=== PATIENT | male | born 1965 | race Caucasian/White ===

== ENCOUNTER 2018-10-27 16:03 | Emergency (ER) | payer MEDICAID, SELFPAY ==
[2018-10-27] VITALS (14 sets, daily range): BP systolic 114–160; BP diastolic 76–106; PULSE 67–81; RESP 16–26; TEMP 36.6; O2SAT 93–97
--- NOTE | 2018-10-27 16:11 | DI.RAD_ITS ---
SYMPTOM/DIAGNOSIS: CHEST PAIN, R/O ACUTE DISEASE PA AND LATERAL CHEST: 10/27 The heart is at the upper limits of normal in size. The lungs are generally clear with a truong linear radiodensity in right middle lobe consistent with area of scarring or atelectasis. No pleural effusion seen. CONCLUSION: No evidence of acute process.
--- NOTE | 2018-10-27 16:16 | ED.GENADUL_ITS ---
Discharge Plan Disposition Patient Disposition: HOME Condition: Improving Discharge Details Chief Complaint: Chest Pain Clinical Impression: Chest wall pain, Chronic chest pain Primary Care Provider: Malvin Machuca ED Provider: Kristin Carl Home Meds and New Rx's Prescriptions: New lidocaine [Lidoderm] 5 % adhesive patch,medicated 1 patch TP DAILY Qty: 15 RF: 0 Continued aspirin 81 mg Tablet,Delayed Release (Dr/Ec) 81 mg PO DAILY RF: 0 lisinopril 10 mg Tablet 10 mg PO DAILY RF: 0 montelukast [Singulair] 10 mg Tablet 10 mg PO QHS RF: 0 Flovent HFA 110 mcg/actuation Hfa Aerosol Inhaler 2 puff INHALATION BID RF: 0 acetylcysteine [NAC] 600 mg Capsule 600 mg PO DAILY RF: 0 Discharge Instructions Instructions: Chronic Pain (ED), Chest Wall Pain (ED) Additional Instructions: Alternate ice and heat to the affected area several times daily for 20 minutes at a time. Alternate Tylenol and Motrin as needed and directed for pain. Use the Lidoderm patch as directed. Call your primary care doctor tomorrow to schedule follow-up appointment for reevaluation. Return immediately to the emergency department if you develop any worsening or new concerning symptoms. Discharge Data Discharge Physician: Kristin Carl Medical Decision Making 1610 -- 53-year-old male with a history of asthma, who presents with left-sided chest pain and intermittent shortness of breath for the past 10 days. Blood pressure mildly hypertensive, remainder vitals within normal limits. EKG notes a rate of 74, sinus, T wave inversion in lead III. No acute ST ischemic changes. Patient has localized tenderness to palpation of his left anterior and inferior axillary region which could be musculoskeletal chest wall pain. He does admit to recent travel last week approximately 3 hours in the car and has occasional shortness of breath but with normal oxygen saturation, heart rate and respiratory rate. Differential diagnosis includes chest wall pain, ACS, PE. Denies tearing sensation and pain present for 1 week so doubt dissection. Will place an IV, give bolus IV Fluids Place, Lidoderm patch, Toradol, screening labs as well as chest x-ray. Labs and imaging reviewed. Normal troponin. D-dimer 2244. Patient later stated that he had a right calf injury a few weeks ago which he popped a muscle and had ecchymosis and edema for several days before his chest pain started. A CT chest to rule out PE ordered. Patient refused the Toradol as he later states that he had Motrin 1 hour ago. Chest x-ray noted a atelectasis underscore in the right middle lobe. CT chest negative for PE but notes again scar right middle lobe as well as mild bilateral lung groundglass opacities, nonspecific. Patient has no report of fever, cough, normal white blood cell count, normal oxygen saturation, respiratory rate and heart rate so doubt pneumonia or infectious process. 1810 -- patient feels much better and is requesting to go home. As patient's pain has been present for 10 days and is tender to touch, discussed that this most likely could be musculoskeletal chest pain. He is advised to alternate ice and heat, Tylenol Motrin and will send home with prescription for Lidoderm patch. He was informed of his CT results and advised to follow-up with his primary care doctor for reevaluation and for referral for additional imaging if indicated. Medical Records Medical records reviewed: Yes I reviewed the patient's medical records. Imaging Data Radiologic Study: Radiologist's impression: XR Chest, 2 Views EXAM DATE/TIME: 10/27/2018 4:12 PM CLINICAL HISTORY: 53 years old, male; Other: Left sided chest pain, worsening pain today TECHNIQUE: Imaging protocol: XR of the chest Views: 2 views. COMPARISON: No relevant prior studies available. FINDINGS: Lungs: Horizontal density within the right middle lobe, consistent with atelectasis and/or scar. The lungs are otherwise clear. No pulmonary consolidation. Pleural space: Unremarkable. No pleural effusion. No pneumothorax. Heart/Mediastinum: Unremarkable. No cardiomegaly. Bones/joints: Unremarkable. IMPRESSION: Atelectasis and/or scar in the right middle lobe. CT Angiography Chest With Contrast EXAM DATE/TIME: 10/27/2018 4:59 PM CLINICAL HISTORY: 53 years old, male; Other: L sided chest pain, R/O pe TECHNIQUE: Imaging protocol: Computed tomographic angiography of the chest with intravenous contrast. 3D rendering: MIP reconstructed images were created and reviewed. Radiation optimization: All CT scans at this facility use at least one of these dose optimization techniques: automated exposure control; mA and/or kV adjustment per patient size (includes targeted exams where dose is matched to clinical indication); or iterative reconstruction. Contrast material: OMNIPAQUE 350; Contrast volume: 100 ml; Contrast route: IV; COMPARISON: CR XR CHEST 2V PA LATERAL 10/27/2018 4:29 PM FINDINGS: Pulmonary arteries: Normal. No pulmonary emboli. Aorta: Unremarkable. No aortic aneurysm. No aortic dissection. Lungs: Mild linear atelectasis and/or scar is present within the right middle lobe. There are mild groundglass opacities within both lungs. Differential diagnosis includes edema, infection, and other nonspecific interstitial processes. No milagros pulmonary consolidation. Pleural space: Unremarkable. No pneumothorax. No pleural effusion. Heart: Unremarkable. No cardiomegaly. No pericardial effusion. Lymph nodes: Unremarkable. No enlarged lymph nodes. Bones/joints: Degenerative spondylosis of the thoracic spine. No fracture or suspicious bone lesion. Soft tissues: Unremarkable. IMPRESSION: 1. No pulmonary arterial embolism. 2. Linear atelectasis and/or scar in the right middle lobe. 3. Mild bilateral lung groundglass opacities, nonspecific. Lab Data Lab results reviewed: Yes I reviewed the patient's lab results. Laboratory Tests Range/Units 10/27/18 10/27/18 10/27/18 16:05 16:05 16:05 WBC (4.4-10.8) k/cumm 7.52 RBC (4.50-6.00) m/cumm 5.28 Hgb (13.5-17.5) g/dL 15.2 Hct (40.0-50.0) % 46.2 MCV (80-95) fL 87.5 MCH (27.0-33.0) pg 28.8 MCHC (32.0-36.0) g/dL 32.9 RDW (11.8-14.1) % 13.2 Plt Count (130-400) x1000/uL 269 MPV (8.0-11.0) fL 10.4 Immature Gran % 0.3 Neutrophils % 59.3 Lymphocytes % 26.6 Monocytes % 9.6 Eosinophils % 3.7 Basophils % 0.5 Absolute Neutrophils (1.2-6.7) k/cumm 4.46 Absolute Lymphocytes (1.2-3.4) k/cumm 2.00 Absolute Monocytes (0.11-0.7) k/cumm 0.72 H Absolute Eosinophils (0.0-0.7) k/cumm 0.28 Absolute Basophils (0.0-0.2) k/cumm 0.04 D-Dimer (<500) ng/mlFEU 2244 H Sodium (136-145) mmol/L 144 Potassium (3.5-5.1) mmol/L 4.0 Chloride (98-107) mmol/L 106 Carbon Dioxide (21.0-32.0) mmol/L 28.8 Anion Gap (3-11) mmol/L 9.2 BUN (7-18) mg/dL 16 Creatinine (0.70-1.30) mg/dL 1.23 Estimated GFR/1.73 m2 (mL/min/1.73m2) >= 60.00 Glucose (70-100) mg/dL 113 H Calcium (8.5-10.1) mg/dL 8.7 Magnesium (1.8-2.4) mg/dL 1.8 Total Bilirubin (0.2-1.0) mg/dL 0.2 AST (15-37) U/L 18 ALT (16-63) U/L 43 Alkaline Phosphatase (46-116) U/L 70 Troponin I (0.00-0.06) ng/mL < 0.05 Total Protein (6.4-8.2) g/dL 7.8 Albumin (3.4-5.0) g/dL 3.9 Lipase (73-393) U/L 246 ECG Data Attestation: I personally reviewed and interpreted this ECG (s) as follows: Interpretation: Rate of 74, sinus, T wave inversion in lead III. No acute ST elevation or depression. HI 176. QTc 395. QRS 94. HPI General Mode of arrival: ambulatory . Date/Time Provider Initiated Documentation: 10/27/18 16:05 . Limitations to Documentation: no limitations . Information obtained by: patient . HPI Narrative: Patient is a 53-year-old male with a history of asthma who presents with left-sided chest pain for the past 10 days. Patient describes the pain as constant, alternating between burning and sharp 2/10 at its best and 7/10 at its worse. Denies any aggravating or alleviating factors. He states he took ibuprofen 1 hour ago. He admits to intermittent shortness of breath but denies any at present. He denies any fever, cough, nausea, vomiting or dizziness. He states he does a lot around the house but denies any known injury. He admits to traveling to [place] on October 21 for a wedding approximately 3 hours in the car. He denies any leg pain or swelling or recent surgeries. Patient later related that he has had right-sided lower leg pain after an injury a few weeks ago. Patient states he was pushing a cart up a hill when he popped a calf muscle. He developed right leg swelling and bruising that has since improved. He states after this occurred, he developed chest pain approximately 10 days ago. Related Data Home Medications Medication Instructions Recorded Confirmed Flovent HFA 2 puff INHALATION BID 10/27/18 10/27/18 acetylcysteine [NAC] 600 mg PO DAILY 10/27/18 10/27/18 aspirin 81 mg PO DAILY 10/27/18 10/27/18 lidocaine [Lidoderm] 1 patch TP DAILY #15 each 10/27/18 lisinopril 10 mg PO DAILY 10/27/18 10/27/18 montelukast [Singulair] 10 mg PO QHS 10/27/18 10/27/18 Previous Rx's Medication Instructions Recorded lidocaine [Lidoderm] 1 patch TP DAILY #15 each 10/27/18 Allergies Allergy/AdvReac Type Severity Reaction Status Date / Time No Known Allergies Allergy Unverified 10/27/18 16:12 General Stated Complaint: Chest Pain AMA: 2 Review of Systems Review of Systems All systems reviewed & are unremarkable except as noted in HPI and below Constitutional Reports as per HPI, Denies chills and Denies fever(s) Eyes Denies blurry vision ENT Denies dizziness, Denies sore throat and Denies throat swelling Cardiovascular Reports chest pain and Denies dyspnea Respiratory Denies cough and Denies dyspnea Gastrointestinal Denies abdominal pain, Denies diarrhea and Denies vomiting Genitourinary Denies hematuria and Denies dysuria Musculoskeletal Denies back pain and Denies numbness Integumentary/Breasts Denies lesions and Denies rash Neurologic Denies dizziness, Denies focal weakness and Denies numbness Allergic/Immunologic Denies throat swelling [facility] Medical History Asthma (Chronic) Surgical History History of hernia repair (Chronic) History of sinus surgery (Acute) Social History Smoking/Tobacco Use Status: Never Alcohol Intake: current Alcohol Intake frequency: a few times a week Alcohol type: wine Drug use: Never Substance use type: does not use Do you feel safe at home: Yes Do you feel safe in your relationship?: Yes Exam Const General: cooperative, healthy appearing and no acute distress HENMT Head: normal to inspection Face and sinus: normal facial exam Eyes General: appearance normal, both eyes and all related structures EOM: EOM intact bilaterally Neck Neck: normal visual inspection and No submandibular swelling Lymphatic: no lymphadenopathy noted Chest Chest: normal inspection of the chest Chest/axillae images: 1. Localized area of tenderness L lateral chest. No evidence of erythema, ecchymoses, open wounds or rash. Resp Effort & Inspection: normal respiratory effort and able to speak in complete sentences Auscultation: clear to auscultation bilaterally Cardio Rate: regular rate Rhythm: regular rhythm GI Inspection: normal to inspection and obesity Palpation: soft, not firm, not rigid and nontender Auscultation: normal bowel sounds Male General Exam: Yes normal external exam Skin General skin exam: no rashes or lesions noted Neuro General: alert, awake and oriented x3 Cognition: normal cognition Speech: speech normal Motor: muscle tone normal throughout Sensory Exam: no sensory deficits noted Extrem General: normal to inspection, full ROM, normal capillary refill, no calf tenderness bilaterally and no edema Psych Appearance: grossly normal Mental Status: mental status grossly normal Speech and Movement: speech and movement normal Affect: normal affect Course Vital Signs Temperature 97.9 F 10/27/18 16:05 Pulse 75 10/27/18 16:05 Respiratory Rate 10/27/18 16:05 Blood Pressure 160/98 H 10/27/18 16:05 Pulse Oximetry 95 10/27/18 16:05 Temperature 97.9 F 10/27/18 16:05 Temperature Source Temporal Artery Scan 10/27/18 16:05 Pulse 75 10/27/18 16:05 Respiratory Rate 10/27/18 16:05 Respiratory Effort Non-Labored 10/27/18 16:10 Blood Pressure 160/98 H 10/27/18 16:05 Blood Pressure Position Supine 10/27/18 16:05 Pulse Oximetry 95 10/27/18 16:05 Oxygen Delivery Method Room Air 10/27/18 16:05 Oxygen Flow Rate 0 10/27/18 16:05 Pain Level 6 10/27/18 16:05
[2018-10-27 16:30] LABS: Abs Immature Grans 0.02 k/cumm (0.0-0.09); Absolute Basophil Count 0.04 k/cumm (0.0-0.2); Absolute Eosinophil Count 0.28 k/cumm (0.0-0.7); Absolute Monocyte Count 0.72 k/cumm (0.11-0.7); Absolute Neutrophil Count 4.46 k/cumm (1.2-6.7); Basophils % 0.5; Eosinophils % 3.7; HCT 46.2 % (40.0-50.0); HGB 15.2 g/dL (13.5-17.5); Immature Grans % 0.3; Lymphocytes % 26.6; Mean Corp. HGB Concentration 32.9 g/dL (32.0-36.0); Mean Corpuscular Hemoglobin 28.8 pg (27.0-33.0); Mean Corpuscular Volume 87.5 fL (80-95); Mean Platelet Volume 10.4 fL (8.0-11.0); Monocytes % 9.6; Neutrophils % 59.3; Platelet Count 269 x1000/uL (130-400); RBC 5.28 m/cumm (4.50-6.00); RBC Distribution Width 13.2 % (11.8-14.1); White Blood Cell Count 7.52 k/cumm (4.4-10.8)
[2018-10-27] MEDS: Normal Saline 500 ML IV (16:37)
[2018-10-27] MEDS: Lidocaine 5% Patch 1 PATCH TP (16:37)
[2018-10-27 16:42] LABS: ALT 43 U/L (16-63); AST 18 U/L (15-37); Albumin 3.9 g/dL (3.4-5.0); Alkaline Phosphatase 70 U/L (46-116); Anion Gap 9.2 mmol/L (3-11); BUN 16 mg/dL (7-18); Bilirubin, Total 0.2 mg/dL (0.2-1.0); CO2 28.8 mmol/L (21.0-32.0); CREATININE 1.23 mg/dL (0.70-1.30); Calcium 8.7 mg/dL (8.5-10.1); Chloride 106 mmol/L (98-107); Glucose 113 mg/dL (70-100); Lipase 246 U/L (73-393); Magnesium 1.8 mg/dL (1.8-2.4); Sodium 144 mmol/L (136-145); Total Protein 7.8 g/dL (6.4-8.2)
[2018-10-27 16:43] LABS: Troponin I < 0.05 ng/mL (0.00-0.06)
--- NOTE | 2018-10-27 16:43 | DI.VRAD_ITS ---
EXAM: XR Chest, 2 Views EXAM DATE/TIME: 10/27/2018 4:12 PM CLINICAL HISTORY: 53 years old, male; Other: Left sided chest pain, worsening pain today TECHNIQUE: Imaging protocol: XR of the chest Views: 2 views. COMPARISON: No relevant prior studies available. FINDINGS: Lungs: Horizontal density within the right middle lobe, consistent with atelectasis and/or scar. The lungs are otherwise clear. No pulmonary consolidation. Pleural space: Unremarkable. No pleural effusion. No pneumothorax. Heart/Mediastinum: Unremarkable. No cardiomegaly. Bones/joints: Unremarkable. IMPRESSION: Atelectasis and/or scar in the right middle lobe. Dictated and Authenticated by: Braydon Yin MD. Ordering:CANDELARIO Foster MD
[2018-10-27 16:58] LABS: D-Dimer 2244 ng/mlFEU (<500)
--- NOTE | 2018-10-27 16:58 | DI.CT_ITS ---
SYMPTOM/DIAGNOSIS LEFT SIDED CHEST PAIN, R/O PE CT ANGIOGRAPHY CHEST: 10/27 CT angiography was performed with multi slice acquisition and multi planar and 3D reconstruction. CT angiography of the chest was performed with a bolus infusion of 100 cc Omnipaque 350. Images obtained through the upper abdomen show unremarkable appearance of visualized portions of liver, spleen, pancreas and adrenals. There is no evidence of pulmonary embolic disease. No thoracic, aortic abnormalities seen. No pleural effusion. The lungs are predominantly clear with a small area of linear scarring or atelectasis in right middle lobe and mild mosaic attenuation/ground glass opacities which has a nonspecific appearance. Tracheobronchial tree appears intact. No mediastinal or hilar adenopathy. CONCLUSION: No evidence of pulmonary embolic disease. Question mosaic attenuation vs mild ground glass opacities, nonspecific appearance.
[2018-10-27] MEDS: Omnipaque 350 MG/ML 100 ML BTL IJ (17:15)
[2018-10-27] MEDS: Normal Saline Flush 10 ML SYR IVP (17:16)
--- NOTE | 2018-10-27 17:45 | DI.VRAD_ITS ---
EXAM: CT Angiography Chest With Contrast EXAM DATE/TIME: 10/27/2018 4:59 PM CLINICAL HISTORY: 53 years old, male; Other: L sided chest pain, R/O pe TECHNIQUE: Imaging protocol: Computed tomographic angiography of the chest with intravenous contrast. 3D rendering: MIP reconstructed images were created and reviewed. Radiation optimization: All CT scans at this facility use at least one of these dose optimization techniques: automated exposure control; mA and/or kV adjustment per patient size (includes targeted exams where dose is matched to clinical indication); or iterative reconstruction. Contrast material: OMNIPAQUE 350; Contrast volume: 100 ml; Contrast route: IV; COMPARISON: CR XR CHEST 2V PA LATERAL 10/27/2018 4:29 PM FINDINGS: Pulmonary arteries: Normal. No pulmonary emboli. Aorta: Unremarkable. No aortic aneurysm. No aortic dissection. Lungs: Mild linear atelectasis and/or scar is present within the right middle lobe. There are mild groundglass opacities within both lungs. Differential diagnosis includes edema, infection, and other nonspecific interstitial processes. No milagros pulmonary consolidation. Pleural space: Unremarkable. No pneumothorax. No pleural effusion. Heart: Unremarkable. No cardiomegaly. No pericardial effusion. Lymph nodes: Unremarkable. No enlarged lymph nodes. Bones/joints: Degenerative spondylosis of the thoracic spine. No fracture or suspicious bone lesion. Soft tissues: Unremarkable. IMPRESSION: 1. No pulmonary arterial embolism. 2. Linear atelectasis and/or scar in the right middle lobe. 3. Mild bilateral lung groundglass opacities, nonspecific. Dictated and Authenticated by: Braydon Yin MD. Ordering:CANDELARIO Foster MD
== END 2018-10-27 18:28 | disposition home or self-care (01) ==
PROVIDERS: Emergency Provider Physician Assistant; PCP Nurse Practitioner Family
DX: R07.81 Pleurodynia (principal); R06.02 Shortness of breath; S86.101A Unspecified injury of other muscle(s) and tendon(s) of posterior muscle group at lower leg level, right leg, initial encounter; X50.0XXA Overexertion from strenuous movement or load, initial encounter; R03.0 Elevated blood-pressure reading, without diagnosis of hypertension; G89.29 Other chronic pain
CPT/HCPCS: 36415; 71275; 80053; 83690; 93005; 96361; 96374; 99285; 71046; 83735; 84484; 85025; 85379; 93010; J3490

== ENCOUNTER 2019-02-21 18:39 | Outpatient (REF) | payer OTHER, SELFPAY ==
[2019-02-21 18:46] LABS: HCT 44.8 % (40.0-50.0); HGB 14.5 g/dL (13.5-17.5); Mean Corp. HGB Concentration 32.4 g/dL (32.0-36.0); Mean Corpuscular Hemoglobin 28.6 pg (27.0-33.0); Mean Corpuscular Volume 88.4 fL (80-95); Mean Platelet Volume 10.7 fL (8.0-11.0); Platelet Count 348 x1000/uL (130-400); RBC 5.07 m/cumm (4.50-6.00); RBC Distribution Width 13.2 % (11.8-14.1); White Blood Cell Count 7.57 k/cumm (4.4-10.8)
[2019-02-21 19:04] LABS: PROTEIN 10.9 mg/dL
[2019-02-21 19:07] LABS: COMMENT (LAB VIEW ONLY) 139.79 mg/dL; Microalb ug/mg Crea 2.9 ug/mg Cr
[2019-02-21 19:17] LABS: ALT 38 U/L (16-63); AST 22 U/L (15-37); Albumin 3.8 g/dL (3.4-5.0); Alkaline Phosphatase 72 U/L (46-116); Anion Gap 8.7 mmol/L (3-11); BUN 16 mg/dL (7-18); Bilirubin, Total 0.3 mg/dL (0.2-1.0); CO2 28.3 mmol/L (21.0-32.0); CREATININE 0.94 mg/dL (0.70-1.30); Calcium 9.1 mg/dL (8.5-10.1); Chloride 105 mmol/L (98-107); Glucose 88 mg/dL (74-106); Potassium 4.6 mmol/L (3.5-5.1); Sodium 142 mmol/L (136-145)
[2019-02-21 19:33] LABS: Prot/Crea Ur Ratio 0.07
[2019-02-21 20:19] LABS: Calculated LDL 83 mg/dL; Cholesterol 157 mg/dL (<200); HDL Cholesterol 49 mg/dL (40-60); Triglyceride 129 mg/dL (<150); Vitamin B12 735 pg/mL (193-986)
== END 2019-02-21 18:59 ==
LOC: NCHCN 18:39
PROVIDERS: PCP Nurse Practitioner Family; Visit Provider Nurse Practitioner Family
DX: I10 Essential (primary) hypertension (principal); I25.10 Atherosclerotic heart disease of native coronary artery without angina pectoris
CPT/HCPCS: 80053; 80061; 85027; 82043; 82565; 82570; 82607; 84156

== ENCOUNTER 2019-08-29 14:42 | Outpatient (REF) | payer OTHER, SELFPAY ==
[2019-08-29 18:41] LABS: ALT 38 U/L (16-63); AST 22 U/L (15-37); Albumin 4.3 g/dL (3.4-5.0); Alkaline Phosphatase 67 U/L (46-116); Anion Gap 8.2 mmol/L (3-11); BUN 21 mg/dL (7-18); Bilirubin, Total 0.4 mg/dL (0.2-1.0); CO2 28.8 mmol/L (21.0-32.0); CREATININE 1.03 mg/dL (0.70-1.30); Calcium 9.5 mg/dL (8.5-10.1); Calculated LDL 83 mg/dL (<100); Chloride 104 mmol/L (98-107); Cholesterol 165 mg/dL (<200); Glucose 92 mg/dL (74-106); HDL Cholesterol 56 mg/dL (40-60); Potassium 4.6 mmol/L (3.5-5.1); Sodium 141 mmol/L (136-145); TSH (W/Ref FT4) 1.86 uIU/mL (0.36-3.74); Total Protein 7.2 g/dL (6.4-8.2); Triglyceride 131 mg/dL (<150)
== END 2019-08-29 15:02 ==
LOC: NCHCN 14:42
PROVIDERS: PCP Nurse Practitioner Family; Visit Provider Nurse Practitioner Family
DX: I10 Essential (primary) hypertension (principal); I25.10 Atherosclerotic heart disease of native coronary artery without angina pectoris; R41.3 Other amnesia
CPT/HCPCS: 80053; 80061; 84443

== ENCOUNTER 2019-10-03 01:32 | Outpatient (CLI) | payer OTHER, SELFPAY ==
--- NOTE | 2019-10-03 | DI.US_ITS ---
EXAM: US SCROTUM CLINICAL HISTORY: F/U ABNL US, R93.811, HYPERECHOIC AREA. TECHNIQUE: Scrotal ultrasound performed using grayscale, color-flow and spectral Doppler analysis. COMPARISON: US RAD US SCROTUM WITH LIMITED DOPPLER from 08/31/2014 FINDINGS: Right testicle: 0.2 x 3.1 x 3.3 cm Echogenicity: Normal. Contour: Smooth. Mass: 3 echogenic areas are again seen in the right testicle. The largest measures 0.3 cm. These ar e unchanged compared to the prior examination. Microlithiasis: None. Hydrocele: There is a right hydrocele measuring 5.1 x 1.6 x 5.3 cm. Variocele: None. Hernia: No peristalsing bowel loop identified. Epididymis: Normal. Left testicle: 4 x 2.6 x 3.3 cm Echogenicity: Normal. Contour: Smooth. Mass: None seen. Microlithiasis: None. Hydrocele: None. Variocele: Left varicocele present. Hernia: No peristalsing bowel loop identified. Epididymis: 1 cm simple left epididymal head cyst. DOPPLER: Color: Symmetric and uniform, no hyperemia. Duplex: Bilateral testicular arterial waveforms visualized. IMPRESSION: Stable echogenic lesions in the right testicle. DATA REPOSITORY:
== END 2019-10-03 01:52 ==
PROVIDERS: PCP Nurse Practitioner Family; Visit Provider Nurse Practitioner Family
DX: R93.811 Abnormal radiologic findings on diagnostic imaging of right testicle (principal)
CPT/HCPCS: 76870

== ENCOUNTER 2020-04-29 17:06 | Outpatient (CLI) | payer OTHER, SELFPAY ==
--- NOTE | 2020-04-29 17:00 | RT.EKG_ITS ---
APPROVED REPORT Exam: Resting ECG Patient Location: O HR:87 bpm ECG Measurements Heart Rate 87 AXIS SD 196 P 35 QRSd 89 QRS 56 QT 345 T 8 QTc 416 Conclusion Sinus rhythm...normal P axis, V-rate 60- 99
== END 2020-04-29 17:07 | disposition home or self-care (01) ==
LOC: DI.CM 17:07
PROVIDERS: PCP Nurse Practitioner Family; Visit Provider Nurse Practitioner Family
DX: R07.9 Chest pain, unspecified (principal); R42 Dizziness and giddiness; I10 Essential (primary) hypertension; E66.09 Other obesity due to excess calories
CPT/HCPCS: 93010

== ENCOUNTER 2020-04-29 17:39 | Emergency (ER) | payer OTHER, SELFPAY ==
[2020-04-29] VITALS (33 sets, daily range): BP systolic 120–154; BP diastolic 79–99; PULSE 68–90; RESP 14–24; TEMP 36.7–37; O2SAT 96–99
--- NOTE | 2020-04-29 17:30 | RT.EKG_ITS ---
APPROVED REPORT Exam: Resting ECG Patient Location: E HR:80 bpm ECG Measurements Heart Rate 80 AXIS RI 198 P 48 QRSd 91 QRS 69 QT 356 T 25 QTc 411 Conclusion Sinus rhythm. No ST elevation
--- NOTE | 2020-04-29 18:00 | DI.RAD_ITS ---
EXAM: XR CHEST 2V PA LATERAL CLINICAL HISTORY: L anterior chest pain TECHNIQUE: 2D digital imaging was performed. COMPARISON: CR XR CHEST 2V PA LATERAL from 10/27/2018 FINDINGS: MEDIASTINUM: Normal. HEART: Normal. PULMONARY VASCULATURE: Normal. LUNGS: Clear. PLEURAL SPACE: No pleural effusion or pneumothorax. BONE:Within normal limits for the patient's age. OTHER FINDINGS:Normal. IMPRESSION: No acute pulmonary findings. DATA REPOSITORY: RADIATION DOSE DELIVERED:
--- NOTE | 2020-04-29 18:14 | ED.GENADUL_ITS ---
Discharge Plan Disposition Patient Disposition: HOME Condition: Improving Discharge Details Clinical Impression: Left-sided chest pain Primary Care Provider: Malvin Machuca ED Provider: Alcides Antoine Home Meds and New Rx's Prescriptions: Continued aspirin 81 mg Tablet,Delayed Release (Dr/Ec) 81 mg PO DAILY RF: 0 lisinopril 10 mg Tablet 10 mg PO DAILY RF: 0 montelukast [Singulair] 10 mg Tablet 10 mg PO QHS RF: 0 Flovent HFA 110 mcg/actuation Hfa Aerosol Inhaler 2 puff INHALATION BID RF: 0 acetylcysteine [NAC] 600 mg Capsule 600 mg PO DAILY RF: 0 Discharge Instructions Instructions: Chest Pain (ED) Additional Instructions: As we discussed, you may have Tylenol and/or ibuprofen as needed for discomfort. I recommend you not lift heavy objects for 2 to 3 days time to give yourself some recovery. We will arrange an outpatient stress test for you. Return if you develop increasing chest pain, difficulty breathing, or any other acute concerns Continue your regularly prescribed medications. Medical Decision Making Pleasant 55-year-old male presents with 7 to 10 days of left anterior chest pain that feels achy and constant. Questions whether it is due to overuse at work. He has a history of asthma and has had some mild shortness of breath. No cough. No weight gain or swelling. He initially is slightly hypertensive and then corrects the blood pressure 131/87, pulse 71, 98% sat on room air. Exam is reassuring. Given diagnosis includes muscular strain, angina, ACS. IV access established, screening labs obtained, patient placed on property assessment monitor and referred for laboratory testing and chest x-ray. Patient presented of approximately 3 hours time. Troponin was negative x2, chest x-ray unremarkable, remainder of his labs reassuring. He was given 50 mg of Toradol with mild improvement. Discussed with him that I will arrange for an outpatient stress test. He understands to return for recurrent or escalating chest pain, difficulty breathing, or any other acute concerns. HPI General Mode of arrival: ambulatory . Date/Time Provider Initiated Documentation: 04/29/20 17:40 . Limitations to Documentation: no limitations . Information obtained by: patient . History of Present Illness 55 year old M presents to the emergency department with the chief complaint of Left chest pain for 7 to 10 days time, described as moderate, Quality is described as dull, and is localized to the chest and left. Patient reports no radiation. Patient started experiencing this day(s) and it has been constant. Movement improves symptom(s), Rest worsens symptoms . Patient notes shortness of breath; denies cough, rash and syncope. Patient did receive the following treatments prior to arrival, none Related Data Home Medications Medication Instructions Recorded Confirmed Flovent HFA 2 puff INHALATION BID 10/27/18 04/29/20 acetylcysteine [NAC] 600 mg PO DAILY 10/27/18 04/29/20 aspirin 81 mg PO DAILY 10/27/18 04/29/20 lisinopril 10 mg PO DAILY 10/27/18 04/29/20 montelukast [Singulair] 10 mg PO QHS 10/27/18 04/29/20 Allergies Allergy/AdvReac Type Severity Reaction Status Date / Time No Known Allergies Allergy Unverified 04/29/20 17:49 General Stated Complaint: Chest Pain AMA: 2 Review of Systems Narrative: 6 systems reviewed and otherwise negative. No rash. No recent illness. [facility] Medical History (Updated 04/29/20 @ 20:27 by Alcides Antoine MD) Asthma Surgical History History of hernia repair History of sinus surgery Social History Smoking/Tobacco Use Status: Never Smoking risk assessment performed?: Yes Alcohol Intake: current Alcohol Intake frequency: a few times a week Alcohol type: wine Drug use: Never Substance use type: does not use Do you feel safe at home: Yes Do you feel safe in your relationship?: Yes Exam Narrative Exam Narrative: GEN: awake, alert, oriented 3. Pleasant, well groomed, interactive. HEAD: Normocephalic, atraumatic ENT: Mucous membranes moist, oropharynx unremarkable, External ear exam unremarkable EYES: PERRL, EOMI NECK: Full ROM, no YUSEF, no menigismus CHEST/RESP: Nontender, clear to auscultation bilateral, no wheeze/rhonchi/rales CARDIOVASCULAR: RRR, no murmur, rub lenin. 2+ Rad pulse bilateral ABDOMEN: Soft, nontender, no mass. +Bowel sounds EXT: Full ROM, no edema, no rash Neuro: Grossly normal neurologic exam, conversant, interactive. Psych: Speech fluent, thoughts congruent, affect normal Course Vital Signs Vital signs: Vital Signs Temperature 37 C 04/29/20 17:43 Pulse 81 04/29/20 17:43 Respiratory Rate 18 04/29/20 17:43 Blood Pressure 154/91 H 04/29/20 17:43 Pulse Oximetry 98 04/29/20 17:43 Temperature 37 C 04/29/20 17:43 Temperature Source Temporal Artery Scan 04/29/20 17:43 Pulse 83 04/29/20 18:00 Pulse 83 04/29/20 18:01 Respiratory Rate 21 04/29/20 18:01 Respiratory Effort Non-Labored 04/29/20 17:49 Respiratory Depth Normal 04/29/20 17:49 Respiratory Pattern Normal 04/29/20 17:49 Blood Pressure 146/99 H 04/29/20 18:00 Blood Pressure Mean 109 04/29/20 18:00 Blood Pressure Position Sitting 04/29/20 17:43 Pulse Oximetry 99 04/29/20 18:01 Oxygen Delivery Method Room Air 04/29/20 17:43 Oxygen Flow Rate 0 04/29/20 17:43 Pain Level 5 04/29/20 17:49
[2020-04-29 18:25] LABS: Abs Immature Grans 0.02 10^3/uL (0.0-0.06); Absolute Basophil Count 0.08 10^3/uL (0.0-0.2); Absolute Eosinophil Count 0.36 10^3/uL (0.0-0.7); Absolute Lymphocyte Count 2.33 10^3/uL (1.2-3.4); Absolute Monocyte Count 0.63 10^3/uL (0.1-0.8); Absolute Neutrophil Count 5.46 10^3/uL (1.2-6.7); Basophils % 0.9; Eosinophils % 4.1; HCT 48.1 % (40.0-50.0); HGB 15.8 g/dL (13.5-17.5); Immature Grans % 0.2; Lymphocytes % 26.2; MCH 29.9 pg (27.0-33.0); MCHC 32.8 % (32.0-36.0); MCV 90.9 fL (80-95); MPV 10.2 fL (8.0-11.0); Monocytes % 7.1; Neutrophils % 61.5; Nucleated RBC 0 %; Platelet Count 295 10^3/uL (130-400); RBC 5.29 10^6/uL (4.36-5.78); RDW-SD 39.8 fL; WBC 8.88 10^3/uL (4.4-10.8)
[2020-04-29 18:47] LABS: ALT 50 U/L (16-63); AST 22 U/L (15-37); Alkaline Phosphatase 81 U/L (46-116); Anion Gap 7.8 mmol/L (3-11); BUN 21 mg/dL (7-18); Bilirubin, Total 0.3 mg/dL (0.2-1.0); CO2 31.2 mmol/L (21.0-32.0); CREATININE 1.1 mg/dL (0.70-1.30); Calcium 9.2 mg/dL (8.5-10.1); Chloride 101 mmol/L (98-107); Glucose 104 mg/dL (74-106); Magnesium 2.3 mg/dL (1.8-2.4); Potassium 3.9 mmol/L (3.5-5.1); Sodium 140 mmol/L (136-145)
[2020-04-29 18:48] LABS: Troponin I < 0.05 ng/mL (<0.06)
[2020-04-29] MEDS: Ketorolac 15 MG/ML VIAL IVP (18:55)
--- NOTE | 2020-04-29 19:08 | DI.VRAD_ITS ---
PROCEDURE INFORMATION: Exam: XR Chest Exam date and time: 04/29/2020 6:52 PM Age: 55 years old Clinical indication: Left-sided chest pain; Patient HX: Upper left chest pain TECHNIQUE: Imaging protocol: XR of the chest Views: 2 views. COMPARISON: CR XR CHEST 2V PA LATERAL 10/27/2018 4:29 PM FINDINGS: Lungs: Clear lungs. Pleural spaces: No pneumothorax. No sizable pleural effusion. Heart/Mediastinum: No cardiomegaly. Bones/joints: Unremarkable. IMPRESSION: Clear lungs. Dictated and Authenticated by: Paramjit Jeffries MD. Ordering:DAI Mcgrath MD
[2020-04-29 19:14] LABS: D-Dimer 492 ng/mlFEU (<500)
[2020-04-29 20:16] LABS: Troponin I < 0.05 ng/mL (<0.06)
[2020-04-30 12:19] LABS: COVID-19 PCR Negative (Negative)
--- NOTE | 2020-05-01 07:34 | NUR.NOTE ---
Nursing Note: mESSAGE LEFT FOR PT TO CALL FOR RESULT.
--- NOTE | 2020-05-01 09:10 | NUR.NOTE ---
Nursing Note: Negative Covid result given. Verbalizes understanding.
== END 2020-04-29 20:45 | disposition home or self-care (01) ==
PROVIDERS: Emergency Provider Emergency Medicine; PCP Nurse Practitioner Family
DX: R07.9 Chest pain, unspecified (principal); Z20.828 Contact with and (suspected) exposure to other viral communicable diseases
CPT/HCPCS: 80053; 93005; 96374; 99284; 71046; 83735; 84484; 85025; 85379; 93010; 99283; J1885

== ENCOUNTER 2020-05-13 02:02 | Outpatient (CLI) | payer OTHER, SELFPAY ==
--- NOTE | 2020-05-13 09:00 | ETT_ITS ---
APPROVED REPORT Exam: Exercise Treadmill Patient Location: Out-Patient Room/Bed: Stress Nurse: Leilani Yin RN Ordering Provider:MALDONADO ELIZABETH, Contact Number: [phone] BMI: 36.33 Baseline Rhythm: Sinus Rhythm Comment: ST elevation leads II, AVF, V2-V6 Indications: Chest pain Medical History Medical History: Hypertension, asthma, obesity Cardiac Medications: lisinopril, aspirin, magnesium Allergies: NKA Cardiac Risk Factors: Hypertension, asthma, obesity, family hx Previous Cardiac Procedures: None Pretest Chest Pain Characteristics: achey L side chest pain / Exercise History: Sedentary Physical Disabilities: None Lung Sounds: Clear to auscultation Heart Sounds: Regular Stress Test Details Test: Exercise stress testing was performed using a Rehan protocol. Rest Stress HR Resting HR Supine: 64 bpm Max Heart Rate (APMHR): 164 bpm Resting HR Standin bpm Target HR (85% APMHR): 139 bpm Max HR Achieved: 160 bpm % of APMHR: 97 Recovery HR: 92 bpm HR response to stress: Normal HR response to stress BP Resting BP Supine: 122/82 mmHg Resting BP Standin/80 mmHg Max BP: 212/82 mmHg Recovery BP: 138/84 mmHg BP response to stress: Abnormal hypertensive response to stress. ECG Resting ECG: Sinus Rhythm Ectopy: None Comment: 1 mmST elevation leads II, AVF, V2-V6 Stress ECG: Sinus Tachycardia ST Change: No significant ST segment changes noted Maximum ST Deviation: 1 mm Arrhythmia: PAC and PVC Recovery ECG: Sinus Rhythm Recovery ST Change: No significant ST segment changes noted Recovery Arrhythmia: None Clinical Reason for Termination: Fatigue Stress Symptoms: General Fatigue, Dyspnea Exercise duration: 10 min23 sec Highest Stage Reached: Stage 4: 4.2 mph at 16% grade. Exercise capacity: 12.43 METs Gipson Treadmill Score: 10 Rate Pressure Product: 05626 Stress ECG Conclusion 1. The patient exercised for 10 minutes (12 METS). The patient no symptoms suggestive of ischemia. 2. There is subtle baseline inferior ST elevation which makes interpretation of the study challenging . 3. There was no clear evidence of ischemia on the ECG portion of the exam. 4. If clinical suspicion remains high suggest further evaluation Gipson Treadmill Score is 10 which is Low risk. Stress Test Summary STAGE Time (mins) Speed (mph) Grade (%) HR BP SYMPTOMS METS Supine 64 122/82 achey L side chest pain 2/10 Standing 68 122/80 1 3 1.7 10 102 138/80 4.6 2 6 2.5 12 126 Dyspnea 7 3 9 3.4 14 154 164/86 10.2 1 min recovery 119 212/82 3 min recovery 94 168/78 Symptoms resolved 6 min recovery 92 138/84
== END 2020-05-13 02:22 ==
PROVIDERS: PCP Nurse Practitioner Family; Visit Provider Emergency Medicine
DX: R07.9 Chest pain, unspecified (principal); I10 Essential (primary) hypertension; J45.909 Unspecified asthma, uncomplicated; E66.9 Obesity, unspecified; Z82.49 Family history of ischemic heart disease and other diseases of the circulatory system
CPT/HCPCS: 93017

== ENCOUNTER 2021-05-02 19:21 | Emergency (ER) | payer OTHER, SELFPAY ==
[2021-05-02 19:33] VITALS: BP 164/101; PULSE 75; RESP 16; TEMP 36.6; O2SAT 98
--- NOTE | 2021-05-02 19:45 | DI.CT_ITS ---
Exam(s) CT HEAD WO EXAM: CT HEAD WO CLINICAL HISTORY: headache. TECHNIQUE: Imaging Protocol: Axial computed tomography images with coronal and sagittal reformatted images were created and reviewed COMPARISON: No exams were available for comparison FINDINGS: There are no skull fractures. Circumferential mucosal thickening in both maxillary sinuses noted, n ot associated with fluid levels therein. Some opacification of ethmoidal air cells bilaterally is no matt. The sphenoid and frontal sinuses are unremarkable and there is no mucosal thickening or fluid i n the visualized mastoid air cells. There is no evidence of intracranial hemorrhage, mass effect, or shift of midline structures. There are no extra-axial fluid collections. The ventricles are not enlarged or shifted and there is no blo od within the ventricular system nor within the basal cisterns. IMPRESSION: No acute intracranial findings on this noninfused CT scan of the brain. Chronic-type mucosal thickening in both maxillary sinuses, not associated with obvious fluid levels w ithin the sinuses. RADIATION DOSE DELIVERED: 820.75mGy.cm Total DLP DATA REPOSITORY: All CT scans at this facility are submitted to the National Radiology Data Registry (NRDR) Dose Index Registry (DIR) with the [employer] (A[employer]). RADIATION OPTIMIZATION: All CT scans at this facility use at least one of these dose optimization te chniques: automated exposure control; mA and/or kV adjustment per patient size (includes targeted exa ms where dose is matched to clinical indication); or iterative reconstruction.
--- NOTE | 2021-05-02 20:17 | W.ED.GENAD ---
Discharge Plan Disposition Patient Disposition: HOME Condition: Improving Discharge Details Clinical Impression: Headache Primary Care Provider: Malvin Machuca ED Provider: Shawn Mueller Home Meds and New Rx's Prescriptions: Continued aspirin 81 mg Tablet,Delayed Release (Dr/Ec) 81 mg PO DAILY 0RF lisinopril 10 mg Tablet 10 mg PO DAILY 0RF montelukast [Singulair] 10 mg Tablet 10 mg PO QHS 0RF Flovent HFA 110 mcg/actuation Hfa Aerosol Inhaler 2 puff INHALATION BID 0RF acetylcysteine [NAC] 600 mg Capsule 600 mg PO DAILY 0RF Discharge Instructions Instructions: General Headache (ED) Additional Instructions: Please continue to stay well-hydrated and feel free to take [id number] pain medication such as Excedrin Migraine as needed for headache. Please take medication as directed on packaging. At this time your work-up has not found any specific cause of your headaches so if you have any new or significant worsening of symptoms please return immediately to the emergency department for reassessment and if not improving in the next couple days please follow-up with your primary care provider for reexamination and further testing as needed. Referrals: Malvin Machuca, IT SECURITY SPECIALIST [Primary Care Provider] - 5 days (If not improving) Medical Decision Making Patient presenting to the emergency department for chief complaint of headache. Patient reports that he has had a bilateral temporal headache for the past 5 days that is mostly persistent but seems to worsen when he bends over. Denies any cold-like symptoms sinus issues or focal neurological deficits and review of systems otherwise unremarkable. He does state some similarity to headaches in the past but these headaches have typically only lasted hours to less than 1 day. Patient denies any head trauma or injury. Physical exam is unremarkable for any findings and patient has no temporal tenderness to palpation normal neurological exam and no other acute findings noted. Given duration of symptoms plan to check labs including CT imaging of the head and to treat patient's discomfort with fluids, Toradol, Benadryl, Compazine. Reviewed labs which are reassuring that show normal CBC, ESR and CRP within normal limit, CMP nondiagnostic but does show slight increase of BUN at 21 and creatinine 1.5 with a GFR 48. This is slightly below patient's baseline but will encourage patient to continue to hydrate. CT imaging shows no acute intracranial findings. Patient reassessed and was slightly sedate due to the Benadryl and Compazine but otherwise states improvement of symptoms and headache now only had a 3. Patient's blood pressure is also improved significantly. Given no focal neurological findings, symptoms going on for 5 days, patient denying worst headache of his life and improvement of symptoms I do feel that discharge is appropriate at this time with follow-up to his primary care provider if not improving or returning to the emergency department for any worsening or change in symptoms. After discussion of diagnosis and plan of care patient has no further needs, questions, or concerns and states clear understanding to return to the emergency department for any worsening symptoms. Imaging Data Radiologic Study: Imaging: CT Scan Radiologist's impression: IMPRESSION: Unremarkable noncontrast head CT with no evidence of an acute intracranial process. HPI General Mode of arrival: ambulatory. Date/Time Provider Initiated Documentation: 05/02/21 19:25. Limitations to Documentation: no limitations. History of Present Illness 56 year old M presents to the emergency department with the chief complaint of headache, described as moderate and similar to prior episodes, with intensity rated at 7. Quality is described as aching, and is localized to the head. Patient reports no radiation. Patient started experiencing this day(s) (5) and it has been constant. improves with No relieving factors improve symptom(s), Other factors that worsen symptoms (bending over) . Patient notes no other symptoms.. Patient did receive the following treatments prior to arrival, NSAID and other (Acetaminophen) Related Data Home Medications Medication Instructions Recorded Confirmed acetylcysteine 600 mg capsule (NAC) 600 mg PO DAILY 10/27/18 04/29/20 aspirin 81 mg tablet,delayed 81 mg PO DAILY 10/27/18 04/29/20 release fluticasone propionate 110 2 puff INHALATION BID 10/27/18 04/29/20 mcg/actuation HFA aerosol inhaler (Flovent HFA) lisinopril 10 mg tablet 10 mg PO DAILY 10/27/18 04/29/20 montelukast 10 mg tablet 10 mg PO QHS 10/27/18 04/29/20 (Singulair) Allergies Allergy/AdvReac Type Severity Reaction Status Date / Time No Known Allergies Allergy Unverified 04/29/20 17:49 General Stated Complaint: Headache AMA: 3 Review of Systems Constitutional Constitutional: Denies body ache(s), Denies chills, Denies fever(s) and Reports headache(s) Eyes Eyes: Denies change in vision and Denies loss of vision ENT Ears, Nose, Mouth, and Throat: Denies dizziness, Reports headache(s), Denies neck pain, Denies sinus pain and Denies sinus pressure Cardiovascular Cardiovascular: Denies chest pain, Denies syncope and Denies dyspnea Respiratory Respiratory: Denies cough and Denies dyspnea Gastrointestinal Gastrointestinal: Denies abdominal pain, Denies nausea and Denies vomiting Musculoskeletal Musculoskeletal: Denies back pain and Denies neck pain Neurologic Neurologic: Reports as per HPI, Denies dizziness, Denies syncope, Reports headache(s), Denies localized weakness, Denies loss of vision, Denies sensory deficit and Denies paresthesias Psychiatric Psychiatric: Denies anxiety PFSH All Active Problems (Updated 05/02/21 @ 21:21 by Shawn Mueller NP) Left-sided chest pain (Acute) Headache (Acute) Medical History (Updated 05/02/21 @ 21:21 by Shawn Mueller NP) Asthma Surgical History History of hernia repair History of sinus surgery Social History Smoking/Tobacco Use Status: Never Smoking risk assessment performed?: Yes Alcohol Intake: current Alcohol Intake frequency: a few times a week Alcohol type: wine Drug use: Never Substance use type: does not use Do you feel safe at home: Yes Do you feel safe in your relationship?: Yes Exam Const General: cooperative, healthy appearing, no acute distress and well groomed Orientation: alert, awake and oriented x3 HENMT Head: normal to inspection Ears: hearing grossly normal bilaterally and TM's normal bilaterally Mouth: oral mucosae normal and moist mucous membranes Throat: posterior oropharynx normal Eyes Visual Sams: normal visual sams by confrontation Alignment and Position: alignment normal Periorbital: periorbital findings normal Eyelids: eyelids normal Sclera: sclerae normal Pupils: PERRL EOM: EOM intact bilaterally Neck Neck: normal visual inspection, full ROM and no meningeal signs Resp Effort & Inspection: normal respiratory effort and able to speak in complete sentences Auscultation: clear to auscultation bilaterally Cardio Rate: regular rate Rhythm: regular rhythm Heart Sounds: S1 normal and S2 normal Neuro General: patient alert, patient awake, patient oriented x3, gait normal, tone normal, moves all extremities, CN's II-XI intact bilaterally and not confused Cognition: normal cognition Speech: speech normal Motor: muscle tone normal throughout, strength 5/5 throughout, no pronator drift, no movement abnormalities noted and no fasciculations Sensory Exam: no sensory deficits noted Coordination: [id number] test normal, Does not sway with eyes open, rapid alternating movement UE normal and rapid alternating movement LE normal Course Vital Signs Vital signs: Vital Signs Temperature 36.6 C 05/02/21 19:33 Pulse 75 05/02/21 19:33 Respiratory Rate 16 05/02/21 19:33 Blood Pressure 164/101 H 05/02/21 19:33 Pulse Oximetry 98 05/02/21 19:33 Temperature 36.6 C 05/02/21 19:33 Temperature Source Temporal Artery Scan 05/02/21 19:33 Pulse 75 05/02/21 19:33 Respiratory Rate 16 05/02/21 19:33 Respiratory Effort Non-Labored 05/02/21 19:37 Blood Pressure 164/101 H 05/02/21 19:33 Blood Pressure Position Supine 05/02/21 19:33 Pulse Oximetry 98 05/02/21 19:33 Oxygen Delivery Method Room Air 05/02/21 19:33 Oxygen Flow Rate 0 05/02/21 19:33 Pain Level 7 05/02/21 19:38 PAWSS Have you Been Recently Intoxicated or Drunk Within the Last 30 days?: Yes Have you Ever Experienced Previous Episodes of Alcohol Withdrawal?: No Have you ever Experienced Withdrawal Seizures?: No Have you ever Experienced Delirium Tremens(DT)s?: No Have you ever undergone Alcohol Rehabilitation Treatment (i.e, inpt ot outpatient treatment programs)?: No Have you ever Experienced Blackouts?: No Have you ever Combined Alcohol with other Downers within the last 90 days?: No Have you ever Combined Alcohol with any other Substance of Abuse during the last 90 days?: No Positive Blood Alcohol level on Presentation? [PCS.BAL]: No Evidence of Increased Autonomic Activity (i.e. HR>120, tremor, sweating, agitation, nausea)?: No Result: 1
[2021-05-02] MEDS: Normal Saline 1,000 ML 1000 ML IV (20:22)
[2021-05-02] MEDS: Prochlorperazine 10 MG/2 ML VIAL IVP (20:23)
[2021-05-02] MEDS: diphenhydrAMINE 50 MG/ML VIAL 25 MG IVP (20:24)
[2021-05-02] MEDS: Ketorolac 30 MG/ML VIAL IVP (20:24)
[2021-05-02 20:25] LABS: Absolute Basophil Count 0.07 10^3/uL (0.0-0.2); Absolute Eosinophil Count 0.34 10^3/uL (0.0-0.7); Absolute Lymphocyte Count 1.74 10^3/uL (1.2-3.4); Absolute Monocyte Count 0.58 10^3/uL (0.1-0.8); Absolute Neutrophil Count 3.81 10^3/uL (1.2-6.7); Basophils % 1.1; Eosinophils % 5.2; HCT 43.1 % (40.0-50.0); HGB 13.8 g/dL (13.5-17.5); Lymphocytes % 26.6; MCV 90.5 fL (80-95); MPV 10.1 fL (8.0-11.0); Monocytes % 8.9; Neutrophils % 58.2; Nucleated RBC 0 %; Platelet Count 242 10^3/uL (130-400); RBC 4.76 10^6/uL (4.36-5.78); RDW 12.8 % (11.8-14.1); RDW-SD 42.3 fL; WBC 6.54 10^3/uL (4.4-10.8)
[2021-05-02 20:27] LABS: ESR 3 mm/hr (0-20)
[2021-05-02 20:41] LABS: ALT 38 U/L (16-63); AST 21 U/L (15-37); Albumin 3.6 g/dL (3.4-5.0); Alkaline Phosphatase 62 U/L (46-116); Anion Gap 5.7 mmol/L (3-11); BUN 21 mg/dL (7-18); Bilirubin, Total 0.5 mg/dL (0.2-1.0); CO2 31.3 mmol/L (21.0-32.0); CREATININE 1.5 mg/dL (0.70-1.30); Calcium 8.8 mg/dL (8.5-10.1); Chloride 104 mmol/L (98-107); Estimated GFR 48.24 (mL/min/1.73m2); Glucose 93 mg/dL (74-106); Magnesium 2.1 mg/dL (1.8-2.4); Potassium 3.8 mmol/L (3.5-5.1); Sodium 141 mmol/L (136-145); Total Protein 6.9 g/dL (6.4-8.2)
[2021-05-02 20:48] LABS: C-Reactive Protein 0.06 mg/dL (0.0-0.3)
--- NOTE | 2021-05-02 21:07 | DI.VRAD_ITS ---
Addendum created by Pedro Pardo MD on 05/02/2021 9:10:09 PM EST: THIS REPORT CONTAINS FINDINGS THAT MAY BE CRITICAL TO PATIENT CARE. The findings were verbally communicated via telephone conference with KRISTAL MAGAÑA at 9:09 PM EST on 05/02/2021. The findings were acknowledged and understood. Initial report created on 05/02/2021 9:07:13 PM EST: PROCEDURE INFORMATION: Exam: CT Head Without Contrast Exam date and time: 05/02/2021 7:59 PM Age: 56 years old Clinical indication: Pain; Headache not specified TECHNIQUE: Imaging protocol: Computed tomography of the head without contrast. Radiation optimization: All CT scans at this facility use at least one of these dose optimization techniques: automated exposure control; mA and/or kV adjustment per patient size (includes targeted exams where dose is matched to clinical indication); or iterative reconstruction. Other technique: STROKE PROTOCOL was implemented. COMPARISON: No relevant prior studies available. FINDINGS: Brain: Cerebral sulci show bilateral symmetry with no supratentorial mass or mass effect detected. Brainstem and cerebellum are unremarkable. There is no evidence of acute intracranial hemorrhage. Cerebral ventricles: Ventricular and cisternal spaces are normal in size and configuration and there is no midline shift or hydrocephalus seen. Paranasal sinuses: Bilateral maxilloethmoidal mucosal disease identified with sphenoid and frontal sinuses grossly clear. Mastoid air cells: Grossly clear bilaterally. Bones/joints: Bony calvarium and skull base are intact and no acute fractures are detected. Soft tissues: Unremarkable. IMPRESSION: Unremarkable noncontrast head CT with no evidence of an acute intracranial process. ASSESSMENT: ASPECTS ([place] Stroke Program Early CT Score) is 10. Dictated and Authenticated by: Pedro Pardo MD. Ordering:YANELIS Escobar MD
--- NOTE | 2021-05-02 21:32 | NUR.NOTE ---
Referral faxed to [facility] to f/u for headache early week of 05/05Nursing Note:
== END 2021-05-02 21:58 | disposition home or self-care (01) ==
PROVIDERS: Emergency Provider Nurse Practitioner Family; PCP Nurse Practitioner Family
DX: R51.9 Headache, unspecified (principal)
CPT/HCPCS: 80053; 85652; 96361; 96374; 96375; 99284; 70450; 83735; 85025; 86140; J0780; J1200; J1885

== ENCOUNTER 2022-01-14 14:24 | Emergency (ER) | payer OTHER, SELFPAY ==
[2022-01-14 14:30] VITALS: BP 133/90; PULSE 70; TEMP 37.2; O2SAT 98
--- NOTE | 2022-01-14 14:30 | DI.RAD_ITS ---
Exam(s) XR SHOULDER LT COMPLETE 2+V EXAM: XR SHOULDER LT COMPLETE 2+V CLINICAL HISTORY: Injury, Pain,. TECHNIQUE: 2D digital imaging was performed of the left shoulder. Five images were obtained. AP, G rashey, Y-view and axillary views were obtained. COMPARISON: No exams were available for comparison FINDINGS: BONES: No acute fracture is present. No bony destructive lesion is seen. JOINTS: No dislocation present. Mild degenerative changes are seen at the acromioclavicular joint. SOFT TISSUE: There is a calcification adjacent to the humeral head likely reflecting calcific tendini tis. IMPRESSION: There are degenerative changes of the shoulder. No acute abnormality. DATA REPOSITORY: RADIATION DOSE DELIVERED:
--- NOTE | 2022-01-14 14:44 | W.ED.GENAD ---
Discharge Plan Disposition Patient Disposition: Home Condition: Stable Discharge Details Clinical Impression: Sprain of left shoulder Primary Care Provider: Unknown,Unknown ED Provider: Lilibeth Reyes Home Meds and New Rx's Prescriptions: No Action acetylcysteine [NAC] 600 mg capsule 1,200 mg PO BID cyanocobalamin (vitamin B-12) 1,000 mcg capsule 1,000 mcg PO DAILY riboflavin (vitamin B2) 100 mg tablet 200 mg PO BID albuterol sulfate [ProAir HFA] 90 mcg/actuation HFA aerosol inhaler 2 puff inhalation Q4H PRN albuterol sulfate 2.5 mg /3 mL (0.083 %) solution for nebulization 2.5 mg inhalation .[id number] magnesium oxide 400 mg magnesium tablet 400 mg PO DAILY aspirin 81 mg Tablet,Delayed Release (Dr/Ec) 81 mg PO DAILY lisinopril 10 mg Tablet 10 mg PO DAILY montelukast [Singulair] 10 mg Tablet 10 mg PO QHS fluticasone propionate [Flovent HFA] 110 mcg/actuation Hfa Aerosol Inhaler 2 puff INHALATION BID Discharge Instructions Instructions: Shoulder Sprain (ED) Additional Instructions: Wear the sling as needed for comfort. Rest ice. Please take Tylenol or Ibuprofen with food every 4-6 hours as needed for pain and swelling. Follow up with primary care provider in 3-5 days. Return to ED sooner if any worsening or concerns. Increase oral fluids. If continued pain please follow-up with orthopedics. Stand Alone Forms: Work Release Referrals: Johan Cote MD [ [facility] STAFF PHYSICIAN] - 2 weeks Discharge Data Discharge Date/Time-TO BE ENTERED AT DEPARTURE: 01/14/22 16:20 Medical Decision Making X-ray ordered, I do suspect a sprain. X-ray shows degenerative changes no dislocation or fracture. Patient given a sling and instructed on home care. Verbalized understanding. This text was generated using [employer] ASAation system, please disregard any oddities of phrase or misspellings. Imaging Data Radiologic Study: Imaging: X-Ray Radiologist's impression: FINDINGS: BONES: No acute fracture is present. No bony destructive lesion is seen. JOINTS: No dislocation present. Mild degenerative changes are seen at the acromioclavicular joint. SOFT TISSUE: There is a calcification adjacent to the humeral head likely reflecting calcific tendinitis.? IMPRESSION: There are degenerative changes of the shoulder.? No acute abnormality.? Sign Out No HPI General Mode of arrival: ambulatory. Date/Time Provider Initiated Documentation: 01/14/22 14:37. Limitations to Documentation: no limitations. Information obtained by: patient, RN notes reviewed and old records reviewed. HPI Narrative: 56-year-old male presents to the ER with chief complaint of left shoulder pain. 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 Increased pain with pulling motions and extension, increased pain with external rotation. No obvious deformity or swelling noted. Did not take any medications prior to arrival. Did offer him some Tylenol or ibuprofen he declines at this time. He does have a past medical history of coronary artery disease, asthma, NM, hypertension, sleep apnea. Distal CMS is intact. Related Data Home Medications Medication Instructions Recorded Confirmed aspirin 81 mg tablet,delayed 81 mg PO DAILY 10/27/18 04/29/20 release fluticasone propionate 110 2 puff inhalation BID 10/27/18 01/14/22 mcg/actuation HFA aerosol inhaler (Flovent HFA) lisinopril 10 mg tablet 10 mg PO DAILY 10/27/18 01/14/22 montelukast 10 mg tablet 10 mg PO QHS 10/27/18 01/14/22 (Singulair) acetylcysteine 600 mg capsule (NAC) 1,200 mg PO BID 05/12/21 albuterol sulfate 2.5 mg/3 mL 2.5 mg inhalation .[id number] 05/12/21 01/14/22 (0.083 %) solution for nebulization albuterol sulfate 90 mcg/actuation 2 puff inhalation Q4H PRN 05/12/21 01/14/22 aerosol inhaler (ProAir HFA) cyanocobalamin (vitamin B-12) 1,000 mcg PO DAILY 05/12/21 1,000 mcg capsule magnesium oxide 400 mg PO DAILY 05/12/21 riboflavin (vitamin B2) 100 mg 200 mg PO BID 05/12/21 tablet Allergies Allergy/AdvReac Type Severity Reaction Status Date / Time No Known Allergies Allergy Unverified 01/14/22 14:36 General Stated Complaint: Orthopedic AMA: 4 Review of Systems All systems reviewed & are unremarkable except as noted in HPI and below Musculoskeletal Musculoskeletal: Reports as per HPI, Denies back pain, Reports arthralgias, Denies numbness and Denies tingling Neurologic Neurologic: Denies numbness and Denies tingling PFSH All Active Problems (Updated 01/14/22 @ 16:07 by Lilibeth Reyes NP) Sprain of left shoulder (Acute) Left-sided chest pain (Acute) Medical History Asthma Bursitis CAD (coronary artery disease) Family hx of alcoholism Hearing loss History of heart attack Hypertension Mild memory disturbance Sleep apnea Surgical History History of hernia repair History of sinus surgery Social History Smoking/Tobacco Use Status: Never Smoking risk assessment performed?: Yes Alcohol Intake: current Alcohol Intake frequency: a few times a week Alcohol type: wine Drug use: Never Substance use type: does not use Do you feel safe at home: Yes Do you feel safe in your relationship?: Yes Exam Extrem General: normal to inspection, capillary refill normal and normal exam except as noted Left upper extremity: normal to inspection, normal capillary refill and shoulder/upper arm Details: tenderness Location: other (With Active ROM); no swelling and no ecchymosis; no cyanosis and no edema Course Vital Signs Vital signs: Vital Signs Temperature 37.2 C 01/14/22 14:30 Pulse 70 01/14/22 14:30 Blood Pressure 133/90 01/14/22 14:30 Pulse Oximetry 98 01/14/22 14:30 Temperature 37.2 C 01/14/22 14:30 Temperature Source Temporal Artery Scan 01/14/22 14:30 Pulse 70 01/14/22 14:30 Respiratory Effort Non-Labored 01/14/22 14:33 Blood Pressure 133/90 01/14/22 14:30 Blood Pressure Position Sitting 01/14/22 14:30 Pulse Oximetry 98 01/14/22 14:30 Oxygen Delivery Method Room Air 01/14/22 14:30 Oxygen Flow Rate 0 01/14/22 14:30 Pain Level 6 01/14/22 14:33
--- NOTE | 2022-01-20 08:26 | NUR.NOTE ---
Nursing Note: Accessed chart for [facility] billing purposes
--- NOTE | 2022-01-20 15:36 | NUR.NOTE ---
Addendum entered by Gisele Armendariz 01/20/22 15:50: Called patient back, we have the same form as he does. He is going to speak with Medical Records to see if he can find out where the insurance company got the different form. Original Note: Nursing Note: Accessed patient chart to review discharge instructions and provider note. Pt states there is a discrepancy between what he was given for a return to work date and what was given to the insurance company.
== END 2022-01-14 16:20 | disposition home or self-care (01) ==
PROVIDERS: Emergency Provider Registered Nurse Emergency
DX: S43.402A Unspecified sprain of left shoulder joint, initial encounter (principal); I10 Essential (primary) hypertension; J45.909 Unspecified asthma, uncomplicated; I25.10 Atherosclerotic heart disease of native coronary artery without angina pectoris; I25.2 Old myocardial infarction; Z79.51 Long term (current) use of inhaled steroids; Z79.82 Long term (current) use of aspirin; Y99.0 Civilian activity done for income or pay; X50.0XXA Overexertion from strenuous movement or load, initial encounter
CPT/HCPCS: 99283; 73030; 99282

== ENCOUNTER 2022-01-21 06:30 | Emergency (ER) | payer OTHER, SELFPAY ==
[2022-01-21 06:35] VITALS: PULSE 76; RESP 16; TEMP 36.7; O2SAT 100
--- NOTE | 2022-01-21 07:39 | W.ED.GENAD ---
Discharge Plan Disposition Patient Disposition: Home Condition: Improving Discharge Details Clinical Impression: Injury of left rotator cuff Primary Care Provider: Unknown,Unknown ED Provider: Alcides Antoine Home Meds and New Rx's Prescriptions: New methocarbamol 500 mg tablet 750 mg PO Q6H PRN (Reason: pain or spasm) Qty: 20 0RF Continued acetylcysteine [NAC] 600 mg capsule 1,200 mg PO BID cyanocobalamin (vitamin B-12) 1,000 mcg capsule 1,000 mcg PO DAILY riboflavin (vitamin B2) 100 mg tablet 200 mg PO BID albuterol sulfate [ProAir HFA] 90 mcg/actuation HFA aerosol inhaler 2 puff inhalation Q4H PRN albuterol sulfate 2.5 mg /3 mL (0.083 %) solution for nebulization 2.5 mg inhalation .Z4D-H2A magnesium oxide 400 mg magnesium tablet 400 mg PO DAILY aspirin 81 mg Tablet,Delayed Release (Dr/Ec) 81 mg PO DAILY lisinopril 10 mg Tablet 10 mg PO DAILY montelukast [Singulair] 10 mg Tablet 10 mg PO QHS fluticasone propionate [Flovent HFA] 110 mcg/actuation Hfa Aerosol Inhaler 2 puff INHALATION BID Discharge Instructions Instructions: Shoulder Pain (ED) Additional Instructions: Please follow-up with orthopedics for recheck. A referral has been placed today. Please call the office tomorrow at [phone] if you have not heard from them by the afternoon. Please trial methocarbamol and Lidoderm patch as needed for discomfort. Continue sling with daily range of motion exercises. Apply ice to reduce discomfort. Return to the emergency department for any acute concerns. Stand Alone Forms: Work Release Medical Decision Making 56-year-old male who works for a [employer]. On January 14 he was moving a heavy home oil container on a hema and when pulling backwards he felt immediate pain in his posterior left shoulder. He was seen in the emergency department where an x-ray revealed degenerative changes but no other acute findings. He was placed in a sling with mild improvement. Now with ongoing pain at left posterior shoulder, particularly with movement, and on exam with resisted left humerus external rotation and attempts at full and empty can test. Will continue sling, trial Lidoderm and methocarbamol as needed for comfort. Will refer to orthopedics and I will provide him a work note today. Sign Out No HPI General Mode of arrival: ambulatory. Date/Time Provider Initiated Documentation: 01/21/22 07:01. Limitations to Documentation: no limitations. Information obtained by: patient. History of Present Illness 56 year old M presents to the emergency department with the chief complaint of Ongoing left shoulder pain, described as moderate, Quality is described as dull and constant, and is localized to the left and upper extremity. Patient reports no radiation. Patient started experiencing this day(s) and it has been intermittent. Rest improves symptom(s), Movement worsens symptoms . Patient notes denies chest pain, cough and shortness of breath. Patient did receive the following treatments prior to arrival, NSAID Related Data Home Medications Medication Instructions Recorded Confirmed aspirin 81 mg tablet,delayed 81 mg PO DAILY 10/27/18 04/29/20 release fluticasone propionate 110 2 puff inhalation BID 10/27/18 01/14/22 mcg/actuation HFA aerosol inhaler (Flovent HFA) lisinopril 10 mg tablet 10 mg PO DAILY 10/27/18 01/21/22 montelukast 10 mg tablet 10 mg PO QHS 10/27/18 01/21/22 (Singulair) acetylcysteine 600 mg capsule (NAC) 1,200 mg PO BID 05/12/21 albuterol sulfate 2.5 mg/3 mL 2.5 mg inhalation .[id number] 05/12/21 01/14/22 (0.083 %) solution for nebulization albuterol sulfate 90 mcg/actuation 2 puff inhalation Q4H PRN 05/12/21 01/21/22 aerosol inhaler (ProAir HFA) cyanocobalamin (vitamin B-12) 1,000 mcg PO DAILY 05/12/21 1,000 mcg capsule magnesium oxide 400 mg PO DAILY 05/12/21 riboflavin (vitamin B2) 100 mg 200 mg PO BID 05/12/21 tablet methocarbamol 500 mg tablet 750 mg PO Q6H PRN pain or spasm 01/21/22 #20 tabs Previous Rx's Medication Instructions Recorded methocarbamol 500 mg tablet 750 mg PO Q6H PRN pain or spasm 01/21/22 #20 tabs Allergies Allergy/AdvReac Type Severity Reaction Status Date / Time No Known Allergies Allergy Unverified 01/14/22 14:36 General Stated Complaint: Orthopedic AMA: 4 Review of Systems Narrative: No shortness of breath, no rash no weakness. 7 systems were reviewed and otherwise negative. PFSH All Active Problems (Updated 01/21/22 @ 07:42 by Alcides Antoine MD) Sprain of left shoulder (Acute) Injury of left rotator cuff (Acute) Left-sided chest pain (Acute) Medical History Asthma Bursitis CAD (coronary artery disease) Family hx of alcoholism Hearing loss History of heart attack Hypertension Mild memory disturbance Sleep apnea Surgical History History of hernia repair History of sinus surgery Social History Smoking/Tobacco Use Status: Never Smoking risk assessment performed?: Yes Alcohol Intake: current Alcohol Intake frequency: a few times a week Alcohol type: wine Drug use: Never Substance use type: does not use Do you feel safe at home: Yes Do you feel safe in your relationship?: Yes Exam Narrative Exam Narrative: GEN: awake, alert, oriented 3. Pleasant, well groomed, interactive. HEAD: Normocephalic, atraumatic ENT: Mucous membranes moist, oropharynx unremarkable, External ear exam unremarkable EYES: PERRL, EOMI NECK: Full ROM, no YUSEF, no menigismus CHEST/RESP: No respiratory distress EXT: Full ROM, some limited range of motion left shoulder due to pain. Patient is unable to lift left arm overhead. He has tenderness left infraspinatus region posteriorly. He has pain with external rotation. He has pain with empty can test on the left. Normal motor and sensory function distally. Neuro: Grossly normal neurologic exam, conversant, interactive. Psych: Speech fluent, thoughts congruent, affect normal Course Vital Signs Vital signs: Vital Signs Temperature 36.7 C 01/21/22 06:35 Pulse 76 01/21/22 06:35 Respiratory Rate 16 01/21/22 06:35 Pulse Oximetry 100 01/21/22 06:35 Temperature 36.7 C 01/21/22 06:35 Temperature Source Oral 01/21/22 06:35 Pulse 76 01/21/22 06:35 Respiratory Rate 16 01/21/22 06:35 Respiratory Effort 01/21/22 06:39 Blood Pressure Position Sitting 01/21/22 06:35 Pulse Oximetry 100 01/21/22 06:35 Oxygen Delivery Method Room Air 01/21/22 06:35 Oxygen Flow Rate 0 01/21/22 06:35 Pain Level 6 01/21/22 06:35
== END 2022-01-21 08:00 | disposition home or self-care (01) ==
PROVIDERS: Emergency Provider Emergency Medicine
DX: S46.092A Other injury of muscle(s) and tendon(s) of the rotator cuff of left shoulder, initial encounter (principal); X50.0XXA Overexertion from strenuous movement or load, initial encounter; Y99.0 Civilian activity done for income or pay
CPT/HCPCS: 99283

== ENCOUNTER 2022-01-26 21:55 | Outpatient (REF) | payer OTHER, SELFPAY ==
[2022-01-28 16:51] LABS: COVID-19 RT-PCR UVMMC Result Negative (Negative)
== END 2022-01-26 21:56 | disposition home or self-care (01) ==
LOC: LBN 21:55
PROVIDERS: Visit Provider Nurse Practitioner Family
DX: Z20.822 Contact with and (suspected) exposure to COVID-19 (principal); J06.9 Acute upper respiratory infection, unspecified
CPT/HCPCS: U0003

== ENCOUNTER → 2022-02-03 01:33 | Outpatient (CLI) | payer OTHER, SELFPAY ==
--- NOTE | 2022-02-03 08:00 | DI.MRI_ITS ---
Exam(s) MR UPPER JOINT LT WO EXAM: MR UPPER JOINT LT WO CLINICAL HISTORY: L SHOULDER INJURY,sprain, s43.402a,s46.002a. TECHNIQUE: Multiplanar multisequence MRI was performed. COMPARISON: CR XR SHOULDER LT COMPLETE 2+V from 01/14/2022 FINDINGS: BONES: There is no fracture or contusion pattern. There is a round 2 x 1.5 cm intramedullary lesion i n the proximal metaphysis of the humerus. It is hypointense on the T1 and hyperintense on the T2 maureen ghted images. JOINTS: Moderate degenerative changes are seen at the acromioclavicular joint. The glenohumeral join t is normal. TENDONS: Supraspinatus: There is tendinosis of the supraspinatus tendon. There is hyperintense signal seen on the bursal surface of the supraspinatus tendon suspicious for partial tear. Infraspinatus: Unremarkable. Subscapularis: There is tendinosis of the subscapularis tendon. Teres Minor: Unremarkable. Biceps and Edmondson: Unremarkable. MUSCLES: Unremarkable. GLENOID LABRUM: Unremarkable on this noncontrast examination. SOFT TISSUES: Unremarkable. LIGAMENTS: Unremarkable. OTHER: There is a small amount of fluid in the subacromial subdeltoid bursa. IMPRESSION: 1. Findings of a partial bursal surface tear of the supraspinatus tendon. 2. Tendinosis of the supraspinatus and subscapularis tendons. 3. Well-circumscribed intramedullary lesion in the proximal metaphysis of the humerus. Further evalu ation with bone scan and postcontrast MRI is recommended. 4. Degenerative changes of the acromioclavicular joint. DATA REPOSITORY:
== END ==
PROVIDERS: Visit Provider Student in an Organized Health Care Education/Training Program
DX: M19.012 Primary osteoarthritis, left shoulder (principal); M75.32 Calcific tendinitis of left shoulder
CPT/HCPCS: 73221

== ENCOUNTER 2022-12-22 12:53 | Outpatient (CLI) | payer OTHER, SELFPAY ==
[2022-12-22 10:50] LABS: HCT 43.1 % (40.0-50.0); HGB 14.1 g/dL (13.5-17.5); MCH 29.2 pg (27.0-33.0); MCHC 32.7 % (32.0-36.0); MCV 89 fL (80-95); MPV 9.3 fL (8.0-11.0); Platelet Count 268 10^3/uL (130-400); RBC 4.83 10^6/uL (4.36-5.78); RDW 12.2 % (11.8-14.1); RDW-SD 40.4 fL; WBC 6.12 10^3/uL (4.4-10.8)
[2022-12-22 11:10] LABS: Hemoglobin A1C 5.5 % (<5.7)
[2022-12-22 11:13] LABS: Anion Gap 10.3 mmol/L (3-11); BUN 15 mg/dL (7-18); CO2 25.7 mmol/L (21.0-32.0); CREATININE 0.9 mg/dL (0.70-1.30); Calcium 9.1 mg/dL (8.5-10.1); Calculated LDL 96 mg/dL (<100); Chloride 105 mmol/L (98-107); Cholesterol 193 mg/dL (<200); Glucose 92 mg/dL (74-106); HDL Cholesterol 88 mg/dL (40-60); Potassium 3.8 mmol/L (3.5-5.1); Sodium 141 mmol/L (136-145); Triglyceride 46 mg/dL (<150)
== END 2022-12-22 12:54 | disposition home or self-care (01) ==
LOC: LBO 12:54
PROVIDERS: Visit Provider Nurse Practitioner Family
DX: Z00.00 Encounter for general adult medical examination without abnormal findings (principal); I10 Essential (primary) hypertension
CPT/HCPCS: 36415; 80048; 80061; 85027; 83036

== ENCOUNTER → 2023-01-04 01:16 | Outpatient (CLI) | payer MEDICAID, SELFPAY ==
--- NOTE | 2023-01-04 11:37 | DI.RAD_ITS ---
Exam(s) XR SHOULDER LT COMPLETE 2+V EXAM: XR SHOULDER LT COMPLETE 2+V CLINICAL HISTORY: BONE LESION, M89.9, LT PROXIMAL HUMERAL LESION. TECHNIQUE: 2D digital imaging was performed. COMPARISON: CR XR SHOULDER LT COMPLETE 2+V from 01/14/2022 FINDINGS: Five views. There is no evidence of acute fracture or dislocation. No calcifications in the non diminished subac romial space. There are mild degenerative changes in the glenohumeral joint. Moderate degenerative changes in the AC joint. Bone density normal. No significant osseous lesions. IMPRESSION: Mild degenerative changes in the glenohumeral and AC joints. No diminution of the subacromial space. DATA REPOSITORY: RADIATION DOSE DELIVERED:
== END ==
PROVIDERS: Visit Provider Student in an Organized Health Care Education/Training Program
DX: M19.012 Primary osteoarthritis, left shoulder (principal)
CPT/HCPCS: 73030

== ENCOUNTER 2023-12-29 16:34 | Outpatient (REF) | payer OTHER, SELFPAY ==
--- OUTSIDE RECORDS SUMMARY | 2023-12-29 16:38 | XMS_ITS | Encounter Summary ---
Author Organization [facility] Address [address] [place] [address] Care Team Providers Care Retail Merchandising Manager Name Role Phone Angel Caballero MD Primary Care Provider Encounter Details Date Type Department Care Team (Late st Contact Info) Description 01/26/2022 Lab Requisition [facility] Pathology & Laboratory Medicine - [facility] [address] [place] [address] Outr Resulting Lab, Provider Social History Tobacco Use Types Packs/Day Years Used Date Smoking Tobacco: Never Smokeless Tobacco: Never Comments:exposed to second h and smoke as a child Alcohol Use Standard Drinks/Week Comments Yes 0 (1 standard drink = 0.6 oz pur e alcohol) Sex and Gender Information Value Date Recorded Sex Assigned at Not on file Gender Identity Not on file Sexual Orientation Not on file documented as of this encounter Functional Status Functional Status Response Date of Assess ment Because of a physical, menta l, or emotional condition, does this person have difficulty doing errands alone such as visiting a doctor's office or shopping? No 05/10/2015 Cognitive Status Response Date of Assessm ent Because of a physical, menta l, or emotional condition, does this person have serious difficulty concentrating, remembering, or making decisions? Yes 05/10/2015 documented as of this encounter Plan of Treatment Not on file documented as of this encounter Procedures Procedure Name Priority Date/Time Associated Diagnosis Comments ZZCOVID-19 TEST [facility] PCR Today 01/26/2022 12:21 EST COVID-19 TESTING Routine 01/26/2022 12:2 1 EST documented in this encounter Results * COVID-19 TEST [facility] PCR (01/26/2022 12:21 EST) Swab 01/26/2022 12:2 1 EST 01/27/2022 16:45 EST Provider Outr Resulting Lab MICROBIOLOGY - GENERAL ORDERABLES Performing Organization Address [facility] Co de Phone Number [facility] [address] [place] [address] * COVID-19 TESTING (01/26/2022 12:21 EST) COVID-19 rt-PCR Result Negative Negative 01/28/2022 16:46 EST [facility] Comment: This test has not been FDA cleared or approved. This test has been authorized by FDA under an EUA for use by authorized laboratories. This test has been authorized only for detection of nucleic acid from 2019-nCoV, not for any other viruses or pathogens. This test is only authorized for the duration of the declaration that circumstances exist justifying the authorization of emergency use of in vitro diagnostic tests for detection and/or diagnosis of 2019-nCoV under section 564(b)(1) of Act, 21 U.S.C ?? 360bbb-3(b) (1), unless the authorization is terminated or revoked sooner. Negative results do not preclude 2019-nCoV infection and should not be used as the sole basis for treatment or other patient management decisions. Negative results must be combined with clinical observations, patient history, and epidemiological information. Testing was performed using the silvia SARS-CoV-2 assay ([employer] on the Silvia 6800 System Performing Lab Silvia [address] [facility] 01/28/2022 16:46 EST [facility] Swab 01/26/2022 12:2 1 EST 01/27/2022 16:45 EST Provider Outr Resulting Lab MICROBIOLOGY - GENERAL ORDERABLES Performing Organization Address City/[facility]/ZIP Co de Phone Number [facility] [address] [place] [phone] documented in this encounter Visit Diagnoses Not on filedocumented in this encounter Care Teams Retail Merchandising Manager Relationship Specialty Start Date End Date Angel Caballero MD [address] [place] [phone] PCP - General 04/26/09 documented as of this encounter
--- OUTSIDE RECORDS SUMMARY | 2023-12-29 16:38 | XMS_ITS ---
Author Organization [facility] Address [address] [place] [address] Care Team Providers Care Nail Expert Name Role Phone Angel Caballero MD Primary Care Provider [phone] REASON FOR VISIT Vaccines for employment Encounters Encounter Location Date Provider Diagnosis [facility] [address] [place] [address] 08/31/2022 Angel Caballero Plan Of Treatment No Information Progress Notes * CARLTON ENG RDOB:[birth year] (57 yo M)Acc No.[id number]:08/31/2022 Patient:?CARLTON ENG :1965???Age:57 Y???Sex:Male Address:[address] [facility] [place], [place] [address] * true * Date:? Generated for Printi sonal/Ezio/eTransmitting on:?12/29/2023 04:37 PM EST
--- OUTSIDE RECORDS SUMMARY | 2023-12-29 16:38 | XMS_ITS | Encounter Summary ---
Author Organization [facility] Address [address] [place] [address] Care Team Providers Care Hat Liner Name Role Phone Angel Caballero MD Primary Care Provider Encounter Details Date Type Department Care Team (Late st Contact Info) Description 06/02/2016 Results Only [facility] Pulmonology & Critical Care - [address] [address] Chanel Gonzalez MD [address] [place] [address], [address] [place] [phone] Social History Tobacco Use Types Packs/Day Years [...] Procedure Name Priority Date/Time Associated Diagnosis Comments RAST D PTERONYSSINUS Routine 06/02/2016 21:26 EDT IGE Routine 06/02/2016 21:25 EDT COMPLETE BLOOD COUNT AND DIFFERENTIAL Routine 06/02/2016 17:00 EDT documented in this encounter Results * RAST D PTERCLAYTONINUS (06/02/2016 21:26 EDT) Pathologist [facility] RAST Dc.Romaninu s 4.86 kU/L 06/05/2016 8:53 EDT [facility] Comment: (Note) Class 3 (Positive 3.50-17.4) Performed by: [facility]: [facility] [address], [place] [address], Lab Dir: Haroon Brady II, M.D., Ph.D. BLOOD SPECIMEN / Unknown 06/02/2016 21:26 EDT 06/02/2016 21:26 EDT Chanel Gonzalez MD IMMUNOLOGY AND S EROLOGY ORDERABLES Performing Organization Address City/[facility]/ZIP Co de Phone Number [facility] [address] [place] [address] * IGE (06/02/2016 21:25 EDT) [facility] IgE 53 <158 IU/ml 06/03/2016 9:50 EDT [facility] BLOOD SPECIMEN / Unknown 06/02/2016 21:25 EDT 06/02/2016 21:25 EDT Chanel Gonzalez MD CHEMISTRY & BLOO D GAS ORDERABLES [facility] [address] [place] [address] * (ABNORMAL) HEMAGRAM AND DIFFERENTIAL (06/02/2016 17:00 EDT) Pathologist [facility] WBC 10.20 4.0 - 10.4 K/cmm 06/04/2016 9:18 EDT [facility] RBC 5.21 4.36 - 5.78 M/cmm 06/04/2016 9:18 [facility] Hemoglobin 14.9 13.8 - 17.3 gm/dl 06/04/2016 9:18 [facility] HCT 44.8 39.5 - 50.2 % 06/04/2016 9:18 [facility] MCV 86 81 - 95 fl 06/04/2016 9:18 [facility] MCH 28.6 27.6 - 33.0 pg 06/04/2016 9:18 [facility] MCHC 33.3 32.8 - 36.4 gm/dl 06/04/2016 9:18 [facility] RDW-CV 12.6 11.8 - 14.1 % 06/04/2016 9:18 [facility] RDW-SD 39.6 36.5 - 45.9 fl 06/04/2016 9:18 [facility] PLT 272 141 - 377 K/cmm 06/04/2016 9:18 [facility] MPV 11.2 9.5 - 12.7 fl 06/04/2016 9:18 [facility] % Neutrophils 66.3 % 06/04/2016 9:18 [facility] % Lymphocytes 21.8 % 06/04/2016 9:18 [facility] % Monocytes 7.9 % 06/04/2016 9:18 [facility] % Eosinophils 2.8 % 06/04/2016 9:18 [facility] % Basophils 0.8 % 06/04/2016 9:18 [facility] % Immature Grans 0.4 % 06/04/2016 9:18 [facility] ABS Neutrophils 6.76 2.20 - 8.85 K/cmm 06/04/2016 9:18 [facility] ABS Lymphs 2.22 1.09 - 3.30 K/cmm 06/04/2016 9:18 [facility] ABS Monocytes 0.81(H) 0.1 - 0.8 K/cmm 06/04/2016 9:18 EDT [facility] ABS Eosinophils 0.29 0.03 - 0.61 K/[facility] 06/04/2016 9:18 EDT [facility] ABS Basophils 0.08 0.01 - 0.11 K/[facility] 06/04/2016 9:18 EDT [facility] ABS Immature Grans 0.04 0 - 0.06 K/[facility] 06/04/2016 9:18 EDT [facility] Type of Diff: Automated 06/04/2016 9:18 EDT [facility] BLOOD SPECIMEN / Unknown 06/02/2016 17:00 EDT 06/03/2016 11:59 EDT Chanel Gonzalez MD PACKAGES & DNA P ROBE ORDERABLES [facility] [address] [place] [address] documented in this encounter Visit Diagnoses Not on filedocumented in this encounter Care Teams Hat Liner Relationship Specialty Start Date End Date Angel Caballero MD [address] [place] [address] [address] [place] [phone] PCP - General 04/26/09 documented as of this encounter
--- OUTSIDE RECORDS SUMMARY | 2023-12-29 16:38 | XMS_ITS ---
Author Organization [facility] Address [address] [place] [address] Care Team Providers Care Ceramic Engineer Name Role Phone Angel Caballero MD Primary Care Provider [phone] REASON FOR VISIT pea - ef, -JF WELL MALE, age 40-64 Medications Medication SIG (Take, Route, Frequency, Duration) Notes Start Date End Date Status Sildenafil Citrate 20 MG 1-3 tablets as needed Orally Once a day for 30 day(s) 02/07/2023 Active Flovent HFA 110 MCG/ACT 2 puffs Inhalati on Twice a day for 30 day(s) 10/05/2023 Active Singulair 10 MG 1 tablet in the evening Orally Once a day for 90 days Pharmacy 10/27/2018 Active Multivitamins Orally OTC Active Aspirin 81 MG 1 tablet Orally Once a day OTC Active Ventolin HFA 108 (90 Base) MCG/ACT 1 puff as needed Inhalation every 4 hrs 08/21/2022 Active Lisinopril 10 MG 1 tablet Orally Once a day for 90 days Pharmacy 10/27/2018 Active Flonase 50 MCG/ACT 1-2 sprays in each nostril Nasally Once a day as needed Active Encounters Encounter Location Date Provider Diagnosis [facility] [address] [place] [address] 09/18/2022 Angel Caballero Hyperlipidemia, unspecified E78.5 ; Obesity, unspecified E66.9 ; Obstructive sleep apnea (adult) (pediatric) G47.33 ; Essential (primary) hypertension I10 ; -Asthma Unspecified J45.909 ; -Rhinitis, Allergic J30.9 ; Erectile dysfunction, unspecified erectile dysfunction type N52.9 ; -Routine Exam Adult Z00.00 and Encounter for screening for other disorder Z13.89 Assessments Encounter Date Diagnosis (ICD Code) Assessment Notes Treatment Notes Treatment Clinical Notes 09/18/2022 Hyperlipidemia, unspecified (ICD-10 - E78.5) 09/18/2022 Obesity, unspecified (ICD-10 - E66.9) 09/18/2022 Obstructive sleep apnea (adult) (pediatric) (ICD-10 - G47.33) 09/18/2022 Essential (primary) hypertension (ICD-10 - I10) Medication indication is reviewed, and patient questioned re side effects; Effectiveness assessed through history, and made active decision, with patient engagement to continue this treatment. Alternatives were discussed where applicable. 09/18/2022 -Asthma Unspecified (ICD-10 - J45.909) 09/18/2022 -Rhinitis, Allergic (ICD-10 - J30.9) 09/18/2022 Erectile dysfunction, unspecified erectile dysfunction type (ICD-10 - N52.9) 09/18/2022 -Routine Exam Adult (ICD-10 - Z00.00) As appropriate to age and health status, reviewed patient's last lipid profile, colon cancer screening, Tdap, shingles vaccine, pneumoccocal vaccine, low dose chest CT, and aneurysm screening and discussed accepted guidelines for each. Also, discussed pros vs. cons of prostate cancer screening. Also discussed healthy lifestyle habits such as diet, exercise, sleep. 09/18/2022 Encounter for screening for other disorder (ICD-10 - Z13.89) Plan Of Treatment Medication Medication Name Sig Start Date Stop Date Notes Sildenafil Citrate 20 MG 1-3 tablets as needed Orally Once a day for 30 day(s) 02/07/2023 Flovent HFA 110 MCG/ACT 2 puffs Inhalati on Twice a day for 30 day(s) 10/05/2023 Singulair 10 MG 1 tablet in the even ing Orally Once a day for 90 days 10/27/2018 Pharmacy Lisinopril 10 MG 1 tablet Orally Once a day for 90 days 10/27/2018 Pharmacy Flonase 50 MCG/ACT 1-2 sprays in each n ostril Nasally Once a day as needed Treatment Notes Assessment Notes Essential (primary) hypertension Medicat ion indication is reviewed, and patient questioned re side effects; Effectiveness assessed through history, and made active decision, with patient engagement to continue this treatment. Alternatives were discussed where applicable. Progress Notes * CARLTON ARAYA RDOB:[birth year] (58 yo M)Acc No.[id number]:09/18/2022 Progress Note Patient:?CARLTON ARAYA R Provider:?Angel Caballero MD :1965???Age:57 Y???Sex:Male Brady e:09/18/2022 Address:[address] [place] [address], [id number] Subjective: * Chief Complaints: * ???1. Pea - ef. 2. -JF WELL MALE, age 40-64. * HPI: ???Present complaints:? Patient is here for wellness visit. Also here for follow up regarding medical conditions which are discussed further in assessment/plan. Health goals for coming year: maintain health Barriers to achieve health goals: none New concerns for today: 2016 colo normal, f/u 2025 Shingles Imm? 2021 EKG. * Medical History:?PAOLA - contr olled with CPAP, RAD, Obesity, Low back pain, possible [place] in 2005 - cath, but no intervention in [place] - no sign on EKG in [place] - sees Dr Juan Carlos James at [facility], - elevated liver enzymes - resolved with weight loss, Hypertension, Hyperlipidemia, allergic rhinitis (history of CT confirmed sinusitis), -TESTICULAR MASS, -HYPERTENSION, -ALLERGIC RHINITIS, Radiculopathy, lumbar region, Moderna COVID vaccine 06/03/20 & 07/02/20, -Low Back Pain. * Surgical History:?eye surger y 1975, hernia surgury 1964, septoplasty, turbinoplasty and polypectomy 2010. * Family History:?Father: wilver arias - at 48 yo - alcoholism.?Paternal Grand Father: lung cancer - smoker.? no heart disease, no stroke, no diabetes, no prostate cancer. * Social History:?General:?Marital status: . Children: 1 girl, 3 boys. TOBACCO?STATUS Never smoker.?Alcohol: 2 glasses of wine a couple times a week. Caffeine: 3-6 cups of coffee day. Recreational drug use: no. Exercise: No routine exercise besides stretches when he remembers. Occupation: [employer]. Diet: No special diet. * Medications:?Taking Aspirin 81 MG Tablet 1 tablet Orally Once a day , Notes to Pharmacist: OTC, Taking Multivitamins Capsule Orally , Notes to Pharmacist: OTC, Taking Flonase 50 MCG/ACT Suspension 1-2 sprays in each nostril Nasally Once a day as needed , Taking Lisinopril 10 MG Tablet 1 tablet Orally Once a day , Notes to Pharmacist: Pharmacy, Taking Singulair 10 MG Tablet 1 tablet in the evening Orally Once a day , Notes to Pharmacist: Pharmacy, Taking Flovent HFA 110 MCG/ACT Aerosol 2 puffs Inhalation Twice a day , stop date 10/04/2022, Taking Sildenafil Citrate 20 MG Tablet 1-3 tablets as needed Orally Once a day , Taking Ventolin HFA 108 (90 Base) MCG/ACT Aerosol Solution 1 puff as needed Inhalation every 4 hrs Objective: * Vitals:? * ???Past Orders: ???Lab:Glucose, blood (in- house only) (Order Date - 09/09/2021) (Collection Date & Time - 09/09/2021) ?Result: Normal ? Value Reference Range ?Glucose 89 <110 F - <14 0 R ???Lab:Lipid panel (Order Date - 09/09/2021) (Collection Date & Time - 09/09/2021) ?Result: Normal ? Value Reference Range ?Cholesterol, Total 163 0 - 200 ?HDL Cholesterol 74 40 - 140 ?Triglycerides 55 0 - 16 0 ?LDL Cholesterol Calc 78 0 - 130 ?Ratio 2.2 ?Fasting? yes ?non-HDL 89 ???Lab:BASIC METABOLIC [facility] EL (Order Date - 09/09/2021) (Collection Date & Time - 09/09/2021) ?Result: Normal ? Value Reference Range ?Glucose, Serum 91 73 - 118 ?BUN 12 7 - 22 ?Calcium 9.8 8.0 - 10.3 ?Creatinine 0.8 0.6 - 1.2 ?Sodium 141 128 - 145 mmo l/l ?Potassium 4.1 3.6 - 5.1 ?Chloride 106 98 - 108 ?CO2 27 18 - 33 ?GFR, calculated >60 * Examination: ???physical exam: ?GENERAL APPEARANCE:? alert, well nourished and hydrated, normal affect.?HEENT:?TM's normal , pharynx and tonsils normal.?NECK:?no thyromegaly, no lymphadenopathy.?HEART:?RRR, no murmurs.?LUNGS:?clear to auscultation bilaterally.?ABDOMEN:?soft, non-tender, no distension, no guarding or rigidity, no hepatosplenomegaly, no palpable mass.?EXTREMITIES:?no peripheral edema.?SKIN:?no significant lesions of concern.?PERIPHERAL PULSES:?intact.? Assessment: * Assessment: 1.?-Routine Exam Adult - Z00 .00 (Primary)???2.?Hyperlipidemia, unspecified - E78.5???3.?Obesity, unspecified - E66.9???4.?Obstructive sleep apnea (adult) (pediatric) - G47.33???5.?Essential (primary) hypertension - I10???6.?-Asthma Unspecified - J45.909???7.?-Rhinitis, Allergic - J30.9???8.?Erectile dysfunction, unspecified erectile dysfunction type - N52.9???9.?Encounter for screening for other disorder - Z13.89??? Plan: * Treatment: 2.?Essential (primary) hyper tension? Refill Lisinopril Tablet, 10 MG, 1 tablet, Orally, Once a day, 90 days, 90, Refills 4, Notes to Pharmacist: Pharmacy.?? Notes: Medication indication is reviewed, and patient questioned re side effects; Effectiveness assessed through history, and made active decision, with patient engagement to continue this treatment. Alternatives were discussed where applicable.?? 3.?-Asthma Unspecified? Refill Singulair Tablet, 10 MG, 1 tablet in the evening, Orally, Once a day, 90 days, 90, Refills 4, Notes to Pharmacist: Pharmacy;?Refill Flovent HFA Aerosol, 110 MCG/ACT, 2 puffs, Inhalation, Twice a day, 30 day(s), 1 inhaler, Refills 12.?? 4.?-Rhinitis, Allergic? Refill Flonase Suspension, 50 MCG/ACT, 1-2 sprays in each nostril, Nasally, Once a day as needed, 1 bottle, Refills 10.?? 5.?Erectile dysfunction, uns pecified erectile dysfunction type? Refill Sildenafil Citrate Tablet, 20 MG, 1-3 tablets as needed, Orally, Once a day, 30 day(s), 30, Refills 4.?? * Procedure Codes:?G0444 ANNUA L SCREENING, 77595 LIPID PANEL QW, Modifiers: QW , 79428 BASIC METABOLIC PANEL QW, Modifiers: QW , 56700 VENIPUNCT, ROUTINE* * Billing Information: * Visit Code:? 96985 Prev Care Est Pt Age 40-64. Modifiers: 25 * Procedure Codes:? G0444 ANNUAL SCREENING. 14771 LIPID PANEL QW. Modifiers: QW 59878 BASIC METABOLIC PANEL QW. Modifiers: QW 69136 VENIPUNCT, ROUTINE*. * Electronic signature of Davis Caballero MD, MD on 12/29/2023 at 04:37 PM EST Sign off status: Pending * Provider:?Angel Caballero MD Date:?08/23 Generated for Hai pruitt/Ezio/Manda on:?12/29/2023 04:37 PM EST History and Physical Notes * Examination Category Sub-Category Detail Notes physical exam GENERAL APPEARANCE: alert, well nourished and hydrated, normal affect HEENT: TM's normal , pharyn x and tonsils normal NECK: no thyromegaly, no l ymphadenopathy HEART: RRR, no murmurs LUNGS: clear to auscultatio n bilaterally ABDOMEN: soft, non-tender, no distension, no guarding or rigidity, no hepatosplenomegaly, no palpable mass SKIN: no significant lesio ns of concern PERIPHERAL PULSES: intact EXTREMITIES: no peripheral edema
--- OUTSIDE RECORDS SUMMARY | 2023-12-29 16:38 | XMS_ITS | Patient Health Record ---
Author Organization [facility] Address [address] [place] [address] Care Team Providers Care General Cleaner Name Role Phone Angel Caballero MD Primary Care Provider [phone] Allergies No Known Allergies Reason For Referral No Information Medications Medication SIG (Take, Route, Frequency, Duration) Notes Start Date End Date Status Singulair 10 MG 1 tablet in the even ing Orally Once a day for 90 days Pharmacy 10/27/2018 Active Multivitamins Orally OTC Active Ventolin HFA 108 (90 Base) MCG/ACT 1 puff as needed Inhalation every 4 hrs 08/21/2022 Active Lisinopril 10 MG 1 tablet Orally Once a day for 90 days Pharmacy 10/27/2018 Active Flonase 50 MCG/ACT 1-2 sprays in each nostril Nasally Once a day as needed Active Aspirin 81 MG 1 tablet Orally Once a day OTC Active Immunizations Vaccine Route Administration Date Status Comme nts INFLUENZA ADULT SINGLE DOSE IM Intramuscular 11/21/2010 Administered INFLUENZA ADULT SINGLE DOSE IM Intramuscular 11/21/2011 Administered INFLUENZA ADULT SINGLE DOSE IM Intramuscular 12/13/2012 Administered INFLUENZA ADULT SINGLE DOSE IM Intramuscular 11/28/2014 Administered TD ADULT Unknown 07/23/2020 Administered per old jaz rds Tdap IM Intramuscular 11/21/2010 Administered zInfluenza Unknown 12/10/2009 Administered Problems Problem Type SNOMED Code ICD Code Onset Dates Problem Status W/U Status Risk Notes Problem Hyperlipidemia (00557835) Hyperlipidemia, unspecified (E78.5) Active confirmed Problem Essential hypertension (72322137) Essential (primary) hypertension (I10) Active confirmed Problem Obstructive sleep apnea syndrome (disorder) (07349544) Obstructive sleep apnea (adult) (pediatric) (G47.33) Active confirmed Problem Obesity (504007911) Obesity, unspecified (E66.9) Active confirmed Problem Asthma without status asthmaticus (51546360) -Asthma Unspecified (J45.909) Active confirmed Problem Allergic rhinitis (66671520) -Rhinitis, Allergic (J30.9) Active confirmed Problem 989910233 Erectile dysfunction, unspecified erectile dysfunction type (N52.9) Active confirmed Plan Of Treatment No Information Insurance Providers Payer Name Payer Address Payer Phone Subscriber Number Group Number Insured Name Patient Relationship to Insured Coverage Start Date Coverage End Date Self [facility] [address] [place] [address] [id number] CARLTON ARAYA Self - patient is the insured Medical (General) History Medical History History ICD Code PAOLA - controlled with CPAP RAD Obesity low back pain possible [place] in 2006 - cath, but no intervention in [place] - no sign on EKG in [place] - sees Dr Juan Carlos James at [facility] - elevated liver enzymes - resolved with weight loss Hypertension Hyperlipidemia allergic rhinitis (history of CT confirm ed sinusitis) -TESTICULAR MASS -HYPERTENSION -ALLERGIC RHINITIS Radiculopathy, lumbar region Moderna COVID vaccine 06/03/20 & 07/02/20 -Low Back Pain M54.5 Surgical History Surgery Date(Month/Year) eye surgery 1975 hernia surgury 1965 septoplasty, turbinoplasty and polypecto my 2010
--- OUTSIDE RECORDS SUMMARY | 2023-12-29 16:38 | XMS_ITS | Encounter Summary ---
Author Organization [facility] Address [address] [place] [address] Care Team Providers Care Community Mental Health Worker Name Role Phone Angel Caballero MD Primary Care Provider Encounter Details Date Type Department Care Team (Late st Contact Info) Description 09/03/2022 Lab Requisition [facility] Pathology & Laboratory Medicine - [facility] [address] [place] [address] Outr Resulting Lab, Provider Social History Tobacco [...] Procedure Name Priority Date/Time Associated Diagnosis Comments QUANTIFERON MITOGEN (PERFORMABLE) Today 09/02/2022 9:41 EDT QUANTIFERON TB2 (PERFORMABLE) Today 09/02/2022 9:41 EDT QUANTIFERON TB1 (PERFORMABLE) Today 09/02/2022 9:41 EDT QUANTIFERON NIL (PERFORMABLE) Today 09/02/2022 9:41 EDT QUANTIFERON INTERPRETATION (PERFORMABLE) Today 09/02/2022 9:41 EDT QUANTIFERON TB GOLD PLUS Routine 09/02/2022 9:41 EDT documented in this encounter Results * QUANTIFERON INTERPRETATION (PERFORMABLE) (09/02/2022 9:41 EDT) [facility] Quantiferon Interpretation Negative Negative 09/04/2022 11:59 EDT [facility] Comment:No interferon-gamma response to M. tuberculosis antigens was detected. ??Infection with M. tuberculosis is unlikely. A single negative result does not exclude infection with M. tuberculosis. ??In patients at high risk for M. tuberculosis infection, a second test should be considered. TB1 Ag minus Nil 0.04 IU/ml 09/05/19 11:59 EDT [facility] TB2 Ag minus Nil 0.00 IU/mL 09/05/19 11:59 EDT [facility] Blood VENOUS BLOOD / Unknown 09/02/2022 9:41 EDT 09/04/2022 11:53 EDT Narrative [facility] - 09/04/2022 11:59 EDT Results were obtained with the Qiagen QuantiFERON-TB Gold Plus CLIA. New platform in use 10/30/2020 Provider Outr Resulting Lab IMMUNOLOGY A ND SEROLOGY ORDERABLES [facility] [address] [place] [address] * QUANTIFERON MITOGEN (PERFORMABLE) (09/02/2022 9:41 EDT) Blood VENOUS BLOOD / Unknown 09/02/2022 9:41 EDT 09/03/2022 20:11 EDT Provider Outr Resulting Lab IMMUNOLOGY A ND SEROLOGY ORDERABLES [facility] [address] [place] [address] * QUANTIFERON TB2 (PERFORMABLE) (09/02/2022 9:41 EDT) Blood VENOUS BLOOD / Unknown 09/02/2022 9:41 EDT 09/03/2022 20:11 EDT Provider Outr Resulting Lab IMMUNOLOGY A ND SEROLOGY ORDERABLES Performing Organization Address [facility] Co de Phone Number [facility] [address] [place] [address] * QUANTIFERON TB1 (PERFORMABLE) (09/02/2022 9:41 EDT) Blood VENOUS BLOOD / Unknown 09/02/2022 9:41 EDT 09/03/2022 20:11 EDT Provider Outr Resulting Lab IMMUNOLOGY A ND SEROLOGY ORDERABLES Performing Organization Address [facility] Co de Phone Number [facility] [address] [place] [address] * QUANTIFERON NIL (PERFORMABLE) (09/02/2022 9:41 EDT) Blood VENOUS BLOOD / Unknown 09/02/2022 9:41 EDT 09/03/2022 20:11 EDT Provider Outr Resulting Lab IMMUNOLOGY A ND SEROLOGY ORDERABLES Performing Organization Address [facility] Co de Phone Number [facility] [address] [place] [address] documented in this encounter Visit Diagnoses Not on filedocumented in this encounter Care Teams Community Mental Health Worker Relationship Specialty Start Date End Date Angel Caballero MD [address] [place] [phone] PCP - General 04/26/09 documented as of this encounter
--- OUTSIDE RECORDS SUMMARY | 2023-12-29 16:38 | XMS_ITS | Encounter Summary ---
Author Organization [facility] Address [address] [place] [address] Care Team Providers Care Light Cleaner Name Role Phone Angel Caballero MD Primary Care Provider Encounter Details Date Type Department Care Team (Late st Contact Info) Description 09/02/2022 Lab Requisition [facility] Pathology & Laboratory Medicine - [facility] [address] [place] [address] Outr Resulting Lab, Provider Social History Tobacco [...] Procedure Name Priority Date/Time Associated Diagnosis Comments HOLD SST Today 09/02/2022 9:41 EDT HOLD SST Today 09/02/2022 9:41 EDT HOLD SST Today 09/02/2022 9:41 EDT HOLD SST Today 09/02/2022 9:41 EDT MEASLES IGG AB Today 09/02/2022 9:41 EDT RUBELLA IGG ANTIBODY Today 09/02/2022 9:41 EDT HEPATITIS B SURFACE ANTIBODY Today 09/02/2022 9:41 EDT VARICELLA IGG ANTIBODY Today 09/02/2022 9:41 EDT MUMPS ANTIBODY IGG Today 09/02/2022 9:41 EDT documented in this encounter Results * HOLD SST (09/02/2022 9:41 EDT) Hold Hold 09/02/2022 18:15 EDT [facility] Blood VENOUS BLOOD / Unknown 09/02/2022 9:41 EDT 09/02/2022 17:10 EDT Provider Outr Resulting Lab LAB INFO SER VICE AND SUPPORT & PHONE RESULT Performing Organization Address [facility] Co de Phone Number [facility] [address] [place] [address] * HOLD SST (09/02/2022 9:41 EDT) Hold Hold 09/02/2022 18:15 EDT [facility] Blood VENOUS BLOOD / Unknown 09/02/2022 9:41 EDT 09/02/2022 17:10 EDT Provider Outr Resulting Lab LAB INFO SER VICE AND SUPPORT & PHONE RESULT Performing Organization Address [facility]/ZIP Co de Phone Number [facility] [address] [place] [address] * HOLD SST (09/02/2022 9:41 EDT) Hold Hold 09/02/2022 18:15 EDT [facility] Blood VENOUS BLOOD / Unknown 09/02/2022 9:41 EDT 09/02/2022 17:10 EDT Provider Outr Resulting Lab LAB INFO SER VICE AND SUPPORT & PHONE RESULT Performing Organization Address [facility] Co de Phone Number [facility] [address] [place] [address] * HOLD SST (09/02/2022 9:41 EDT) Hold Hold 09/02/2022 18:15 EDT [facility] Blood VENOUS BLOOD / Unknown 09/02/2022 9:41 EDT 09/02/2022 17:10 EDT Provider Outr Resulting Lab LAB INFO SER VICE AND SUPPORT & PHONE RESULT Performing Organization Address [facility] de Phone Number [facility] [address] [place] [address] * HEPATITIS B SURFACE ANTIBODY (09/02/2022 9:41 EDT) Hep B Surface Ab, Quantitative 44.4 See Note mIU/mL 09/03/2022 13:25 EDT [facility] Comment: Reference Range for Hep B Surface Ab, Quant: Positive: >= 10.0 mIU/mL Negative: ??< 10.0 mIU/mL Patient is presumed to be immune to infection with Hepatitis B Virus. Hep B Surface Ab, Qualitative Positive See Note 09/03/2022 13:25 EDT [facility] Comment: Reference Range for Hep B Surface Ab, Qual: Unvaccinated: ??Negative Vaccinated: ??Positive Blood VENOUS BLOOD / Unknown 09/02/2022 9:41 EDT 09/02/2022 17:09 EDT Provider Outr Resulting Lab CHEMISTRY & BLOOD GAS ORDERABLES Performing Organization Address [facility] Co de Phone Number [facility] [address] [place] [address] * MEASLES IGG AB (09/02/2022 9:41 EDT) Measles IgG Ab Positive See Note 09/03/2022 9:52 EDT [facility] Comment:Presence of detectab le measles virus IgG antibodies. Blood VENOUS BLOOD / Unknown 09/02/2022 9:41 EDT 09/02/2022 17:09 EDT Provider Outr Resulting Lab IMMUNOLOGY A ND SEROLOGY ORDERABLES [facility] [address] [place] [address] * VARICELLA IGG ANTIBODY (09/02/2022 9:41 EDT) Varicella IgG Ab Positive See Note 09/03/2022 9:50 EDT [facility] Comment:Presence of detectab le Varicella Zoster virus IgG antibodies. Blood VENOUS BLOOD / Unknown 09/02/2022 9:41 EDT 09/02/2022 17:09 EDT Provider Outr Resulting Lab IMMUNOLOGY A ND SEROLOGY ORDERABLES [facility] [address] [place] [address] * MUMPS ANTIBODY IGG (09/02/2022 9:41 EDT) Mumps Antibody IgG Positive See Note 09/03/2022 9:52 EDT [facility] Comment:Presence of detectab le mumps virus IgG antibodies. Blood VENOUS BLOOD / Unknown 09/02/2022 9:41 EDT 09/02/2022 17:09 EDT Provider Outr Resulting Lab IMMUNOLOGY A ND SEROLOGY ORDERABLES [facility] [address] [place] [address] * RUBELLA IGG ANTIBODY (09/02/2022 9:41 EDT) Rubella IgG Ab Positive See Note 09/03/2022 9:53 EDT [facility] Comment:Positive for IgG ant ibodies to Rubella virus. Blood VENOUS BLOOD / Unknown 09/02/2022 9:41 EDT 09/02/2022 17:09 EDT Provider Outr Resulting Lab CHEMISTRY & BLOOD GAS ORDERABLES [facility] [address] [place] [address] documented in this encounter Visit Diagnoses Not on filedocumented in this encounter Care Teams Light Cleaner Relationship Specialty Start Date End Date Angel Caballero MD [address] [place] [phone] PCP - General 04/26/09 documented as of this encounter
--- OUTSIDE RECORDS SUMMARY | 2023-12-29 16:38 | XMS_ITS | Encounter Summary ---
Author Organization [facility] Address [address] [place] [address] Care Team Providers Care Transcribing Machine Operator Name Role Phone Angel Caballero MD Primary Care Provider Encounter Details Date Type Department Care Team (Late st Contact Info) Description 07/02/2016 Results Only Imaging [facility] Pulmonology & Critical Care - [address] [address] Chanel Gonzalez MD [address] [place] [address], [address] [place] [phone] Social History Tobacco Use Types Packs/Day Years [...] Procedure Name Priority Date/Time Associated Diagnosis Comments CT HIGH RESOLUTION CHEST WO CONTRAST 07/02/2016 8:16 EDT documented in this encounter Results * CT HIGH RESOLUTION CHEST WO CONTRAST (07/02/2016 8:16 EDT) Anatomical Region Laterality Modality Other 07/02/2016 8:16 EDT 07/02/2016 16:21 EDT Narrative 07/02/2016 16:[address] HIGH RESOLUTION CHEST ??07/02/2016 8:16 AM Clinical History/Comments: please scan using present [facility] Asthma Protocol, Slime Sidhu, and Dr. Pino have approved date/time of HRCT. LR will scan this pt. lr Comparisons: Chest radiograph 01/08/2015 and 01/08/2010. TECHNIQUE: CT scans were obtained of the chest in 4 phases of respiration as per the asthma obesity protocol. FINDINGS: There is mosaic attenuation within the lungs in keeping with air trapping on all phases of respiration aside from full inspiration. A granuloma is present within the right lower lobe. Procedure Note Carlos Pino MD - 07/02/2016 CT HIGH RESOLUTION CHEST 07/02/2016 8:16 AM Clinical History/Comments: please scan using present [facility] Asthma Protocol, Slime Sidhu, and Dr. Pino have approved date/time of HRCT. LR will scan this pt. lr Comparisons: Chest radiograph 01/08/2015 and 01/08/2010. TECHNIQUE: CT scans were obtained of the chest in 4 phases of respiration as per the asthma obesity protocol. FINDINGS: There is mosaic attenuation within the lungs in keeping with air trapping on all phases of respiration aside from full inspiration. A granuloma is present within the right lower lobe. Chanel Gonzalez MD IMG CT ORDERABLE S documented in this encounter Visit Diagnoses Not on filedocumented in this encounter Care Teams Transcribing Machine Operator Relationship Specialty Start Date End Date Angel Caballero MD [address] [place] [phone] PCP - General 04/26/09 documented as of this encounter
--- OUTSIDE RECORDS SUMMARY | 2023-12-29 16:38 | XMS_ITS | Clinical Summary ---
Author Organization [facility] Address [address] [place] [address] Care Team Providers Care Journal Box Inspector Name Role Phone Angel Caballero MD Primary Care Provider Allergies No known active allergies Medications Medication Sig Dispensed Refills Start Date End Date Status Aspirin 81 mg Tab Take 81 mg by mouth daily. Active lisinopril (PRINIVIL, ZESTRIL) 20 mg tablet Take 10 mg by mouth daily. Active albuterol 90 mcg/actuation inhaler Inhale 2 Puffs as directed as needed. Pro air Active fluticasone (FLOVENT) 110 mcg/actuation inhaler Inhale 2 Puffs as directed 2 times daily. Active FLUTICASONE PROPIONATE (FLONASE NASAL) by nasal route as needed. Active Active Problems Problem Noted Date Diagnosed Date Hypertensive disorder 10/22/2011 Obstructive sleep apnea syndrome 03/05/2010 Overview: Severe PAOLA - PSG 11/14/09 Titration 03/07/10 On AutoCPAP min6,max16, nasal mask, [employer] Surgical History Surgery Date Site/Laterality Comments HERNIA REPAIR REFRACTIVE SURGERY NASAL SEPTUM SURGERY April 2010 EYE SURGERY Medical History Medical History Date Comments Heart attack (HCC-CMS) 07/2006 CAD (coronary artery disease) Unspecified sleep apnea High blood pressure Hearing loss HTN (hypertension) 10/22/2011 Lung disease asthma Family History Medical History Relation Comments Allergic Rhinitis Neg Hx Thyroid Disease Neg Hx Relation Status Comments Father (Age cirrhosis) Mother Alive Social History Tobacco Use Types Packs/Day Years Used Date Smoking Tobacco: Never Smokeless Tobacco: Never Comments:exposed to second h and smoke as a child Alcohol Use Standard Drinks/Week Comments Yes 0 (1 standard drink = 0.6 oz pur e alcohol) Sex and Gender Information Value Date Recorded Sex Assigned at Not on file Gender Identity Not on file Sexual Orientation Not on file Obstetrics History Last Filed Vital Signs Vital Sign Reading Time Taken Comments Blood Pressure 135/92 05/13/2016 1542 EDT Pulse 74 05/13/2016 1542 EDT Temperature 36.1 ??C (97 ??F) 05/13/2016 1542 EDT Respiratory Rate 14 05/13/2016 1542 EDT Oxygen Saturation 98% 05/13/2016 1542 EDT Inhaled Oxygen Concentration - - Weight 120.4 kg (265 lb 6.9 oz) 05/13/2016 1542 EDT Height 168.6 cm (5' 6.38) 05/13/2016 1542 EDT Body Mass Index 42.36 05/13/2016 1542 EDT Plan of Treatment Health Maintenance Due Date Last Done Comments Hepatitis C Screen 1965 Hepatitis B Vaccine (1 of 3 - 19+ 3-dose series) 02/12 COVID-19 Vaccine (2022-24 season) 2022 Care Teams Journal Box Inspector Relationship Specialty Start Date End Date Angel Caballero MD [address] [place] [phone] PCP - General 04/26/09
--- OUTSIDE RECORDS SUMMARY | 2023-12-29 16:38 | XMS_ITS | Encounter Summary ---
Author Organization [facility] Address [address] [place] [address] Care Team Providers Care Gas Pit Worker Name Role Phone Angel Caballero MD Primary Care Provider Encounter Details Date Type Department Care Team (Late st Contact Info) Description 07/02/2016 7:34 EDT - 07/02/2016 23:59 EDT Hospital Encounter [address] [address] Chanel Gonzalez MD [address] [facility], [address] [place] [address] Discharge Disposition: Home or Self Care Social History Tobacco Use Types Packs/Day Years [...] Yes 05/10/2015 documented as of this encounter Discharge Diagnoses Diagnosis Z01.89 Encounter for other specified special examinations-Z01.89[ICD-10-CM] documented in this encounter Medications at Time of Discharge Medication Sig Dispensed Refills Start Date End Date albuterol 90 mcg/actuation inhaler Inhale 2 Puffs as directed as needed. Pro air Aspirin 81 mg Tab Take 81 mg by mouth daily. fluticasone (FLOVENT) 110 mcg/actuation inhaler Inhale 2 Puffs as directed 2 times daily. FLUTICASONE PROPIONATE (FLONASE NASAL) by nasal route as needed. lisinopril (PRINIVIL, ZESTRIL) 20 mg tablet Take 10 mg by mouth daily. documented as of this encounter Discharge Disposition Disposition Code Departure Means Destination Home or Self Longterm documented in this encounter Plan of Treatment Not on file documented as of this encounter Visit Diagnoses Not on filedocumented in this encounter Care Teams Gas Pit Worker Relationship Specialty Start Date End Date Angel Caballero MD [address] [place] [phone] PCP - General 04/26/09 documented as of this encounter
--- OUTSIDE RECORDS SUMMARY | 2023-12-29 16:38 | XMS_ITS | Referral Summary ---
Author Organization [facility] Address [address] [place] [address] Care Team Providers Care Principal Gifts Officer Name Role Phone Angel Caballero MD Primary [...] On AutoCPAP min6,max16, nasal mask, [employer] Social History Tobacco Use Types Packs/Day Years Used Date Smoking Tobacco: Never Smokeless Tobacco: Never Comments:exposed to second h and smoke as a child Alcohol Use Standard Drinks/Week Comments Yes 0 (1 standard drink = 0.6 oz pur e alcohol) Sex and Gender Information Value Date Recorded Sex Assigned at Not on file Gender Identity Not on file Sexual Orientation Not on file Last Filed Vital Signs Vital Sign Reading [...] Body Mass Index 42.36 05/13/2016 1542 EDT Functional Status Functional Status Response Date of [...] concentrating, remembering, or making decisions? Yes 05/10/2015 Plan of Treatment Not on file Care Teams Principal Gifts Officer Relationship Specialty Start Date End Date Angel Caballero MD [address] [place] [phone] PCP - General 04/26/09
--- OUTSIDE RECORDS SUMMARY | 2023-12-29 16:38 | XMS_ITS ---
Author Organization [facility] Address [address] [facility] [address] [place] [address] Care Team Providers Care Livestock Commission Agent Name Role Phone Angel Caballero MD Primary Care Provider REASON FOR VISIT PA NEEDED ALBUTEROL SULFATE Medications Medication SIG (Take, Route, Frequency, Duration) Notes Start Date End Date Status Ventolin HFA 108 (90 Base) MCG/ACT 1 puff as needed Inhalation every 4 hrs 08/21/2022 Active Encounters Encounter Location Date Provider Diagnosis [facility] [address] [place] [address] [address] [place] [address] 08/17/2022 Angel Caballero -Asthma Unspecified J45.909 Assessments Encounter Date Diagnosis (ICD Code) Assessment Notes Treat ment Notes Treatment Clinical Notes 08/17/2022 -Asthma Unspecified (ICD-10 - J45.909) Plan Of Treatment Medication Medication Name Sig Start Date Stop Date Notes Ventolin HFA 108 (90 Base) MCG/ACT 1 puff as needed Inhalation every 4 hrs 08/21/2022 ProAir HFA 108 (90 Base) MCG/ACT 1-2 puffs Inhalation every 4 hrs as needed Progress Notes * CARLTON ARAYA RDOB:[birth year] (57 yo M)Acc No.[id number]:08/17/2022 Patient:?CARLTON ARAYA :1965???Age:57 Y???Sex:Male Address:[address] [facility], [place] [address] * Refills? Start Ventolin HFA Aerosol Solution, 108 (90 Base) MCG/ACT, Inhalation, 1, 1 puff as needed, every 4 hrs, Refills=0 Stop ProAir HFA Aerosol Solution, 108 (90 Base) MCG/ACT, Inhalation, 1-2 puffs, every 4 hrs as needed * true * Date:? Generated for Hai pruitt/Ezio/Christianoitting on:?12/29/2023 04:37 PM EST
--- OUTSIDE RECORDS SUMMARY | 2023-12-29 16:38 | XMS_ITS | Encounter Summary ---
Author Organization [facility] Address [address] [place] [address] Care Team Providers Care Founder Chairman And Chief Creative Officer Name Role Phone Angel Caballero MD Primary Care Provider Reason for Visit * Reason Onset Date Comments Advice Only 08/24/2016 Encounter Details Date Type Department Care Team (Late st Contact Info) Description 08/24/2016 Telephone [facility] Ophthalmology - [address] [phone] Luda Robertson MD [address] [facility], [address] [place] [address] Advice Only Social History Tobacco Use Types Packs/Day Years [...] Yes 05/10/2015 documented as of this encounter Miscellaneous Notes * Telephone Encounter - Arden Dixon RN - 09/04/[address] Robertson who stated to talk to Desiree Galvin. Spoke to Desiree who stated she just needs tofax the paper work. * Telephone Encounter - Leni Zambrano - 09/04/2016 1019 EDT PT called looking for form to be filled out. I let him know that it has been received and I would have someone follow up with Dr. Robetrson. He was frustrated that it hadn't been done because he paid his $400 for the exam and he feels like we shouldn't take this long to fill out some lines on a form. I have explained to him that she is very busy and has many more patient's to see/work with. * Telephone Encounter - Arden Dixon RN - 08/24/2016 1533 EDT 1600: He states he needs to be checked every year for driving. He needs to know if he has monocularvision? Stated he does not have it. He states his job is looking for 70 degrees of vision? And 20/40 vision with glasses. Stated what his vision was with and without glasses. Stated someplace's need a form that need to be filed out. He asked about his last note. He was told by Desiree Galvin he would need a release of information. He has no other questions for now. Spoke to Mann. He reviewed the information with me. Patient is 20/60 in right eye and 20/20 in left eye without glasses. Patient is left eye dominate. With glasses patient is 20/25 right eye and 20/20 left eye. He is legal to drive. Would need to find out what are the requirements he would need todrive commercially. He would need to check with his company. He could send any paperwork that needsto be filled out. 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 States LPA was very busy and distracted at his last exam so she didn't make it very clear what the answer to this was. Do I have monocular vision? If I do, the glasses prescription that she gave me, is it corrected? Please contact patient back at [phone]. documented in this encounter Plan of Treatment Not on file documented as of this encounter Visit Diagnoses Not on filedocumented in this encounter Care Teams Founder Chairman And Chief Creative Officer Relationship Specialty Start Date End Date Angel Caballero MD [address] [place] [phone] PCP - General 04/26/09 documented as of this encounter
--- OUTSIDE RECORDS SUMMARY | 2023-12-29 16:39 | XMS_ITS | Encounter Summary ---
Author Organization [facility] Address [address] [place] [address] Care Team Providers Care Teradata Solution Architect Name Role Phone Angel Caballero MD Primary Care Provider Reason for Visit * Reason Comments Cardiac Testing Encounter Details Date Type Department Care Team (Late st Contact Info) Description 09/23/2011 9:00 EDT Procedure visit [facility] Cardiology - [address] [address] Juan Carlos James MD [address] [facility] [address] [place] [address] Hira Collins Social History Tobacco Use Types Packs/Day Years Used Date Smoking Tobacco: Never Smokeless Tobacco: Never Alcohol Use Standard Drinks/Week Comments Yes 0 (1 standard drink = 0.6 oz pur e alcohol) rare wine Sex and Gender Information Value Date Recorded Sex Assigned at Not on file Gender Identity Not on file Sexual Orientation Not on file documented as of this encounter Procedure Notes * EDITOR PRODUCER, SCAN 2 - 09/30/2011 1331 EDTAssociated Order(s): STRESS TEST - SCANNED documented in this encounter Plan of Treatment Not on file documented as of this encounter Procedures Procedure Name Priority Date/Time Associated Diagnosis Comments STRESS TEST - SCANNED 09/30/2011 13:31 EDT documented in this encounter Results * STRESS TEST - SCANNED (09/30/2011 13:31 EDT) Anatomical Region Laterality Modality Other 09/30/2011 13:3 1 EDT Narrative Transcriptions EDITOR PRODUCER, SCAN 2 - 09/30/2011 13:31 EDT Scan 2 Interlocker Maintainer IMG OTHER IMAGING O RDERABLES documented in this encounter Visit Diagnoses Not on filedocumented in this encounter Care Teams Teradata Solution Architect Relationship Specialty Start Date End Date Angel Caballero MD [address] [place] [phone] PCP - General 04/26/09 documented as of this encounter
--- OUTSIDE RECORDS SUMMARY | 2023-12-29 16:39 | XMS_ITS | Encounter Summary ---
Author Organization [facility] Address [address] [place] [address] Care Team Providers Care Preparer Making Department Name Role Phone Angel Caballero MD Primary Care Provider Reason for Visit * Reason Comments Follow-up Encounter Details Date Type Department Care Team (Late st Contact Info) Description 11/03/2011 11:00 EDT Office Visit [facility] ENT- [facility] [place] [address] [place], [place] [address] Kong Hoyt MD [address] [place] [address] Unspecified nasal polyp (Primary Dx) Social History Tobacco Use Types Packs/Day Years Used Date Smoking Tobacco: Never Smokeless Tobacco: Never Alcohol Use Standard Drinks/Week Comments Yes 0 (1 standard drink = 0.6 oz pur e alcohol) rare wine Sex and Gender Information Value Date Recorded Sex Assigned at Not on file Gender Identity Not on file Sexual Orientation Not on file documented as of this encounter Progress Notes * Kong Hoyt MD - 11/03/2011 1154 EDT PROBLEM: Nasal obstruction secondary to deviated nasal septum, turbinate hypertrophy and nasal polyposis. S/p bilateral endoscopic polypectomy (05/09/2010). PAOLA. Mr Eng is a 46-year-old gentleman followed for the above problem. He was last assessed 05/16/2010. Discharged with recommendation to continue with saline and fluticasone nasal spray. Follow up in 1 month. He failed to show. However, he does continue his fluticasone on average of 5 nights weekly. He finds this particularly beneficial for application of his nasal CPAP. He is followed by Dr Huggins who expressed concerns that there may be a regrowth of a nasal polyp, and he presents for reevaluation. He denies any congestion, rhinorrhea, crusting or bleeding. Past medical, surgical history, medication list, allergy status reviewed and updated to [facility]. EXAMINATION: Mr Eng is alert and oriented. He is breathing comfortably through his nasal passages. Anterior rhinoscopy: Midline septum, normal turbinates, widely patent airway. Mucous membranes are healthy. No obvious polyps on direct examination. PROCEDURE: Bilateral nasal endoscopy performed to evaluate for recurrence of nasal polyps. Both nostrils sprayed with topical cophenylcaine spray. After 10 minutes, examined bilaterally with 0-degreeendoscope on video camera. Both nasal passages were widely patent. The middle meatus was also widely patent. There was no evidence of recurrent polyposis or other abnormalities. ASSESSMENT: Nasal polyposis appears to be well suppressed on daily fluticasone nasal spray. PLAN: Continue fluticasone daily and minimum 5 days per week. Follow up on an as-needed basis. documented in this encounter Plan of Treatment Not on file documented as of this encounter Visit Diagnoses Diagnosis Unspecified nasal polyp- Primary documented in this encounter Care Teams Preparer Making Department Relationship Specialty Start Date End Date Angel Caballero MD [address] [place] [phone] PCP - General 04/26/09 documented as of this encounter
--- OUTSIDE RECORDS SUMMARY | 2023-12-29 16:39 | XMS_ITS | Encounter Summary ---
Author Organization [facility] Address [address] [place] [address] Care Team Providers Care Bead Builder Name Role Phone Angel Caballero MD Primary Care Provider Reason for Visit * Reason Onset Date Comments Other 01/16/2015 Encounter Details Date Type Department Care Team (Late st Contact Info) Description 01/16/2015 Telephone [facility] Sleep Program - [address] [phone] Gudelia Huggins MD [address] [place] [address], [address] [place] [address] Other Social History Tobacco Use Types Packs/Day Years [...] visiting a doctor's office or shopping? No 12/28/2014 Cognitive Status Response Date of Assessm ent Because of a physical, menta l, or emotional condition, does this person have serious difficulty concentrating, remembering, or making decisions? Yes 12/28/2014 documented as of this encounter Miscellaneous Notes * Telephone Encounter - Kathya Pop - 01/16/2015 1273 EST Called patient to let him know he needs to contact his PCP for a prescription and a referral back to our clinic. * Telephone Encounter - Kathya Pop - 01/16/2015 1330 EST Patient would like his script sent to [facility]. * Telephone Encounter - Joann Barker - 01/16/2015 1322 EST Sam would like a new script for a new machine. He received his in February 2010. His current machine shuts off and the light for the humidifier flashes all the time. documented in this encounter Plan of Treatment Not on file documented as of this encounter Visit Diagnoses Not on filedocumented in this encounter Care Teams Bead Builder Relationship Specialty Start Date End Date Angel Caballero MD [address] [place] [phone] PCP - General 04/26/09 documented as of this encounter
--- OUTSIDE RECORDS SUMMARY | 2023-12-29 16:39 | XMS_ITS | Encounter Summary ---
Author Organization [facility] Address [address] [place] [address] Care Team Providers Care Computer Systems Security Analyst Name Role Phone Angel Caballero MD Primary Care Provider Reason for Referral * PT/OT/ST (Routine) - Closed Specialty Diagnoses / Procedures Referred By Contac t Referred To Contact Diagnoses Low back pain radiating to right leg Quentin Carroll PA-C [address] [place] [phone] Referral ID Status Reason Start Date Expiration Date V isits Requested Visits Authorized [id number] Closed Specialty Services Required 11/06/2014 1 1 Question Answer Reason for Request: Low back pain radiating to right leg Comments Land PT twice/week for 8 weeks Quentin Carroll PA-C * Consult (Routine) - Specialty Report Received Specialty Diagnoses / Procedures Referred By Contac t Referred To Contact Pain Medicine Diagnoses Low back pain radiating to right leg Quentin Carroll PA-C [address] [place] [address] [facility] [address] [place] [phone] Referral ID Status Reason Start Date Expiration Date Visits Requested Visits Authorized [id number] Specialty Report Received Specialty Services Required 11/06/2014 1 1 Question Answer Reason for Request: Low back pain radiating to right leg Comments Recommend LEFT-sided L4-L5/L5-S1 facet injections Reason for Visit * Reason Comments Back Pain low back pain radiat ing to right leg * Consult, Test and Treat (Routine) - Closed Specialty Diagnoses / Procedures Referred By Contac t Referred To Contact Orthopedic Surgery Diagnoses Back pain Angel Caballero MD [address] [place] [address] [address] [place] [phone] [facility] [address] [place] [address] Referral ID Status Reason Start Date Expiration Date Visits Re quested Visits Authorized [id number] Closed 1 1 Encounter Details Date Type Department Care Team (Late st Contact Info) Description 11/06/2014 10:45 EDT Office Visit [facility] [address] [address] Quentin Carroll PA-C [address] [facility] [place] [address] Low back pain radiating to right leg (Primary Dx) Discharge Disposition: Auto Discharge Social History Tobacco Use Types Packs/Day Years Used Date Smoking Tobacco: Never Smokeless Tobacco: Never Alcohol Use Standard Drinks/Week Comments Yes 0 (1 standard drink = 0.6 oz pur e alcohol) rare wine Sex and Gender Information Value Date Recorded Sex Assigned at Not on file Gender Identity Not on file Sexual Orientation Not on file documented as of this encounter Last Filed Vital Signs Vital Sign Reading Time Taken Comments Blood Pressure - - Pulse - - Temperature - - Respiratory Rate - - Oxygen Saturation - - Inhaled Oxygen Concentration - - Weight 110.2 kg (243 lb) 11/06/2014 1040 EDT Height 172.7 cm (5' 8) 11/06/2014 1040 EDT Body Mass Index 36.95 11/06/2014 1040 EDT documented in this encounter Discharge Diagnoses Diagnosis 724.2 LUMBAGO[ICD-9-CM] documented in this encounter Discharge Disposition Disposition Code Departure Means Destination Auto Discharge documented in this encounter Progress Notes * Mariaa El - 11/06/2014 1108 EDT Patient given written and verbal patient education on injection * Quentin Carroll PA - 11/06/2014 1047 EDT Sam Eng is being seen as a consultation from Dr. Caballero. Chief Complaint Patient presents with ??? Back Pain low back pain radiating to right leg The encounter diagnosis was Low back pain radiating to right leg. HPI Mr. Eng is a 49 y.o. pleasant male who presents to the clinic today with 70% LBP, much worse on the left, and 30% RLE pain and mostly numbness affecting the anterior aspect of his thigh. The patient reports 15-year h/o intermittent LBP/RLE symptoms that has become a constant issue over the last 6 months. Symptoms wax and wane, but they are present everyday. He has tried CHIRO, which helped somewhat. He has not tried PT or injections. There is nothing that alleviates his symptoms. Bending forward and walking uphill aggravate his symptoms. He rates his pain as 6/10. 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 He is currently looking for another job. HPI Patient Active Problem List Diagnosis ??? Obstructive sleep apnea syndrome ??? Hypertension Past Medical History Diagnosis Date ??? Heart attack 07/2006 ??? CAD (coronary artery disease) ??? Unspecified sleep apnea ??? High blood pressure ??? Hearing loss ??? HTN (hypertension) 10/22/2011 Past Surgical History Procedure Laterality Date ??? Hernia repair ??? Refractive surgery ??? Nasal septum surgery April 2010 ??? Eye surgery History Substance Use Topics ??? Smoking status: Never Smoker ??? Smokeless tobacco: Never Used ??? Alcohol Use: Yes Comment: rare wine Family History Problem Relation Age of Onset ??? Allergic Rhinitis Neg Hx ??? Thyroid Disease Neg Hx Current Outpatient Prescriptions Medication Sig Dispense Refill ??? albuterol 90 mcg/actuation inhaler Inhale 180 mcg as directed every 4 hours ??? Aspirin 81 mg Tab Take 81 mg by mouth daily. ??? lisinopril (PRINIVIL, ZESTRIL) 20 mg tablet Take 10 mg by mouth daily. No current facility-administered medications for this visit. No Known Allergies Review of Systems Constitutional: Positive for activity change. Negative for unexpected weight change. Eyes: Negative for visual disturbance. Respiratory: Negative for chest tightness. Cardiovascular: Negative for chest pain. Gastrointestinal: Negative for constipation. Genitourinary: Negative for difficulty urinating. Musculoskeletal: Positive for back pain. Negative for neck pain. Skin: Negative for rash. Neurological: Positive for numbness. Psychiatric/Behavioral: Negative for behavioral problems and agitation. Physical Exam Constitutional: He is oriented to person, place, and time. He appears well- developed and well-nourished. HENT: Head: Normocephalic and atraumatic. Cardiovascular: Normal rate. Pulmonary/Chest: Effort normal. Neurological: He is alert and oriented to person, place, and time. Skin: Skin is warm and dry. No rash noted. Psychiatric: He has a normal mood and affect. His behavior is normal. Back Exam Comments: GAIT: Normal. HEEL & TOE WALKING: NEG. LESIONS, RASHES OR HAIR ANUPAMA: NEG. FROM: TENDERNESS ON PALPATION: NEG. STRENGTH: 5/5 REFLEXES: Patellar 2/4 B/L; Achilles 2/4 B/L. BABINSKI: Down. CLONUS: NEG. DP: 2/2. SENSATION: Intact. SLR RIGHT: NEG. LEFT: NEG. HIP ROM: Full. HENRY'S: POS onleft. Neurologic Exam Mental Status Oriented to person, place, and time. Today, 11/06/2014, I ordered plain radiographs and I independently reviewed the following: Plain radiographs (AP/Lat/Flex/Ex): 1. Five (5) non-rib bearing lumbar vertebrae 2. Facet arthropathy of the lower lumbar spine 3. Disc height reduction at L5-S1 conistent with degenerative disc disease 4. No fractures or pars defects noted MRI from prior work up in December 2012: 1. Small central disc protrusion at L4-L5 causing mild central canal narrowing. 2. Disc degeneration and facet osteoarthropathy at L5-S1. Assessment 49 y.o. male with LBP most likely from degenerative disc and facet disease and RLE pain and paresthesias along the L3 dermatome not concordant with MRI from 2012. He has agreed to the following plan. Other Orders Placed This Visit Procedures ??? Amb Consult/Follow Up Pain Interventional ??? Amb Consult/Follow Up Physical Therapy Plan: 1. Order Left-sided L4-L5/L5-S1 facet injections 2. Land PT twice/week X 8 weeks 3. Phone FU post facet injections 4. If no relief from facet injections, consider left SI joint injection CC: Dr. Federico Nava was the attending physician available in the clinic today if needed. A consultation was not required. documented in this encounter Plan of Treatment Scheduled Referrals Name Type Priority Associated Diagnoses Order Schedule AMB CONS/FOLLOW UP PAIN INTERVENTIONAL Outpatient Referral Routine Low back pain radiating to right leg Ordered: 11/06/2014 AMB CONS/FOLLOW UP PHYSICAL THERAPY Outpatient Referral Routine Low back pain radiating to right leg Ordered: 11/06/2014 documented as of this encounter Visit Diagnoses Diagnosis Low back pain radiating to right leg- Primary Lumbago documented in this encounter Historical Medications * This list may reflect changes made after this encounter. Medication Sig Dispensed Refills Start Date End Date albuterol 90 mcg/actuation inhaler Inhale 2 Puffs as directed as needed. Pro air added in this encounter Care Teams Computer Systems Security Analyst Relationship Specialty Start Date End Date Angel Caballero MD [address] [place] [phone] PCP - General 04/26/09 documented as of this encounter
--- OUTSIDE RECORDS SUMMARY | 2023-12-29 16:39 | XMS_ITS | Encounter Summary ---
Author Organization [facility] Address [address] [place] [address] Care Team Providers Care Potato Peeling Machine Operator Name Role Phone Angel Caballero MD Primary Care Provider Reason for Referral * Radiology Services (Routine) - Closed Specialty Diagnoses / Procedures Referred By Contac t Referred To Contact Diagnoses Uncomplicated asthma, unspecified asthma severity Procedures CHEST PA AND LATERAL Justen Rodriguez MD [address] [place] [phone] Referral ID Status Reason Start Date Expiration Date Visits Re quested Visits Authorized [id number] Closed 12/25/2014 1 1 * (Routine) - Closed Specialty Diagnoses / Procedures Referred By Contac t Referred To Contact Diagnoses Uncomplicated asthma, unspecified asthma severity Procedures SPIROMETRY WITH BRONCHODILATOR Justen Rodriguez MD [address] [place] [address] Referral ID Status Reason Start Date Expiration Date Visits Re quested Visits Authorized [id number] Closed 12/29/2014 1 1 Encounter Details Date Type Department Care Team (Late st Contact Info) Description 12/24/2014 Orders Only [facility] Pulmonology & Critical Care - [facility] [address] [place] [address] Justen Rodriguez MD [address] [place] [phone] Uncomplicated asthma, unspecified asthma severity (Primary Dx) Social History Tobacco Use Types Packs/Day Years Used Date Smoking Tobacco: Never Smokeless Tobacco: Never Alcohol Use Standard Drinks/Week Comments Yes 0 (1 standard drink = 0.6 oz pur e alcohol) rare wine Sex and Gender Information Value Date Recorded Sex Assigned at Not on file Gender Identity Not on file Sexual Orientation Not on file documented as of this encounter Plan of Treatment Not on file documented as of this encounter Procedures Procedure Name Priority Date/Time Associated Diagnosis Comments CHEST PA AND LATERAL Routine 01/08/2015 14:39 EST Uncomplicated asthma, unspecified asthma severity documented in this encounter Results * CHEST PA AND LATERAL (01/08/2015 14:39 EST) Anatomical Region Laterality Modality Other 01/08/2015 14:3 9 EST 01/08/2015 14:48 EST Narrative 01/08/2015 14:48 EST CHEST PA AND LATERAL ??01/08/2015 2:39 PM Signs and Symptoms/Comments: ?? J45.909-Unspecified asthma, flnwrjfrzezcu-UYM-18; appt-asthma Comparisons: 01/08/2010 Technique: Dual-energy technique with reconstructions in normal, soft tissue and bone windows was used. Findings: The lungs are clear and there is no evidence of pleural disease or pneumothorax. The cardiac silhouette and pulmonary vascularity are normal. The skeleton is unremarkable for age. Impression: No significant abnormality. Procedure Note Toby García MD - 01/08/2015 CHEST PA AND LATERAL 01/08/2015 2:39 PM Signs and Symptoms/Comments: J45.909-Unspecified asthma, uizmwzfahbzps-ECZ-67; appt-asthma Comparisons: 01/08/2010 Technique: Dual-energy technique with reconstructions in normal, soft tissue and bone windows was used. Findings: The lungs are clear and there is no evidence of pleural disease or pneumothorax. The cardiac silhouette and pulmonary vascularity are normal. The skeleton is unremarkable for age. Impression: No significant abnormality. Justen Rodriguez MD IMG DIAGNOSTIC IMAGI NG ORDERABLES documented in this encounter Visit Diagnoses Diagnosis Uncomplicated asthma, unspecified asthma severity- Primary documented in this encounter Orders PFT Count Last Ordered Date First Orde red Date SPIROMETRY WITH BRONCHODILATOR 1 12/25/2014 documented in this encounter Care Teams Potato Peeling Machine Operator Relationship Specialty Start Date End Date Angel Caballero MD [address] [place] [phone] PCP - General 04/26/09 documented as of this encounter
--- OUTSIDE RECORDS SUMMARY | 2023-12-29 16:39 | XMS_ITS | Encounter Summary ---
Author Organization [facility] Address [address] [place] [address] Care Team Providers Care Deer Farm Worker Name Role Phone Angel Caballero MD Primary Care Provider Reason for Visit * Reason Onset Date Comments Appointment Related 10/19/2012 Encounter Details Date Type Department Care Team (Late st Contact Info) Description 10/19/2012 Telephone [facility] Audiology - [address] [phone] Alicia Siddiqui Appointment Related Social History Tobacco Use Types Packs/Day Years Used Date Smoking Tobacco: Never Smokeless Tobacco: Never Alcohol Use Standard Drinks/Week Comments Yes 0 (1 standard drink = 0.6 oz pur e alcohol) rare wine Sex and Gender Information Value Date Recorded Sex Assigned at Not on file Gender Identity Not on file Sexual Orientation Not on file documented as of this encounter Miscellaneous Notes * Telephone Encounter - Alicia Siddiqui - 10/19/2012 1057 EDT Called and spoke with Mr. Eng regarding appointment scheduled for a hearing aid fitting. We did not hear from him and was wondering if he was interested in ordering hearing aids. He stated that atthis time, he was unable to afford aids and will call back if interested in getting some. He does know he needs them, but cost is a factor. I did remind him of a budget payment plan and he will thinkabout and call back. I stated that all appointments will be cancelled. documented in this encounter Plan of Treatment Not on file documented as of this encounter Visit Diagnoses Not on filedocumented in this encounter Care Teams Deer Farm Worker Relationship Specialty Start Date End Date Angel Caballero MD [address] [place] [phone] PCP - General 04/26/09 documented as of this encounter
--- OUTSIDE RECORDS SUMMARY | 2023-12-29 16:39 | XMS_ITS | Encounter Summary ---
Author Organization [facility] Address [address] [place] [address] Care Team Providers Care Mold Worker Name Role Phone Angel Caballero MD Primary Care Provider Reason for Visit * Reason Onset Date Comments Eye Problem 12/21/2012 FB SENSATION RT EYE Encounter Details Date Type Department Care Team (Late st Contact Info) Description 12/21/2012 Telephone [facility] Ophthalmology - [address] [phone] Luda Robertson MD [address] [facility], [address] [place] [address] Eye Problem (FB SENSATION RT EYE ) Social History Tobacco Use Types Packs/Day Years [...] encounter Miscellaneous Notes * Telephone Encounter - Kristin Cochran - 12/22/2012 0850 EDT PT called back looking for the resolution to his call yesterday. I relayed the information below. PT stated he doesn't feel he shld wait until 01/18/[address] Robertson's next available apt. I offered the PT an apt with Dr. Brannon next week as stated in the triage below. PT stated he didn't want to wait until next week and didn't understand why he couldn't come in today. PT states he would feel better going to the Emergency room. He plans on going to the ER today. * Telephone Encounter - Eve Diaz OTA - 12/21/2012 0949 EDT Nature of problem? FBS right eye and some redness Onset and Duration? 1 1/2 weeks Is this an injury? no Pain? No pain, just irritation Have you recently had eye surgery? no Are you having flashes/and or floaters? no Any sensitivity to light? no Any loss of vision/curtain/darkness/veil? no Any change in vision/double vision/blurred? A little blurry in the right eye Any redness? Yes, discharge- crusty in the morning Who is your usual eye doctor? Dr. Robertson Phone Number of Eye Doctor (if not FACP) Any other pertinent information? Using at's QD Please remember that a physician must approve if you are telling the patient to wait for an appointment. Please ask the patient where they are now, and where they can be reached for the next two hours. VERIFY THE PHONE NUMBERS REGARDLESS OF WHAT IS IN THE SYSTEM. [phone] Please ask how long it would take them to get to [facility], if they were to be told to come. 15-[address] Brannon and he suggested that the patient schedule next available appointment with Dr. Robertson. If symptoms get worse or experiences pain he would see the patient next week. I will send to scheduling to call patient to find a time that would work for patient. documented in this encounter Plan of Treatment Not on file documented as of this encounter Visit Diagnoses Not on filedocumented in this encounter Care Teams Mold Worker Relationship Specialty Start Date End Date Angel Caballero MD [address] [place] [phone] PCP - General 04/26/09 documented as of this encounter
--- OUTSIDE RECORDS SUMMARY | 2023-12-29 16:39 | XMS_ITS | Encounter Summary ---
Author Organization [facility] Address [address] [place] [address] Care Team Providers Care Journeyman Carpenter Name Role Phone Angel Caballero MD Primary Care Provider Reason for Visit * Reason Onset Date Comments Appointment Related 09/18/2011 Encounter Details Date Type Department Care Team (Late st Contact Info) Description 09/18/2011 Telephone [facility] Rehabilitation Therapy - [address] [phone] Angel Caballero MD [address] [place] [phone] Appointment Related Social History Tobacco Use Types [...] encounter Miscellaneous Notes * Telephone Encounter - Khloe Meeks - 09/18/2011 1441 EDT Patient called to cancel his Wednesday09/21/11 appointment - he has to work. He did not want to reschedule. He said it was going to be the last appointment and he thinks he is okay. If he gets worst hewill call us back and reschedule. documented in this encounter Plan of Treatment Not on file documented as of this encounter Visit Diagnoses Not on filedocumented in this encounter Care Teams Journeyman Carpenter Relationship Specialty Start Date End Date Angel Caballero MD [address] [place] [phone] PCP - General 04/26/09 documented as of this encounter
--- OUTSIDE RECORDS SUMMARY | 2023-12-29 16:39 | XMS_ITS | Encounter Summary ---
Author Organization [facility] Address [address] [place] [address] Care Team Providers Care Applications Coordinator Name Role Phone Angel Caballero MD Primary Care Provider Reason for Visit * Reason Comments Hearing Loss Encounter Details Date Type Department Care Team (Late st Contact Info) Description 09/27/2012 15:00 EDT Audiology [facility] Audiology - [facility] [address] [place], [place] [phone] Paula Dickey, AuD [address] [facility] [address] [place] [address] Social History Tobacco Use Types Packs/Day Years [...] as of this encounter Progress Notes * Paula Dickey - 09/27/2012 1529 EDT Adult Hearing Aid Evaluation Name: Sam Eng Address: [address] [place] [address] Date of : 1965 Primary Physician: Angel Caballero MD ICD9/Diagnosis: 389.18, Sensorineural Hearing Loss, bilateral Date of Service: 09/27/2012 Total Treatment Time: 44 minutes Name of Provider: BRIGITTE EARL SUBJECTIVE: Mr. Eng is here to discuss hearing aid options. OBJECTIVE: Patient/Family Interview: Mr. Eng reports difficulty communicating, especially at work. He is wondering if hearing aids would help him. He was recently seen at [facility] when a hearing aid evaluation was recommended due to bilateral high frequency hearing loss. Mr. Eng also notes bilateral, rafa etimes bothersome, tinnitus which has been present for the past 8 years. Medical History: hypertension Past hearing aid use: No Date/location of latest hearing evaluation: 04/28/12- [facility] Audiometric Results: Left ear: mild to moderately-severe sensorineural hearing loss at 2504-2048 Hz Right ear: moderate to moderately-severe sensorineural hearing loss at 7238-5704 Hz Amplification Requirement: ENT note 04/28/12- in [facility] Hearing Aid Selection: The benefits and limitations of amplification specific to the patient were discussed. The appropriateness of hearing aid style specific to both the patient and the hearing loss was discussed and a recommendation was made: The patient agreed with the recommended hearing aid(s). Advanced and premium level open fit ghgxmj-zro-sok (BTE) hearing aids (including those with tinnitus balance noise generator) were recommended; however, Mr. Eng is not ready to make a decision at this time. COSI (Client Oriented Scale of Improvement): The first step in the COSI validation measure was completed today, and five specific needs were established including: hearing at home, hearing inmates at work in noisy environments, meetings at work, TV, hearing in car. Patient/Family/Associate Education: Patient/family education was provided regarding previously obtained test results, hearing aid recommendations and plan for follow up. Method of education: Verbal Barriers to education: None The patient was able to verbalize understanding of the information ASSESSMENT: Results from audiologic evaluation completed on 04/28/12 were reviewed with the patient, and a trial with binaural amplification was recommended. Hearing aid options were discussed including styles andfeatures that would best suit his communication needs. We also discussed realistic expectations with hearing aid use, including the likely suppression of tinnitus if worn consistently. Mr. Eng is not ready to pursue at this time and would like to discuss further with his before making a decision. A follow up hearing aid evaluation will be scheduled if the patient decides to go forward. Goal: Sam Eng will be a successful and proficient hearing aid wearer. PLAN: Follow up hearing aid evaluation to be scheduled if patient decides to pursue. Hearing aid fitting is currently scheduled for 10/20/12. BRIGITTE EARL 09/27/2012 15:29 documented in this encounter Plan of Treatment Not on file documented as of this encounter Visit Diagnoses Not on filedocumented in this encounter Care Teams Applications Coordinator Relationship Specialty Start Date End Date Angel Caballero MD [address] [place] [phone] PCP - General 04/26/09 documented as of this encounter
--- OUTSIDE RECORDS SUMMARY | 2023-12-29 16:39 | XMS_ITS | Encounter Summary ---
Author Organization [facility] Address [address] [place] [address] Care Team Providers Care Manufacturing Teacher Name Role Phone Angel Caballero MD Primary Care Provider Encounter Details Date Type Department Care Team (Late st Contact Info) Description 05/13/2016 15:23 EDT - 05/13/2016 23:59 EDT Hospital Encounter [facility] Pulmonary Function Lab - [address] [phone] Unknown, Provider, MD Zhong, Coty Arevalo MD [address] [facility], [address] [place] [address] Uncomplicated asthma, unspecified asthma severity Discharge Disposition: Auto Discharge Social History Tobacco [...] as of this encounter Discharge Diagnoses Diagnosis J45.30 Mild persistent asthma, uncomplicated-J45.30[ICD-10-CM] J45.909 Unspecified asthma, uncomplicated-J45.909[ICD-10-CM] documented in this encounter Medications at Time [...] Disposition Code Departure Means Destination Auto Discharge Home documented in this encounter Progress Notes * Mery Valentine RT - 05/13/2016 1540 EDT Testing was performed and recorded in [employer]. See complete report in scanned documents. documented in this encounter Plan of Treatment Not on file documented as of this encounter Procedures Procedure Name Priority Date/Time Associated Diagnosis Comments PULMONARY FUNCTION REPORT - SCANNED 05/18/2017 7:01 EDT PULMONARY FUNCTION REPORT - SCANNED 05/13/2016 15:41 EDT documented in this encounter Results * PULMONARY FUNCTION REPORT - SCANNED (05/18/2017 7:01 EDT) 05/18/2017 7:01 EDT Scan 2 Forensics Team Director PROCEDURE/MINOR TRACIE GICAL ORDERABLES * PULMONARY FUNCTION REPORT - SCANNED (05/13/2016 15:41 EDT) 05/13/2016 15:4 1 EDT Scan 2 Forensics Team Director PROCEDURE/MINOR TRACIE GICAL ORDERABLES documented in this encounter Visit Diagnoses Diagnosis Uncomplicated asthma, unspecified asthma severity documented in this encounter Care Teams Manufacturing Teacher Relationship Specialty Start Date End Date Angel Caballero MD [address] [place] [phone] PCP - General 04/26/09 documented as of this encounter
--- OUTSIDE RECORDS SUMMARY | 2023-12-29 16:39 | XMS_ITS | Encounter Summary ---
Author Organization [facility] Address [address] [place] [address] Care Team Providers Care Software Licensing Specialist Name Role Phone Angel Caballero MD Primary Care Provider Reason for Visit * Reason Onset Date Comments Appointment Related 01/28/2016 cancel 01/28 Encounter Details Date Type Department Care Team (Late st Contact Info) Description 01/28/2016 Telephone [facility] Pulmonology & Critical Care - [facility] [address] [place], [place] [phone] Satinder de la vega MD [address] [place] [phone] Appointment Related (cancel 01/28) Social History Tobacco Use Types Packs/Day Years [...] encounter Miscellaneous Notes * Telephone Encounter - Coty Arnold - 01/28/2016 4326 EST Pt needing to re-schedule * Telephone Encounter - Irena Gonzalez - 01/28/2016 1531 EST Per pre-reg, pt would like to cancel 01/28 appts. States he will call back to reschedule. documented in this encounter Plan of Treatment Not on file documented as of this encounter Visit Diagnoses Not on filedocumented in this encounter Care Teams Software Licensing Specialist Relationship Specialty Start Date End Date Angel Caballero MD [address] [place] [phone] PCP - General 04/26/09 documented as of this encounter
--- OUTSIDE RECORDS SUMMARY | 2023-12-29 16:39 | XMS_ITS | Encounter Summary ---
Author Organization [facility] Address [address] [place] [address] Care Team Providers Care Charm Filter Operator Helper Name Role Phone Angel Caballero MD Primary Care Provider Encounter Details Date Type Department Care Team (Latest Contact Info) Description 04/22/2015 10:05 EST - 04/22/2015 23:59 EST Hospital Encounter [facility] Pulmonary Function Lab - [address] [phone] Slime Boothe MD [address] [place] [phone] SOB (shortness of breath) Discharge Disposition: Auto Discharge Social History Tobacco [...] Yes 12/28/2014 documented as of this encounter Discharge Diagnoses Diagnosis R06.02 Shortness of breath-R06.02[ICD-10-CM] documented in this encounter Medications at Time of Discharge Medication Sig Dispensed Refills Start Date End Date albuterol 90 mcg/actuation inhaler Inhale 2 Puffs as directed as needed. Pro air Aspirin 81 mg Tab Take 81 mg by mouth daily. lisinopril (PRINIVIL, ZESTRIL) 20 mg tablet Take 10 mg by mouth daily. documented as of this encounter Discharge Disposition Disposition Code Departure Means Destination Auto Discharge Home documented in this encounter Progress Notes * Mauricio Fuchs RT - 04/22/2015 1149 EST Testing was performed and recorded in [employer]. See complete report in scanned documents. documented in this encounter Plan of Treatment Not on file documented as of this encounter Procedures Procedure Name Priority Date/Time Associated Diagnosis Comments PULMONARY FUNCTION REPORT - SCANNED 04/23/2015 6:32 EST PULMONARY FUNCTION REPORT - SCANNED 04/22/2015 12:13 EST documented in this encounter Results * PULMONARY FUNCTION REPORT - SCANNED (04/23/2015 6:32 EST) 04/23/2015 6:32 EST Scan 2 Flight Test Engineer PROCEDURE/MINOR TRACIE GICAL ORDERABLES * PULMONARY FUNCTION REPORT - SCANNED (04/22/2015 12:13 EST) 04/22/2015 12:1 3 EST Scan 2 Flight Test Engineer PROCEDURE/MINOR TRACIE GICAL ORDERABLES documented in this encounter Visit Diagnoses Diagnosis SOB (shortness of breath) Shortness of breath documented in this encounter Administered Medications Inactive Administered Medications - up to 3 most recent administrations Medication Order MAR Action Action Date Dose Rate Site albuterol inhaler 4 Puff 4 Puff, inhalation, Once (Without Time Specified), 1 dose, Starting on Wed04/22/15 at 1215, Until Wed04/22/15 at 1146, Routine Given 04/22/2015 11:46 EST 4 Puffs methacholine (PROVOCHOLINE) inhalation solution inhalation, SEE ADMIN INSTRUCTIONS, 10 doses, Starting on Wed04/22/15 at 1130, Until 3/1/16 at 0425, Routine Given 04/22/2015 11:49 EST Given 04/22/2015 11:37 EST 2,000 mcg/mL Given 04/22/2015 11:32 EST 1,000 mcg/mL documented in this encounter Care Teams Charm Filter Operator Helper Relationship Specialty Start Date End Date Angel Caballero MD [address] [place] [phone] PCP - General 04/26/09 documented as of this encounter
--- OUTSIDE RECORDS SUMMARY | 2023-12-29 16:39 | XMS_ITS | Encounter Summary ---
Author Organization [facility] Address [address] [place] [address] Care Team Providers Care Tree Thinner Name Role Phone Angel Caballero MD Primary Care Provider Encounter Details Date Type Department Care Team (Late st Contact Info) Description 01/08/2015 14:43 EST - 01/08/2015 23:59 EST Hospital Encounter [facility] Pulmonary Function Lab - [facility] [address] [place], [place] [phone] Justen Rodriguez MD [address] [place], [place] [address] Satinder Orellana MD [address] [phone] Uncomplicated asthma, unspecified asthma severity Discharge Disposition: [...] as of this encounter Discharge Diagnoses Diagnosis J45.909 Unspecified asthma, uncomplicated-J45.909[ICD-10-CM] documented in this [...] in this encounter Progress Notes * Mariaa Rico RT - 01/08/2015 1513 EST Testing was performed and recorded in [employer]. See complete report in scanned documents. documented in this encounter Plan of Treatment Not on file documented as of this encounter Procedures Procedure Name Priority Date/Time Associated Diagnosis Comments PULMONARY FUNCTION REPORT - SCANNED 01/10/2015 6:38 EST PULMONARY FUNCTION REPORT - SCANNED 01/08/2015 15:25 EST documented in this encounter Results * PULMONARY FUNCTION REPORT - SCANNED (01/10/2015 6:38 EST) 01/10/2015 6:38 EST Scan 2 Water Carter PROCEDURE/MINOR TRACIE GICAL ORDERABLES * PULMONARY FUNCTION REPORT - SCANNED (01/08/2015 15:25 EST) 01/08/2015 15:2 5 EST Scan 2 Water Carter PROCEDURE/MINOR TRACIE GICAL ORDERABLES documented in this encounter Visit Diagnoses Diagnosis Uncomplicated asthma, unspecified asthma severity documented in this encounter Administered Medications Inactive Administered Medications - up to 3 most recent administrations Medication Order MAR Action Action Date Dose Rate Site albuterol inhaler 4 Puff 4 Puff, inhalation, Once (Without Time Specified), 1 dose, Starting on Wed01/08/15 at 1530, Until Wed01/08/15 at 1458, Routine Given 01/08/2015 14:58 EST 4 Puffs documented in this encounter Orders Medications Ordered That Miguel ht Not Have Been Administered Count Last Ordered Date First Ordered Date albuterol inhaler 4 Puff 1 01/08/2015 documented in this encounter Care Teams Tree Thinner Relationship Specialty Start Date End Date Angel Caballero MD [address] [phone] PCP - General 04/26/09 documented as of this encounter
--- OUTSIDE RECORDS SUMMARY | 2023-12-29 16:39 | XMS_ITS | Encounter Summary ---
Author Organization [facility] Address [address] [place] [address] Care Team Providers Care Loading Shovel Oiler Name Role Phone Angel Caballero MD Primary Care Provider Encounter Details Date Type Department Care Team (Latest Contact Info) Description 01/12/2013 20:13 EST - 01/12/2013 23:59 [facility] Hospital Encounter [address] [place] [address] Angel Caballero MD [address] [place] [address] [address] [place] [phone] Discharge Disposition: Home or Self Care Social [...] on file documented as of this encounter Discharge Diagnoses Diagnosis V72.5 RADIOLOGICAL EXAM NEC[ICD-9-CM] documented in this encounter Medications at Time of Discharge Medication Sig Dispensed Refills Start Date End Date Aspirin 81 mg Tab Take 81 mg by mouth daily. lisinopril (PRINIVIL, ZESTRIL) 20 mg tablet Take 10 mg by mouth daily. documented as of this encounter Discharge Disposition Disposition Code Departure Means Destination Home or Self Correction documented in this encounter Plan of Treatment Not on file documented as of this encounter Procedures Procedure Name Priority Date/Time Associated Diagnosis Comments RAD US SCROTUM WITH LIMITED DOPPLER 08/31/2014 14:54 EDT documented in this encounter Results * RAD US SCROTUM WITH LIMITED DOPPLER (08/31/2014 14:54 EDT) Anatomical Region Laterality Modality Other 08/31/2014 14:5 4 EDT 08/31/2014 17:04 EDT Narrative 08/31/2014 17:04 EDT RAD US SCROTUM WITH LIMITED DOPPLER ??08/31/2014 2:54 PM Signs and Symptoms/Comments: ??Incidental small hyperechoic mass noted on previous study. Comparison: February 18, 2014 Technique: Grayscale, color, and Cine sequences were obtained of the scrotum. Findings: The right testis measures 4.9 x 2.6 x 3.7 cm. There is a 2 x 2 x 3 mm the hyperechoic area in the mid right testicle correlating to prior exam. There are 3 new hyperechoic nodules in the right testicle. They are avascular. The rest of the right testis is homogenous in echogenicity. There is normal color-flow and Doppler waveform present. The left testis measures 5.4 x 2.2 x 3.8 cm. It demonstrates homogeneous echogenicity and echotexture. There is normal color-flow and Doppler waveform present. The right epididymal head measures 1.3 x 0.6 x 0.6 cm. The left epididymal head measures 1.4 x 1.0 x 1.0 cm. There is a 0.9 x 0.8 x 0.6 cm single simple cyst in the left epididymal head. There is a large right-sided hydrocele present. Impression: 1. 3 new small nodules in right testicle. ??The nodule in the right testicle from prior study is unchanged. These appear benign in nature as they are hyperechoic and avascular. Differential includes hamartoma versus lipoma. 2. Large right sided hydrocele persists 3. Left-sided cyst in the epididymis decreased in size from prior study 4. Left varicocele persists from prior study I have personally reviewed the images and the above interpretation and agree with the findings. Procedure Note Pat Mclaughlin MD - 08/31/2014 RAD US SCROTUM WITH LIMITED DOPPLER 08/31/2014 2:54 PM Signs and Symptoms/Comments: Incidental small hyperechoic mass noted on previous study. Comparison: February 18, 2014 Technique: Grayscale, color, and Cine sequences were obtained of the scrotum. Findings: The right testis measures 4.9 x 2.6 x 3.7 cm. There is a 2 x 2 x 3 mm the hyperechoic area in the mid right testicle correlating to prior exam. There are 3 new hyperechoic nodules in the right testicle. They are avascular. The rest of the right testis is homogenous in echogenicity. There is normal color-flow and Doppler waveform present. The left testis measures 5.4 x 2.2 x 3.8 cm. It demonstrates homogeneous echogenicity and echotexture. There is normal color-flow and Doppler waveform present. The right epididymal head measures 1.3 x 0.6 x 0.6 cm. The left epididymal head measures 1.4 x 1.0 x 1.0 cm. There is a 0.9 x 0.8 x 0.6 cm single simple cyst in the left epididymal head. There is a large right-sided hydrocele present. Impression: 1. 3 new small nodules in right testicle. The nodule in the right testicle from prior study is unchanged. These appear benign in nature as they are hyperechoic and avascular. Differential includes hamartoma versus lipoma. 2. Large right sided hydrocele persists 3. Left-sided cyst in the epididymis decreased in size from prior study 4. Left varicocele persists from prior study I have personally reviewed the images and the above interpretation and agree with the findings. Angel Caballero MD IMG US ORDERABL ES documented in this encounter Visit Diagnoses Not on filedocumented in this encounter Care Teams Loading Shovel Oiler Relationship Specialty Start Date End Date Angel Caballero MD [address] [place] [phone] PCP - General 04/26/09 documented as of this encounter
--- OUTSIDE RECORDS SUMMARY | 2023-12-29 16:39 | XMS_ITS | Encounter Summary ---
Author Organization [facility] Address [address] [place] [address] Care Team Providers Care Telephoto Installer Name Role Phone Angel Caballero MD Primary Care Provider Reason for Visit * Reason Onset Date Comments Other 05/27/2016 Encounter Details Date Type Department Care Team (Late st Contact Info) Description 05/27/2016 Telephone [facility] Pulmonology & Critical Care - [address] [phone] Satinder Orellana MD [address] [place] [phone] Other Social History Tobacco Use Types Packs/Day [...] encounter Miscellaneous Notes * Telephone Encounter - Tayla Echeverria - 05/27/2016 1605 EDT Patient was asking about a voicemail that Dr Orellana left and what it was about. Patient was concerned. documented in this encounter Plan of Treatment Not on file documented as of this encounter Visit Diagnoses Not on filedocumented in this encounter Care Teams Telephoto Installer Relationship Specialty Start Date End Date Angel Caballero MD [address] [place] [phone] PCP - General 04/26/09 documented as of this encounter
--- OUTSIDE RECORDS SUMMARY | 2023-12-29 16:39 | XMS_ITS | Encounter Summary ---
Author Organization [facility] Address [address] [place] [address] Care Team Providers Care Eyeglass Lens Grinder Name Role Phone Angel Caballero MD Primary Care Provider Reason for Referral * Radiology Services (Routine) - Closed Specialty Diagnoses / Procedures Referred By Contac t Referred To Contact Diagnoses Low back pain, unspecified back pain laterality, with sciatica presence unspecified Procedures L SPINE 4 OR MORE VIEWS Quentin Carroll PA-C [address] [place] [phone] Referral ID Status Reason Start Date Expiration Date Visits Re quested Visits Authorized [id number] Closed 11/06/2014 1 1 Encounter Details Date Type Department Care Team (Late st Contact Info) Description 11/06/2014 Orders Only [facility] Spine Program [place] [address] [place] [place] [address] Quentin Carroll PA-C [address] [place] [phone] Low back pain, unspecified back pain laterality, with sciatica presence unspecified (Primary Dx) Social History Tobacco Use Types [...] Procedure Name Priority Date/Time Associated Diagnosis Comments L SPINE 4 OR MORE VIEWS Routine 11/06/2014 10:31 EDT Low back pain, unspecified back pain laterality, with sciatica presence unspecified documented in this encounter Results * L SPINE 4 OR MORE VIEWS (11/06/2014 10:31 EDT) Anatomical Region Laterality Modality Other 11/06/2014 10:3 1 EDT 11/06/2014 16:49 EDT Narrative 11/06/2014 16:49 EDT LUMBAR SPINE 4 VIEWS November 06, 2014 Indication: Low back pain. Comparison: Lumbar spine MRI January 12, 2013. Technique: AP and lateral flexion, neutral and extension views of the lumbar spine were obtained. Findings: Significant scoliotic curvature is not appreciated. No shara- or retrolisthesis is noted in flexion, neutral or extension views. Vertebral body heights are preserved. There is minimal disc space narrowing at L5-S1 suggesting early disc degeneration. Mild facet hypertrophy is noted at the L5-S1 level. Procedure Note Marycruz Tirado MD - 11/06/2014 LUMBAR SPINE 4 VIEWS November 06, 2014 Indication: Low back pain. Comparison: Lumbar spine MRI January 12, 2013. Technique: AP and lateral flexion, neutral and extension views of the lumbar spine were obtained. Findings: Significant scoliotic curvature is not appreciated. No shara- or retrolisthesis is noted in flexion, neutral or extension views. Vertebral body heights are preserved. There is minimal disc space narrowing at L5-S1 suggesting early disc degeneration. Mild facet hypertrophy is noted at the L5-S1 level. Quentin Carroll PA-C [facility] ORDERABLES documented in this encounter Visit Diagnoses Diagnosis Low back pain, unspecified back pain laterality, with sciatica presence unspecified- Primary documented in this encounter Care Teams Eyeglass Lens Grinder Relationship Specialty Start Date End Date Angel Caballero MD [address] [place] [phone] PCP - General 04/26/09 documented as of this encounter
--- OUTSIDE RECORDS SUMMARY | 2023-12-29 16:39 | XMS_ITS | Encounter Summary ---
Author Organization [facility] Address [address] [place] [address] Care Team Providers Care Truck Supervisor Name Role Phone Angel Caballero MD Primary Care Provider Reason for Visit * Reason Comments Follow-up Encounter Details Date Type Department Care Team (Late st Contact Info) Description 04/23/2015 13:00 EST Office Visit [facility] Pulmonology & Critical Care - [facility] [address], [place] [id number] Justen Rodriguez MD [address] [place] [phone] Satinder Orellana MD [address] [phone] Mild intermittent asthma without complication (Primary Dx); PAOLA on CPAP Discharge Disposition: Auto Discharge Social History Tobacco [...] Sign Reading Time Taken Comments Blood Pressure 130/74 04/23/2015 1257 EST Pulse 78 04/23/2015 1257 EST Temperature 36.7 ??C (98 ??F) 04/23/2015 1257 EST Respiratory Rate 18 04/23/2015 1257 EST Oxygen Saturation 99% 04/23/2015 1257 EST Inhaled Oxygen Concentration - - Weight 109.8 kg (242 lb) 04/23/2015 1257 EST Height 168.6 cm (5' 6.38) 04/23/2015 1257 EST Body Mass Index 38.62 04/23/2015 1257 EST documented in this encounter Functional Status Functional Status Response [...] as of this encounter Discharge Diagnoses Diagnosis J45.20 Mild intermittent asthma, uncomplicated-J45.20[ICD-10-CM] documented in this encounter Discharge Disposition Disposition Code Departure Means Destination Auto Discharge documented in this encounter Progress Notes * Justen Rodriguez - 04/24/2015 1131 EST I saw and examined the patient with the fellow / resident at the bedside. All the relevant imaging studies and laboratory tests were independently reviewed. I agree with the assessment and treatment plan as specified in the fellow / resident's note. Justen Rodriguez MD Pulmonary, Critical Care and Sleep Medicine. * Zoya Fischer RN - 04/23/2015 1349 EST Patient Education Topic: MDI with spacer Method: Demonstration and Verbal and Handout Taught to: Patient Barriers: None Outcomes: verbalized understanding and return demonstration Signature: Zoya Fischer RN * Satinder Orlelana MD - 04/23/2015 1322 EST PULMONARY CLINIC: Follow-up PCP: Angel Caballero Chief complaint: asthma SUMMARY: 49-year-old male with past medical history of hypertension, obesity and allergic rhinitis who was referred to us because of 2 episodes of shortness of breath that was usually preceded by postnasal drip in 12/2014.?? The first episode occured in 2010 after he developed some sensation of postnasal drip, he did notice that he was having shortness of breath and also wheezing, for this he was treated with prednisone taper and this resolved the problem.?? At the same time a spirometry was also done which is consistent with restrictive pattern.??He has been feeling well with no residual pulmonary issues or complaints up until October 2014 when he also had a similar feeling of postnasal drip thatwas succeeded by wheezing and shortness of breath, a gain he did respond well to prednisone and wasplaced on albuterol when necessary.?? He denies any leg swelling, orthopnea, proximal much and a dyspnea, shortness of breath at rest, or shortness of breath in between these attacks.?? He completelyreturns to his baseline in between attacks. 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 He had sinus surgery but has not been needing chronic medication for his allergic rhinitis.?? At this time he does not think is being much problem to him.?? He was diagnosed to have obstructive sleep apnea at [id number] for which he has been on CPAP and very compliant.?? He thinks the CPAP has significantly helped him with regards to his energy level in the morning.?? He does not use any home oxygen, No historysuggestive of GERD He was worked up for airway hyper responsiveness which was positive on 03/2015 INTERVAL EVENTS: Today he feels same no SOB or cough, his symptoms occurs more at night and in clod weather.We was told about his positive methacholine test and how to use spacer and be complaint with ICS bid and to rinse his mouth afterwards ACTIVE PROBLEM LIST: CURRENT MEDICATIONS: Patient Active Problem List Diagnosis ??? Obstructive sleep apnea syndrome ??? Hypertension Current Outpatient Prescriptions on File Prior to Visit Medication Sig Dispense Refill ??? albuterol 90 mcg/actuation inhaler Inhale 2 Puffs as directed as needed. ??? Aspirin 81 mg Tab Take 81 mg by mouth daily. ??? lisinopril (PRINIVIL, ZESTRIL) 20 mg tablet Take 10 mg by mouth daily. No current facility-administered medications on file prior to visit. ALLERGIES: Review of patient's allergies indicates no known allergies. ROS: Review of systems is otherwise as listed in summary/interval history. Except for occasional wheezing , he denies chills, has no hemoptysis, no skin rash, no blurriness of vision, no chest pain, palpitations, no extremity edema, no urinary symptoms, no GI symptoms, no musculoskeletal complaints. Mood has been stable. Social History : reports that he has never smoked. He has never used smokeless tobacco. He reports that he drinks alcohol. He reports that he does not use illicit drugs. Past Medical History : Active Ambulatory Problems Diagnosis Date Noted ??? Obstructive sleep apnea syndrome 03/05/2010 ??? Hypertension 10/22/2011 Resolved Ambulatory Problems Diagnosis Date Noted ??? No Resolved Ambulatory Problems Past Medical History Diagnosis Date ??? Heart attack 07/2006 ??? CAD (coronary artery disease) ??? Unspecified sleep apnea ??? High blood pressure ??? Hearing loss ??? HTN (hypertension) 10/22/2011 PHYSICAL EXAM: BP 130/74 mmHg Pulse 78 Temp(Src) 36.7 ??C (98 ??F) (Tympanic) Resp 18 Ht 168.6 cm (66.38) Wt 109.77 kg (242 lb) BMI 38.62 kg/m2 SpO2 99% General: Alert, no cyanosis, not in any distress HEENT: normocephalic, atraumatic,mallampatti 2 Respiratory: Clear to both ausculation and percussion Cardio : No elevated JVD, S1,S2 normal, no murmurs, rubs or gallops Abdomen: soft, non tender, non distended, tympanic to percussion and normoactive bowel sounds Ext: No edema or cyanosis PULMONARY FUNCTION TESTS: No PFT done today PFT TREND: ? Date?? FEV1?? %?? FVC?? %?? LLN?? FEV1/FVC? LLN ? TLC?? %?? DLCOunc?? BD?? Comment?? 03/06/2010?? 2.80?? 76?? 3.73?? 80?? 3.90?? 75?? 66? 01/08/2015?? 3.01?? 87?? 3.74?? 84?? 3.60?? 78?? 68? negative? DIAGNOSTIC STUDIES: CXR done 01/08/2015 does not show any significant abnormality. IMPRESSION: Sam Eng a 49-year-old male, non smoker with history of recurrent episodes of wheezing and cough always preceded by feeling of postnasal drip.?? He feels completely well in between attacks thelast one was in October 2014.?? He normally response well to steroid.?? He is a nonsmoker, normalspiromeery in 2014, He uses ICS PRN, further work up with methacholine test is positive at 2mg/dl 1.Adult onset asthma with poor medication adherence 2.Sleep Apnea on CPAP 3. Obesity RECOMMENDATIONS: 1. Adult onset asthma with sub-optimal medication adherence : We educated him how to use spacer with the fluticasone 111 mcg/ml 2 puffs BID,he should rinse his mouth after each use. Albuterol only on PRN bases. Repeat spirometry in the next visit. Asthma plan was filled and printed for the patient 2. Sleep Apnea on CPAP : We encouraged him to continue CPAP use. 3. Obesity : Encouraged to loose weight. 4. Preventive medicine : Had flu shot already, not a candidate for pneumovax now, not on chronic steroid. Patient was seen and discussed with Dr. Rodriguez, the pulmonary attending. Thank you for letting me participate in the care of Sam Eng. I will see him back in 9 months. Please call if any further questions arise. Satinder Orellana MD. Pulmonary and Critical Care Fellow. [facility]. Pager # [phone] I saw and examined the patient with the fellow / resident at the bedside. All the relevant imaging studies and laboratory tests were independently reviewed. I agree with the assessment and treatment plan as specified in the fellow / resident's note. Justen Rodriguez MD Pulmonary, Critical Care and Sleep Medicine. documented in this encounter Plan of Treatment Not on file documented as of this encounter Visit Diagnoses Diagnosis Mild intermittent asthma without complication- Primary Unspecified asthma PAOLA on CPAP Obstructive sleep apnea (adult) (pediatric) documented in this encounter Historical Medications * This list may reflect changes made after this encounter. Medication Sig Dispensed Refills Start Date End Date fluticasone (FLOVENT) 110 mcg/actuation inhaler Inhale 2 Puffs as directed 2 times daily. added in this encounter Care Teams Truck Supervisor Relationship Specialty Start Date End Date Angel Caballero MD [address] [place] [phone] PCP - General 04/26/09 documented as of this encounter
--- OUTSIDE RECORDS SUMMARY | 2023-12-29 16:39 | XMS_ITS | Encounter Summary ---
Author Organization [facility] Address [address] [place] [address] Care Team Providers Care Care Management Associate Name Role Phone Angel Caballero MD Primary Care Provider Reason for Visit * Reason Comments Hypertension No chest pain, no pa lpitations, doing well, would like to lose more weight. Encounter Details Date Type Department Care Team (Late st Contact Info) Description 06/09/2012 9:00 EDT Office Visit [facility] Cardiology - [address] [phone] Juan Carlos James MD [address] [place] [address] [address] [place] [address] Hypertension (Primary Dx) Social History Tobacco Use Types [...] Sign Reading Time Taken Comments Blood Pressure 116/84 06/09/2012 0845 EDT Pulse 67 06/09/2012 0845 EDT Temperature - - Respiratory Rate - - Oxygen Saturation 96% 06/09/2012 0845 EDT Inhaled Oxygen Concentration - - Weight 109.3 kg (241 lb) 06/09/2012 0845 EDT Height 172.7 cm (5' 8) 06/09/2012 0845 EDT Body Mass Index 36.64 06/09/2012 0845 EDT documented in this encounter Progress Notes * Juan Carlos James MD - 06/09/2012 0904 EDT Subjective: Patient ID: Sam Eng is an 47 y.o. male. Chief Complaint Patient presents with ??? Hypertension No chest pain, no palpitations, doing well, would like to lose more weight. ASSESSMENT AND RECOMMENDATIONS: 1. Hypertension: Excellent control by today's measurement on current well tolerated medical regimen. No need for further testing for hypertension at this time except as needed in followup. 2. History of atypical chest pain and past normal conventional stress test: These symptoms have resolved and seemed to have been situational, related to anxiety and stress. No need for further cardiac imaging at this time. Mr Eng is doing very well. He seems well motivated with his risk factor modification, medicationcompliance and lifestyle changes. Given his resolution of symptoms and stability, I will change hiscardiac followup to an as-needed basis. I had a nice discussion with the patient today, reviewing his past testing symptoms and his treatment. HPI Mr Eng returns today for followup of the above issues. Since his last visit with me he has been doing very well. His blood pressure has come under good control he says and he is tolerating his lisinopril without any problems and specifically he has had no cough. He has had resolution of the previous atypical chest pain symptoms, which he thinks were related to stress and anxiety. He and his are doing some more regular walking in the improved weather. He is making some dietary changes and he was using a gym membership fairly regularly until the cough got to be a bit too much. His review of systems is negative for palpitations, stroke-like symptoms, PND, orthopnea, peripheral edema, cough, and recurrent chest pain. Patient Active Problem List Diagnoses ??? Obstructive sleep apnea syndrome ??? Hypertension Past Medical History Diagnosis Date ??? Heart attack 07/2006 ??? CAD (coronary artery disease) ??? Unspecified sleep apnea ??? High blood pressure ??? Hearing loss ??? HTN (hypertension) 10/22/2011 Past Surgical History Procedure Date ??? Hernia repair ??? Refractive surgery ??? Nasal septum surgery April 2010 ??? Eye surgery Family History Problem Relation Age of Onset ??? Allergic Rhinitis Neg Hx ??? Thyroid Disease Neg Hx Social History Substance Use Topics ??? Smoking status: Never Smoker ??? Smokeless tobacco: Never Used ??? Alcohol Use: Yes rare wine Current Outpatient Prescriptions on File Prior to Visit Medication Sig Dispense Refill ??? lisinopril (PRINIVIL, ZESTRIL) 20 mg tablet Take 10 mg by mouth daily. ??? Aspirin 81 mg Tab Take 81 mg by mouth daily. No Known Allergies ROS - See HPI Objective: BP 116/84 Pulse 67 Ht 172.7 cm (68) Wt 109.317 kg (241 lb) BMI 36.64 kg/m2 SpO2 96% Physical Exam Vitals reviewed. Constitutional: He appears well-nourished. No distress. Eyes: No scleral icterus. Cardiovascular: Normal rate and regular rhythm. No murmur heard. Pulmonary/Chest: Effort normal and breath sounds normal. Musculoskeletal: He exhibits no edema. Assessment: Plan: Sam was seen today for hypertension. Diagnoses and associated orders for this visit: Hypertension Juan Carlos James MD documented in this encounter Plan of Treatment Not on file documented as of this encounter Visit Diagnoses Diagnosis Hypertensive disorder- Primary Unspecified essential hypertension documented in this encounter Care Teams Care Management Associate Relationship Specialty Start Date End Date Angel Caballero MD [address] [place] [phone] PCP - General 04/26/09 documented as of this encounter
--- OUTSIDE RECORDS SUMMARY | 2023-12-29 16:39 | XMS_ITS | Encounter Summary ---
Author Organization [facility] Address [address] [place] [address] Care Team Providers Care Grounds Cleaner Name Role Phone Angel Caballero MD Primary Care Provider Reason for Visit * Reason Onset Date Comments Hypertension 10/19/2011 One event evening Encounter Details Date Type Department Care Team (Late st Contact Info) Description 10/19/2011 Telephone [facility] Cardiology - [address] [place] [address] Juan Carlos James MD [address] [facility] [address] [place] [address] Hypertension (One event Wednesday evening) Social History Tobacco Use Types Packs/Day Years [...] encounter Miscellaneous Notes * Telephone Encounter - Blanche Day NP - 10/19/2011 1003 EDT The patient's blood pressure is generally 120/80 and he had symptoms with the described hypertension of 158/109 Mr. Eng will see Dr. coughlin on October 21 at 4:00. * Telephone Encounter - Desiree Sosa - 10/19/2011 0843 EDT Patient called to check when his FUR with Dr. James had been moved to (now on 11.19.11) and told me about an episode of high blood pressure that he had on Wednesday night around midnight. He said it came on quick and was 158/109 when he checked it. He sat for about 30 minutes until it went away and felt better afterwards. He denied any chest pain or other symptoms. He is wondering if he should still wait until 11.18 or if he should be seen soon. Please call back. documented in this encounter Plan of Treatment Not on file documented as of this encounter Visit Diagnoses Not on filedocumented in this encounter Care Teams Grounds Cleaner Relationship Specialty Start Date End Date Angel Caballero MD [address] [place] [phone] PCP - General 04/26/09 documented as of this encounter
--- OUTSIDE RECORDS SUMMARY | 2023-12-29 16:39 | XMS_ITS | Encounter Summary ---
Author Organization [facility] Address [address] [place] [address] Care Team Providers Care Seismograph Helper Name Role Phone Angel Caballero MD Primary Care Provider Reason for Referral * Consult (Routine) - Specialty Report Received Specialty Diagnoses / Procedures Referred By Lanette russo Referred To Contact Pain Medicine Diagnoses Low back pain radiating to right leg Quentin Carroll PA-C [address] [place] [phone] [facility] [address] [facility] [place] [address] Referral ID Status Reason Start Date Expiration Date Visits Requested Visits Authorized [id number] Specialty Report Received Specialty Services Required 01/23/2015 1 1 Question Answer Reason for Request: low back pain radiating to right leg Comments Recommend left SI joint injection Reason for Visit * Reason Onset Date Comments Injections 01/23/2015 Encounter Details Date Type Department Care Team (Late st Contact Info) Description 01/23/2015 Telephone [facility] [place] [address] Quentin Carroll PA-C [address] [place] [phone] Injections Social History Tobacco Use Types Packs/Day Years [...] encounter Miscellaneous Notes * Telephone Encounter - Mariaa El - 01/23/2015 1313 EST Pended injection order for Claudio to sign. * Telephone Encounter - Mariaa El - 01/23/2015 1256 EST Patient had minimal relief from injection that lasted 24 hours. He would like to try the SI joint injection per Claudio's plan. Routing to Claudio to pend injection order. Patient still has injection education information. documented in this encounter Plan of Treatment Scheduled Referrals Name Type Priority Associated Diagnoses Order Schedule AMB CONS/FOLLOW UP PAIN INTERVENTIONAL Outpatient Referral Routine Low back pain radiating to right leg Ordered: 01/23/2015 documented as of this encounter Visit Diagnoses Diagnosis Low back pain radiating to right leg- Primary Lumbago documented in this encounter Care Teams Seismograph Helper Relationship Specialty Start Date End Date Angel Caballero MD [address] [place] [phone] PCP - General 04/26/09 documented as of this encounter
--- OUTSIDE RECORDS SUMMARY | 2023-12-29 16:39 | XMS_ITS | Encounter Summary ---
Author Organization [facility] Address [address] [place] [id number] Care Team Providers Care Manager Salt Name Role Phone Angel Caballero MD Primary Care Provider Reason for Visit * Reason Comments Eye Pain Encounter Details Date Type Department Care Team (Latest Contact Info) Description 12/22/2012 10:01 EDT - 12/22/2012 11:39 EDT Hospital Encounter [facility] [address] [place] [id number] Nubia Dangelo PA-C [address] [place] [phone] Unknown, Provider, Conjunctivitis (Primary Dx) Discharge Disposition: Home or Self Care Social [...] Sign Reading Time Taken Comments Blood Pressure 140/78 12/22/2012 1030 EDT Pulse 79 12/22/2012 1030 EDT Temperature 36.8 ??C (98.3 ??F) 12/22/2012 1030 EDT Respiratory Rate 16 12/22/2012 1030 EDT Oxygen Saturation - - Inhaled Oxygen Concentration - - Weight - - Height - - Body Mass Index - - documented in this encounter Discharge Diagnoses Diagnosis 372.30 CONJUNCTIVITIS NOS[ICD-9-CM] documented in this encounter Discharge Instructions * Discharge Instructions* Nubia Dangelo PA-C - 12/22/2012 11:24 EDT Return immediately for fever, redness, swelling or pain of the skin around the eyes, changes in your vision, extreme pain or any concerning, worsening or changing symptoms. * Attachments The following attachments cannot be sent through Care Everywhere. * PINKEYE: AFTER YOUR VISIT (NIGERIAN) documented in this encounter Medications at Time of Discharge Medication Sig Dispensed Refills Start Date End Date Aspirin 81 mg Tab Take 81 mg by mouth daily. lisinopril (PRINIVIL, ZESTRIL) 20 mg tablet Take 10 mg by mouth daily. trimethoprim-polymyxin B (POLYTRIM) ophthalmic solution Place 1 Drop into the right eye 4 times daily for 7 days. 1 Bottle 0 12/22/2012 12/29/2012 documented as of this encounter Ordered Prescriptions Prescription Sig Dispensed Refills Start Date End Da te trimethoprim-polymyxin B (POLYTRIM) ophthalmic solution Place 1 Drop into the right eye 4 times daily for 7 days. 1 Bottle 0 12/22/2012 12/29/2012 documented in this encounter Discharge Disposition Disposition Code Departure Means Destination Home or Self Care documented in this encounter ED Notes * Nubia Dangelo PA-C - 12/22/2012 1125 EDT DOS: 12/22/2012 Chief Complaint Patient presents with ??? Eye Pain The patient is a 47 y.o. male who presents today with Eye Pain HPI Comments: Is a 39-year-old male patient who presents complaining of some right lateral eye painover the last 5-7 days. Is states lateral aspect of the eye has been red. He reports irritation but no pain, mild hazy vision in that eye. No double vision. No excess lacrimation, exudate or other discharge. No deep eye pain or headache, no nausea or vomiting. No fever or chills. No recent illness. States he has been improving. The history is provided by the patient. Eye Pain Location: R eye Quality: lateral aspcet of right eye feels scratchy for about the last week. Onset quality: Sudden Context: no contact lens problem Associated symptoms: redness (minimal right lateral injection as per .) Associated symptoms: no blurred vision, no decreased vision, no discharge, no double vision, no facial rash, no headaches, no inflammation, no itching, no nausea, no numbness, no photophobia, no swelling, no tearing, no tingling and no weakness Review of Systems Constitutional: Negative for fever, chills, activity change, appetite change and fatigue. HENT: Negative for ear pain, congestion, sore throat, rhinorrhea and neck pain. Eyes: Positive for pain and redness (minimal right lateral injection as per .). Negative for blurred vision, double vision, photophobia, discharge, itching and visual disturbance. Respiratory: Negative for cough and shortness of breath. Cardiovascular: Negative for chest pain and palpitations. Gastrointestinal: Negative for nausea. Skin: Negative for color change and rash. Neurological: Negative for dizziness, tingling, syncope, weakness, numbness and headaches. Psychiatric/Behavioral: Negative for behavioral problems. The patient is not nervous/anxious. No current facility-administered medications for this encounter. Current Outpatient Prescriptions Medication Status Sig Dispense Refill ??? Aspirin 81 mg Tab Active Take 81 mg by mouth daily. ??? lisinopril (PRINIVIL, ZESTRIL) 20 mg tablet Active Take 10 mg by mouth daily. ??? trimethoprim-polymyxin B (POLYTRIM) ophthalmic solution Active Place 1 Drop into the right eye 4 times daily for 7 days. 1 Bottle 0 No Known Allergies Patient Active Problem List Diagnosis Date Noted ??? Hypertension 10/22/2011 ??? Obstructive sleep apnea syndrome 03/05/2010 Severe PAOLA - PSG 11/14/09 Titration 03/07/10 On AutoCPAP min6,max16, nasal mask, [employer] Past Medical History Diagnosis Date ??? Heart attack 07/2006 ??? CAD (coronary artery disease) ??? Unspecified sleep apnea ??? High blood pressure ??? Hearing loss ??? HTN (hypertension) 10/22/2011 History Substance Use Topics ??? Smoking status: Never Smoker ??? Smokeless tobacco: Never Used ??? Alcohol Use: Yes rare wine Family History Problem Relation Age of Onset ??? Allergic Rhinitis Neg Hx ??? Thyroid Disease Neg Hx BP 140/78 Pulse 79 Temp(Src) 98.3 ??F (36.8 ??C) (Temporal) Resp 16 Physical Exam Nursing note and vitals reviewed. Constitutional: He is oriented to person, place, and time. He appears well- developed and well-nourished. No distress. HENT: Head: Normocephalic and atraumatic. Right Ear: External ear normal. Left Ear: External ear normal. Nose: Nose normal. Mouth/Throat: Oropharynx is clear and moist and mucous membranes are normal. Eyes: EOM are normal. Pupils are equal, round, and reactive to light. Right eye exhibits no chemosis, no discharge, no exudate and no hordeolum. No foreign body present in the right eye. Left eye exhibits no chemosis, no discharge, no exudate and no hordeolum. No foreign body present in the left eye. Right conjunctiva is injected (right latera palpebral conjunctiva is injected. bulbar conjunctivais nont injected.). Right conjunctiva has no hemorrhage. Left conjunctiva is not injected. Left conjunctiva has no hemorrhage. No uptake of fluorescein staining. Cardiovascular: Normal rate, regular rhythm and normal heart sounds. Pulmonary/Chest: Effort normal and breath sounds normal. No respiratory distress. Neurological: He is alert and oriented to person, place, and time. Skin: Skin is warm and dry. No rash noted. Psychiatric: He has a normal mood and affect. His behavior is normal. Consult orders: None PCP: Angel Caballero MD No results found for this visit on 12/22/12. Radiology orders: None Imaging Results None Procedures Course: A medical screening exam was performed. Disposition: Discharged The patient's pain was managed to an adequate level weighing risk vs. benefit of further medications. Upon departure from the [facility], the patient's pain was 5 on a zero to ten scale. Condition at departure from the [facility]: Stable Final diagnoses: Conjunctivitis Plan: polytrim drops, F/U with PCP. Return immediately for severe pain, fever, discharge from the eye, periorbital swelling, erythema or tenderness, recalcitrant blurred vision or at any time for anyother concerns Dr. Roge Hale was available for consultation during my care of this patient. [facility] 12/22/2012 11:39 * Gisele Orourke RN - 12/22/2012 1033 EDT Patient reports right eye pain,redness, and slightly blurred vision starting one week ago and worsening since then. Has used OTC eye drops with no relief.Presents with slight redness right eye.No swelling noted. Denies injury,itching,drainage,fever,malaise. documented in this encounter Plan of Treatment Not on file documented as of this encounter Visit Diagnoses Diagnosis Conjunctivitis- Primary Conjunctivitis, unspecified documented in this encounter Care Teams Manager Salt Relationship Specialty Start Date End Date Angel Caballero MD [address] [place] [phone] PCP - General 04/26/09 documented as of this encounter
--- OUTSIDE RECORDS SUMMARY | 2023-12-29 16:39 | XMS_ITS | Encounter Summary ---
Author Organization [facility] Address [address] [place] [address] Care Team Providers Care Aircraft General Repair Mechanic Name Role Phone Angel Caballero MD Primary Care Provider Encounter Details Date Type Department Care Team (Late st Contact Info) Description 01/08/2015 14:23 EST - 01/08/2015 14:42 [facility] Hospital Encounter [facility] [address] [place] [address] Justen Rodriguez MD [address] [place] [phone] Discharge Disposition: Auto Discharge Social History Tobacco [...] Auto Discharge Home documented in this encounter Plan of Treatment Not on file documented as of this encounter Visit Diagnoses Not on filedocumented in this encounter Care Teams Aircraft General Repair Mechanic Relationship Specialty Start Date End Date Angel Caballero MD [address] [place] [phone] PCP - General 04/26/09 documented as of this encounter
--- OUTSIDE RECORDS SUMMARY | 2023-12-29 16:39 | XMS_ITS | Encounter Summary ---
Author Organization [facility] Address [address] [place] [address] Care Team Providers Care Retail Assistant Store Manager Name Role Phone Angel Caballero MD Primary Care Provider Encounter Details Date Type Department Care Team (Late st Contact Info) Description 06/06/2015 14:02 EDT - 06/06/2015 23:59 EDT Hospital Encounter [facility] [address] [place] [address] Ja Daley MD [address] [facility] [address] [place] [phone] Discharge Disposition: Home or Self Care Social [...] Sign Reading Time Taken Comments Blood Pressure 119/82 06/06/2015 1653 EDT Pulse - - Temperature 36.4 ??C (97.5 ??F) 06/06/2015 1619 EDT Respiratory Rate 16 06/06/2015 1653 EDT Oxygen Saturation 99% 06/06/2015 1653 EDT Inhaled Oxygen Concentration - - Weight 112.5 kg (248 lb) 06/06/2015 1429 EDT Height 172.7 cm (5' 7.99) 06/06/2015 1429 EDT Body Mass Index 37.72 06/06/2015 1429 EDT documented in this encounter Functional Status Functional [...] Yes 05/10/2015 documented as of this encounter Medications at Time of Discharge Medication Sig Dispensed Refills Start Date End Date albuterol 90 mcg/actuation inhaler Inhale 2 Puffs as directed as needed. Pro air Aspirin 81 mg Tab Take 81 mg by mouth daily. fluticasone (FLOVENT) 110 mcg/actuation inhaler Inhale 2 Puffs as directed 2 times daily. lisinopril (PRINIVIL, ZESTRIL) 20 mg tablet Take 10 mg by mouth daily. documented as of this encounter Discharge Disposition Disposition Code Departure Means Destination Home or Self Long-Term documented in this encounter H&P Notes * Ja Daley MD - 06/06/2015 1553 EDT Endoscopy Sedation for Procedure History & Physical Date: 06/06/2015 Time: 15:53 Location: [address] Planned Procedure: Colonoscopy Chief Complaint/Indications for Procedure: 1st screen History Previous Complication with Sedation and/or Anesthesia? No Allergies: No Known Allergies Current Medications: Current Outpatient Prescriptions Medication Sig Dispense Refill ??? albuterol 90 mcg/actuation inhaler Inhale 2 Puffs as directed as needed. Pro air ??? Aspirin 81 mg Tab Take 81 mg by mouth daily. ??? fluticasone (FLOVENT) 110 mcg/actuation inhaler Inhale 2 Puffs as directed 2 times daily. ??? lisinopril (PRINIVIL, ZESTRIL) 20 mg tablet Take 10 mg by mouth daily. Current Facility-Administered Medications Medication Route Frequency ??? lactated ringers (LR) infusion intravenous CONTINUOUS Past Medical History: Past Medical History Diagnosis Date ??? Heart attack 07/2006 ??? CAD (coronary artery disease) ??? Unspecified sleep apnea ??? High blood pressure ??? Hearing loss ??? HTN (hypertension) 10/22/2011 ??? Lung disease asthma Social History: Past Surgical History Procedure Laterality Date ??? Hernia repair ??? Refractive surgery ??? Nasal septum surgery April 2010 ??? Eye surgery History Substance Use Topics ??? Smoking status: Never Smoker ??? Smokeless tobacco: Never Used Comment: exposed to second hand smoke as a child ??? Alcohol Use: 0.0 oz/week 0 Standard drinks or equivalent per week Family History: Family History Problem Relation Age of Onset ??? Allergic Rhinitis Neg Hx ??? Thyroid Disease Neg Hx Review of Systems as pertinent: Physical Exam Vital Signs: BP 116/85 mmHg Temp(Src) 36.7 ??C (98.1 ??F) (Tympanic) Resp 16 Ht 172.7 cm (67.99) Wt 112.492 kg (248 lb) BMI 37.72 kg/m2 SpO2 97% Heart Examination: Cardiac Regularity: Regular Respiratory Examination: Respiratory Pattern: Regular Breath Sounds Right: Clear Breath Sounds Left: Clear Abdominal Examination: Soft, non-tender, bowel sounds normal, no masses, no organomegaly Additional physical exam related to the proposed procedure, patient activity, disease state and treatment as pertinent: Assessment Previous complications with sedation or anesthesia?: No Airway Concerns: None Anesthesia Classification: ASA 2 Plan: Proceed with sedation for procedure Fasting Time: Time of last liquid intake: 1230 Date of Last Liquid Intake: 06/06/15 Time of last solid intake: 2029 Date of last solid intake: 06/04/15 Patient Appropriate Candidate for Planned Sedation?: Yes Ja Daley MD 06/06/2015 15:53 documented in this encounter Plan of Treatment Not on file documented as of this encounter Procedures Procedure Name Priority Date/Time Associated Diagnosis Comments PROCEDURE REPORTS - SCANNED 06/07/2015 0:35 EDT documented in this encounter Results * PROCEDURE REPORTS - SCANNED (06/07/2015 0:35 EDT) 06/07/2015 0:35 EDT Scan 2 Visual Display Associate PROCEDURE/MINOR TRACIE GICAL ORDERABLES documented in this encounter Visit Diagnoses Not on filedocumented in this encounter Administered Medications Inactive Administered Medications - up to 3 most recent administrations Medication Order MAR Action Action Date Dose Rate Site fentaNYL citrate (PF) 50 mcg/mL injection 100-250 mcg 100-250 mcg, intravenous, ONCE PRN, 1 dose, Starting on Saritha 06/06/15 at 1605, Until Saritha 06/06/15 at 1605, Other, sedation, Routine, Intraprocedure Given 06/06/2015 16:05 EDT 50 mcg lactated ringers (LR) infusion at 75 mL/hr, intravenous, CONTINUOUS, Starting on Saritha 06/06/15 at 1515, Until 06/08/15 at 0428, Routine New Bag 06/06/2015 14:50 EDT 30 mL/hr midazolam (PF) (VERSED) 1 mg/mL injection 1-10 mg 1-10 mg, intravenous, ONCE PRN, 1 dose, Starting on Saritha 06/06/15 at 1605, Until Saritha 06/06/15 at 1605, Sedation, Routine, Intraprocedure Given 06/06/2015 16:05 EDT 2 mg documented in this encounter Orders Medications Ordered That Miguel ht Not Have Been Administered Count Last Ordered Date First Ordered Date lactated ringers (LR) infusion 1 06/06/2015 Discharge Count Last Ordered Date First Orde red Date DISCHARGE PATIENT 1 06/06/2015 documented in this encounter Care Teams Retail Assistant Store Manager Relationship Specialty Start Date End Date Angel Caballero MD [address] [place] [phone] PCP - General 04/26/09 documented as of this encounter
--- OUTSIDE RECORDS SUMMARY | 2023-12-29 16:39 | XMS_ITS | Encounter Summary ---
Author Organization [facility] Address [address] [place] [address] Care Team Providers Care Conduit Installer Name Role Phone Angel Caballero MD Primary Care Provider Reason for Visit * Reason Comments Eye Problem 51 y.o male here for complete eye exam. 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 No eye pain, no flashes of light. Pt has noticed floaters before but none recently. Pt has a pair of glasses he got from an phlebotomist in a [facility] [place] in [place] but says that they don't help. Pt has had strabismus surgery in the right eye in 1975. Encounter Details Date Type Department Care Team (Late st Contact Info) Description 05/27/2016 13:15 EDT Office Visit [facility]hthalmology - [address] [phone] Luda Robertson MD [address] [place] [address], [address] [place] [phone] Social History Tobacco Use Types Packs/Day Years [...] Yes 05/10/2015 documented as of this encounter Progress Notes * Luda Robertson MD - 05/27/2016 1315 EDT Chief Complaint Patient presents with ??? Eye Problem 51 y.o male here for complete eye exam. 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 No eye pain, no flashes of light. Pt has noticed floaters before but none recently. Pt has a pair of glasses hegot from an phlebotomist in a [facility] in [place] but says that they don't help. Pt has had strabismus surgery in the right eye in 1975. HPI The patient is a 51 y.o. male here for eye exam as a new pt. Pt. States gradual VA decrease over time, no eye pain, no flashes, no new or different floaters from past. Pt. States FL OD, Mrx Glx without improvement. 1975 surgery. Today's: Intraocular pressure was 18 in the right eye and 15 in the left eye using Applanation. Past Ocular History Past Ocular Surgery/Procedures: H/O strabismus surgery 1975 right eye Family History Problem Relation Age of Onset ??? Allergic Rhinitis Neg Hx ??? Thyroid Disease Neg Hx Right Eye: Blurred Vision Left Eye: Blurred Vision Visual Aid: Glasses Current Rx Age 1 year Location: Both eyes Pain: 0 - No pain Quality: Blurry Severity: Moderate Duration: Years Timing: Constant Lasts: Continuous Context: 51 y.o male here for complete eye exam. 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 Noeye pain, no flashes of light. Pt has noticed floaters before but none recently. Pt has a pair of glasses he got from an phlebotomist in a [facility] in [place] but says that they don't help. Pt has hadstrabismus surgery in the right eye in 1975. Modifying factors: Associated Signs & Symptoms: ROS Constitutional: NL ENT/Mouth Sinus Congestion, Runny Nose Cardiovascular: High Cholesterol, High Blood Pressure Respiratory: NL Gastrointestinal: NL Genitourinary: NL Musculoskeletal: NL Integumentary: NL Neurologic: NL Psychiatric: NL Endocrine: NL Hematologic: NL Immunologic: NL Reverberatory Furnace Supervisor: Exposures: None Other: Allergies include: Review of patient's allergies indicates no known allergies. Patient Active Problem List Diagnosis ??? Obstructive sleep apnea syndrome ??? Hypertensive disorder Outpatient Prescriptions Marked as Taking for the 05/27/16 encounter (Office Visit) with Luda Robertson MD Medication Sig ??? albuterol 90 mcg/actuation inhaler Inhale 2 Puffs as directed as needed. Pro air ??? Aspirin 81 mg Tab Take 81 mg by mouth daily. ??? fluticasone (FLOVENT) 110 mcg/actuation inhaler Inhale 2 Puffs as directed 2 times daily. ??? FLUTICASONE PROPIONATE (FLONASE NASAL) by nasal route as needed. ??? lisinopril (PRINIVIL, ZESTRIL) 20 mg tablet Take 10 mg by mouth daily. Past Medical History: Diagnosis Date ??? CAD (coronary artery disease) ??? Hearing loss ??? Heart attack 07/2006 ??? High blood pressure ??? HTN (hypertension) 10/22/2011 ??? Lung disease asthma ??? Unspecified sleep apnea Past Surgical History: Procedure Laterality Date ??? EYE SURGERY ??? HERNIA REPAIR ??? NASAL SEPTUM SURGERY April 2010 ??? REFRACTIVE SURGERY Patient reports that he has never smoked. He has never used smokeless tobacco. He reports that he drinks alcohol. He reports that he does not use illicit drugs. Base Eye Exam Visual Acuity (Snellen - Linear) Right Left Dist sc 20/60 +2 20/20 Dist cc 20/30 +1 20/20 -1 Dist ph cc 20/25-2 Near sc J10 J3 Correction: Glasses Tonometry (Applanation, 14:30) Right Left Pressure 18 15 Pupils Pupils Dark Light React APD Right PERRL 4 3 Brisk None Left PERRL 4 3 Brisk None Visual Mccarthy Right Left Result Full Full Extraocular Movement Right exophoria Limited AB duction right eye Limited AD duction left eye Neuro/Psych Oriented x3: Yes Mood/Affect: Normal Dilation Both eyes: 1.0% Mydriacyl, 2.5% Phenylephrine @ 14:30 Additional Tests Color Right Left Ishihara 17/17 correct correct Slit Lamp and Fundus Exam External Exam Right Left External Normal Normal Slit Lamp Exam Right Left Lids/Lashes Normal Normal Conjunctiva/Sclera White and quiet White and quiet Cornea Clear Clear Anterior Chamber Deep and quiet Deep and quiet Iris NL, blue NL, blue Lens Trace Nuclear sclerosis Trace Nuclear sclerosis Vitreous Normal Normal Fundus Exam Right Left Disc round round C/D Ratio 0.3 0.3 Macula Normal Normal Vessels Normal Normal Periphery Normal Normal Refraction Wearing Rx Sphere Cylinder [place] Right [place] +1.75 116 Left [place] +0.50 063 Age: 1yr Type: Distance Manifest Refraction (Retinoscopy) Sphere Cylinder [place] Dist Add Near Right [place] +2.25 130 20/25-2 +2.25 J1+ Left [place] +0.50 063 20/20 +1.75 J1+ Final Rx Sphere Cylinder [place] Add Right [place] +2.25 130 +2.25 Left [place] +0.50 063 +1.75 Strongly suggest polycarbonate or stronger. IMPRESSION & PLAN: Sam Eng was seen today for medical eye evaluation- CAROLYN 2009. Ed has a history of strabismussurgery in the 1975 - he thinks right eye only, but isn't sure. He has had a documented XT on earlier exams, and it is still present, as one would expect. Early cataract present. Recommend UV protection. RX glasses by patient request. Strongly suggest polycarbonate. DW patient. 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 Diagnoses and all orders for this visit: Nuclear sclerosis of both eyes - Recommend the use of UV protection - will follow. Pt. To be seen in two years for DFE. Exotropia of right eye History of strabismus surgery Presbyopia - A new prescription for glasses was given to the patient at today's exam at patient's request after refraction. The patient was also suggested to use polycarbonate impact resistant lensesas a lens material of choice. I have reviewed the patient's past medical, family, social and surgical history. I have also reviewed the patient's medications, allergies, and problem list. I performed my own HPI and have reviewed the Qubit's ROS as well. I personally completed this exam myself. Luda Robertson MD I am scribing for Dr. Luda Robertson while she is personally performing the service. Signature: Mann Jarvis The patient was instructed to call our office or go to emergency room if worse vision, worse symptoms, or new/other concerns arise. documented in this encounter Plan of Treatment Not on file documented as of this encounter Visit Diagnoses Diagnosis Nuclear sclerosis of both eyes- Primary Exotropia of right eye Exotropia, unspecified History of strabismus surgery Other states following surgery of eye and adnexa Presbyopia documented in this encounter Eye Exam Visual Acuity (Snellen - Linear) Right eye Left eye Dist sc 20/60 +2 20/20 Dist cc 20/30 +1 20/20 -1 Dist ph cc 20/25-2 Near sc J10 J3 Correction: Glasses Tonometry (Applanation, 14:30) Right eye Left eye Pressure 18 15 Pupils Pupils Dark Light React APD Right eye PERRL 4 3 Brisk None Left eye PERRL 4 3 Brisk None Visual Mccarthy Right eye Left eye Full Full Extraocular Movement Right exophoria Limited AB duction right eye Limited AD duction left eye Neuro/Psych Oriented x3: Yes Mood/Affect: Normal Dilation Both eyes: 1.0% Mydriacyl, 2 .5% Phenylephrine @ 14:30 Color Right eye Left eye Ishihara 17/17 correct 17/17 correct External Exam Right eye Left eye External Normal Normal Slit Lamp Exam Right eye Left eye Lids/Lashes Normal Normal Conjunctiva/Sclera White and quiet White and sb et Cornea Clear Clear Anterior Chamber Deep and quiet Deep and quiet Iris NL, blue NL, blue Lens Trace Nuclear sclerosis Trace Nu clear sclerosis Vitreous Normal Normal Fundus Exam Right eye Left eye Disc round round C/D Ratio 0.3 0.3 Macula Normal Normal Vessels Normal Normal Periphery Normal Normal Wearing Rx Sphere Cylinder [place] Right eye [place] +1.75 116 Left eye [place] +0.50 063 Age: 1yr Type: Distance Manifest Refraction (Retinoscopy) Sphere Cylinder [place] Dist VA Add Near VA Right eye [place] +2.25 130 20/25-2 +2.25 J1+ Left eye [place] +0.50 063 20/20 +1.75 J1+ Final Rx Sphere Cylinder [place] Add Right eye [place] +2.25 130 +2.25 Left eye [place] +0.50 063 +1.75 Strongly suggest polycarbonate or stronger. Care Teams Conduit Installer Relationship Specialty Start Date End Date Angel Caballero MD [address] [place] [phone] PCP - General 04/26/09 documented as of this encounter
--- OUTSIDE RECORDS SUMMARY | 2023-12-29 16:39 | XMS_ITS | Encounter Summary ---
Author Organization [facility] Address [address] [place] [address] Care Team Providers Care Recooperer Name Role Phone Angel Caballero MD Primary Care Provider Reason for Visit * Reason Onset Date Comments Results 01/02/2015 Encounter Details Date Type Department Care Team (Late st Contact Info) Description 01/02/2015 Telephone [facility] Interventional Pain [address] [place], [place] [phone] Aarti Lentz, RN Results Social History Tobacco Use Types Packs/Day Years [...] encounter Miscellaneous Notes * Telephone Encounter - Aarti Lentz RN - 01/02/2015 1028 EST RN called patient for hours and % of relief. Date and type of procedure:12/28/14 facet joint injections at left L4-L5 and L5-S1 Provider:Asha Hours of relief: 24 hours % of relief:90% Next appointment: Plan: Proceed with diagnostic and therapeutic facet joint injections at left L4-L5 and L5-S1 Follow up: Carly in Orthopedics He will call in 24hrs to report diagnostic results of this injection * Telephone Encounter - Aarti Lentz RN - 01/02/2015 1028 EST ----- Message from Edita Solano RN sent at 12/28/2014 14:29 EST ----- Regarding: result Left lumbar facet documented in this encounter Plan of Treatment Not on file documented as of this encounter Visit Diagnoses Not on filedocumented in this encounter Care Teams Recooperer Relationship Specialty Start Date End Date Angel Caballero MD [address] [place] [phone] PCP - General 04/26/09 documented as of this encounter
--- OUTSIDE RECORDS SUMMARY | 2023-12-29 16:39 | XMS_ITS | Encounter Summary ---
Author Organization [facility] Address [address] [place] [address] Care Team Providers Care Cold Working Supervisor Name Role Phone Angel Caballero MD Primary Care Provider Reason for Visit * Reason Onset Date Comments Advice Only 05/16/2015 Encounter Details Date Type Department Care Team (Late st Contact Info) Description 05/16/2015 Telephone [facility] Interventional Pain [address] [place], [place] [phone] Nurse, Pain Advice Only Social History Tobacco Use Types [...] Telephone Encounter - Aarti Lentz RN - 05/16/2015 1031 EDT Date and type of procedure: 3/18/16?? facet joint injections at left L4-L5 and L5-S1 Provider: Asha Hours of relief:2 hours % of relief:100% Next appointment: Plan: Proceed with diagnostic and therapeutic facet joint injections at left L4-L5 and L5-S1 Follow up: as needed for further evaluation and within 24 hrs by telephone to report results of diagnostic injection ?? Recommend to pcp to start gabapentin for his right thigh numbness if not contraindicated If he does not get sufficient length of relief from steroid this time, we can try to prior auth forRFA depending on insurance requirements. He may need further diagnostics as he has only had facet injections ?? RN returned call to patient. He states DR Barry injected a different level and wonders if this is why he is not getting relief yet. RN advised notes indicate he had the same injection. RN ruled out red flag symptoms. Advised to give steroid 14-16 days to work.Try tylenol and or NSAID. Call at 2 weeks if he has no relief. * Telephone Encounter - Gaby Barclay - 05/16/2015 1020 EDT Pt had an injection on 05/10/15 and has seen no relief, Pt states it is worse. documented in this encounter Plan of Treatment Not on file documented as of this encounter Visit Diagnoses Not on filedocumented in this encounter Care Teams Cold Working Supervisor Relationship Specialty Start Date End Date Angel Caballero MD [address] [place] [phone] PCP - General 04/26/09 documented as of this encounter
--- OUTSIDE RECORDS SUMMARY | 2023-12-29 16:39 | XMS_ITS | Encounter Summary ---
Author Organization [facility] Address [address] [place] [address] Care Team Providers Care Historic Sites Supervisor Name Role Phone Angle Caballero MD Primary Care Provider Encounter Details Date Type Department Care Team (Latest Contact Info) Description 08/31/2014 14:11 EDT - 08/31/2014 23:59 EDT Hospital Encounter [facility] [address] [place] [address] Angel Caballero MD [address] [place] [phone] Discharge Disposition: Home or Self Care Social [...] Code Departure Means Destination Home or Self Assisted documented in this encounter Plan of Treatment Not on file documented as of this encounter Visit Diagnoses Not on filedocumented in this encounter Care Teams Historic Sites Supervisor Relationship Specialty Start Date End Date Angel Caballero MD [address] [place] [phone] PCP - General 04/26/09 documented as of this encounter
--- OUTSIDE RECORDS SUMMARY | 2023-12-29 16:39 | XMS_ITS | Encounter Summary ---
Author Organization [facility] Address [address] [place] [address] Care Team Providers Care Customer Support Engineer Name Role Phone Angel Caballero MD Primary Care Provider Reason for Visit * Reason Comments Back Pain low back pain Leg Pain right leg numbness * Consult (Routine) - Specialty Report Received Specialty Diagnoses / Procedures [facility] To Contact Pain Medicine Diagnoses Low back pain radiating to right leg Quentin Carroll PA-C [address] [facility] [place] [address] [facility] [address] [facility] [place] [address] Referral ID Status Reason Start Date Expiration Date Visits Requested Visits Authorized [id number] Specialty Report Received Specialty Services Required 11/06/2014 1 1 Encounter Details Date Type Department Care Team (Latest Contact Info) Description 12/28/2014 14:00 EST Office Visit [facility] Interventional Pain [address] [facility] [place] [address] Jean Carlos Barry MD [facility] [place] [address] Spondylosis of lumbar region without myelopathy or radiculopathy (Primary Dx); DDD (degenerative disc disease), lumbosacral Social History Tobacco Use Types Packs/Day Years [...] Sign Reading Time Taken Comments Blood Pressure 126/82 12/28/2014 1432 EST Pulse 83 12/28/2014 1432 EST Temperature 36.6 ??C (97.9 ??F) 12/28/2014 1352 EST Respiratory Rate 16 12/28/2014 1432 EST Oxygen Saturation - - Inhaled Oxygen Concentration - - Weight 107 kg (236 lb) 12/28/2014 1352 EST Height 172.7 cm (5' 8) 12/28/2014 1352 EST Body Mass Index 35.88 12/28/2014 1352 EST documented in this encounter Functional Status [...] Yes 12/28/2014 documented as of this encounter Patient Instructions * Patient Instructions* Angel Moreira RN - 12/28/2014 14:10 EST [facility] [address] [address] Patient Instructions You have had your left lumbar Facet Steroid Injection. The purpose of this procedure has been to place medication which may help relieve your pain. Steroid may be used to decrease the swelling and nerve irritation which may be causing your pain. The following information should help you over the next few days regarding what you may expect. Today please stay busy/active doing things that would normally cause you pain. Keep track of your hours of relief and your percentage of relief today (0 to 100 , 0 = no relief and 100% = total relief). Separate the pressure and tightness that we caused you from your regular pain and see what your relief is. Call us back tomorrow with this information. Procedure end time:__245pm Pain relief start time Returned to baseline pain Hours of relief Percentage of relief 0-100 (0 = no relief, 100 = total relief) ??? 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 ??? If you feel sore where the needle(s) entered for the block or develop a flare-up of pain over the next few days, please use ice on the area. You may leave the ice on for up to 20 minutes at a time. Do not use heat, as this may cause swelling. ??? As long as your primary doctor has indicated no restrictions, you may take a mild pain medicine, such as acetaminophen (Tylenol), ibuprofen (Advil, Nuprin, Motrin IB, etc.) or aspirin, if needed. ??? The steroid injection usually takes a few days to become effective. On average, you may notice some relief in 3 -5 days. However, it may take up to 10 - 14 days to know whether the injection was helpful. ??? If the block causes numbness/weakness, it should wear off within a few hours. ??? If the area that the needle(s) were inserted becomes hot, red, swollen, or increasingly tender,or if you develop a fever (100.5 or greater) or chills along with these symptoms, please call our office immediately. ??? If you develop increasingly severe neck/back pain, continued numbness or weakness of the arms/legs or changes in your bladder or bowel functions, please call our office immediately. Instructions for follow-up If you have any questions about your block, please call Patient Education Topic: Method: Handout and Verbal Taught to: Patient Barriers: None Outcomes: independent and verbalized understanding Signature: Edita Solano RN documented in this encounter Progress Notes * Kathryn Duke MD - 12/28/2014 1444 EST Patient Name: Sam Eng : 1965 Date of Service: 12/28/2014 Drilling Foreman: Bo Barry MD Electrician Outside: Moris Duke MD PGY-3 Procedure: Lumbar facet joint injection at left L4-L5 and L5-S1 Interval History: Mr. Eng presents at the request of Quentin Carroll for evaluation and treatment of his chronic back pain. The pain is primarily localized to the left low back and he has right leg pain in the anterolateral thigh. The back pain is more debilitating for him at this time. Thepain has been present since he was 19 years old but has progressively gotten worse. On average, thepain is a 5-6/10. It is worst in the morning until he starts moving around. Moving makes the pain better. No significant increase in pain with flexion/extension/lateral rotation. He has intermittently taken Tylenol and Ibuprofen but he does not like taking medication. Diagnostic workup includes MRI/Plain films. Per Orthopedic Note: Plain radiographs (AP/Lat/Flex/Ex): 1. Five (5) non-rib [...] Disc degeneration and facet osteoarthropathy at L5-S1. Allergies: No Known Allergies Review of Systems: A 12 point review of system was performed and reviewed. Pertinent positives have been included in HPI and past medical history. Please see scan documents for details. Physical Examination: Vital signs: Patient Vitals for the past 24 hrs: BP Temp Temp src Pulse Resp Height Weight 12/28/14 1432 126/82 mmHg - - 83 16 - - 12/28/14 1352 136/71 mmHg 36.6 ??C (97.9 ??F) Tympanic 82 16 172.7 cm (68) (!) 107.049 kg (236 lb) Patient is alert, oriented x 3 and conversant. Able to stand and ambulate without difficulty. Gait is wnl. Cranial nerve exam is normal Breathing is non-labored Lumbar paraspinal muscles on L are tender to palpation. Examination of the lower extremities reveal normal strength. +Damaris. No gross sensory deficits. Assessment: (M47.816) Spondylosis of lumbar region without myelopathy or radiculopathy (primary encounter diagnosis) (M51.37) DDD (degenerative disc disease), lumbosacral Plan: Proceed with diagnostic and therapeutic facet joint injections at left L4-L5 and L5-S1 Follow up: [facility]oped[facility] He will call in 24hrs to report diagnostic results of this injection Procedure: The patient gave informed written consent to proceed with this procedure following a detailed discussion of the risks and benefits associated with lumbar facet joint injection. The patient was then placed in the prone position, the skin over the lumbosacral area was prepped with chlorhexadine, and the site was draped with sterile towels. Strict sterile technique was maintained throughout the procedure. A richards moment was performed with full staff present to identify the patient, verify the procedure being performed, and review allergies. Flouroscopy was used to identify the lumbar anatomy and align the facet joints. The skin and subcutaneous tissue over the left L4-L5 and L5-S1 facet joints was anesthetized with 2% lidocaine. A 22 guage 3.5 inch spinal needle was inserted under fluoroscopic guidance using coaxial technique into each of the aforementioned facet joints. After negative aspiration, each joint was injected with 0.5 mls 0.5% Bupivacaine and 20 mg Depo-Medrol (40 mg total.) There were no paresthesias during needle placement and aspiration was negative at all times. The patient tolerated the procedure well, there were no apparent complications, and he was discharged in stable condition. Written and verbal discharge instructions were reviewed with the patient prior to discharge. Attending attestation: I saw and examined the patient with the resident/fellow. I agree with the findings and plan of care documented in the resident's/fellow's note. I was present and participated during the entire procedure. Jean Carlos Barry MD * Ora Golden - 12/28/2014 8959 EST [facility] Rooming Note Does patient have a [employer] Supervisor? Yes Is patient NPO? (Solids since midnight & liquids for 4 hrs) Na Blood Thinners: Is patient on Blood Thinners? No If yes, taking? If stopped, who authorized stopping? Related comments: Infections: Any recent infections, fever of illnesses? No If on antibiotics, is it 7-10 days past the date of completion of antibiotics? No : (for females of child-bearing age) Is there a chance current ? Na Other: documented in this encounter Plan of Treatment Not on file documented as of this encounter Visit Diagnoses Diagnosis Spondylosis of lumbar region without myelopathy or radiculopathy- Primary Lumbosacral spondylosis without myelopathy DDD (degenerative disc disease), lumbosacral Degeneration of lumbar or lumbosacral intervertebral disc documented in this encounter Administered Medications Inactive Administered Medications - up to 3 most recent administrations Medication Order MAR Action Action Date Dose Rate Site bupivacaine (PF) (MARCAINE) 0.5 % (5 mg/mL) injection 5 mg 5 mg (1 mL), intra-articular, NOW X1, 1 dose, On Wed12/28/14 at 1500, Routine Given by Other 12/28/2014 14:31 EST 5 mg methylPREDNISolone ACETATE (DEPO-MEDROL) injection 40 mg 40 mg, intra-articular, NOW X1, 1 dose, On Wed12/28/14 at 1500, Routine Given by Other 12/28/2014 14:31 EST 40 mg documented in this encounter Care Teams Customer Support Engineer Relationship Specialty Start Date End Date Angel Caballero MD [address] [place] [phone] PCP - General 04/26/09 documented as of this encounter
--- OUTSIDE RECORDS SUMMARY | 2023-12-29 16:39 | XMS_ITS | Encounter Summary ---
Author Organization [facility] Address [address] [place] [address] Care Team Providers Care Line Rider Name Role Phone Angel Caballero MD Primary Care Provider Reason for Visit * Reason Comments Follow-up Encounter Details Date Type Department Care Team (Late st Contact Info) Description 05/13/2016 16:30 EDT Office Visit [facility] Pulmonology & Critical Care - [address] [id number] Terrance Carpenter MD [address] [place] [address], [address] [place] [address] Satinder Orellana MD [address] [place] [address] [phone] Uncomplicated asthma, unspecified asthma severity (Primary Dx) [...] Body Mass Index 42.36 05/13/2016 1542 EDT documented in this encounter Functional Status [...] Diagnoses Diagnosis J45.30 Mild persistent asthma, uncomplicated-J45.30[ICD-10-CM] documented in this encounter Progress Notes * Satinder Orellana MD - 05/13/2016 1630 EDT PULMONARY CLINIC: Follow-up PCP: Angel Caballero Chief complaint : SUMMARY: 51-year-old male with past medical history of hypertension, obesity and allergic rhinitis who was referred to us 12/2014 because of 2 episodes of shortness of breath that was usually preceded by postnasal drip The first episode occured in 2010 after he developed some sensation of postnasal drip, hedid notice that he was having shortness of [...] had a similar feeling of postnasal drip that was succeeded by wheezing and shortness of breath, a gain he did respond well to prednisone and was placed on albuterol when necessary.?? He denies any leg swelling, orthopnea, proximal much and a dyspnea,shortness of breath at rest, or shortness of breath in between these attacks.?? He completely returns to his baseline in between attacks. He said he has has fluticasone inhaler but only uses it PRN ?? 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 He had sinus surgery but has not been needing chronic medication for his allergic rhinitis.?? At this time he does not think is being much problem to him.?? He was diagnosed to have obstructive sleep apnea at [id number] for which he has been on CPAP and very compliant.?? He thinks the CPAP has significantly helped him with regards to his energy level in the morning.?? He does not use any home oxygen, No historysuggestive of GERD ?? He was worked up for airway hyper responsiveness which was positive on 03/2015 ?? INTERVAL EVENTS: Since being compliant with his Flovent his symptoms has resolved. ACTIVE PROBLEM LIST: CURRENT MEDICATIONS: Patient Active Problem List Diagnosis ??? Obstructive sleep apnea syndrome ??? Hypertensive disorder Current Outpatient Prescriptions on File Prior to [...] as listed in summary/interval history. Except for chronic back pain,denies headaches, fevers, chills, has no hemoptysis, no skin rash, no blurriness of vision, no chest pain, palpitations, no extremity edema, no urinary symptoms, no GI symptoms. Mood has been stable. Social History : reports that he has never smoked. He has never used smokeless tobacco. He reports that he drinks alcohol. He reports that he does not use illicit drugs. Past Medical History : Active Ambulatory Problems Diagnosis Date Noted ??? Obstructive sleep apnea syndrome 03/05/2010 ??? Hypertensive disorder 10/22/2011 Resolved Ambulatory Problems Diagnosis Date Noted ??? No Resolved Ambulatory Problems Past Medical History: Diagnosis Date ??? CAD (coronary artery disease) ??? Hearing loss ??? Heart attack 07/2006 ??? High blood pressure ??? HTN (hypertension) 10/22/2011 ??? Lung disease ??? Unspecified sleep apnea PHYSICAL EXAM: Visit Vitals ??? BP (!) 135/92 ??? Pulse 74 ??? Temp 36.1 ??C (97 ??F) (Tympanic) ??? Resp 14 ??? Ht 168.6 cm (66.38) ??? Wt (!) 120.4 kg (265 lb 6.9 oz) ??? SpO2 98% ??? BMI 42.36 kg/m2 General: Alert, no cyanosis, not in any distress HEENT: normocephalic, atraumatic, PERRL Respiratory: Clear to both ausculation and percussion Cardio : No elevated JVD, S1,S2 normal, no murmurs, rubs or gallops Abdomen: soft, non tender, non distended, tympanic to percussion and normoactive bowel sounds Ext: No edema or cyanosis PULMONARY FUNCTION TESTS: PFTs were performed as a separate procedure today is consistent with normal spirometry PFT TREND: Date?? FEV1?? %?? FVC?? %?? LLN?? FEV1/FVC? LLN ? TLC?? %?? DLCOunc?? BD?? Comment?? 03/06/2010?? 2.80?? 76?? 3.73?? 80?? 3.90?? 75?? 66? 01/08/2015?? 3.01?? 87?? 3.74?? 84?? 3.60?? 78?? 68? negative? 05/13/2016 2.73 79 3.45 79 3.36 79 69 ?? DIAGNOSTIC STUDIES: CXR done 01/08/2015 does not show any significant abnormality. IMPRESSION: Sam Eng a 49-year-old male, non smoker with history of recurrent episodes of wheezing and cough always preceded by feeling of postnasal drip.?? He feels completely well in between attacks thelast one was in October 2014.?? He normally response well to steroid, normal spirometries,methacholine test is positive at 2mg/dl,He was started on Flovent BID with a spacer and since then he has markedly done well. ?? 1.Adult onset asthma well controlled ?? 2.Sleep Apnea on CPAP ?? 3. Obesity ?? RECOMMENDATIONS: 1. Adult onset asthma : Continue fluticasone 111 mcg/ml 2 puffs BID,he should rinse his mouth aftereach use. Albuterol only on PRN bases. ?? 2. Sleep Apnea on CPAP : We encouraged him to continue CPAP use. ?? 3. Obesity : Encouraged to loose weight. ?? Patient was seen and discussed with Dr. Cr, the pulmonary attending. Thank you for letting me participate in the care of Sam Eng. I will see him back on PRN bases. Please call if any further questions arise. Satinder Orellana MD. Pulmonary and Critical Care Fellow. [facility]. Pager # [phone] Attestation statement: I saw and examined the patient with the resident/fellow. I agree with the findings and plan of care documented in the resident's/fellow's note. Coty Zhong MD No orders of the defined types were placed in this encounter. documented in this encounter Plan of Treatment Not on file documented as of this encounter Visit Diagnoses Diagnosis Uncomplicated asthma, unspecified asthma severity- Primary documented in this encounter Historical Medications * This list may reflect changes made after this encounter. Medication Sig Dispensed Refills Start Date End Date FLUTICASONE PROPIONATE (FLONASE NASAL) by nasal route as needed. added in this encounter Care Teams Line Rider Relationship Specialty Start Date End Date Angel Caballero MD [address] [place] [phone] PCP - General 04/26/09 documented as of this encounter
--- OUTSIDE RECORDS SUMMARY | 2023-12-29 16:39 | XMS_ITS | Encounter Summary ---
Author Organization [facility] Address [address] [place] [address] Care Team Providers Care Circuit Court Judge Name Role Phone Angel Caballero MD Primary Care Provider Reason for Visit * Reason Onset Date Comments Results 05/14/2015 Encounter Details Date Type Department Care Team (Late st Contact Info) Description 05/14/[address] [facility] - Interventional Pain [address] [place], [place] [phone] Aarti Lentz RN Results Social History Tobacco Use Types [...] encounter Miscellaneous Notes * Telephone Encounter - Magali Everett RN - 05/15/2015 0913 EDT Result Left L4-5, L5-S1 Facet 2 hours at 100%. * Telephone Encounter - Gaby Barclay W - 05/14/2015 0004 EDT Procedure end time:__915am Pain relief start time Returned to baseline pain Hours of relief 2 HOURS Percentage of relief 0-100 (0 = no relief, 100 = total relief) ___100% * Telephone Encounter - Aarti Lentz RN - 05/14/2015 1419 EDT RN called patient for hours and % of relief while local anesthetic was working. Left a message to call with this info. Date and type of procedure: 05/10/15 facet joint injections at left L4-L5 and L5-S1 Provider: Asha Hours of relief: % of relief: Next appointment: Plan: Proceed with diagnostic and [...] he has only had facet injections ?? * Telephone Encounter - Aarti Lentz RN - 05/14/2015 7538 EDT ----- Message from Luda Wong RN sent at 05/10/2015 9:10 EDT ----- Regarding: results Contact: Facet Diagnostic Block done on: 05/10/15 Provider: Asha Levels: Left L4-5, L5-S1 Call back number:[phone] documented in this encounter Plan of Treatment Not on file documented as of this encounter Visit Diagnoses Not on filedocumented in this encounter Care Teams Circuit Court Judge Relationship Specialty Start Date End Date Angel Caballero MD [address] [place] [phone] PCP - General 04/26/09 documented as of this encounter
--- OUTSIDE RECORDS SUMMARY | 2023-12-29 16:39 | XMS_ITS | Encounter Summary ---
Author Organization Health system Address [address] [place] [address] Care Team Providers Care Corporate Intern Name Role Phone Angel Caballero MD Primary Care Provider Reason for Visit * Reason Comments Groin Pain pt awoke yesterday a m with left testicular pain, getting worse. Encounter Details Date Type Department Care Team (Late st Contact Info) Description 02/18/2014 9:55 EST - 02/18/2014 12:51 EST Emergency [facility] Emergency Department - Main [place] [address] [place] [phone] Ja Rob MD [address] [place] [phone] Emergency, MD Denise Testicular pain, left (Primary Dx) Discharge Disposition: Home or Self [...] Sign Reading Time Taken Comments Blood Pressure 138/100 02/18/2014 1005 EST Pulse 84 02/18/2014 1005 EST Temperature 36 ??C (96.8 ??F) 02/18/2014 1005 EST Respiratory Rate 18 02/18/2014 1005 EST Oxygen Saturation 100% 02/18/2014 1005 EST Inhaled Oxygen Concentration - - Weight 109.8 kg (242 lb) 02/18/2014 1003 EST Height 172.7 cm (5' 7.99) 02/18/2014 1003 EST Body Mass Index 36.8 02/18/2014 1003 EST documented in this encounter Discharge Instructions * Discharge Instructions* Ja Rob MD - 02/18/2014 12:23 EST Please wear briefs for scrotal support. Please take ibuprofen as needed for pain. Followup with your primary care doctor as scheduled, you may require repeat imaging in 6-12 months. * Attachments The following attachments cannot be sent through Care Everywhere. * TESTICULAR PAIN ([place]THER[place] IRISH) documented in this encounter Medications at Time of Discharge Medication Sig Dispensed Refills Start Date End Date Aspirin 81 mg Tab Take 81 mg by mouth daily. lisinopril (PRINIVIL, ZESTRIL) 20 mg tablet Take 10 mg by mouth daily. documented as of this encounter Discharge Disposition Disposition Code Departure Means Destination Home or Self Custodial documented in this encounter ED Notes * Ledy Collazo RN - 02/18/2014 1146 EST Patient is back from [place] * Ja Rob MD - 02/18/2014 1036 EST DOS: 02/18/2014 Chief Complaint Patient presents with ??? Groin Pain pt awoke yesterday am with left testicular pain, getting worse. The patient is a 49 y.o. 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 The pain continued all day, took some ibuprofen last night which helped somewhat, and presents today with continued left testicular pain. No fevers.No dysuria. No trauma. No prior history of testicular problems or surgeries. The history is provided by the patient. Groin Pain Presenting symptoms: no dysuria Associated symptoms: no abdominal pain, no fever, no flank pain, no nausea, no urinary frequency and no vomiting Review of Systems Constitutional: Negative for fever and chills. Respiratory: Negative for shortness of breath. Cardiovascular: Negative for chest pain. Gastrointestinal: Negative for nausea, vomiting and abdominal pain. Genitourinary: Positive for testicular pain. Negative for dysuria, frequency, flank pain and decreased urine volume. Musculoskeletal: Negative for back pain. Skin: Negative for rash. Psychiatric/Behavioral: Negative for confusion. Past Medical History Diagnosis Date ??? Heart attack 07/2006 ??? CAD (coronary artery disease) ??? Unspecified sleep apnea ??? High blood pressure ??? Hearing loss ??? HTN (hypertension) 10/22/2011 Past Surgical History Procedure Laterality Date ??? Hernia repair ??? Refractive surgery ??? Nasal septum surgery April 2010 ??? Eye surgery No Known Allergies History Substance Use Topics ??? Smoking status: Never Smoker ??? Smokeless tobacco: Never Used ??? Alcohol Use: Yes Comment: rare wine Family History Problem Relation Age of Onset ??? Allergic Rhinitis Neg Hx ??? Thyroid Disease Neg Hx Vital Signs Temp: 36 ??C (96.8 ??F) Temp src: Tympanic Pulse: 84 Cardiac Rhythm: Normal sinus rhythm Resp: 18 SpO2: 100 % BP: 138/100 mmHg BP Device: BP Machine O2 Device: None (Room air) Physical Exam Nursing note and vitals reviewed. Constitutional: He appears well-developed and well-nourished. HENT: Head: Normocephalic and atraumatic. Right Ear: External ear normal. Left Ear: External ear normal. Nose: Nose normal. Eyes: EOM are normal. Right eye exhibits no discharge. Left eye exhibits no discharge. Neck: Normal range of motion. Pulmonary/Chest: Effort normal. No respiratory distress. Abdominal: Soft. There is no tenderness. Genitourinary: Slight tenderness at the inferior pole of his left testicle, no erythema, no perineal tenderness, and no tenderness of his right testicle, normal lay, Musculoskeletal: Normal range of motion. Neurological: He is alert. He has normal strength. He is not disoriented. No sensory deficit. Skin: Skin is warm and dry. No rash noted. Psychiatric: He has a normal mood and affect. RAD US SCROTUM WITH LIMITED DOPPLER Final result not shown here.: Radiology orders: RAD US SCROTUM WITH LIMITED DOPPLER Imaging Results RAD US SCROTUM WITH LIMITED DOPPLER (Final result) Result time: 02/18/14 13:17:52 Final result Narrative: RAD US SCROTUM WITH LIMITED DOPPLER 02/18/2014 11:18 AM Signs and Symptoms/Comments: left testicular pain Comparison: None Technique: Grayscale, cine, color Doppler, and spectral tracing ultrasound images of the scrotum were performed. Findings: The right testis is normal measuring 4.9 x 2.3 x 3.4 cm and exhibits homogeneous echogenicity aside from a small approximately 3 x 1 x 3 mm hyperechoic area in the mid right testicle. Normal Doppler flow is present with normal arterial and venous spectral waveforms. The left testis is normal measuring 4.7 x 2.4 x 3.7 cm and exhibits homogeneous echogenicity. Normal Doppler flow is present with normal arterial and venous spectral waveforms. The right epididymal head measures 1.1 x 0.7 x 1.5 cm. Normal Doppler flow is present. The left epididymal head measures 1.1 x 1.2 x 1.6 cm. The left epididymis contains 2 simple appearing cysts, the largest measuring 0.8 cm in all dimensions. Normal Doppler flow is present. A moderate right-sided hydrocele is present. A left-sided varicocele is present. No hydronephrosis or significant abnormality is seen on limited evaluation of the kidneys which measure 11.7 cm on the right and 13.8 cm on the left. Impression: 1. Left-sided varicocele. 2. Moderate right-sided hydrocele. 3. Small hyperechoic area in the right testicle is most likely to be benign in nature however, followup ultrasound is recommended in about 4 months in order to document stability and exclude an enlarging process. 4. Left epididymal cysts, either spermatocele or simple cyst. I have personally reviewed the images and the above interpretation and agree with the findings. Procedures ED Course: A medical screening exam was performed. Testicular pain on left. US with no concerning findings on left. PT to follow up with PCP for interval imaging of right if needed. UA with no infection. Disposition: Discharged The patient's pain was managed to an adequate level weighing risk vs. benefit of further medications. Upon departure from the Emergency Department, the patient's pain was 5 on a zero to ten scale. Condition at departure from the Emergency Department: Stable ED Current Prescriptions None MDM Final diagnoses: Testicular pain, left PCP: Angel Caballero MD 02/21/2014 18:09 No flowsheet data found. * Pham Prdao RN - 02/18/2014 1006 EST Pt denies any injury documented in this encounter Plan of Treatment Not on file documented as of this encounter Procedures Procedure Name Priority Date/Time Associated Diagnosis Comments RAD US SCROTUM WITH LIMITED DOPPLER STAT 02/18/2014 11:18 EST POCT URINE DIPSTICK, CLINITEK STAT 02/18/2014 10:51 EST documented in this encounter Results * RAD US SCROTUM WITH LIMITED DOPPLER (02/18/2014 11:18 EST) Anatomical Region Laterality Modality Other 02/18/2014 11:1 8 EST 02/18/2014 13:17 EST Narrative 02/18/2014 13:17 EST RAD US SCROTUM WITH LIMITED DOPPLER ??02/18/2014 11:18 AM Signs and Symptoms/Comments: ?? left testicular pain Comparison: None Technique: Grayscale, cine, color Doppler, and spectral tracing ultrasound images of the scrotum were performed. Findings: The right testis is normal measuring 4.9 x 2.3 x 3.4 cm and exhibits homogeneous echogenicity aside from a small approximately 3 x 1 x 3 mm hyperechoic area in the mid right testicle. Normal Doppler flow is present with normal arterial and venous spectral waveforms. The left testis is normal measuring 4.7 x 2.4 x 3.7 cm and exhibits homogeneous echogenicity. Normal Doppler flow is present with normal arterial and venous spectral waveforms. The right epididymal head measures 1.1 x 0.7 x 1.5 cm. Normal Doppler flow is present. The left epididymal head measures 1.1 x 1.2 x 1.6 cm. The left epididymis contains 2 simple appearing cysts, the largest measuring 0.8 cm in all dimensions. Normal Doppler flow is present. A moderate right-sided hydrocele is present. A left-sided varicocele is present. No hydronephrosis or significant abnormality is seen on limited evaluation of the kidneys which measure 11.7 cm on the right and 13.8 cm on the left. Impression: 1. Left-sided varicocele. 2. Moderate right-sided hydrocele. 3. Small hyperechoic area in the right testicle is most likely to be benign in nature however, followup ultrasound is recommended in about 4 months in order to document stability and exclude an enlarging process. 4. Left epididymal cysts, either spermatocele or simple cyst. ?? I have personally reviewed the images and the above interpretation and agree with the findings. Procedure Note Zahra Dang MD - 02/18/2014 RAD US SCROTUM WITH LIMITED DOPPLER 02/18/2014 11:18 AM Signs and Symptoms/Comments: left testicular pain Comparison: None Technique: Grayscale, cine, color Doppler, and spectral tracing ultrasound images of the scrotum were performed. Findings: The right testis is normal measuring 4.9 x 2.3 x 3.4 cm and exhibits homogeneous echogenicity aside from a small approximately 3 x 1 x 3 mm hyperechoic area in the mid right testicle. Normal Doppler flow is present with normal arterial and venous spectral waveforms. The left testis is normal measuring 4.7 x 2.4 x 3.7 cm and exhibits homogeneous echogenicity. Normal Doppler flow is present with normal arterial and venous spectral waveforms. The right epididymal head measures 1.1 x 0.7 x 1.5 cm. Normal Doppler flow is present. The left epididymal head measures 1.1 x 1.2 x 1.6 cm. The left epididymis contains 2 simple appearing cysts, the largest measuring 0.8 cm in all dimensions. Normal Doppler flow is present. A moderate right-sided hydrocele is present. A left-sided varicocele is present. No hydronephrosis or significant abnormality is seen on limited evaluation of the kidneys which measure 11.7 cm on the right and 13.8 cm on the left. Impression: 1. Left-sided varicocele. 2. Moderate right-sided hydrocele. 3. Small hyperechoic area in the right testicle is most likely to be benign in nature however, followup ultrasound is recommended in about 4 months in order to document stability and exclude an enlarging process. 4. Left epididymal cysts, either spermatocele or simple cyst. I have personally reviewed the images and the above interpretation and agree with the findings. Ja Rob MD [facility] US ORDERABLES * (ABNORMAL) POCT URINE DIPSTICK (02/18/2014 10:51 EST) Color YELLOW 02/18/2014 10:52 [facility] Clarity, UA Clear 02/18/2014 10:52 [facility] Glucose Neg Neg 02/18/2014 10:52 [facility] Bilirubin Neg Neg 02/18/2014 10:52 [facility] Ketones Neg Neg 02/18/2014 10:52 [facility] Specific Wells 1.010 1.001 - 1.035 02/18/2014 10:52 [facility] Blood Trace(A) Neg 02/18/2014 10:52 [facility] pH 6.0 4.6 - 8.0 02/18/2014 10:52 [facility] Protein Neg Neg 02/18/2014 10:52 [facility] Urobilinogen 0.2 0.2 - 1.0 E.U./dl 02/18/2014 10:52 [facility] Nitrite Neg Neg 02/18/2014 10:52 [facility] Leuk Esterase Neg Neg 02/18/2014 10:52 [facility] boring mill set up operator ID [id number] 02/18/2014 10:52 [facility] Comment:Test performed at [facility] Urine specimen (specimen) URINE / Unknown 02/18/2014 10:51 EST 02/18/2014 10:52 EST Ja Rob MD POINT OF CARE TEST ORDERABLES [facility] [address] [place] [address] documented in this encounter Visit Diagnoses Diagnosis Testicular pain, left- Primary Unspecified disorder of male genital organs documented in this encounter Active and Recently Administered Medications Orders Medications Ordered That Miguel ht Not Have Been Administered Count Last Ordered Date First Ordered Date ibuprofen (MOTRIN) tablet 600 mg 1 02/19/20 14 documented in this encounter Care Teams Corporate Intern Relationship Specialty Start Date End Date Angel Caballero MD [address] [phone] PCP - General 04/26/09 documented as of this encounter
--- OUTSIDE RECORDS SUMMARY | 2023-12-29 16:39 | XMS_ITS | Encounter Summary ---
Author Organization [facility] Address [address] [place] [address] Care Team Providers Care Flight Teacher Name Role Phone Angel Caballero MD Primary Care Provider Reason for Visit * Reason Comments Back Pain low back pain Leg Pain right leg numbness * Consult (Routine) - Specialty Report Received Specialty Diagnoses / Procedures [facility] To Contact Pain Medicine Diagnoses Low back pain radiating to right leg Quentin Carroll PA-C [address] [place] [address] [facility] [address] [facility] [place] [address] Referral ID Status Reason Start Date Expiration Date Visits Requested Visits Authorized [id number] Specialty Report Received Specialty Services Required 01/23/2015 1 1 Encounter Details Date Type Department Care Team (Latest Contact Info) Description 05/10/2015 8:30 EDT Office Visit [facility] Interventional Pain [address] [facility] [place], [place] [phone] Jean Carlos Barry MD [facility] [place] [phone] Spondylosis of lumbar region without myelopathy or [...] Sign Reading Time Taken Comments Blood Pressure 136/93 05/10/2015 0910 EDT Pulse 79 05/10/2015 0910 EDT Temperature 36.3 ??C (97.3 ??F) 05/10/2015 0842 EDT Respiratory Rate 16 05/10/2015 0910 EDT Oxygen Saturation - - Inhaled Oxygen Concentration - - Weight 108.9 kg (240 lb) 05/10/2015 0842 EDT Height 172.7 cm (5' 8) 05/10/2015 0842 EDT Body Mass Index 36.49 05/10/2015 0842 EDT documented in this encounter Functional Status [...] as of this encounter Discharge Diagnoses Diagnosis M47.816 Spondylosis without myelopathy or radiculopathy, lumbar region-M47.816[ICD-10-CM] M51.37 Other intervertebral disc degeneration, lumbosacral region-M51.37[ICD-10-CM] documented in this encounter Patient Instructions * Patient Instructions* Luda Wong RN - 05/10/2015 9:03 EDT [facility] [place] [address] Patient Instructions You have had your left [...] back tomorrow with this information. Procedure end time:__09:15 Pain relief start time_09:15 Returned to baseline pain Hours of relief [...] immediately. ??? If you develop increasingly severe back pain, continued numbness or weakness of the legs or changes in your bladder or bowel functions, please call our office immediately. Instructions for follow-up If you have any questions about your block, please call Patient Education Topic: Method: Handout and Verbal Taught to: Patient Barriers: None Outcomes: independent and verbalized understanding Signature: Luda Wong RN documented in this encounter Progress Notes * Jean Carlos Barry MD - 05/10/2015 0843 EDT Patient Name: Sam Eng : 1965 Date of Service: 05/10/2015 Route Sales Trainee: Jean Carlos Barry MD Chief Engineer Production: none Procedure: Diagnostic and therapeutic Lumbar facet joint injection at left L4-L5 and L5-S1 Interval History: Mr. Eng presents at the request of Angel Caballero for evaluation and treatment of his chronic back pain. The pain is primarily localized to the left low back and he has numbness in his right anterior thigh. The numbness has been present for many years and is somewhat bothersome for him. The back pain is more debilitating for him at this time. On average, the pain is a 5-6/10. It is worst in the morning until he starts moving around. Moving makes the pain better. No significant increase in pain with flexion/extension/lateral rotation. He has intermittently taken Tylenoland Ibuprofen but he does not like taking medication. He had 3 months of good relief from the last facet injections Injection history: 05/10/15: repeat left L4-5 L5-S1 facet injections 12/28/14: left L4-5, L5-S1 facet injections 90% for 24hrs and almost complete relief for 3 months Diagnostic workup includes MRI/Plain films. Per Orthopedic [...] Temp Temp src Pulse Resp Height Weight 05/10/15 0910 (!) 136/93 mmHg - - 79 16 - - 05/10/15 0842 138/76 mmHg 36.3 ??C (97.3 ??F) Tympanic 84 16 172.7 cm (68) (!) 108.863 kg (240 lb) Patient is alert, oriented x 3 and conversant. Able to stand and ambulate without difficulty. Gait is wnl. Cranial nerve exam is normal Breathing is non-labored Lumbar paraspinal muscles on L are tender to palpation. No tenderness over SI regions. Examination of the lower extremities reveal normal strength. No gross sensory deficits. 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 He may need further diagnostics as he has only had facet injections Procedure: The patient gave informed written consent [...] anesthetized with 2% lidocaine. A 22 guage 5.0 inch spinal needle was inserted under fluoroscopic guidance using coaxial technique into each of the aforementioned facet joints. After negative aspiration, each joint was injected with 0.5 mls 0.5% Bupivacaine and 40 mg Depo-Medrol. There were no paresthesias during needle placement and aspiration was negative at all times. The patient tolerated the procedure well, there were no apparent complications, and he was discharged in stable condition. Written and verbal discharge instructions were reviewed with the patient prior to discharge. Jean Carlos Barry MD * Golden Payan - 05/10/2015 0841 EDT [facility] Rooming Note Does patient have a Show Host? Yes Is patient NPO? (Solids since midnight [...] mL), intra-articular, NOW X1, 1 dose, On Wed05/10/15 at 0930, Routine Given by Other 05/10/2015 9:09 EDT 5 mg methylPREDNISolone ACETATE (DEPO-MEDROL) injection 80 mg 80 mg, intra-articular, NOW X1, 1 dose, On Wed05/10/15 at 0930, Routine Given by Other 05/10/2015 9:10 EDT 80 mg documented in this encounter Care Teams Flight Teacher Relationship Specialty Start Date End Date Angel Caballero MD [address] [place] [phone] PCP - General 04/26/09 documented as of this encounter
--- OUTSIDE RECORDS SUMMARY | 2023-12-29 16:39 | XMS_ITS | Encounter Summary ---
Author Organization [facility] Address [address] [place] [address] Care Team Providers Care Bread Molder Name Role Phone Angel Caballero MD Primary Care Provider Reason for Visit * Reason Onset Date Comments Results 09/29/2011 Encounter Details Date Type Department Care Team (Late st Contact Info) Description 09/29/2011 Telephone [facility] Cardiology - [address] [address] Juan Carlos James MD [address] [facility] [address] [place] [address] Results Social History Tobacco Use Types Packs/Day [...] encounter Miscellaneous Notes * Telephone Encounter - Juan Carlos James MD - 09/29/2011 0841 EDT Left message re echo and ett documented in this encounter Plan of Treatment Not on file documented as of this encounter Visit Diagnoses Not on filedocumented in this encounter Care Teams Bread Molder Relationship Specialty Start Date End Date Angel Caballero MD [address] [place] [address] [address] [place] [phone] PCP - General 04/26/09 documented as of this encounter
--- OUTSIDE RECORDS SUMMARY | 2023-12-29 16:39 | XMS_ITS | Encounter Summary ---
Author Organization [facility] Address [address] [place] [address] Care Team Providers Care Clinical Laboratory Medical Director Name Role Phone Angel Caballero MD Primary Care Provider Reason for Visit * Reason Comments Headache patient complains of SALMERON since last night. patient states he took his lisinopril at regular time. around 0100 he took his Cardizem. Encounter Details Date Type Department Care Team (Late st Contact Info) Description 02/11/2012 2:28 EST - 02/11/2012 6:49 EST Emergency [facility] Emergency Department - [address] [id number] Nubia Ortiz PA-C [address] [place] [address] [phone] Leilani Pino MD [address] [phone] Anurag Gallegos PA-C [address] [phone] Emergency, MD Denise Headache Discharge Disposition: Home or Self Care Social [...] Sign Reading Time Taken Comments Blood Pressure 147/78 02/11/2012 0646 EST Pulse 90 02/11/2012 0646 EST Temperature 36.7 ??C (98.1 ??F) 02/11/2012 0646 EST Respiratory Rate 16 02/11/2012 0646 EST Oxygen Saturation 100% 02/11/2012 0646 EST Inhaled Oxygen Concentration - - Weight - - Height - - Body Mass Index - - documented in this encounter Discharge Instructions * Discharge Instructions* Nubia Ortiz PA - 02/11/2012 6:18 EST Rest, drink plenty of fluids. Diet as tolerated. Take Zofran as needed for nausea. If your headache pain worsens again and is not controlled with Tylenol or Ibuprofen, if you developbalance problems, vision changes, continuous vomiting, worsening neck pain or stiffness, or any other concerning symptoms, please return to the ED for reevaluation. * Attachments The following attachments cannot be sent through Care Everywhere. * HEADACHE: AFTER YOUR VISIT ([place]) documented in this encounter Medications at Time of Discharge Medication Sig Dispensed Refills Start Date End Date Aspirin 81 mg Tab Take 81 mg by mouth daily. lisinopril (PRINIVIL, ZESTRIL) 20 mg tablet Take 10 mg by mouth daily. ketoconazole (NIZORAL) 2 % cream Apply qd until rash has cleared 30 g 0 11/15/2011 04/28/2012 [place]-3 Fatty Acids-Vitamin E (FISH OIL) 1,000 mg cap Take by mouth 2 times daily. 04/28/2012 ondansetron (ZOFRAN-ODT) 4 mg disintegrating tablet Take 1 Tab by mouth every 8 hours as needed for Nausea. 5 Tab 0 02/11/2012 04/28/2012 documented as of this encounter Ordered Prescriptions Prescription Sig Dispensed Refills Start Date End Da te ondansetron (ZOFRAN-ODT) 4 mg disintegrating tablet Take 1 Tab by mouth every 8 hours as needed for Nausea. 5 Tab 0 02/11/2012 04/28/2012 documented in this encounter Discharge Disposition Disposition Code Departure Means Destination Home or Self Care Car Home documented in this encounter ED Notes * Leilani Pino MD - 02/12/2012 0247 EST DOS: 02/11/2012 Chief Complaint Patient presents with ??? Headache patient complains of SALMERON since last night. patient states he took his lisinopril at regular time. around 0100 he took his Cardizem. The patient is a 46 y.o. male who presents today with Headache HPI Review of Systems Past Medical History Diagnosis Date ??? Heart [...] Thyroid Disease Neg Hx Vital Signs Temp: 36.7 ??C (98.1 ??F) Temp src: Oral Pulse: 90 Heart Rate: 75 BPM Resp: 16 SpO2: 100 % BP: 147/78 mmHg BP Device: BP Machine Patient Position: Sitting BP Cuff Location: Right arm O2 Device: None (Room air) Physical Exam Radiology orders: CT HEAD WO CONTRAST CT HEAD WO CONTRAST Final result not shown here.: CT HEAD (Results Pending) Procedures ED Course: A medical screening exam was performed. I performed a history and exam of Sam Eng and discussed the case with the physician assistant unit forester. I reviewed this individual's note and I concur with the documented findings and plan of care. Patient with third headache with similar features - had had previous workup with CT and LP which were negative. Seen by SUKHI, CT repeated which was negative. Does not appear to be due to HTN urgency, as his BP had improved by the time he arrived here, but he continued to have headache until he was given compazine. Will f/u PMD for BP recheck and will return for any worsening or concerning symptoms. Disposition: Discharged The patient's pain was managed to an adequate level weighing risk vs. benefit of further medications. Upon departure from the Emergency Department, the patient's pain was 0 on a zero to ten scale. Condition at departure from the Emergency Department: Improved Discharge Prescriptions New Prescriptions ONDANSETRON (ZOFRAN-ODT) 4 MG DISINTEGRATING TABLET Take 1 Tab by mouth every 8 hours as needed forNausea. MDM Final diagnoses: Headache PCP: Angel Caballero MD 02/12/2012 2:47 * Nubia Ortiz PA - 02/11/2012 0549 EST DOS: 02/11/2012 Chief Complaint Patient presents with ??? Headache patient complains of SALMERON since last night. patient states he took his lisinopril at regular time. around 0100 he took his Cardizem. The patient is a 47 y.o. male who presents today with Headache HPI Comments: Patient is a 46-year-old male with a past medical history significant for coronary artery disease, hypertension, who presents to the ED for evaluation of severe headache. Patient statesthat he was recently changed from lisinopril to Cardizem for management of his blood pressure, and has had a slight headache since starting Cardizem. Patient states that prior to arrival he had a sudden onset 10/10 in severity throbbing headache, and checked his blood pressure noting it was 190/150. Patient states that he took 2 aspirin at that time as well as a lisinopril, however his headache persisted. He states the headache is all over, is pending, is not associated with visual changes, nausea, vomiting, weakness, dizziness, chest pain, shortness of breath. Patient states that while his head with severely hurting he developed diaphoresis. He did not take anything for his pain. He stateshe was seen for a similar severe headache related to blood pressure medications a few months ago. Remainder of ROS is negative. The history is provided by the patient. Headache Pertinent negatives include no fever, no palpitations, no shortness of breath, no nausea and no vomiting. 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 Negative for fever andchills. HENT: Negative for neck pain and neck stiffness. Eyes: Negative for photophobia and visual disturbance. Respiratory: Negative for shortness of breath, wheezing and stridor. Cardiovascular: Negative for chest pain, palpitations and leg swelling. Gastrointestinal: Negative for nausea, vomiting, abdominal pain, diarrhea and constipation. Genitourinary: Negative for decreased urine volume and difficulty urinating. Musculoskeletal: Negative for back pain. Skin: Negative for color change, pallor, rash and wound. Neurological: Positive for light-headedness and headaches. Negative for dizziness, weakness and numbness. All other systems reviewed and are negative. Past Medical History Diagnosis Date ??? Heart [...] Thyroid Disease Neg Hx Vital Signs Temp: 36.7 ??C (98.1 ??F) Temp src: Oral Pulse: 90 Heart Rate: 75 BPM Resp: 16 SpO2: 100 % BP: 147/78 mmHg BP Device: BP Machine Patient Position: Sitting BP Cuff Location: Right arm O2 Device: None (Room air) Physical Exam Nursing note and vitals reviewed. Constitutional: He is oriented to person, place, and time. He appears well- developed and well-nourished. No distress. HENT: Head: Normocephalic and atraumatic. Right Ear: External ear normal. Left Ear: External ear normal. Nose: Nose normal. Mouth/Throat: Oropharynx is clear and moist. No oropharyngeal exudate. No scalp ttp Eyes: Conjunctivae and EOM are normal. Pupils are equal, round, and reactive to light. Right eye exhibits no discharge. Left eye exhibits no discharge. Neck: Normal range of motion and full passive range of motion without pain. Neck supple. No spinousprocess tenderness and no muscular tenderness present. No rigidity. No edema, no erythema and normal range of motion present. No Brudzinski's sign and no Kernig's sign noted. Cardiovascular: Normal rate, regular rhythm, normal heart sounds and intact distal pulses. Neurovascularly intact bilaterally, less than 3 second cap refill Pulmonary/Chest: Effort normal and breath sounds normal. No respiratory distress. He has no wheezes. He has no rales. He exhibits no tenderness. Abdominal: Soft. He exhibits no distension. There is no tenderness. Musculoskeletal: Normal range of motion. He exhibits no edema and no tenderness. Lymphadenopathy: He has no cervical adenopathy. Neurological: He is alert and oriented to person, place, and time. He has normal strength. No cranial nerve deficit or sensory deficit. GCS eye subscore is 4. GCS verbal subscore is 5. GCS motor subscore is 6. Skin: Skin is warm and dry. No rash noted. He is not diaphoretic. No erythema. No pallor. Psychiatric: He has a normal mood and affect. Radiology orders: CT HEAD WO CONTRAST CT HEAD WO CONTRAST Final result not shown here.: CT HEAD (Results Pending) Procedures ED Course: A medical screening exam was performed. Patient is a 39-year-old male who presents to the ED for evaluation of a severe sudden onset headache prior to arrival. Patient had laboratory the ED that was within normal limits, he had a CT of the head which revealed no acute intracranial abnormality or changes since prior study. After review of the patient's previous visits, he has had similar severe sudden onset headaches. 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 malfunction of his machine at home. Patient was given Compazine for his headache with significant relief. This is likely a migraine, however he has never had a his tory of similar. Pt was discussed with the EDMD who also evaluated the pt and agrees with the plan for d/c home. Pt instructed to return to the ED if symptoms worsen, persist or change. VSS, afebrile. PE concerning for headache. Pt rating pain at 0/10, is well-appearing and resting in NAD. Discussed symptomatic measures and discharged to home with detailed instructions and closely recommended follow-up. Supervising Physician: louise Pino Disposition: Discharged The patient's pain was managed to an adequate level weighing risk vs. benefit of further medications. Upon departure from the Emergency Department, the patient's pain was 0 on a zero to ten scale. Condition at departure from the Emergency Department: Improved Discharge Prescriptions New Prescriptions ONDANSETRON (ZOFRAN-ODT) 4 MG DISINTEGRATING TABLET Take 1 Tab by mouth every 8 hours as needed forNausea. MDM Number of Diagnoses or Management Options Headache: Diagnosis management comments: 4 Amount and/or Complexity of Data Reviewed Clinical lab tests: ordered and reviewed Tests in the radiology section of CPT??: ordered and reviewed Review and summarize past medical records: yes Independent visualization of images, tracings, or specimens: yes Patient Progress Patient progress: improved Final diagnoses: Headache PCP: Angel Caballero MD 02/15/2012 22:21 * Neena Mathis - 02/11/2012 0515 EST Patient given Compazine 10mg IV for SALMERON. Patient HR 70s NSR. NAD at this time. Patient remains A&Ox3. GREGG well. No changes. Report given to SHYANNE Olivas * Neena Mathis - 02/11/2012 0405 EST Patient has no change in pain. PA notified of no pain relief. Patient VSS. remains at BS. * Neena Mathis - 02/11/2012 0339 EST Patient A&Ox3. No neurological deficits noted. Patient updated on present plan of care. VSS. Patient placed on cardiac monitoring. at BS. * Neena Mathis - 02/11/2012 0330 EST Blood drawn via butterfly needle per protocol, rainbow tube(s) sent to lab per order. * Neena Mathis - 02/11/2012 0315 EST Patient transported to CT via stretcher. documented in this encounter Miscellaneous Notes * Scanned Note-Null - PULLBOAT ENGINEER, SCAN 2 - 02/22/2012 0624 EST * Scanned Note-Null - PULLBOAT ENGINEER, SCAN 2 - 02/17/2012 0800 EST * Scanned Note-Null - PULLBOAT ENGINEER, SCAN 2 - 02/11/2012 1440 EST documented in this encounter Plan of Treatment Not on file documented as of this encounter Procedures Procedure Name Priority Date/Time Associated Diagnosis Comments SCREENING GLUCOSE STAT 02/11/2012 3:3 5 EST HOLD BLUE TOP STAT 02/11/2012 3:35 EST DIFFERENTIAL Routine 02/11/2012 3:35 EST COMPLETE BLOOD COUNT Routine 02/11/2012 3:35 EST COMPLETE BLOOD COUNT AND DIFFERENTIAL STAT 02/11/2012 3:35 EST BUN STAT 02/11/2012 3:35 EST CREATININE STAT 02/11/2012 3:35 EST ELECTROLYTES STAT 02/11/2012 3:35 EST HOLD GREEN TOP STAT 02/11/2012 3:[address] HEAD WO CONTRAST 02/11/2012 3 :22 EST documented in this encounter Results * (ABNORMAL) DIFFERENTIAL (02/11/2012 3:35 EST) % Neutrophils 76.5 45.5 - 79.7 % [facility] % Lymphocytes 13.8(L) 15.0 - 46.8 % [facility] % Monocytes 6.0 1.8 - 12.0 % [facility] % Eosinophils 3.1 0.6 - 6.9 % [facility] % Basophils 0.6 0.2 - 1.4 % [facility] ABS Neutrophils 6.98 2.20 - 8.85 K/cmm [facility] ABS Lymphs 1.26 1.09 - 3.30 K/cmm [facility] Monocytes 0.55 0.1 - 0.8 K/cmm [facility] ABS Eosinophils 0.28 0.03 - 0.61 K/cmm [facility] ABS Basophils 0.05 0.01 - 0.11 K/cmm [facility] Type of Diff: Automated [facility] 02/11/2012 3:35 EST 02/11/2012 3:40 EST Nubia Ortiz PA-C HEMATOLOGY & PF4 ORDERABLES Performing Organization Address [facility] Co de Phone Number [facility] [address] [place] [address] * HEMAGRAM (02/11/2012 3:35 EST) WBC 9.13 4.0 - 10.4 K/cmm [facility] RBC 4.91 4.36 - 5.78 M/cmm [facility] Hemoglobin 14.5 13.8 - 17.3 gm/dl [facility] HCT 43.2 39.5 - 50.2 % [facility] MCV 88 81 - 95 fl [facility] MCH 29.6 27.6 - 33.0 pg [facility] MCHC 33.6 32.8 - 36.4 gm/dl [facility] PLT 244 141 - 320 K/cmm [facility] RDW-CV 13.5 11.8 - 14.1 % [facility] 02/11/2012 3:35 EST 02/11/2012 3:40 EST Nubia Ortiz PA-C HEMATOLOGY & PF4 ORDERABLES Performing Organization Address City/[facility]/ZIP Co de Phone Number [facility] [address] [place] [address] * HOLD BLUE TOP (02/11/2012 3:35 EST) Hold Blue Top Sample for coagulation will be discarded after 4 hours [facility] Blood specimen (specimen) 02/11/2012 3:35 EST 02/11/2012 3:40 EST Nubia Ortiz PA-C LAB INFO SER VICE AND SUPPORT & PHONE RESULT Performing Organization Address [facility] de Phone Number [facility] [address] [place] [address] * CREATININE (02/11/2012 3:35 EST) Pathologist [facility] Creatinine 0.95 0.66 - 1.25 mg/dl [facility] GFR, Calculated >60 >60 ml/min/1.7 3m2 [facility] Blood specimen (specimen) 02/11/2012 3:35 EST 02/11/2012 3:40 EST Nubia Ortiz PA-C CHEMISTRY & BLOOD GAS ORDERABLES Performing Organization Address [facility] de Phone Number [facility] [address] [place] [address] * BUN (02/11/2012 3:35 EST) BUN 20 10 - 26 mg/dl [facility] Blood specimen (specimen) 02/11/2012 3:35 EST 02/11/2012 3:40 EST Nubia Ortiz PA-C CHEMISTRY & BLOOD GAS ORDERABLES Performing Organization Address [facility] Co de Phone Number [facility] [address] [place] [address] * ELECTROLYTES (02/11/2012 3:35 EST) Sodium 138 136 - 145 mEq/L [facility] Potassium 4.4 3.5 - 5.0 mEq/L [facility] Chloride 103 96 - 110 mEq/L [facility] CO2 24 24 - 32 mEq/L [facility] Blood specimen (specimen) 02/11/2012 3:35 EST 02/11/2012 3:40 EST Nubia Martinsmargaret ISBELL-C CHEMISTRY & BLOOD GAS ORDERABLES Performing Organization Address [facility] Phone Number [facility] [address] [place] [address] * SCREENING GLUCOSE (02/11/2012 3:35 EST) Glucose, Screening 96 70 - 100 mg/dl [facility] Blood specimen (specimen) 02/11/2012 3:35 EST 02/11/2012 3:40 EST Nubia Radha ISBELL-C CHEMISTRY & BLOOD GAS ORDERABLES Performing Organization Address [facility] Phone Number [facility] [address] [place] [address] * HOLD GREEN TOP (02/11/2012 3:34 EST) Hold Green Top Hold for further testing. Specimen will be held for 5 days. [facility] Blood specimen (specimen) 02/11/2012 3:34 EST 02/11/2012 3:45 EST Nubia Martinsmargaret Ortiz PA-C LAB INFO SER VICE AND SUPPORT & PHONE RESULT Performing Organization Address [facility] Phone Number [facility] [address] [place] [address] * CT HEAD WO CONTRAST (02/11/2012 3:22 EST) Anatomical Region Laterality Modality Other 02/11/2012 3:22 EST 02/11/2012 8:46 EST Narrative 02/11/2012 8:[address] HEAD W/O CONTRAST ??Feb 11, 2012 03:22:00 AM Signs and Symptoms/Comments: ??Sudden onset 10/10 throbbing headache Comparison study July 16, 2011. Prior study is interpreted as no acute intracranial abnormality. There is new fluid in the maxillary sinuses which is suspect for acute sinusitis in that this is new since prior study. Correlate clinically. No bone destruction or fractures. Ventricles and sulci are within normal limits for age. No acute intracranial hemorrhage is demonstrated. No acute infarct or mass. No other acute findings. Impression: No acute intracranial abnormality or change since prior study. There is new fluid in the maxillary sinuses bilaterally which could represent acute maxillary sinusitis in that this is a new finding since prior study of both June 2011 as well as June 2010. Correlate clinically. Procedure Note 02/11/2012 CT HEAD W/O CONTRAST Feb 11, 2012 03:22:00 AM Signs and Symptoms/Comments: Sudden onset 10 throbbing headache Comparison study July 16, 2011. Prior study is interpreted as no acute intracranial abnormality. There is new fluid in the maxillary sinuses which is suspect for acute sinusitis in that this is new since prior study. Correlate clinically. No bone destruction or fractures. Ventricles and sulci are within normal limits for age. No acute intracranial hemorrhage is demonstrated. No acute infarct or mass. No other acute findings. Impression: No acute intracranial abnormality or change since prior study. There is new fluid in the maxillary sinuses bilaterally which could represent acute maxillary sinusitis in that this is a new finding since prior study of both June 2011 as well as June 2010. Correlate clinically. Nubia Ortiz PA-C IMAysha CT ORDER SHARON documented in this encounter Visit Diagnoses Diagnosis Headache(784.0) Headache documented in this encounter Administered Medications Inactive Administered Medications - up to 3 most recent administrations Medication Order MAR Action Action Date Dose Rate Site acetaminophen (TYLENOL) tablet 650 mg 650 mg, oral, NOW X1, 1 dose, On Saritha 02/11/12 at 0330, STAT Given 02/11/2012 3:15 EST 650 mg prochlorperazine edisylate (COMPAZINE) injection 10 mg 10 mg, intravenous, NOW X1, 1 dose, On Saritha 02/11/12 at 0515, STAT Given 02/11/2012 5:15 EST 10 mg documented in this encounter Active and Recently Administered Medications Times are shown in EST. Scheduled Medication Order 02/09/2012 02/10/2012 02/11/2012 acetaminophen (TYLENOL) tablet 650 mg (COMPLETED) 650 mg, oral, NOW X1, 1 dose, On Saritha 02/11/12 at 0330, STAT 0315 (Given - Provid er: Neena Mathis) prochlorperazine edisylate (COMPAZINE) injection 10 mg (COMPLETED) 10 mg, intravenous, NOW X1, 1 dose, On Saritha 02/11/12 at 0515, STAT 0515 (Given - Provid er: Neena Mathis) documented in this encounter Orders Nursing Count Last Ordered Date First Orde red Date CARDIAC MONITORING 1 02/11/2012 INSERT PERIPHERAL IV 1 02/11/2012 documented in this encounter Care Teams Clinical Laboratory Medical Director Relationship Specialty Start Date End Date Angel Caballero MD [address] [place] [address] [phone] PCP - General 04/26/09 documented as of this encounter
--- OUTSIDE RECORDS SUMMARY | 2023-12-29 16:39 | XMS_ITS | Encounter Summary ---
Author Organization [facility] Address [address] [place] [address] Care Team Providers Care [employer] Repairer Name Role Phone Angel Caballero MD Primary Care Provider Reason for Visit * Reason Comments Hypertension Has had some difficu lty breathing. Blood pressure 159/109 the other day. Jewell some anxiety. First time this has happened since on medication. Shortness of Breath Encounter Details Date Type Department Care Team (Late st Contact Info) Description 10/22/2011 16:00 EDT Office Visit [facility] - [address] [place] [address] Juan Carlos James MD [address] [place] [address] [address] [place] [address] HTN (hypertension) (Primary Dx) Discharge Disposition: Auto Discharge Social [...] Sign Reading Time Taken Comments Blood Pressure 124/80 10/22/2011 1610 EDT Pulse 72 10/22/2011 1610 EDT Temperature - - Respiratory Rate - - Oxygen Saturation - - Inhaled Oxygen Concentration - - Weight 108.9 kg (240 lb) 10/22/2011 1610 EDT Height 172.7 cm (5' 8) 10/22/2011 1610 EDT Body Mass Index 36.49 10/22/2011 1610 EDT documented in this encounter Discharge Disposition Disposition Code Departure Means Destination Auto Discharge documented in this encounter Progress Notes * Juan Carlos James MD - 10/22/2011 173 EDT Subjective: Patient ID: Sam Eng is an 46 y.o. male. Chief Complaint Patient presents with ??? Hypertension Has had some difficulty breathing. Blood pressure 159/109 the other day. Jewell some anxiety. First time this has happened since on medication. ??? Shortness of Breath ASSESSMENT AND RECOMMENDATIONS: 1. Hypertension: Well controlled on current medical regimen. Some lability at home, but mostly wellcontrolled. Good here today. No need to accelerate therapy at this time. 2. Recent stress test appears to be acceptably low risk. The patient did have a recent episode of limited dyspnea, but otherwise, has been feeling well and I do not think this single limited isolatedepisode represents angina or an acute coronary syndrome. I think, for now, continued conservative medical therapy and prevention is most appropriate. No need to consider nuclear stress testing or catheterization at this time, but these are contingencies if the patient's symptoms increase or become more problematic. Overall, I think Mr Eng is doing well. I have asked him to be in touch with Dr Caballero. I would like to see him back at least one more time next year for followup. If he is doing very well at thattime, we may consider changing his followup to an as-needed basis. HPI Mr Eng returns today for followup of his hypertension. Except for a single limited episode of a vague feeling of being somewhat short of breath and anxious a couple of weeks ago when he returned from work, he has been completely asymptomatic. The episode occurred on getting home from work. He just felt a little bit anxious and as if he was having some trouble catching his breath. He took his blood pressure and found it to be just over 150 systolic. Over about 10 minutes, his symptoms resolved and his blood pressure came down he says. He has had no exertional chest pain or pressure. He has been compliant with his medications. He says that, for the most part, his blood pressure has been under 130 when he checks it at home. He has been tolerating his medications, and his review of systemsis otherwise negative across 10 systems. ETT: 1. Stress ECG conclusions: The stress ECG is borderline. 2. Stress: The target heart rate was achieved. The heart rate response to stress is normal. There is a normal resting blood pressure withan appropriate response to stress. The patient experienced no chest pain during stress. Exercise capacity is average for age. Patient Active Problem List Diagnoses ??? Obstructive sleep apnea Past Medical History Diagnosis Date ??? Heart attack 07/2006 ??? CAD (coronary artery disease) ??? Unspecified sleep apnea ??? High blood pressure ??? Hearing loss Past Surgical History Procedure Date ??? Hernia [...] lisinopril (PRINIVIL, ZESTRIL) 20 mg tablet Take 20 mg by mouth daily. ??? [place]-3 Fatty Acids-Vitamin E (FISH OIL) 1,000 mg cap Take by mouth 2 times daily. ??? Aspirin 81 mg Tab Take 81 mg by mouth daily. No Known Allergies ROS - See HPI Objective: BP 124/80 Pulse 72 Ht 172.7 cm (68) Wt 108.863 kg (240 lb) BMI 36.49 kg/m2 Physical Exam Constitutional: No distress. Eyes: No scleral icterus. Neck: No JVD present. Cardiovascular: Normal rate, regular rhythm and normal heart sounds. No murmur heard. Pulmonary/Chest: Effort normal and breath sounds normal. Musculoskeletal: He exhibits no edema. Assessment: Plan: There are no diagnoses linked to this encounter. Juan Carlos James MD documented in this encounter Plan of Treatment Not on file documented as of this encounter Visit Diagnoses Diagnosis HTN (hypertension)- Primary Unspecified essential hypertension documented in this encounter Care Teams [employer] Repairer Relationship Specialty Start Date End Date Angel Caballero MD [address] [place] [phone] PCP - General 04/26/09 documented as of this encounter
--- OUTSIDE RECORDS SUMMARY | 2023-12-29 16:39 | XMS_ITS | Encounter Summary ---
Author Organization [facility] Address [address] [place] [address] Care Team Providers Care Pearl Peller Name Role Phone Angel Caballero MD Primary Care Provider Reason for Referral * (Routine) - Closed Specialty Diagnoses / Procedures Referred By Contac t Referred To Contact Diagnoses Uncomplicated asthma, unspecified asthma severity Procedures SPIROMETRY Terrance Carpenter MD [address] [place] [address], [address] [place] [address] Referral ID Status Reason Start Date Expiration Date Visits Re quested Visits Authorized [id number] Closed 05/12/2016 1 1 Encounter Details Date Type Department Care Team (Late st Contact Info) Description 05/12/2016 Orders Only [facility] Pulmonology & Critical Care - [address] [address] Elza Barajas RT Uncomplicated asthma, unspecified asthma severity (Primary Dx) [...] Ordered Date First Orde red Date SPIROMETRY 1 05/12/2016 documented in this encounter Care Teams Pearl Peller Relationship Specialty Start Date End Date Angel Caballero MD [address] [place] [phone] PCP - General 04/26/09 documented as of this encounter
--- OUTSIDE RECORDS SUMMARY | 2023-12-29 16:39 | XMS_ITS | Encounter Summary ---
Author Organization [facility] Address [address] [place] [address] Care Team Providers Care Staff Midwife/Apprenticeship Director Name Role Phone Angel Caballero MD Primary Care Provider Encounter Details Date Type Department Care Team (Late st Contact Info) Description 02/18/2014 Documentation Visit [facility] - [address] [phone] Antonio Sahu RN Social History Tobacco Use Types Packs/Day Years [...] as of this encounter Progress Notes * Ely Sahu RN - 02/18/2014 0944 EST Pt presents with c/o left testicular pain that started yesterday am. Also notes mild swelling of the left testicle. Denies: trauma, fever, chills or rash. Rates pain as 5/10. Reviewed with Dr Gaines, given limited diagnostic testing at this time advised patient we could start his care here but he may be sent to ER for need of an ultrasound which we do not have available today. Pt verbalizes understanding, no barriers to communication. Pt decided to leave, states he will go to [facility] ER or [facility] ER. driving. documented in this encounter Plan of Treatment Not on file documented as of this encounter Visit Diagnoses Not on filedocumented in this encounter Care Teams Staff Midwife/Apprenticeship Director Relationship Specialty Start Date End Date Angel Caballero MD [address] [place] [phone] PCP - General 04/26/09 documented as of this encounter
--- OUTSIDE RECORDS SUMMARY | 2023-12-29 16:39 | XMS_ITS | Encounter Summary ---
Author Organization [facility] Address [address] [place] [address] Care Team Providers Care Service Attendant Name Role Phone Angel Caballero MD Primary Care Provider Reason for Visit * Reason Comments Tech Appointment Encounter Details Date Type Department Care Team (Late st Contact Info) Description 12/16/2012 8:00 EDT Office Visit [facility] - [facility] [address] [place], [place] [phone] Gudelia Huggins MD [address] [place] [address], [address] [place] [phone] Sleep, Tech [address] [place] [phone] Obstructive sleep apnea syndrome (Primary Dx) Social History Tobacco Use Types [...] as of this encounter Progress Notes * RADIATOR CLEANER, FABRICIO 2 - 12/24/2012 5453 EDT * Shawn Galarza - 12/16/2012 0840 EDT Mr. Eng was seen so that a data download could be obtained. He had requested the appointment because he hasn't been here for a while. The download was obtained and I explained to him what the numbers indicate. 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 He also states that he is currently losing weight and is down 22 pounds at this point. I explained that he was doing well and encouraged him to keep up with the good work. documented in this encounter Plan of Treatment Not on file documented as of this encounter Visit Diagnoses Diagnosis Obstructive sleep apnea syndrome- Primary Obstructive sleep apnea (adult) (pediatric) documented in this encounter Care Teams Service Attendant Relationship Specialty Start Date End Date Angel Caballero MD [address] [place] [phone] PCP - General 04/26/09 documented as of this encounter
--- OUTSIDE RECORDS SUMMARY | 2023-12-29 16:39 | XMS_ITS | Encounter Summary ---
Author Organization [facility] Address [address] [place] [address] Care Team Providers Care Dispensing Optician Apprentice Name Role Phone Angel Caballero MD Primary Care Provider Reason for Visit * Reason Comments Rash see note Encounter Details Date Type Department Care Team (Latest Contact Info) Description 11/15/2011 9:41 EDT - 11/15/2011 10:58 EDT Hospital Encounter [facility] - [address] [phone] Ramon Riley MD [address] [place] [phone] Yeast infection of the skin Discharge Disposition: Home or Self Care Social [...] Sign Reading Time Taken Comments Blood Pressure 121/69 11/15/2011 1000 EDT Pulse 84 11/15/2011 1000 EDT Temperature 36.4 ??C (97.6 ??F) 11/15/2011 1000 EDT Respiratory Rate 20 11/15/2011 1000 EDT Oxygen Saturation - - Inhaled Oxygen Concentration - - Weight - - Height - - Body Mass Index - - documented in this encounter Discharge Instructions * Attachments The following attachments cannot be sent through Care Everywhere. * CANDIDIASIS: AFTER YOUR VISIT (BELARUSIAN) documented in this encounter Medications at Time of Discharge Medication Sig Dispensed Refills Start Date End Date Aspirin 81 mg Tab Take 81 mg by mouth daily. lisinopril (PRINIVIL, ZESTRIL) 20 mg tablet Take 10 mg by mouth daily. ketoconazole (NIZORAL) 2 % cream Apply qd until rash has cleared 30 g 0 11/15/2011 04/28/2012 [place]-3 Fatty Acids-Vitamin E (FISH OIL) 1,000 mg cap Take by mouth 2 times daily. 04/28/2012 documented as of this encounter Ordered Prescriptions Prescription Sig Dispensed Refills Start Date End Da te ketoconazole (NIZORAL) 2 % cream Apply qd until rash has cleared 30 g 0 11/15/2011 04/28/2012 documented in this encounter Discharge Disposition Disposition Code Departure Means Destination Home or Self Care Car Home documented in this encounter ED Notes * Ramon Riley MD - 11/15/2011 1019 EDT DOS: 11/15/2011 Chief Complaint Patient presents with ??? Rash see note The patient is a 46 y.o. male who presents today with Rash HPI Comments: Comes in with a persistent groin rash. He developed what he thought was a yeast infection with a swollen pruritic erythematous area on the distal penis as well as in the groin. He took a single Diflucan with partial improvement. He continues to have some mild symptoms both on the end of the penis as well as in the groin. No specific lesions. No discharge. No dysuria Rash Review of Systems Constitutional: Negative for chills. Genitourinary: Negative for dysuria, discharge, penile swelling, scrotal swelling, difficulty urinating, genital sores, penile pain and testicular pain. Skin: Positive for color change and rash. No current facility-administered medications for this encounter. Current Outpatient Prescriptions Medication Sig Dispense Refill ??? lisinopril (PRINIVIL, ZESTRIL) 20 mg tablet Take 20 mg by mouth daily. ??? [place]-3 Fatty Acids-Vitamin E (FISH OIL) 1,000 mg cap Take by mouth 2 times daily. ??? Aspirin 81 mg Tab Take 81 mg by mouth daily. No Known Allergies Past Medical History Diagnosis Date ??? Heart [...] Hx ??? Thyroid Disease Neg Hx BP 121/69 Pulse 84 Temp(Src) 97.6 ??F (36.4 ??C) (Temporal) Resp 20 Physical Exam Constitutional: He appears well-developed. No distress. HENT: Head: Normocephalic and atraumatic. Cardiovascular: Normal rate. Pulmonary/Chest: Effort normal. Neurological: He is alert. Skin: Mild erythematous changes at the distal head of the penis. Erythematous rash in the groin area, without distinct border or specific lesions. Consult orders: None PCP: Angel Caballero MD No results found for this visit on 11/15/11. Radiology orders: None Procedures Course: A medical screening exam was performed. A:Likely yeast rash P:ketoconazole qd until better Disposition: No disposition on file The patient's pain was managed to an adequate level weighing risk vs. benefit of further medications. [facility], the patient's pain was 0 on a zero to ten scale. Condition at departure from the [facility]: Stable No diagnosis found. No supervision required. [facility] 11/15/2011 10:19 * Kemi Gaytan RN - 11/15/2011 1009 EDT Patient reports yeast rash to groin area x 4 days. had yeast infection s/p antibiotics and wasprescribed diflucan 2 tablets which he took one tablet. Rash not resolved. * Roxanna Rao - 11/15/2011 1000 EDT Pt asked to change into a gown. documented in this encounter Miscellaneous Notes * Scanned Note-Null - COMMUNITY ENGAGEMENT SPECIALIST, SCAN 2 - 11/21/2011 9023 EDT documented in this encounter Plan of Treatment Not on file documented as of this encounter Visit Diagnoses Diagnosis Yeast infection of the skin Candidiasis of skin and nails documented in this encounter Care Teams Dispensing Optician Apprentice Relationship Specialty Start Date End Date Angel Caballero MD [address] [place] [phone] PCP - General 04/26/09 documented as of this encounter
--- OUTSIDE RECORDS SUMMARY | 2023-12-29 16:39 | XMS_ITS | Encounter Summary ---
Author Organization [facility] Address [address] [place] [address] Care Team Providers Care Supervisor Painting Name Role Phone Angel Caballero MD Primary Care Provider Reason for Referral * (Routine) - Closed Specialty Diagnoses / Procedures Referred By Contac t Referred To Contact Diagnoses SOB (shortness of breath) Procedures BRONCHIAL CHALLENGE - METHACHOLINE Shaye Veronica MD [address] [place] [address] Referral ID Status Reason Start Date Expiration Date Visits Re quested Visits Authorized [id number] Closed 01/23/2015 1 1 Reason for Visit * Reason Comments New Patient Visit Encounter Details Date Type Department Care Team (Late st Contact Info) Description 01/08/2015 15:15 EST Office Visit [facility] Pulmonology & Critical Care - [facility] [address] [place] [address], [place] [address] Justen Rodriguez MD [address] [place] [phone] Satinder Orellana MD [address] [id number] SOB (shortness of breath) (Primary Dx) Social History Tobacco Use Types [...] Sign Reading Time Taken Comments Blood Pressure 118/84 01/08/2015 1525 EST Pulse 71 01/08/2015 1525 EST Temperature 37 ??C (98.6 ??F) 01/08/2015 1525 EST Respiratory Rate 14 01/08/2015 1525 EST Oxygen Saturation 95% 01/08/2015 1525 EST Inhaled Oxygen Concentration - - Weight 109.9 kg (242 lb 4.6 oz) 01/08/2015 1525 EST Height 168.6 cm (5' 6.38) 01/08/2015 1525 EST Body Mass Index 38.66 01/08/2015 1525 EST documented in this encounter Functional Status [...] Shortness of breath-R06.02[ICD-10-CM] documented in this encounter Patient Instructions * Patient Instructions* Michelle Pagan - 01/08/2015 15:57 EST Methacholine Inhalation Challenge Description: Test is used to determine if the patient???s airways (bronchial tubes) are overly sensitive or hyper-reactive when breathing in a medication called methacholine. The medication is given by way of a nebulizer (medication is made into a fine mist and inhaled through a mouthpiece). The methacholine can either make you feel better, feel worse, or make no changes in your breathing whatsoever. The test is painless and safe. You will not leave the PFT lab feeling any worse than when you came in, although you may be tired from doing a lot of forceful breathing. You will begin with baseline breathing tests to determine how much air is in your lungs, how forcefully you can exhale and how tight the airways are. There are different levels of medication. After each level of medication the breathing is retested. You are given a list of instructions to follow prior to testing. Please follow them, as failure to do so will result in the test being rescheduled. Expect to spend at least 1 to 1-1/2 hours with the technologist. After the challenge is complete, you may go back to y our normal regimen of medication as directed by your physician. Your physician will contact you regarding the results. Methacholine Challenge Testing Patient Preparation Expect to spend 60-90 minutes for testing session. Continue taking your steroids (including inhaled) and any dax-djpkluorw-agxrecm medications as you have been. Avoid exposing yourself to known allergens for 24 hrs prior to test. Six (6) hours prior to testing, please limit exercise, smoking and caffeine intake to 16 oz. (This includes coffee, tea and chocolate). Stop taking these medications 6 hours prior to testing: Albuterol (Ventolin, Proventil, Proair, Accuneb), Alupent (Metaproterenol), Xopenex (Levalbuterol), Maxair (Pirbuterol), and Terbutaline Sulfate. Stop taking these medications 12 hours prior to testing: Atrovent (Ipatropium [place]), Combivent and Duoneb. Stop taking these medications 24 hours prior to testing: Singulair (Montelukast Sodium), Accolate (Zafirlukast), Zyflo (Zileuton), any antihistamines (Claritin (Loratadine), Ilsa (Fexofenadine), Ilsa D, Zyrtec (Cetirizine), Dimetapp (Brompheniramine Maleate), Benadryl (Diphenhydramine), Xyzal(Levocetirizine Dihydrochloride), Cromolyn Sodium (Intal), Nedocromil Sodium (Tilade), Theophylline(Theodur, Slo-bid, Choledyl, Uniphyll, Elixophylline), Dulera (Roflumilast) and pupp-jgm-kbgqvcy cold and allergy preparations or decongestants. Stop taking these medications 36 hours prior to testing: Serevenet (Salmeterol Xinafoate), Foradil (Formoterol Fumarate), Perforomist, Brovana, Advair and Symbicort. Stop taking these medications 48 hours prior to testing: Spiriva (Triotropium [place]) and Tudorza Presair (Aclidinium [place]). If you have had an upper respiratory infection/flu in the last 4 weeks prior to testing, please inform us so that we can reschedule your test. If you are , or suspect you might be, please inform the ordering physician before testing. If you have any questions regarding medications to avoid or you are not able to make this appointment, please call us at . If canceling your appointment, kindly give 24 hours??? notice if at all possible. documented in this encounter Progress Notes * Satinder Orellana MD - 01/08/2015 9567 EST [facility] - PULMONARY CLINIC New patient evaluation PCP: Angel Caballero Reason for consult: Asthma work up Thank you for requesting our opinion regarding , , the pulmonary attending, and I evaluated the patient at the Pulmonary Clinic at [facility] today. HISTORY OF PRESENT ILLNESS: 49-year-old male with past medical history of hypertension, obesity and allergic rhinitis who is being referred to us because of 2 episodes of shortness of breath that was usually preceded by postnasal drip. The first episode occured in 2010 after he developed some sensation of postnasal drip, he did notice that he was having shortness of breath and also wheezing, for this he was treated with prednisone taper and this resolved the problem. At the same time a spirometry was also done which is consistent with restrictive pattern. He has been feeling well with no residual pulmonary issues or complaints up until October 2014 when he also had a similar feeling of postnasal drip that was succeeded by wheezing and shortness of breath, a gain he did respond well to prednisone and was placed on albuterol when necessary. He denies any leg swelling, orthopnea, proximal much and a dyspnea, shortness of breath at rest, or shortness of breath in between these attacks. He completely returns to hisbaseline in between attacks. 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 He had to had sinus surgery but has not been needing chronic medication for his allergic rhinitis. At this time he does not think is being much problem to him. He was diagnosed to have obstructive sleep apnea at around 2008 for which he has been on CPAP and very compliant. He thinks the CPAP has significantly helpedhim with regards to his energy level in the morning. He does not use any home oxygen. Today he feels great and does not have any respiratory complaints. Review of systems is otherwise as listed in our HPI. He denies headaches, fevers, chills, has no hemoptysis, no skin rash, no blurriness of vision, no chest pain, palpitations, no extremity edema, nourinary symptoms, no GI symptoms. Mood has been stable,a 12 point ROS was performed. PAST MEDICAL HISTORY PAST SURGICAL HISTORY Past Medical History Diagnosis Date ??? Heart attack 07/2006 ??? CAD (coronary artery disease) ??? Unspecified sleep apnea ??? High blood pressure ??? Hearing loss ??? HTN (hypertension) 10/22/2011 Past Surgical History Procedure Laterality Date ??? Hernia repair ??? Refractive surgery ??? Nasal septum surgery April 2010 ??? Eye surgery CURRENT MEDICATIONS: ALLERGIES: Current Outpatient Prescriptions on File Prior to Visit Medication Sig Dispense Refill ??? albuterol 90 mcg/actuation inhaler Inhale 180 mcg as directed every 4 hours ??? Aspirin 81 mg Tab Take 81 mg by mouth daily. ??? lisinopril (PRINIVIL, ZESTRIL) 20 mg tablet Take 10 mg by mouth daily. No current facility-administered medications on file prior to visit. has No Known Allergies. FAMILY HISTORY SOCIAL HISTORY family history is negative for Allergic Rhinitis and Thyroid Disease. History Social History ??? Marital Status: Spouse Name: N/A Number of Children: N/A ??? Years of Education: N/A Occupational History ??? Not on file. Social History Main Topics ??? Smoking status: Never Smoker ??? Smokeless tobacco: Never Used ??? Alcohol Use: Yes Comment: rare wine ??? Drug Use: No ??? Sexual Activity: Partners: Female Other Topics Concern ??? Not on file Social History Narrative reports that he has never smoked. He has never used smokeless tobacco. He reports that he drinks alcohol. He reports that he does not use illicit drugs. PHYSICAL EXAM: BP 118/84 mmHg Pulse 71 Temp(Src) 37 ??C (98.6 ??F) (Tympanic) Resp 14 Ht 168.6 cm (66.38) Wt 109.9 kg (242 lb 4.6 oz) BMI 38.66 kg/m2 SpO2 95% Gen: Alert oriented, not in any acute distress Head: Atraumatic, normocephalic Eyes: Reactive to light, Ears: No discharge Throat: Normal palate and uvula, no oropharyngeal erythema Lymph: No cervical lymphadenopathy Cardiovascular: No jugular venous distention, S1 S2 heard, no murmurs/rubs/gallops Respiratory: Inspection: No use of accessory muscles of respiration, no asymmetry Palpation: Symmetric expansion of chest wall on both sides, Tactile vocal fremitus equal on both sides Percussion: resonant in all lung sams. Auscultation: clear breath sound bilaterally even on forced expiration Abd: soft, non tender, normoactive bowel sounds heard Musculoskeletal: No focal motor weakness grossly noted Extremities: warm, no edema, 2+ dorsalis pedal pulses Skin : No pallor or rash Neuro:power and reflexes are grossly intact. Psychiatric: Mood congruent with affect IMAGING FINDINGS CXR done 01/08/2015 does not show any significant abnormality. PULMONARY FUNCTION TESTS: Pulmonary function tests were performed as a separate procedure today is consistent with normal spirometry, the mild restrictive pattern seen in prior spirometry done in 2010 has improved. Date FEV1 % FVC % LLN FEV1/FVC LLN TLC % DLCOunc BD Comment 03/06/2010 2.80 76 3.73 80 3.90 75 66 01/08/2015 3.01 87 3.74 84 3.60 78 68 negative Impression: A 49-year-old male history of recurrent episodes of wheezing and cough always preceded by feeling of postnasal drip. He feels completely well in between attacks the last one was in October 2014. Henormally response well to steroid. He is a nonsmoker and is being referred to us for asthma workup.Currently does not have any symptoms, examination unrevealing, chest x-ray normal,spirometry consistent with normal expiratory flow and forced vital capacity. His symptom is suggestive of reactive airway disease considering intermittent attacks with completeresolution in between attacks and response to steroid. Although his spirometry done today does not show airflow limitation, this does not totally exclude asthma. Other possibility could be that he has occasional upper airway cough syndrome but this a lone would not respond well to prednisone, further consideration may be upper airway cough syndrome triggering baseline airway hyperresponsiveness. Recommendations: Our recommendation considering his normal spirometry but clinical features suggestive of asthma we will other methacholine challenge test to further evaluate this. We will would hold off on prescribing medication for his sinus issues since he currently does not have symptoms suggestive of that. He was also advised to continue his albuterol when necessary, although he has not used it in the past 2weeks. We encouraged him to continue being compliant with his CPAP. He was also advised on how to avoid secondhand smoking exposure and we provided [place] quit smoking helpline for his nephew that exposes him to smoking. Thank you for letting me participate in the care of Sam Eng. I will see him back in 3 months. Although I have scheduled to see him in 3 months, if his methacholine challenge test becomes positive we will would be getting in touch with him to prescribe an inhaled corticosteroid. Please call if any further questions arise. Satinder Orellana MD. Pulmonary and Critical Care Fellow. [facility]. Pager # [phone] Pulmonary Attending Addendum: Attestation statement: I saw and examined Mr. Eng. I agree with the findings and plan of care documented in the resident's/fellow's note. Shaye Veronica MD Pulmonary Attending 01/11/2015 documented in this encounter Plan of Treatment Not on file documented as of this encounter Visit Diagnoses Diagnosis SOB (shortness of breath)- Primary Shortness of breath documented in this encounter Orders PFT Count Last Ordered Date First Orde red Date BRONCHIAL CHALLENGE - METHACHOLINE 1 2014 documented in this encounter Care Teams Supervisor Painting Relationship Specialty Start Date End Date Angel Caballero MD [address] [place] [phone] PCP - General 04/26/09 documented as of this encounter
--- OUTSIDE RECORDS SUMMARY | 2023-12-29 16:39 | XMS_ITS | Encounter Summary ---
Author Organization [facility] Address [address] [place] [address] Care Team Providers Care Camp Coordinator Name Role Phone Angel Cbaallero MD Primary Care Provider Reason for Visit * Reason Comments Follow-up Starting CPAP/BiPAP Encounter Details Date Type Department Care Team (Late st Contact Info) Description 10/08/2011 10:10 EDT Office Visit [facility] Sleep [facility] - [address] [phone] Gudelia Huggins MD [address] [place] [address], [address] [place] [phone] Obstructive sleep apnea (Primary Dx) Social History Tobacco Use Types [...] Sign Reading Time Taken Comments Blood Pressure 138/74 10/08/2011 1009 EDT Pulse 81 10/08/2011 1009 EDT Temperature - - Respiratory Rate 16 10/08/2011 1009 EDT Oxygen Saturation 96% 10/08/2011 1009 EDT Inhaled Oxygen Concentration - - Weight 106.6 kg (235 lb) 10/08/2011 1009 EDT Height 172.7 cm (5' 8) 10/08/2011 1009 EDT Body Mass Index 35.73 10/08/2011 1009 EDT documented in this encounter Patient Instructions * Patient Instructions* Gudelia Huggins - 10/08/2011 10:40 EDT We sent script to [facility] to fit with nasal pillows Continue using CPAP regularly. You are doing great. Try to allow time for 7-8 hours of sleep per night documented in this encounter Progress Notes * Gudelia Huggins - 10/08/2011 1021 EDT [facility] Date of Service: 10/08/2011 Name: Sam Eng : 1965 MR#: [id number] Sam Eng is a 45 y.o. 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 Echo is fine. Outpatient Prescriptions Marked as Taking for the 10/08/11 encounter (Office Visit) with Gudelia Huggins MD Medication Sig Dispense Refill ??? lisinopril (PRINIVIL, ZESTRIL) 20 mg tablet Take 20 mg by mouth daily. ??? [place]-3 Fatty Acids-Vitamin E (FISH OIL) 1,000 mg cap Take by mouth 2 times daily. ??? Aspirin 81 mg Tab Take 81 mg by mouth daily. Allergies: Review of patient's allergies indicates no known allergies. Past medical history, social history, family history are documented in the computerized chart and reviewed today. Weight measurements from the last 5 encounters Date Weight 10/08/2011 106.595 kg (235 lb) 06/23/2010 111.585 kg (246 lb) 03/05/2010 111.585 kg (246 lb) 01/07/2010 110.224 kg (243 lb) 11/14/2009 105.235 kg (232 lb) BP 138/74 Pulse 81 Resp 16 Ht 172.7 cm (68) Wt 106.595 kg (235 lb) BMI 35.73 kg/m2 SpO2 96% Nose: Nasal passages open, small non-obstructing polyp on left Oropharynx: Mod Mal 4, 3+lateral narrowing, retrognathia Lungs: Clear Cor: RRR, normal S1, S2 Ext: no edema Machine Download today: 178 / 180 nights used, Median usage: 6 hours,32 minutes per night, AHI: 3, Mask fit: Excellent 90% Pressure is 8.5 Assessment: ?? PAOLA doing well on AutoCPAP treatment, compliant, symptomatically improved. Titration and machinedata and patient feedback confirms adequate treatment. Wants to try nasal pillows. ?? Obesity ?? Nasal polyposis, Currently with good nasal airway Plan: ?? Script sent for nasal pillows ?? Continue AutoPAP, Get supplies at 3-6 months intervals, Call if problems arise ?? Weight loss, increase exercise, avoid alcohol prior to bedtime, don't drive when sleepy. He willcontact me if he loses >20lb and we can re-evaluate PAOLA. cc: Angel Caballero MD documented in this encounter Procedure Notes * TANK HOOP BENDER, SCAN 2 - 10/20/2011 0727 EDTAssociated Order(s): ORDERS - SCANNED documented in this encounter Plan of Treatment Not on file documented as of this encounter Procedures Procedure Name Priority Date/Time Associated Diagnosis Comments ORDERS - SCANNED 10/20/2011 7:27 EDT documented in this encounter Results * ORDERS - SCANNED (10/20/2011 7:27 EDT) 10/20/2011 7:27 EDT Narrative 10/20/2011 8:51 EDT Procedure Note TANK HOOP BENDER, SCAN 2 - 10/20/2011 7:27 EDT Scan 2 Hygiene Coordinator ADMISSION ORDERABLE S documented in this encounter Visit Diagnoses Diagnosis Obstructive sleep apnea- Primary Obstructive sleep apnea (adult) (pediatric) documented in this encounter Orders Equipment Count Last Ordered Date First Orde red Date CPAP/BIPAP GENERAL ORDER 1 10/08/2011 documented in this encounter Care Teams Camp Coordinator Relationship Specialty Start Date End Date Angel Caballero MD [address] [place] [phone] PCP - General 04/26/09 documented as of this encounter
--- OUTSIDE RECORDS SUMMARY | 2023-12-29 16:39 | XMS_ITS | Encounter Summary ---
Author Organization [facility] Address [address] [place] [address] Care Team Providers Care Certified Detention Deputy Name Role Phone Angel Caballero MD Primary Care Provider Reason for Referral * (Routine/Next Available) - Closed Specialty Diagnoses / Procedures Referred By Contac t Referred To Contact Diagnoses SNHL (sensorineural hearing loss) Subjective tinnitus Procedures HEARING EVALUATION Luisa Kaur MD [address] [place] [phone] Referral ID Status Reason Start Date Expiration Date Visits Re quested Visits Authorized [id number] Closed 04/28/2012 1 1 Reason for Visit * Reason Comments Tinnitus Encounter Details Date Type Department Care Team (Late st Contact Info) Description 04/28/2012 13:55 EST Office Visit [facility] ENT- [place] [phone] Luisa Kaur MD [address] [place] [phone] SNHL (sensorineural hearing loss) (Primary Dx); Subjective tinnitus Discharge Disposition: Auto Discharge Social History Tobacco [...] file documented as of this encounter Discharge Disposition Disposition Code Departure Means Destination Auto Discharge documented in this encounter Progress Notes * Luisa Kaur MD - 04/28/2012 1413 EST Mr Eng is here today for evaluation of tinnitus and hearing loss. The tinnitus has been present for many years. It is variable in intensity but present all the time. It is bilateral and it has gradually gotten worse. He generally does not have difficulty falling asleep, although notes that that is when the tinnitus seems to bother him the most at night, but finds it to be bothersome all the time. He does use a fan at night before he goes to sleep. He does have a CPAP machine as well which hesleep with. He denies any nonsteroidal use and he drinks two to three cups of caffeinated coffee a day. He also notices difficulty hearing. He did have an audiogram done here a little less than 5 year s ago, which showed a moderate high-frequency sensorineural hearing loss. He feels like his hearinghas worsened. He has trouble with the television and the voices. OBJECTIVE: On physical exam today, generally he is in no distress. He is well groomed. His face reveals symmetric movement and is otherwise normal appearing. His voice is of normal quality. He communicates easily in the exam room. His nose externally is unremarkable. Internally he has normal mucosa. Mouth and oropharynx reveals some redundant and excessive posterior pharyngeal tissue. His neck reveals no adenopathy. His ears reveal the canals, TMs, and auricles to be within normal limits. His audiogram today is reasonably stable compared to his last visit. There is maybe 5 dB decrease in the higher frequencies, but otherwise unchanged. His discrimination continues to be normal. ASSESSMENT: 1. Tinnitus. I discussed possible options including environmental masking, herbal preparation, stopping the caffeine, use of a masker or retraining therapy. At the present time, he is going to try the herbal preparation and try to stop the caffeine and see how that works. 2. Sensorineural hearing loss. PLAN: I have given him information about hearing aids, which he will pursue as desired. He will return as needed. documented in this encounter Procedure Notes * CHILDREN'S NURSERY ASSISTANT, SCAN 2 - 05/31/2012 1048 EDTAssociated Order(s): PROCEDURE REPORTS - SCANNED documented in this encounter Plan of Treatment Scheduled Orders Name Type Priority Associated Diagnoses Orde r Schedule HEARING EVALUATION Audiology Routine SNHL (sensorineural hearing loss) Subjective tinnitus Ordered: 04/28/2012 documented as of this encounter Procedures Procedure Name Priority Date/Time Associated Diagnosis Comments PROCEDURE REPORTS - SCANNED 05/31/2012 10:48 EDT documented in this encounter Results * PROCEDURE REPORTS - SCANNED (05/31/2012 10:48 EDT) 05/31/2012 10:4 8 EDT Narrative 05/31/2012 10:48 EDT Procedure Note CHILDREN'S NURSERY ASSISTANT, SCAN 2 - 05/31/2012 10:48 EDT Scan 2 Overnight Houseperson PROCEDURE/MINOR TRACIE GICAL ORDERABLES documented in this encounter Visit Diagnoses Diagnosis SNHL (sensorineural hearing loss)- Primary Sensorineural hearing loss, unspecified Subjective tinnitus documented in this encounter Discontinued Medications Medication Sig Discontinue Reason Start Date End Da te ketoconazole (NIZORAL) 2 % cream Apply qd until rash has cleared 11/15/2011 04/28/2012 ondansetron (ZOFRAN-ODT) 4 mg disintegrating tablet Take 1 Tab by mouth every 8 hours as needed for Nausea. 02/11/2012 04/28/2012 [place]-3 Fatty Acids-Vitamin E (FISH OIL) 1,000 mg cap Take by mouth 2 times daily. 04/28/2012 documented as of this encounter Care Teams Certified Detention Deputy Relationship Specialty Start Date End Date Angel Caballero MD [address] [place] [phone] PCP - General 04/26/09 documented as of this encounter
--- OUTSIDE RECORDS SUMMARY | 2023-12-29 16:39 | XMS_ITS | Encounter Summary ---
Author Organization [facility] Address [address] [place] [address] Care Team Providers Care Certified Alcohol And Drug Counselor Name Role Phone Angel Caballero MD Primary Care Provider Reason for Visit * Reason Comments Tick Removal left groin, [place], tried to remove it Encounter Details Date Type Department Care Team (Late st Contact Info) Description 07/16/2012 14:08 EDT - 07/16/2012 14:55 EDT Emergency [facility] Emergency Department - [facility] [address] [place], [place] [id number] Errol Freed, PA-C [address] [place] [address], [address] [place] [address] Emergency, MD Denise Tick bite of abdomen (Primary Dx) Discharge Disposition: Home or Self [...] Sign Reading Time Taken Comments Blood Pressure 145/81 07/16/2012 1411 EDT Pulse 68 07/16/2012 1411 EDT Temperature 36.5 ??C (97.7 ??F) 07/16/2012 1411 EDT Respiratory Rate 16 07/16/2012 1411 EDT Oxygen Saturation 96% 07/16/2012 1411 EDT Inhaled Oxygen Concentration - - Weight - - Height - - Body Mass Index - - documented in this encounter Discharge Instructions * Discharge Instructions* Errol Freed PA - 07/16/2012 14:42 EDT Keep the wound clean and dry; you may shower and wash with soap and water * Attachments The following attachments cannot be sent through Care Everywhere. * TICK BITE: AFTER YOUR VISIT (BULGARIAN) documented in this encounter Medications at Time of Discharge Medication Sig Dispensed Refills Start Date End Date Aspirin 81 mg Tab Take 81 mg by mouth daily. lisinopril (PRINIVIL, ZESTRIL) 20 mg tablet Take 10 mg by mouth daily. documented as of this encounter Discharge Disposition Disposition Code Departure Means Destination Home or Self Half-Way documented in this encounter ED Notes * Errol Freed PA - 07/16/2012 1425 EDTAssociated Order(s): FOREIGN BODY REMOVAL Images from the original note were not included. DOS: 07/16/2012 Chief Complaint Patient presents with ??? Tick Removal left groin, was hiking yesterday, tried to remove it The patient is a 47 y.o. male who presents today with Tick Removal HPI Comments: 47-year-old male presents with concerns of tick bite to his abdomen. Patient states he was [place] and noted a tick to his left lower abdomen today. He states his tried to remove the tick, though believes the head and mouth parts are remaining in his abdomen. He notes some very mild erythema that he believes is due to his attempting to remove it. The tick was not engorged. Denies fever, chills or rash. Patient believes there is no chance he would have had an opportunity for tick bite prior to yesterday. The history is provided by the patient. Tick Removal The current episode started yesterday. Pertinent negatives include no fever. Review of Systems Constitutional: Negative for fever and chills. Skin: Positive for color change (irritation, no rash ). Negative for rash and wound. All other systems reviewed and are negative. [...] Thyroid Disease Neg Hx Vital Signs Temp: 36.5 ??C (97.7 ??F) Temp src: Tympanic Pulse: 68 Resp: 16 SpO2: 96 % SpCO: 1 % BP: 145/81 mmHg O2 Device: None (Room air) Physical Exam Nursing note and vitals reviewed. Constitutional: He is oriented to person, place, and time. He appears well- developed and well-nourished. No distress. Cardiovascular: Normal rate. Pulmonary/Chest: Effort normal. No respiratory distress. Abdominal: Musculoskeletal: Normal range of motion. Neurological: He is alert and oriented to person, place, and time. Skin: Skin is warm and dry. No rash noted. No erythema. Radiology orders: None Imaging Results None FB Removal Date/Time: 07/16/2012 14:38 Performed by: PAConsent: Verbal consent obtained. Consent given by: patient Body area: skin General location: trunk Location: abdomen Anesthesia: local infiltration Local anesthetic: lidocaine 1% without epinephrine Anesthetic total: 1 ml Removal mechanism: 18 guage needle Dressing: antibiotic ointment Depth: superficial. Complexity: simple Objects Recovered: head / mouth parts of tick Post-procedure assessment: foreign body removed Patient tolerance: Patient tolerated the procedure well with no immediate complications Comments: No bleeding with removal ED Course: A medical screening exam was performed. Patient presents with concerns of tick to left lower abdomen. His removed most of the tick though mouth parts and head have remained. This was removed with an 18-gauge needle by me. Tick believed to have been present since yesterday. No indication for antibiotics. Given precautions to return or follow-up with PCP. Disposition: Discharged The patient's pain was managed to an adequate level weighing risk vs. benefit of further medications. Upon departure from the Emergency Department, the patient's pain was 0 on a zero to ten scale. Condition at departure from the Emergency Department: Improved Discharge Prescriptions New Prescriptions No Discharge Prescriptions for this patient MDM Number of Diagnoses or Management Options Diagnosis management comments: 2 + tick removal Amount and/or Complexity of Data Reviewed Review and summarize past medical records: yes Final diagnoses: Tick bite of abdomen PCP: MD Tunde Noble was available for supervision. 07/16/2012 14:50 documented in this encounter Miscellaneous Notes * Scanned Note-Null - MARINE EQUIPMENT PRESERVATION INSPECTOR, SCAN 2 - 07/20/2012 0805 EDT documented in this encounter Plan of Treatment Not on file documented as of this encounter Procedures Procedure Name Priority Date/Time Associated Diagnosis Comments FOREIGN BODY REMOVAL - EMBEDDED Routine 07/16/2012 14:50 EDT documented in this encounter Results * FOREIGN BODY REMOVAL (07/16/2012 14:50 EDT) Narrative [facility] EKG - 07/16/2012 14:50 EDT Errol Freed PA ? 07/16/2012 14:50 DOS: 07/16/2012 Chief Complaint Patient presents with ? ? Tick Removal ??left groin, was hiking yesterday, tried to remove it The patient is a 47 y.o. male who presents today with Tick Removal HPI Comments: 47-year-old male presents with concerns of tick bite to his abdomen. ??Patient states he [place] and noted a tick to his left lower abdomen today. ??He states his tried to remove the tick, though believes the head and mouth parts are remaining in his abdomen. ??He notes some very mild erythema that he believes is due to his attempting to remove it. ??The tick was not engorged. ??Denies fever, chills or rash. ??Patient believes there is no chance he would have had an opportunity for tick bite prior to yesterday. The history is provided by the patient. Tick Removal The current episode started yesterday. Pertinent negatives include no fever. Review of Systems Constitutional: Negative for fever and chills. Skin: Positive for color change (irritation, no rash ). Negative for rash and wound. All other systems reviewed and are negative. Past Medical History Diagnosis Date ? ? Heart attack 07/2006 ? ? CAD (coronary artery disease) ? Unspecified sleep apnea ? High blood pressure ? Hearing loss ? HTN (hypertension) 10/22/2011 Past Surgical History Procedure Date ? ? Hernia repair ? Refractive surgery ? Nasal septum surgery ?April 2010 ? ? Eye surgery ?? No Known Allergies History Substance Use Topics ? ? Smoking status: Never Smoker ? Smokeless tobacco: Never Used ? ? Alcohol Use: Yes ?? rare wine Family History Problem Relation Age of Onset ? ? Allergic Rhinitis Neg Hx ? Thyroid Disease Neg Hx ?? Vital Signs Temp: 36.5 ??C (97.7 ??F) Temp src: Tympanic Pulse: 68 Resp: 16 SpO2: 96 % SpCO: 1 % BP: 145/81 mmHg O2 Device: None (Room air) Physical Exam Nursing note and vitals reviewed. Constitutional: He is oriented to person, place, and time. He appears well-developed and well-nourished. No distress. Cardiovascular: Normal rate. ?? Pulmonary/Chest: Effort normal. No respiratory distress. Abdominal: Musculoskeletal: Normal range of motion. Neurological: He is alert and oriented to person, place, and time. Skin: Skin is warm and dry. No rash noted. No erythema. Radiology orders: None Imaging Results ?? None FB Removal Date/Time: 07/16/2012 14:38 Performed by: PAConsent: Verbal consent obtained. Consent given by: patient Body area: skin General location: trunk Location: abdomen Anesthesia: local infiltration Local anesthetic: lidocaine 1% without epinephrine Anesthetic total: 1 ml Removal mechanism: 18 guage needle Dressing: antibiotic ointment Depth: superficial. Complexity: simple Objects Recovered: head / mouth parts of tick Post-procedure assessment: foreign body removed Patient tolerance: Patient tolerated the procedure well with no immediate complications Comments: No bleeding with removal ?? ED Course: ?? A medical screening exam was performed. ??Patient presents with concerns of tick to left lower abdomen. ??His removed most of the tick though mouth parts and head have remained. ??This was removed with an 18-gauge needle by me. ??Tick believed to have been present since yesterday. ??No indication for antibiotics. ?? Given precautions to return or follow-up with PCP. Disposition: Discharged The patient's pain was managed to an adequate level weighing risk vs. benefit of further medications. Upon departure from the Emergency Department, the patient's pain was 0 on a zero to ten scale. Condition at departure from the Emergency Department: Improved Discharge Prescriptions New Prescriptions No Discharge Prescriptions for this patient MDM Number of Diagnoses or Management Options Diagnosis management comments: 2 + tick removal Amount and/or Complexity of Data Reviewed Review and summarize past medical records: yes Final diagnoses: Tick bite of abdomen PCP: ??MD Tunde Noble was available for supervision. 07/16/2012 14:50 Procedure Note Errol Freed PA - 07/16/2012 14:25 EDT Images from the original note were not included. DOS: 07/16/2012 Chief Complaint Patient presents with ? ? Tick Removal left groin, was hiking yesterday, tried to remove it The patient is a 47 y.o. male who presents today with Tick Removal HPI Comments: 47-year-old male presents with concerns of tick bite to hisabdomen. Patient [place] and noted atick to his left lower abdomen today. He states his tried to removethe tick, though believes the head and mouth parts are remaining in hisabdomen. He notes some very mild erythema that he believes is due to hiswife attempting to remove it. The tick was not engorged. Denies fever,chills or rash. Patient believes there is no chance he would have had anopportunity for tick bite prior to yesterday. The history is provided by the patient. Tick Removal The current episode started yesterday. Pertinent negatives include nofever. Review of Systems Constitutional: Negative for fever and chills. Skin: Positive for color change (irritation, no rash ). Negative for rashand wound. All other systems reviewed and are negative. Past Medical History Diagnosis Date ? ? Heart attack 07/2006 ? ? CAD (coronary artery disease) ? ? Unspecified sleep apnea ? ? High blood pressure ? ? Hearing loss ? ? HTN (hypertension) 10/22/2011 Past Surgical History Procedure Date ? ? Hernia repair ? ? Refractive surgery ? ? Nasal septum surgery April 2010 ? ? Eye surgery No Known Allergies History Substance Use Topics ? ? Smoking status: Never Smoker ? ? Smokeless tobacco: Never Used ? ? Alcohol Use: Yes rare wine Family History Problem Relation Age of Onset ? ? Allergic Rhinitis Neg Hx ? ? Thyroid Disease Neg Hx Vital Signs Temp: 36.5 ??C (97.7 ??F) Temp src: Tympanic Pulse: 68 Resp: 16 SpO2: 96 % SpCO: 1 % BP: 145/81 mmHg O2 Device: None (Room air) Physical Exam Nursing note and vitals reviewed. Constitutional: He is oriented to person, place, and time. He appearswell- developed and well-nourished. No distress. Cardiovascular: Normal rate. Pulmonary/Chest: Effort normal. No respiratory distress. Abdominal: Musculoskeletal: Normal range of motion. Neurological: He is alert and oriented to person, place, and time. Skin: Skin is warm and dry. No rash noted. No erythema. Radiology orders: None Imaging Results None FB Removal Date/Time: 07/16/2012 14:38 Performed by: PAConsent: Verbal consent obtained. Consent given by: patient Body area: skin General location: trunk Location: abdomen Anesthesia: local infiltration Local anesthetic: lidocaine 1% without epinephrine Anesthetic total: 1 ml Removal mechanism: 18 guage needle Dressing: antibiotic ointment Depth: superficial. Complexity: simple Objects Recovered: head / mouth parts of tick Post-procedure assessment: foreign body removed Patient tolerance: Patient tolerated the procedure well with no immediatecomplications Comments: No bleeding with removal ED Course: A medical screening exam was performed. Patient presents with concerns oftick to left lower abdomen. His removed most of the tick thoughmouth parts and head have remained. This was removed with an 18-gaugeneedle by me. Tick believed to have been present since yesterday. Noindication for antibiotics. Given precautions to return or follow-up withP. Disposition: Discharged The patient's pain was managed to an adequate level weighing risk vs.benefit of further medications. Upon departure from the EmergencyDepartment, the patient's pain was 0 on a zero to ten scale. Condition at departure from the Emergency Department: Improved Discharge Prescriptions New Prescriptions No Discharge Prescriptions for this patient MDM Number of Diagnoses or Management Options Diagnosis management comments: 2 + tick removal Amount and/or Complexity of Data Reviewed Review and summarize past medical records: yes Final diagnoses: Tick bite of abdomen PCP: MD Tunde Noble was available for supervision. 07/16/2012 14:50 Errol Freed PA-C PROCEDURE/MINOR SURG ICAL ORDERABLES [facility] EKG documented in this encounter Visit Diagnoses Diagnosis Tick bite of abdomen- Primary Trunk, insect bite, nonvenomous, without mention of infection documented in this encounter Care Teams Certified Alcohol And Drug Counselor Relationship Specialty Start Date End Date Angel Caballero MD [address] [place] [phone] PCP - General 04/26/09 documented as of this encounter
--- OUTSIDE RECORDS SUMMARY | 2023-12-29 16:39 | XMS_ITS | Encounter Summary ---
Author Organization [facility] Address [address] [place] [address] Care Team Providers Care Stunt Driver Name Role Phone Angel Caballero MD Primary Care Provider Reason for Visit * Reason Comments Ankle Pain Encounter Details Date Type Department Care Team (Late st Contact Info) Description 01/27/2012 Documentation Visit [facility] Rehabilitation Therapy - [address] [phone] Mina Headley, PT [address] [facility] [address] [facility][note 3][address] [place] [phone] Social History Tobacco Use Types Packs/Day Years [...] as of this encounter Progress Notes * Mina Headley, PT - 01/27/2012 1505 EST [facility] [address] [place] [address] Physical Therapy Discontinue/Discharge Note Date: 01/27/2012 Reason for Referral: Diagnosis: Right peroneal tendinitis ICD 9: 845.00, 726.71 Date of Onset: 05/08/11 Referring Provider: flavio Velazquez NP Date of Initial Eval: 07/08/11 Total Number of Visits: 4 SUBJECTIVE: None OBJECTIVE: Date of Initial Eval: 07/08/11. We are opting to discontinue Mr. Eng's therapy at this time because, the patient has not returned for scheduled appointments. Please refer to the last Physical Therapy Progress Note for details. ASSESSMENT: Unable to assess his current status as the patient was not seen for any additional therapy sessions. GOALS: All goals discontinued. PLAN: Discontinue physical therapy. The patient is invited to contact us at any time, should any problems arise, or should his plans for rehabilitation change. MINA HEADLEY, PT 01/27/2012 15:05 documented in this encounter Plan of Treatment Not on file documented as of this encounter Visit Diagnoses Not on filedocumented in this encounter Care Teams Stunt Driver Relationship Specialty Start Date End Date Angel Caballero MD [address] [place] [phone] PCP - General 04/26/09 documented as of this encounter
--- OUTSIDE RECORDS SUMMARY | 2023-12-29 16:40 | XMS_ITS | Encounter Summary ---
Author Organization [facility] Address [address] [place] [address] Care Team Providers Care Scientist Name Role Phone Angel Caballero MD Primary Care Provider Encounter Details Date Type Department Care Team (Latest Contact Info) Description 08/18/2011 9:28 EDT - 08/18/2011 9:29 EDT Hospital Encounter [facility] - [address] [address] Angel Caballero MD [address] [place] [phone] Angel Caballero MD [address] [place] [phone] Discharge Disposition: Home or Self Care Social [...] on file documented as of this encounter Medications at Time of Discharge Medication Sig Dispensed Refills Start Date End Date Aspirin 81 mg Tab Take 81 mg by mouth daily. fluticasone (FLONASE) 50 mcg/Actuation nasal spray by Nasal route daily. 1 spray both nostrils bid for 1 month, then 2 sprays qd. 1 Bottle 11 05/16/2010 09/10/2011 FLUTICASONE PROPIONATE (FLOVENT HFA INHL) Inhale 2 Puffs as directed 2 times daily. Pt states he usually uses this once a day. 05/09/2010 09/10/2011 metoprolol (LOPRESSOR) 50 mg tablet Take 0.5 Tabs by mouth 2 times daily. 30 Tab 0 07/17/2011 09/10/2011 METOPROLOL TARTRATE (LOPRESSOR ORAL) Take by mouth. 2 naproxen (NAPROSYN) 500 mg tablet Take 500 mg by mouth 2 times daily. 09/10/2011 documented as of this encounter Discharge Disposition Disposition Code Departure Means Destination Home or Self Care documented in this encounter Plan of Treatment Not on file documented as of this encounter Visit Diagnoses Not on filedocumented in this encounter Care Teams Scientist Relationship Specialty Start Date End Date Angel Caballero MD [address] [place] [phone] PCP - General 04/26/09 documented as of this encounter
--- OUTSIDE RECORDS SUMMARY | 2023-12-29 16:40 | XMS_ITS | Encounter Summary ---
Author Organization [facility] Address [address] [place] [address] Care Team Providers Care Blower Blast Furnace Name Role Phone Angel Caballero MD Primary Care Provider Reason for Visit * Reason Comments Headache Pt reports he was at work tonight, began having SALMERON and took excedrin. Pt then checked BP and it was elevated. Pt c/ cardiac hx, concerned that this could be related. Denies dizziness, visual disturbance, CP, or dyspnea. Pt arrives in NAD, VSS, a &o x3. Hypertension Encounter Details Date Type Department Care Team (Late st Contact Info) Description 07/17/2010 1:53 EDT - 07/17/2010 5:56 EDT Emergency [facility] Emergency Department - [address] [address] Leilani Pino MD [address] [place] [address], Level 1 [place] [address] Emergency, MD Denise Headache Discharge Disposition: Home or Self Care Social History Tobacco Use Types Packs/Day Years Used Date Smoking Tobacco: Never Smokeless Tobacco: Never Alcohol Use Standard Drinks/Week Comments No 0 (1 standard drink = 0.6 oz pur e alcohol) Sex and Gender Information Value Date Recorded Sex Assigned at Not on file Gender Identity Not on file Sexual Orientation Not on file documented as of this encounter Last Filed Vital Signs Vital Sign Reading Time Taken Comments Blood Pressure 124/88 07/17/2010 0330 EDT Pulse - - Temperature 36 ??C (96.8 ??F) 07/17/2010 0330 EDT Respiratory Rate 16 07/17/20100 EDT Oxygen Saturation 96% 07/17/2010329 EDT Inhaled Oxygen Concentration - - Weight 108.9 kg (240 lb) 07/17/2010202 EDT Height 172.7 cm (5' 8) 07/17/2010202 EDT Body Mass Index 36.49 07/17/2010202 EDT documented in this encounter Discharge Instructions * Attachments The following attachments cannot be sent through Care Everywhere. * HEADACHE: AFTER YOUR VISIT TO THE EMERGENCY ROOM ([facility]) documented in this encounter Medications at Time [...] uses this once a day. 05/09/2010 09/10/2011 documented as of this encounter Discharge Disposition Disposition Code Departure Means Destination Home or Self Care documented in this encounter Procedure Notes * Sales Negotiator, Scan - 07/17/2010 0000 EDTAssociated Order(s): ECG REPORT - SCANNED documented in this encounter ED Notes * Leilani Pino MD - 07/18/2010 1600 EDT DOS: 07/17/2010 Chief Complaint Patient presents with ??? Headache Pt reports he was at work tonight, began having SALMERON and took excedrin. Pt then checked BP and it waselevated. Pt c/ cardiac hx, concerned that this could be related. Denies dizziness, visual disturbance, CP, or dyspnea. Pt arrives in NAD, VSS, a &o x3. ??? Hypertension The patient is a 45 y.o. male who presents today with Headache and Hypertension HPI Comments: 45 yo male presents with gradual onset headache that began while driving. 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 He took excedrin and saw the nurse at the facility who took his BP and noted it was 160/80. He was concerned because of his high BP and therefore came to the ED. No known hx of HTN, took metoprolol recently prior to surgery. Has had headaches somewhat similar to this, but they usually go away with motrin and he did not have motrin to take. Denies any trauma, fever, dental pain, eye pain, visual changes, numbness, weakness, tingling or gait disturbance. Has otherwise been well. Headache Pertinent negatives include no fever and no shortness of breath. Hypertension Associated symptoms include headaches. Pertinent negatives include no chest pain, no confusion and no shortness of breath. Review of Systems Constitutional: Negative for fever and chills. HENT: Negative for neck stiffness. Eyes: Negative for visual disturbance. Respiratory: Negative for shortness of breath. Cardiovascular: Negative for chest pain. Gastrointestinal: Negative for abdominal pain. Genitourinary: Negative for dysuria. Musculoskeletal: Negative for back pain. Skin: Negative for rash. Neurological: Positive for headaches. Psychiatric/Behavioral: Negative for confusion. All other systems reviewed and are negative. Past Medical History Diagnosis Date ??? Heart attack 07/2006 ??? CAD (coronary artery disease) ??? Unspecified sleep apnea Past Surgical History Procedure Date ??? Hernia repair ??? Refractive surgery ??? Nasal septum surgery April 2010 No Known Allergies History Substance Use Topics ??? Smoking status: Never Smoker ??? Smokeless tobacco: Never Used ??? Alcohol Use: No Family History Problem Relation Age of Onset ??? Allergic Rhinitis Neg Hx ??? Thyroid Disease Neg Hx Vital Signs Temp: 36 ??C (96.8 ??F) Temp src: Oral Heart Rate: 70 BPM Resp: 16 SpO2: 96 % BP: 124/88 mmHg BP Device: BP Machine Patient Position: Supine BP Cuff Location: Right arm O2 Device: None (Room air) Physical Exam Nursing note and vitals reviewed. Constitutional: He appears well-developed. HENT: Head: Normocephalic and atraumatic. Eyes: Pupils are equal, round, and reactive to light. Neck: Neck supple. No tracheal deviation present. Cardiovascular: Normal rate and normal heart sounds. Pulmonary/Chest: Effort normal and breath sounds normal. No respiratory distress. He has no wheezes. He has no rales. Abdominal: Soft. Bowel sounds are normal. He exhibits no distension. No tenderness. Musculoskeletal: Normal range of motion. Neurological: He is alert. He has normal strength. No cranial nerve deficit or sensory deficit. Coordination and gait normal. Skin: Skin is warm and dry. He is not diaphoretic. Psychiatric: He has a normal mood and affect. Radiology orders: CT HEAD WO CONTRAST CT HEAD (Results Pending) CT HEAD WO CONTRAST (Results Pending) EKG 12-LEAD (Results Pending) Procedures ED Course: A medical screening exam was performed. CT obtained to r/o bleed which was negative. HTN likely secondary to pain, resolved shortly after arrival to the ED. Headache is improved. Story not entirely c/w SAH, but discussion had withi patient regarding risks and benefits of LP to further r/o SAH and patient decided he would prefer to not have this done and demonstrates understanding of risks. Disposition: Discharged The patient's pain was managed [...] or Management Options Headache: Diagnosis management comments: 3 Amount and/or Complexity of Data Reviewed Tests in the radiology section of CPT??: ordered and reviewed 1. Headache (784.0) PCP: Angel Caballero MD 07/18/2010 16:00 * Jennyfer Dey RN - 07/17/2010 0221 EDT MD Pino at bedside c/ pt. * Jaxon Jara - 07/17/2010 0208 EDT 12 Lead EKG Performed by Jaxon Jara and shown to Dr Leilani Pino * Jennyfer Dey RN - 07/17/2010 0203 EDT Pt reports he was put on metoprolol for nasal surgery. Quit taking it 3 weeks ago as his Doctor advised him it was only for the surgery. Cardiac, NIBP, and pulse oximetry initiated. documented in this encounter Miscellaneous Notes * Scanned Note-Null - Sales Negotiator, Scan - 07/17/2010 0000 EDT documented in this encounter Plan of Treatment Not on file documented as of this encounter Procedures Procedure Name Priority Date/Time Associated Diagnosis Comments ECG REPORT - SCANNED 08/08/2010 2:[address] HEAD WO CONTRAST 07/17/2010 2:47 EDT EKG 12-LEAD STAT 07/17/2010 2:03 EDT documented in this encounter Results * ECG REPORT - SCANNED (08/08/2010 2:13 EDT) 08/08/2010 2:13 EDT Narrative Procedure Note Sales Negotiator, Scan - 07/17/2010 0:00 EDT Scan Sales Negotiator PROCEDURE/MINOR SURG ICAL ORDERABLES * CT HEAD WO CONTRAST (07/17/2010 2:47 EDT) Anatomical Region Laterality Modality Other 07/17/2010 2:47 EDT 07/22/2010 11:50 EDT Narrative 07/22/2010 11:[address] HEAD WITHOUT CONTRAST July 17, 2010 Indication: Headache. Comparison: Sinus CT April 18, 2010. Technique: Axial noncontrast CT images of the head were obtained with coronal reformations. Findings: The ventricles and sulci are age-appropriate. Ventricular caliber is not grossly changed compared to the prior sinus CT from March 2000. There is no midline shift. The basilar cisterns are patent. No intracranial hemorrhage, abnormal extra-axial fluid collection or space-occupying lesion is identified. There is minor ethmoid sinus mucosal thickening present without paranasal sinus air-fluid levels identified. The mastoid air cells and middle ear cavities are clear. No gross orbital abnormality is demonstrated. Impression: 1. No intracranial abnormality identified. 2. Trace paranasal sinus mucosal inflammatory change without imaging evidence of acute sinusitis. This is slightly improved in comparison to the prior sinus CT from March 2010. Procedure Note 07/22/2010 CT HEAD WITHOUT CONTRAST July 17, 2010 Indication: Headache. Comparison: Sinus CT April 18, 2010. Technique: Axial noncontrast CT images of the head were obtained with coronal reformations. Findings: The ventricles and sulci are age-appropriate. Ventricular caliber is not grossly changed compared to the prior sinus CT from March 2000. There is no midline shift. The basilar cisterns are patent. No intracranial hemorrhage, abnormal extra-axial fluid collection or space-occupying lesion is identified. There is minor ethmoid sinus mucosal thickening present without paranasal sinus air-fluid levels identified. The mastoid air cells and middle ear cavities are clear. No gross orbital abnormality is demonstrated. Impression: 1. No intracranial abnormality identified. 2. Trace paranasal sinus mucosal inflammatory change without imaging evidence of acute sinusitis. This is slightly improved in comparison to the prior sinus CT from March 2010. Leilani Pino MD IMG CT ORDERABLES documented in this encounter Visit Diagnoses Diagnosis Headache(784.0) Headache documented in this encounter Administered Medications Inactive Administered Medications - up to 3 most recent administrations Medication Order MAR Action Action Date Dose Rate Site ketorolac (TORADOL) injection 30 mg 30 mg, intravenous, NOW X1, 1 dose, On Saritha 07/17/10 at 0400, STAT Given 07/17/2010 3:37 EDT 30 mg morphine injection 2 mg 2 mg, intravenous, NOW X1, 1 dose, On Saritha 07/17/10 at 0300, STAT Given 07/17/2010 2:43 EDT 2 mg documented in this encounter Active and Recently Administered Medications Times are shown in EDT. Scheduled Medication Order 07/15/2010 07/16/2010 07/17/2010 ketorolac (TORADOL) injection 30 mg (COMPLETED) 30 mg, intravenous, NOW X1, 1 dose, On Saritha 07/17/10 at 0400, STAT 0337 (Given - Provid er: Joshua Lemon RN) morphine injection 2 mg (COMPLETED) 2 mg, intravenous, NOW X1, 1 dose, On Saritha 07/17/10 at 0300, STAT 0243 (Given - Provid er: Lavern Rosey, RN) documented in this encounter Orders EKG Orders Without Results Count Last Ordered D ate First Ordered Date EKG 12-LEAD 1 07/17/2010 Nursing Count Last Ordered Date First Orde red Date INSERT SALINE LOCK 1 07/17/2010 documented in this encounter Care Teams Blower Blast Furnace Relationship Specialty Start Date End Date Angel Caballero MD [address] [place] [phone] PCP - General 04/26/09 documented as of this encounter
--- OUTSIDE RECORDS SUMMARY | 2023-12-29 16:40 | XMS_ITS | Encounter Summary ---
Author Organization [facility] Address [address] [place] [address] Care Team Providers Care Shape Hand Name Role Phone Angel Caballero MD Primary Care Provider Reason for Visit * Reason Comments Ankle Pain pain in R outer ankl e, into heel, and up calf Encounter Details Date Type Department Care Team (Late st Contact Info) Description 06/08/2011 8:30 EDT Office Visit [facility] - [address] [address] Jessica Velazquez NP [address] [place] [address] Peroneal tendonitis (Primary Dx) Social History Tobacco Use Types [...] - - Weight 108.9 kg (240 lb) 06/08/2011 0831 EDT Height 172.7 cm (5' 8) 06/08/2011 0831 EDT Body Mass Index 36.49 06/08/2011 0831 EDT documented in this encounter Progress Notes * Irving Velazquez NP - 06/08/2011 0930 EDT Diagnosis: 1. Peroneal tendonitis (726.79) Sam Eng is being seen today for Ankle Pain We have been asked to see him as refferal by Self. HPI: Sam Eng presents with complaint of right ankle pain that started May 07, 2011. He was walking across the parking lot when he felt an intense pain on the lateral side of his ankle. His ankleswelled but he was able to bear weight. He took two days off from work, iced and elevated his ankle. He also started using an over the counter ankle brace which he did not bring today. He states thatthe ankle brace is helping a little bit as well as the ice but he continues to be in pain. He findsthe pain frustrating because he is trying to lose weight. He has lost 4 pounds in 4 weeks and hopesto continue exercising. He states that he has been walking on treadmill for an hour every other daybefore the onset of pain. He does not stretch when he exercises. 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 His regular hours are 8 hrs a day for 6 days but mandatory overtimemakes it 12 to 16 hrs per work day. He takes 500 mg naproxen twice a day. Pain Rating: The pain is rated as 2/10 at rest and the worse is 6/10. The pain is constant and is aggravated by activity such as walking, hiking. The pain character is sharp or aching with tightness. Functional Evaluation: Functionally, He reports: Limping: mild; Limitation of walking distance: No but painful; Use of walking aids: No; Using a bannister to climb steps: No}; Difficulty walking on uneven surfaces or hills: Yes; Limitations to shoe wear: No; Limitations to running: severe Limitations to usual athletic activity: Activities - walking, hiking; Limitations - severe Patient Active Problem List Diagnoses Date Noted ??? Obstructive sleep apnea 03/05/2010 Class: Permanent Past Medical History Diagnosis Date ??? Heart attack 07/2006 ??? CAD (coronary artery disease) ??? Unspecified sleep apnea Past Surgical History Procedure Date ??? Hernia repair ??? Refractive surgery ??? Nasal septum surgery April 2010 History Substance Use Topics ??? Smoking status: Never Smoker ??? Smokeless tobacco: Never Used ??? Alcohol Use: Yes rare wine Family History Problem Relation Age of Onset ??? Allergic Rhinitis Neg Hx ??? Thyroid Disease Neg Hx Current Outpatient Prescriptions Medication Sig Dispense Refill ??? naproxen (NAPROSYN) 500 mg tablet Take 500 mg by mouth 2 times daily. ??? METOPROLOL TARTRATE (LOPRESSOR ORAL) Take by mouth. ??? Aspirin 81 mg Tab Take 81 mg by mouth daily. ??? fluticasone (FLONASE) 50 mcg/Actuation nasal spray by Nasal route daily. 1 spray both nostrils bid for 1 month, then 2 sprays qd. 1 Bottle 11 ??? FLUTICASONE PROPIONATE (FLOVENT HFA INHL) Inhale 2 Puffs as directed 2 times daily. Pt states he usually uses this once a day. No Known Allergies Review of Systems A ten point review of systems was performed. Pertinent positives are listed below, all others are negative: Musculoskeletal: positive for as per HPI height is 172.7 cm (68) and weight is 108.863 kg (240 lb). General appearance: alert, no distress. The anxiety index is 5/10. On walking, the gait is antalgic The Hand: exam shows within normal limits flexibility and finger nails are normal. Neurovascular examination: Pulses: Right: Posterior tibial/Dorsalis pedis - normal Left: Posterior tibial/Dorsalis pedis - normal Epicritic Sensations: Normal bilaterally Motor Strength: Right ankle - normal Left ankle - normal Overall foot alignment: Right foot: arch is low, heel is neutral, ankle/hindfoot alignment is neutral, and midfoot/forefootalignment is neutral. Left foot: arch is low, heel is neutral, ankle/hindfoot alignment is neutral, and midfoot/forefoot alignment is neutral. Range of Motion: Ankle: Right - normal Left - normal Subtalar Joint: Right - normal Left - normal Chopart Joint: Right - normal Left - normal Resisted inversion: Right - normal Left - normal Resisted eversion: Right - normal Left - normal Other Findings include: Areas of tenderness: with palpation of peroneal tendons behind lateral malleolus only Areas of swelling: mild swelling behind lateral malleolus The prior workup of the patient includes: No prior workup Xrays obtained today: none ASSESSMENT: 1. Peroneal tendonitis No orders of the defined types were placed in this encounter. PLAN: Mr. Eng is unable to take time off from work. He was given a letter requesting excuse from mandatory overtime until evaluation in four weeks. This will limit his work to 8 hours per day. He is unable to wear a walking boot because of work requirement. Immobilization: lace-up ankle splint Activity Restriction: encouraged to use bike or elliptical machine at the gym or swimming; limit treadmill use until follow up visit Physical Therapy: will receive script for a few sessions after pain has decreased Medications: continue with naproxen as needed Imaging for next visit:none Follow up:Return in about 4 weeks (around 07/06/2011). Cc: Referring Provider - Dr. Jiménez PCP - Angel Caballero MD documented in this encounter Procedure Notes * NUTRITIONISTS, SCAN 2 - 06/09/2011 1113 EDTAssociated Order(s): ORDERS - SCANNED documented in this encounter Plan of Treatment Not on file documented as of this encounter Procedures Procedure Name Priority Date/Time Associated Diagnosis Comments ORDERS - SCANNED 06/09/2011 11:1 3 EDT documented in this encounter Results * ORDERS - SCANNED (06/09/2011 11:13 EDT) 06/09/2011 11:1 3 EDT Narrative Transcriptions NUTRITIONISTS, SCAN 2 - 06/09/2011 11:13 EDT Scan 2 Pie Cutter ADMISSION ORDERABLE S documented in this encounter Visit Diagnoses Diagnosis Peroneal tendonitis- Primary Other enthesopathy of ankle and tarsus documented in this encounter Care Teams Shape Hand Relationship Specialty Start Date End Date Angel Caballero MD [address] [place] [phone] PCP - General 04/26/09 documented as of this encounter
--- OUTSIDE RECORDS SUMMARY | 2023-12-29 16:40 | XMS_ITS | Encounter Summary ---
Author Organization [facility] Address [address] [place] [address] Care Team Providers Care Blankbook Stitching Machine Operator Name Role Phone Angel Caballero MD Primary Care Provider Encounter Details Date Type Department Care Team (Latest Contact Info) Description 04/18/2010 8:13 EST - 04/18/2010 23:59 EST Hospital Encounter [facility] [address] [place] [address] Kong Hoyt MD [address] [place] [phone] Discharge Disposition: Home or Self Care Social [...] Start Date End Date FLUTICASONE PROPIONATE (FLONASE NASL) 1 [place] by Nasal route as needed. 05/09/2010 06/23/2010 FLUTICASONE PROPIONATE (FLOVENT HFA INHL) Inhale 2 Puffs as directed 2 times daily. Pt states he usually uses this once a day. 05/09/2010 09/10/2011 documented as of this encounter Discharge Disposition Disposition Code Departure Means Destination Home or Self Detention documented in this encounter Plan of Treatment Not on file documented as of this encounter Visit Diagnoses Not on filedocumented in this encounter Care Teams Blankbook Stitching Machine Operator Relationship Specialty Start Date End Date Angel Caballero MD [address] [place] [phone] PCP - General 04/26/09 documented as of this encounter
--- OUTSIDE RECORDS SUMMARY | 2023-12-29 16:40 | XMS_ITS | Encounter Summary ---
Author Organization [facility] Address [address] [place] [address] Care Team Providers Care Projector Operator Name Role Phone Angel Caballero MD Primary Care Provider Encounter Details Date Type Department Care Team (Late st Contact Info) Description 01/07/[address] [facility] Sleep Program - [address] [address] [place] [address] Obstructive sleep apnea (adult) (pediatric) (Primary Dx) Social History Tobacco Use Types Packs/Day Years Used Date Smoking Tobacco: Never Assessed Sex and Gender Information Value Date Recorded Sex Assigned at Not on file Gender Identity Not on file Sexual Orientation Not on file documented as of this encounter Plan of Treatment Not on file documented as of this encounter Visit Diagnoses Diagnosis Obstructive sleep apnea (adult) (pediatric)- Primary documented in this encounter Care Teams Projector Operator Relationship Specialty Start Date End Date Angel Caballero MD [address] [place] [phone] PCP - General 04/26/09 documented as of this encounter
--- OUTSIDE RECORDS SUMMARY | 2023-12-29 16:40 | XMS_ITS | Encounter Summary ---
Author Organization [facility] Address [facility] [place] [address] Care Team Providers Care Svp Of Digital Name Role Phone Angel Caballero MD Primary Care Provider [phone] Encounter Details Date Type Department Care Team (Late st Contact Info) Description 01/04/2023 Ancillary Procedure Radiology Library at [facility] [place] [phone] Chris Sanon MD [facility] [place] [address] Social History Tobacco Use Types Packs/Day Years Used Date Smoking Tobacco: Never Smokeless Tobacco: Never Alcohol Use Standard Drinks/Week Comments Not Currently 0 (1 standard drink = 0.6 oz pur e alcohol) Sex and Gender Information Value Date Recorded Sex Assigned at Not on file Gender Identity Not on file Sexual Orientation Not on file documented as of this encounter Plan of Treatment Not on file documented as of this encounter Procedures Procedure Name Priority Date/Time Associated Diagnosis Comments FILM LIBRARY STORAGE ONLY DX SHOULDER Routine 01/04/2023 12:00 AM EST documented in this encounter Results * Film Library- Storage Only DX Shoulder (01/04/2023 12:00 AM EST) Narrative RAD - 01/20/2023 4:52 PM EST This exam is auto-finalizing. It's purpose is for storage only. Chris Sanon MD IMG FILM LIBRARY ORD ERABLES [facility] [place] documented in this encounter Visit Diagnoses Not on filedocumented in this encounter Care Teams Svp Of Digital Relationship Specialty Start Date End Date Angel Caballero MD [address] [facility] [address] [place] [address] PCP - General Family Medicine 07/14/22 documented as of this encounter
--- OUTSIDE RECORDS SUMMARY | 2023-12-29 16:40 | XMS_ITS | Encounter Summary ---
Author Organization [facility] Address [address] [place] [address] Care Team Providers Care Creeler Name Role Phone Angel Caballero MD Primary Care Provider Encounter Details Date Type Department Care Team (Latest Contact Info) Description 05/09/2010 5:59 EDT - 05/09/2010 12:19 EDT Hospital Encounter [facility] Perioperative Services- [facility] [address], [place] [id number] Kong Hoyt MD [address] [place] [address] Discharge Disposition: Home or Self Care Social [...] Sign Reading Time Taken Comments Blood Pressure 132/88 05/09/2010 1206 EDT Pulse 81 05/09/2010 0938 EDT Temperature 36.6 ??C (97.9 ??F) 05/09/2010 1206 EDT Respiratory Rate 16 05/09/2010 1206 EDT Oxygen Saturation 97% 05/09/2010 1130 EDT Inhaled Oxygen Concentration - - Weight 109.8 kg (242 lb) 04/30/2010 1308 EST Height 172.7 cm (5' 8) 04/30/2010 1312 EST Body Mass Index 36.8 04/30/2010 1308 EST documented in this encounter Discharge Instructions * Discharge Instructions* Kong Hoyt MD - 05/09/2010 8:19 EDT Post-operative Instructions for Septoplasty 1. Mild pain may be controlled with Tylenol. For more severe pain, take the prescription medicationgiven to you by your doctor. 2. You will have soft, plastic splints in your nose for one week after surgery. These will be removed at your first post-operative visit. They are held in place with a blue suture. You will need to take Azithromycin (ZPack) as instructed for 5 days. 3. Avoid strenuous activity for 1-2 weeks after surgery. No running, biking, or lifting heavy objects (i.e. More than a gallon of milk). 4. Do not blow your nose. If you need to sneeze, keep your mouth open. 5. You may resume your regular diet. 6. Follow up with your doctor one week after surgery. Please call for an appointment: [phone]. 7. You should use over the counter saline nasal spray every hour while awake for the first week after your surgery. 8. Apply bacitracin to both nares 3-4 times daily until your first post-op visit. 9. If you have bleeding from your nose, spray over the counter Afrin or Neosynephrine nasal spray in each side, pinch the soft tip, and hold for 5 minutes. You may repeat this. Call the office if thebleeding does not stop. 10. To schedule an appointment or reach the clinic, please call [phone]. If you need to reach the office due to a post surgical urgent issue, please call [phone]. Medications prior to admission that will be resumed at discharge: Medication Sig Dispense Refill ??? metoprolol (LOPRESSOR) 25 mg tablet Take 25 mg by mouth daily. Pt states he started this on 05/05/10 for surgery on 05/09/10, pt states he doesn't think he continues it postop. ??? FLUTICASONE PROPIONATE (FLONASE NASL) 1 [place] by Nasal route as needed. ??? FLUTICASONE PROPIONATE (FLOVENT HFA INHL) Inhale 2 Puffs as directed 2 times daily. Pt states he usually uses this once a day. New medications prescribed at discharge: Medication Sig Dispense Refill ??? azithromycin (ZITHROMAX) 250 mg tablet Take 1 Tab by mouth daily. As directed 6 Tab 0 ??? oxycodone-acetaminophen (PERCOCET) 5-325 mg per tablet Take 1-2 Tabs by mouth every 4 hours as needed for Pain. 40 Tab 0 documented in this encounter Medications at Time of Discharge Medication Sig Dispensed Refills Start Date End Date azithromycin (ZITHROMAX) 250 mg tablet Take 1 Tab by mouth daily. As directed 6 Tab 0 05/09/2010 06/23/2010 FLUTICASONE PROPIONATE (FLONASE NASL) 1 [place] by Nasal route as needed. 05/09/2010 06/23/2010 FLUTICASONE PROPIONATE (FLOVENT HFA INHL) Inhale 2 Puffs as directed 2 times daily. Pt states he usually uses this once a day. 05/09/2010 09/10/2011 metoprolol (LOPRESSOR) 25 mg tablet Take 25 mg by mouth daily. Pt states he started this on 05/05/10 for surgery on 05/09/10, pt states he doesn't think he continues it postop. 05/09/2010 06/23/2010 oxycodone-acetaminophen (PERCOCET) 5-325 mg per tablet Take 1-2 Tabs by mouth every 4 hours as needed for Pain. 40 Tab 0 05/09/2010 06/23/2010 predniSONE (DELTASONE) 20 mg tablet Take by mouth daily with breakfast. 60 mg po qd x 7 days 21 Tab 0 05/09/2010 06/23/2010 documented as of this encounter Ordered Prescriptions Prescription Sig Dispensed Refills Start Date End Da te predniSONE (DELTASONE) 20 mg tablet Take by mouth daily with breakfast. 60 mg po qd x 7 days 21 Tab 0 05/09/2010 06/23/2010 oxycodone-acetaminophen (PERCOCET) 5-325 mg per tablet Take 1-2 Tabs by mouth every 4 hours as needed for Pain. 40 Tab 0 05/09/2010 06/23/2010 azithromycin (ZITHROMAX) 250 mg tablet Take 1 Tab by mouth daily. As directed 6 Tab 0 05/09/2010 06/23/2010 documented in this encounter Discharge Disposition Disposition Code Departure Means Destination Home or Self Care documented in this encounter Progress Notes * Elza Munoz RN - 05/09/2010 1220 EDT 1205- pt dressed, iv dc'd, mustache dsg changed for small amt of drainage, pt's sister coming to pick him up Pt rates headache at a 2. 1219- pt and sister comfortable with d/c to home. * Kassie Montaño RN - 04/30/2010 1323 EST Sam Eng has been instructed as follows regarding medication administration for the day of the scheduled procedure. Date of Surgery: 05-09-10 Instructions for Taking Medications Day of Surgery Medication Last Dose Hold DOS Take DOS FLUTICASONE PROPIONATE (FLONASE NASL) yes FLUTICASONE PROPIONATE (FLOVENT HFA INHL) yes - documented in this encounter H&P Notes * Inpatient, Physician - 05/09/2010 0000 EDT documented in this encounter Procedure Notes * Inpatient, Physician - 05/09/2010 0000 EDTAssociated Order(s): ECG REPORT - SCANNED documented in this encounter Nursing Notes * Inpatient, Physician - 05/09/2010 0000 EDT documented in this encounter OR Notes * OR Surgeon - Kong Hoyt MD - 05/09/2010 0625 EDT OPERATIVE REPORT SERVICE DATE: 05/09/2010 SURGEON: Kong Hoyt MD EHS ENGINEER: None. PREOPERATIVE DIAGNOSIS: 1. Deviated nasal septum. 2. Bilateral inferior turbinate hypertrophy. 3. Nasal polyposis. PROCEDURE: 1. Submucous septoplasty. 2. Bilateral submucous inferior turbinoplasty with outfracture. 3. Bilateral endoscopic polypectomy. INDICATIONS: This gentleman has a longstanding history of nasal obstruction secondary to deviated septum, turbinate hypertrophy and polyposis. His initial examination revealed a prominent polyp on the right side. Intraoperatively, there was bilateral polyposis originating from the anterior surface of the middle turbinate, right greater than left side. Severely deviated nasal septum to the right side greater than 85% obstruction. Spur projecting into the left inferior nasal cavity. Bilateral inferior turbinate hypertrophy comprising thickened bone and mucosal hypertrophy. He has failed a trialof medical therapy. Additionally, there were concerns for neoplasm, such as an inverted papilloma wh ich was not apparent intraoperatively today. We are hopeful that improved nasal airway will facilitate management of his obstructive sleep apnea with reduced pressures from nasal CPAP. ANESTHESIA: General endotracheal intubation. FLUIDS: 900 mL lactated Ringers. ESTIMATED BLOOD LOSS: Less than 50 mL. SPECIMENS: Bilateral nasal polyps. CULTURES: None. PACKING: Bilateral absorbable Nasopore and Silastic nasal splints. COMPLICATIONS: None. DISPOSITION: PACU. NARRATIVE: The patient and his were encountered in the preoperative hold area. The history andphysical was reviewed and updated. Surgical consent was reviewed, acknowledged and signed. He was escorted to the operating theater. Under satisfactory general anesthesia, he was intubated with transoral endotracheal tube. Positioned and draped in the usual manner for intranasal surgery. On induction, administered 2 g IV Ancef and 10 mg IV Decadron. Under direct and endoscopic visualization, the nasal septum and lateral nasal wall relative to the inferior and middle turbinates were injected with Xylocaine/adrenaline solution followed by insertion of neuro patties soaked in 4 mL dilute 4% cocaine. The CT sinus scans were reviewed prior to initiation of surgery. Surgery was initiated with a septoplasty. A left hemitransfixion incision was placed. Mucoperichondrial flap elevated posterior to just anterior to the bony rostrum. The cartilage was from bony septum in a vertical plane. An anterior vertical incision was placed through the cartilage approximately 2 to 2.5 cm posterior to the attachment nasal spine toward the septum and then posterior superiorly in communication with the bony septum. Disarticulated with a dental elevator off the maxillary crest. Buccal cartilage removed. Flaps were extended on the right side. The superior attachmentof buccal bony septum was released using Yassine-Nicol forceps. Fractured inferiorly using a Arnulfo elevator and posteriorly through the thin bone with the Arnulfo elevator. Buccal bone removed with Al forceps. Flaps were repositioned, providing marked improvement in the right nasal airway. A surgical rent was placed mid inferior septum on the left side to allow for postoperative drainage. A hemitransfixion incision closed with simple interrupted 4-0 chromic. Plication sutures were plac ed to approximate the flaps in the medial position. Right endoscopic submucous inferior turbinoplasty was placed. A curved mosquito was placed anteriorsuperior attachment extending approximately 1/3 superiorly. This was cut with curved iris. A curvedmosquito repositioned in a posterior inferior direction approximately 2/3 posteriorly disarticulated with curved iris under endoscopic guidance. Submucous resection of bony spicules was performed followed by outfracture. The cut surface cauterized with suction cautery on a setting of 15. Bulbous tip was also cauterized with suction. Outfracture was performed with Richardson elevator. Left submucous inferior turbinoplasty performed in an identical fashion, a curved mosquito placed for crush maneuver anterior third and extended 2/3 posteriorly. Cut with curved iris. Submucous resection of bony spicules. Cut surface cauterized with suction cautery at a setting of 15, followed by cautery of a bulbous tip. Outfracture with Richardson elevator. Right endoscopic polypectomy was then performed. The polyp was noted to be originating from the anterior surface of the middle turbinate. There was also polypoid tissue along the anterior lateral surface of the middle turbinate. The polyp was removed with [place] forceps using a push-pull technique. Additional redundant tissue was excised with 4.0 Tri-Cut. Left endoscopic polypectomy performed in identical fashion with a 0-degree endoscope. The polyp was excised off the anterior surface of the middle turbinate using [place] forceps with a push-pull technique. Excess redundant tissue removed with 4.0 Tri-Cut. This concluded surgery. Prior to termination, both nasal cavities irrigated with copious amounts of saline. Reduced pieces of Nasopore were placed within the middle meatus bilaterally and insufflated with saline. Silastic nasal splints placed bilaterally and secured with 2-0 Prolene transfixion suture. The anesthetic was then terminated and patient transferred to PACU in stable condition. Unless otherwise noted, there were no complications, no blood loss, no cultures obtained, no specimens removed, and no drains retained. Dictated by: Kong Hoyt MD Kong Hoyt MD 09 25 AM / css Confirmation: [id number] Dictation ID: [id number] cc:Kong Caballero MD * Anesthesia Procedure Notes - Inpatient, Physician - 05/09/2010 0000 EDT * Anesthesia Preprocedure Evaluation - Inpatient, Physician - 05/09/2010 0000 EDT * OR PreOp - Inpatient, Physician - 05/09/2010 0000 EDT * OR PreOp - Inpatient, Physician - 05/09/2010 0000 EDT * OR PreOp - Inpatient, Physician - 05/09/2010 0000 EDT documented in this encounter Miscellaneous Notes * Anesthesia Post-Eval - Frances Dickerson - 05/09/2010 1221 EDT Post Anesthesia Evaluation Date of Service: 05/09/2010 BP 132/88 Pulse 81 Temp(Src) 36.6 ??C (97.9 ??F) (Tympanic) Resp 16 Ht 172.7 cm (68) Wt 109.77 kg (242 lb) BMI 36.80 kg/m2 SpO2 97% The patient has been evaluated, assessed and discharged from anesthesia care with stable cardiorespiratory function and acceptable mental status, pain management, body temperature, fluid balance, nausea/vomiting control and Pola score. Additional monitoring and assessment needs have been addressed. If present, postoperative events are documented below. FRANCES DICKERSON MD 05/09/2010 12:21 * Brief Op Note - Kong Hoyt MD - 05/09/2010 0813 EDT ENT Brief Operative Note Surgeon :KONG HOYT MD Caul Puller :none Preoperative Diagnosis : deviated septum, turbinate hypertrophy, right nasal polyposis Postoperative Diagnosis : same Procedure : septoplasty, bilateral inferior turbinoplasty, right nasal endoscopy, polypectomy Anesthesia :general Findings : deviated septum, turbinate hypertrophy, right nasal polyposis Fluids : IVF -900cc U/O -NR EBL -50 cc Retained Material / Drains : silastic nasal splints bilaterally Specimen : right nasal polyp Complications :none Condition :stable Dispo :PACU * Scanned Note-Null - Inpatient, Physician - 05/09/2010 0000 EDT * Scanned Note-Null - Inpatient, Physician - 05/09/2010 0000 EDT documented in this encounter Plan of Treatment Not on file documented as of this encounter Procedures Procedure Name Priority Date/Time Associated Diagnosis Comments ECG REPORT - SCANNED 05/13/2010 12:25 EDT documented in this encounter Results * ECG REPORT - SCANNED (05/13/2010 12:25 EDT) 05/13/2010 12:2 5 EDT Narrative Procedure Note Inpatient, Physician - 05/09/2010 0:00 EDT Physician Inpatient MD PROCEDURE/MINOR S URGICAL ORDERABLES documented in this encounter Visit Diagnoses Not on filedocumented in this encounter Administered Medications Inactive Administered Medications - up to 3 most recent administrations Medication Order MAR Action Action Date Dose Rate Site ceFAZolin (ANCEF) pre-op syringe 1 g 1 g, intravenous, Administer over 10 Minutes, PRE-OP ONCE, 1 dose, On Wed05/09/10 at 0845, Routine Given by Other 05/09/2010 8:27 EDT 1 g Given by Other 05/09/2010 8:05 EDT 1 g lactated ringers (LR) infusion at 25 mL/hr, intravenous, CONTINUOUS, Starting on Wed05/09/10 at 0715, Until Wed05/09/10 at 1422, Routine, Pre-Op DOS Rx Approved New Bag 05/09/2010 7:10 EDT 25 mL/hr lactated ringers (LR) infusion at 75 mL/hr, intravenous, CONTINUOUS, Starting on Wed05/09/10 at 0945, Until Wed05/09/10 at 1422, Routine, Recovery (only) New Bag 05/09/2010 10:00 EDT 75 mL/hr oxycodone-acetaminophen (PERCOCET) 5-325 mg per tablet 1-2 Tab 1-2 Tablet, oral, PRN, 2 doses, Starting on Wed05/09/10 at 0929, Until Wed05/09/10 at 1422, Pain, Routine, Recovery (only) Given 05/09/2010 11:40 EDT 1 Tablet documented in this encounter Historical Medications * This list may reflect changes made after this encounter. Medication Sig Dispensed Refills Start Date End Date metoprolol (LOPRESSOR) 25 mg tablet Take 25 mg by mouth daily. Pt states he started this on 05/05/10 for surgery on 05/09/10, pt states he doesn't think he continues it postop. 05/09/2010 06/23/2010 added in this encounter Active and Recently Administered Medications Times are shown in EDT. Scheduled Medication Order 05/07/2010 05/08/2010 05/09/2010 ceFAZolin (ANCEF) pre-op syringe 1 g (COMPLETED) 1 g, intravenous, Administer over 10 Minutes, PRE-OP ONCE, 1 dose, On Wed05/09/10 at 0845, Routine 0805 (Given by Other - Provider: Selin Bal, SHYANNE - Comment: Given in OR by Ant Yeager)0827 (Given by Other - Provider: Selin Bal RN - Comment: Second dose given due to pt weight per Dr Hoyt) Continuous Medication Order 05/07/2010 05/08/2010 05/09/2010 lactated ringers (LR) infusion (CANCELED) at 25 mL/hr, intravenous, CONTINUOUS, Starting on Wed05/09/10 at 0715, Until Wed05/09/10 at 1422, Routine, Pre-Op DOS Rx Approved 0710 (New Bag - Prov ider: Chelsey Lopez RN) lactated ringers (LR) infusion (CANCELED) at 75 mL/hr, intravenous, CONTINUOUS, Starting on Wed05/09/10 at 0945, Until Wed05/09/10 at 1422, Routine, Recovery (only) 0945 (Due)1000 (New Bag - Provider: Yuko Vega) PRN Medication Order 05/07/2010 05/08/2010 05/09/2010 oxycodone-acetaminophen (PERCOCET) 5-325 mg per tablet 1-2 Tab (CANCELED) 1-2 Tablet, oral, PRN, 2 doses, Starting on Wed05/09/10 at 0929, Until Wed05/09/10 at 1422, Pain, Routine, Recovery (only) 1140 (Given - Provid er: Yuko Vega) documented in this encounter Orders Medications Ordered That Miguel ht Not Have Been Administered Count Last Ordered Date First Ordered Date atropine 0.1 mg/mL 10 mL syringe 0.5 mg 1 0 05/09/2010 diphenhydrAMINE (BENADRYL) i njection 6.25 mg 1 05/09/2010 fentanyl citrate (PF) 50 mcg /mL injection 25-100 mcg 1 05/09/2010 meperidine (PF) (DEMEROL) 25 mg/0.5 mL injection 12.5 mg 1 05/09/2010 metoCLOPramide (REGLAN) injection 10 mg 1 0 05/09/2010 naloxone (NARCAN) injection 0.2 mg 1 2010 Nursing Count Last Ordered Date First Orde red Date INSERT PERIPHERAL IV 1 05/09/[address] SEQUENTIAL COMPRESSION DEVICE 1 05/09 Admission Count Last Ordered Date First Orde red Date NOTIFY PPS PATIENT DISCHARGED FROM PACU 1 0 05/09/2010 Discharge Count Last Ordered Date First Orde red Date DISCHARGE PATIENT 1 05/09/2010 documented in this encounter Care Teams Creeler Relationship Specialty Start Date End Date Angel Caballero MD [address] [place] [phone] PCP - General 04/26/09 documented as of this encounter
--- OUTSIDE RECORDS SUMMARY | 2023-12-29 16:40 | XMS_ITS | Encounter Summary ---
Author Organization [facility] Address [address] [place] [address] Care Team Providers Care Cap And Stud Machine Operator Name Role Phone Angel Caballero MD Primary Care Provider Reason for Visit * Reason Onset Date Comments Results 03/10/2010 Encounter Details Date Type Department Care Team (Late st Contact Info) Description 03/10/2010 Telephone [facility] Sleep Program - [address] [address] Amanda Acosta RN [address] [place] [address] Results Social History Tobacco Use Types Packs/Day Years Used Date Smoking Tobacco: Never Alcohol Use Standard Drinks/Week Comments Not Asked 0 (1 standard drink = 0.6 oz pur e alcohol) Sex and Gender Information Value Date Recorded Sex Assigned at Not on file Gender Identity Not on file Sexual Orientation Not on file documented as of this encounter Miscellaneous Notes * Telephone Encounter - Amanda Acosta RN - 03/11/2010 1001 EST Spoke with pt, let him know breathing normal on CPAP per . Pt using [employer], has tele number, prescription sent to DME per . Encouraged to use CPAP nightly once DME sets up with equipment and call DME or Sleep Center if any problems or questions. Has appt in April to bring equipment. * Telephone Encounter - Amanda Acosta RN - 03/10/2010 1441 EST Left message asking pt to call me at the Sleep Center. To let pt know his breathing normal on cPAP per . Asked pt if he has a DME in mind to let me know or I can give him the names when he calls. documented in this encounter Plan of Treatment Not on file documented as of this encounter Visit Diagnoses Not on filedocumented in this encounter Care Teams Cap And Stud Machine Operator Relationship Specialty Start Date End Date Angel Caballero MD [address] [place] [phone] PCP - General 04/26/09 documented as of this encounter
--- OUTSIDE RECORDS SUMMARY | 2023-12-29 16:40 | XMS_ITS | Encounter Summary ---
Author Organization [facility] Address [address] [place] [address] Care Team Providers Care Partnership Marketing Manager Name Role Phone Angel Caballero MD Primary Care Provider Encounter Details Date Type Department Care Team (Late st Contact Info) Description 03/06/2010 9:11 EST - 03/06/2010 23:59 EST Hospital Encounter [facility] Pulmonary Function Lab - [facility] [address] [place], [place] [address] Unknown, Provider, Gary Covarrubias MD [address] [place], [place] [address] Obstructive sleep apnea Discharge Disposition: Auto Discharge Social History Tobacco [...] Refills Start Date End Date FLUTICASONE PROPIONATE (FLOVENT HFA INHL) Inhale 2 Puffs as directed 2 times daily. Pt states he usually uses this once a day. 05/09/2010 09/10/2011 documented as of this encounter Discharge Disposition Disposition Code Departure Means Destination Auto Discharge Home documented in this encounter Progress Notes * Kala Schwartz RT - 03/06/2010 0927 EST Pulmonary function test done and recorded in [facility]. * Inpatient, Physician - 03/06/2010 0000 EST documented in this encounter Procedure Notes * Inpatient, Physician - 03/06/2010 0000 ESTAssociated Order(s): PULMONARY FUNCTION LAB REPORT - SCANNED documented in this encounter Plan of Treatment Not on file documented as of this encounter Procedures Procedure Name Priority Date/Time Associated Diagnosis Comments PULMONARY FUNCTION REPORT - SCANNED 03/22/2010 9:20 EST documented in this encounter Results * PULMONARY FUNCTION LAB REPORT - SCANNED (03/22/2010 9:20 EST) 03/22/2010 9:20 EST Narrative Procedure Note Inpatient, Physician - 03/06/2010 0:00 EST Physician Inpatient MD PROCEDURE/MINOR S URGICAL ORDERABLES Performing Organization Address City/State/[facility] Co de Phone Number POINT OF CARE documented in this encounter Visit Diagnoses Diagnosis Obstructive sleep apnea Obstructive sleep apnea (adult) (pediatric) documented in this encounter Administered Medications Inactive Administered Medications - up to 3 most recent administrations Medication Order MAR Action Action Date Dose Rate Site albuterol (PROVENTIL HFA, VENTOLIN HFA) inhaler 2 Puff 2 Puff, inhalation, Once (Without Time Specified), 1 dose, Starting on Saritha 03/06/10 at 0945, Until Saritha 03/06/10 at 0926, Routine Given 03/06/2010 9:26 EST 2 Puffs documented in this encounter Orders Medications Ordered That Miguel ht Not Have Been Administered Count Last Ordered Date First Ordered Date albuterol (PROVENTIL HFA, VE NTOLIN HFA) inhaler 2 Puff 1 03/06/2010 documented in this encounter Care Teams Partnership Marketing Manager Relationship Specialty Start Date End Date Angel Caballero MD [address] [place] [phone] PCP - General 04/26/09 documented as of this encounter
--- OUTSIDE RECORDS SUMMARY | 2023-12-29 16:40 | XMS_ITS | Encounter Summary ---
Author Organization [facility] Address [address] [place] [address] Care Team Providers Care Fax Machine Repairer Name Role Phone Angel Caballero MD Primary Care Provider Reason for Visit * Reason Onset Date Comments Other 11/28/2009 results Encounter Details Date Type Department Care Team (Late st Contact Info) Description 11/28/2009 Telephone [facility] Sleep Program - [address] [id number] Amanda Acosta RN [address] [place] [address] Other (results) Social History Tobacco Use Types Packs/Day Years Used Date Smoking Tobacco: Never Assessed Sex and Gender Information Value Date Recorded Sex Assigned at Not on file Gender Identity Not on file Sexual Orientation Not on file documented as of this encounter Miscellaneous Notes * Telephone Encounter - Amanda Acosta RN - 12/02/2009 1010 EDT Patient made aware of diagnosis of obstructive sleep apnea; as per Dr. English. Doctor recommending a second sleep study called a titration study, to determine the pressure settings required on a CPAP machine needed to control apnea and keep airway open during sleep. Pt interested in scheduling titration study but will call back once has his work schedule and returns from [place]. Explained to patient once pressure settings are determined, after titration study ready, a prescription will be sent to a [address] medical equipment company who will provide the CPAP equipment. Pt verbalized understanding. * Telephone Encounter - Amanda Acosta RN - 11/28/2009 1628 EDT Left message for patient asking him to call me regarding his Sleep Study results. documented in this encounter Plan of Treatment Scheduled Orders Name Type Priority Associated Diagnoses Orde r Schedule CPAP/BIPAP TITRATION Sleep Center Routine Obstructive sleep apnea (adult) (pediatric) Ordered: 12/02/2009 documented as of this encounter Visit Diagnoses Diagnosis Obstructive sleep apnea (adult) (pediatric)- Primary documented in this encounter Care Teams Fax Machine Repairer Relationship Specialty Start Date End Date Angel Caballero MD [address] [place] [phone] PCP - General 04/26/09 documented as of this encounter
--- OUTSIDE RECORDS SUMMARY | 2023-12-29 16:40 | XMS_ITS | Encounter Summary ---
Author Organization [facility] Address [address] [place] [address] Care Team Providers Care Office Helper Name Role Phone Angel Caballero MD Primary Care Provider Reason for Visit * Reason Onset Date Comments Results 04/18/2010 Encounter Details Date Type Department Care Team (Late st Contact Info) Description 04/18/2010 Telephone [facility] [address] [place], [place] [phone] Kong Hoyt MD [address] [place] [address] Results Social History Tobacco Use Types Packs/Day [...] encounter Miscellaneous Notes * Telephone Encounter - Ja Conteh RN - 04/21/[address] H[address]t [address] scan shows: 1) one isolated right polyp 2) DNS 3) hypertrophic turbinates Will proceed with surgery to correct if Edward wishes, will see him 1-2 weeks before surgery in office to discuss Edward wishes to proceed will have Gilma call him tomorrow. * Telephone Encounter - Danika Han LPN - 04/18/2010 1004 EST Hard copy printed out and placed on Dr. Hoyt's desk. Patient notified he would be called back.Patient verbalized understanding. * Telephone Encounter - Leilani Andersen - 04/18/2010 0945 EST Pt would like to discuss results of CT scan documented in this encounter Plan of Treatment Not on file documented as of this encounter Visit Diagnoses Not on filedocumented in this encounter Care Teams Office Helper Relationship Specialty Start Date End Date Angel Caballero MD [address] [place] [phone] PCP - General 04/26/09 documented as of this encounter
--- OUTSIDE RECORDS SUMMARY | 2023-12-29 16:40 | XMS_ITS | Encounter Summary ---
Author Organization [facility] Address [address] [place] [address] Care Team Providers Care Dam Tender Assistant Name Role Phone Angel Caballero MD Primary Care Provider Encounter Details Date Type Department Care Team (Latest Contact Info) Description 07/08/2011 13:41 EDT - 07/08/2011 23:59 EDT Hospital Encounter [address] [place] [address] Vincent Sahu MD [address] [place] [phone] Discharge Disposition: Home or Self Care Social [...] uses this once a day. 05/09/2010 09/10/2011 METOPROLOL TARTRATE (LOPRESSOR ORAL) Take by mouth. 2 naproxen (NAPROSYN) 500 mg tablet Take 500 mg by mouth 2 times daily. 09/10/2011 documented as of this encounter Discharge Disposition Disposition Code Departure Means Destination Home or Self Intermediate documented in this encounter Plan of Treatment Not on file documented as of this encounter Visit Diagnoses Not on filedocumented in this encounter Care Teams Dam Tender Assistant Relationship Specialty Start Date End Date Angel Caballero MD [address] [place] [phone] PCP - General 04/26/09 documented as of this encounter
--- OUTSIDE RECORDS SUMMARY | 2023-12-29 16:40 | XMS_ITS | Encounter Summary ---
Author Organization [facility] Address [address] [place] [address] Care Team Providers Care Office Manager Receptionist Name Role Phone Angel Caballero MD Primary Care Provider Reason for Visit * Reason Comments Nasal Polyps s/p endoscopic polyp ectomy 05/09/2010 Encounter Details Date Type Department Care Team (Late st Contact Info) Description 10/03/2010 10:15 EDT Office Visit [facility] ENT- [facility] [address] [place] [address] Kong Hoyt MD [address] [place] [address] Unspecified nasal polyp; PAOLA (obstructive sleep apnea) Social History Tobacco Use Types Packs/Day Years [...] Progress Notes * Kong Hoyt MD - 10/13/2010 0817 EDT DIVISION OF OTOLARYNGOLOGY PROGRESS/FOLLOWUP NOTE - 10/03/2010 PROBLEM: Deviated septum, turbinate hypertrophy, nasal polyposis, PAOLA, status post septoturbinoplasty with bilateral endoscopic polypectomy (05/09/2010). SUBJECTIVE: Mr Eng returns for followup evaluation. He is breathing very comfortably through both nostrils. His smell and taste are intact. His CPAP is very well tolerated and he is reporting restorative sleep upon awaking in the morning. He continues on his NeilMed saline rinse daily, followed by fluticasone nasal spray. Past medical, surgical history, medication list, allergy status reviewed and updated in [facility]. OBJECTIVE: Mr Eng is alert and oriented. Anterior rhinoscopy: Midline septum, turbinates are nicely reduced. Widely patent airway anteriorly. PROCEDURE: Bilateral nasal endoscopy performed to evaluate for regrowth of nasal polyposis. He was sprayed with topical cophenylcaine spray. After 5 minutes, the left side was examined with rigid 0-degree endoscope: Widely patent airway. The turbinates are completely healed. The middle meatus is widely patent. There was no evidence of recurrent polyposis or active infection. Right nasal endoscopy0- degree endoscope: Widely patent airway. Again, the inferior turbinate and middle meatus completely healed. No evidence of recurrent nasal polyposis. ASSESSMENT: Excellent postoperative status. He has a widely patent airway. Polyps appear to be wellsuppressed on fluticasone nasal spray. This is benefited management of his PAOLA, as CPAP is well tolerated. PLAN: 1. Continue fluticasone nasal spray 2 sprays both nostrils daily. 2. NeilMed saline rinse p.r.n. 3. Follow up in 1 year to evaluate for recurrence of nasal polyposis. Call sooner for any difficulties. Electronically Signed by Kong Hoyt MD 10/13/2010 08:17 Kong Hoyt MD - Kong Hoyt MD - [facility] Job ID: SM Doc ID: [id number] Ext Doc ID: [id number] cc: MD Angel Singer MD * Kong Hoyt MD - 10/03/2010 1052 EDT This office note has been dictated. documented in this encounter Plan of Treatment Not on file documented as of this encounter Visit Diagnoses Diagnosis Unspecified nasal polyp PAOLA (obstructive sleep apnea) Obstructive sleep apnea (adult) (pediatric) documented in this encounter Historical Medications * This list may reflect changes made after this encounter. Medication Sig Dispensed Refills Start Date End Date METOPROLOL TARTRATE (LOPRESSOR ORAL) Take by mouth. 09/10/2011 added in this encounter Care Teams Office Manager Receptionist Relationship Specialty Start Date End Date Angel Caballero MD [address] [place] [phone] PCP - General 04/26/09 documented as of this encounter
--- OUTSIDE RECORDS SUMMARY | 2023-12-29 16:40 | XMS_ITS | Encounter Summary ---
Author Organization [facility] Address [address] [place] [address] Care Team Providers Care Meter Installer Name Role Phone Angel Caballero MD Primary Care Provider Encounter Details Date Type Department Care Team (Late st Contact Info) Description 07/01/2009 8:58 EDT - 07/01/2009 23:59 EDT Hospital Encounter [facility] - [address] [id number] Luda Robertson MD [address] [facility], [address] [place] [phone] Discharge Disposition: Home or Self Care Social History Tobacco Use Types Packs/Day Years Used Date Smoking Tobacco: Never Assessed Sex and Gender Information Value Date Recorded Sex Assigned at Not on file Gender Identity Not on file Sexual Orientation Not on file documented as of this encounter Discharge Disposition Disposition Code Departure Means Destination Home or Self Jail documented in this encounter Plan of Treatment Not on file documented as of this encounter Visit Diagnoses Not on filedocumented in this encounter Care Teams Meter Installer Relationship Specialty Start Date End Date Angel Caballero MD [address] [place] [phone] PCP - General 04/26/09 documented as of this encounter
--- OUTSIDE RECORDS SUMMARY | 2023-12-29 16:40 | XMS_ITS | Encounter Summary ---
Author Organization [facility] Address [address] [place] [address] Care Team Providers Care Rn Clinical Coordinator Name Role Phone Angel Caballero MD Primary Care Provider Reason for Visit * Reason Comments Nasal Congestion Encounter Details Date Type Department Care Team (Late st Contact Info) Description 04/16/2010 11:20 EST Office Visit [facility] ENT- Main [address] [id number] Kong Hoyt MD [address] [place] [address] Nasal polyposis; KLEVER (obstructive sleep apnea) Social History Tobacco Use [...] Progress Notes * Kong Hoyt MD - 04/16/2010 1258 EST Subjective: Patient ID: Sam Eng is an 45 y.o. male. Chief Complaint Patient presents with ??? Nasal Congestion HPIThis office note has been dictated. Patient Active Problem List Diagnoses Code ??? Obstructive sleep apnea 327.23D Past Medical History Diagnosis Date ??? Heart attack 07/2006 No past surgical history on file. No family history on file. Social History Social History ??? Marital Status: Spouse Name: N/A Number of Children: N/A ??? Years of Education: N/A Occupational History ??? Not on file. Social History Main Topics ??? Smoking status: Never Smoker ??? Smokeless tobacco: Not on file ??? Alcohol Use: Not on file ??? Drug Use: Not on file ??? Sexually Active: Not on file Other Topics Concern ??? Not on file Social History Narrative ??? No narrative on file Current outpatient prescriptions ordered prior to encounter Medication Sig Dispense Refill ??? FLUTICASONE PROPIONATE (FLOVENT HFA INHL) Inhale 2 Puffs as directed 2 times daily before meals. No Known Allergies Review of Systems Constitutional: Positive for malaise/fatigue. Negative for fever, chills and weight loss. HENT: Positive for congestion. Negative for hearing loss, ear pain, sore throat and tinnitus. Eyes: Negative for blurred vision, double vision and photophobia. Respiratory: Positive for cough and shortness of breath. Negative for hemoptysis and wheezing. Cardiovascular: Negative for chest pain, palpitations, claudication and leg swelling. Gastrointestinal: Negative for heartburn. Musculoskeletal: Negative for myalgias and joint pain. Skin: Negative for rash. Neurological: Negative for sensory change, focal weakness and headaches. Endo/Heme/Allergies: Negative for environmental allergies. Does not bruise/bleed easily. - See HPI Objective: There were no vitals taken for this visit. Physical Exam Assessment: Plan: Sam was seen today for nasal congestion. Diagnoses and associated orders for this visit: Nasal polyposis Klever (obstructive sleep apnea) Other Orders - FLUTICASONE PROPIONATE (FLONASE NASL); by Nasal route. - Cancel: CT SINUSES - CT SINUS COMPLETE WO CONTRAST documented in this encounter Consult Notes * Kong Hoyt MD - 04/29/2010 2416 EST DIVISION OF OTOLARYNGOLOGY CONSULTATION - 04/16/2010 PROBLEM: Nasal obstruction. HISTORY OF PRESENT ILLNESS: A 45-year-old white male assessed in consultation at the request of Dr Gudelia Huggins for nasal obstruction as a compromising factor for delivery of nasal CPAP. Mr Eng has a diagnosis of severe obstructive sleep apnea syndrome for which nasal CPAP was applied. This is poorly tolerated because of nasal obstruction. He reports a lifelong history of bilateral alternating nasal obstruction, worse when lying in the supine position. Occasional clear rhinorrhea, postnasal drainage. He is unaware of any underlying allergies and has never undergone formal allergy testing. There is no history suggestive of sinusitis. He was treated with 3 separate bursts of prednisone of 3 days, 7 days and 3 days in combination with fluticasone nasal spray. Prednisone provided excellent temporary relief. The Flonase was not of any benefit and complicated by crusting and epistaxis. Therefore he discontinued. OBJECTIVE: A 45-year-old obese male. He is not in any acute distress. Voice is normal without hoarseness or stridor. Facial movement is symmetric. Both external ears reveal scattered dry cerumen. Tympanic membrane and middle ear space clear. Nasal cavity: Midline septum. Right side dry and excoriated with mild crusting. No active bleeding. Left inferior turbinate is normal in size with a widely patent airway. Right nasal airway reveals a severely hypertrophied inferior turbinate suggestive of midnasal scarring. The nasal cavity is obstructed. Oral cavity reveals underbite. He has a MallampatiIII airway. Oropharynx is narrowed secondary to excess and redundant lateral oropharyngeal tissue with 2+ tonsils. Uvula is normal. There is no significant cobblestoning of posterior nasal drainage. His neck is thickened. He has significant submental excess tissue with complete loss of the mental hyoid angle. There is no palpable lymphadenopathy, salivary gland hypertrophy, thyroid goiter or other neck masses. PROCEDURE: Bilateral nasal combined with flexible fiberoptic nasal laryngoscopy. Both nostrils sprayed with topical cophenylcaine spray. After 10 minutes, reexamined. Excellent left nasal airway. No significant improvement on the right side. Left nasal endoscopy reveals a widely patent airway. There was a septal spur midinferior septum. The posterior nasal cavity is patent. The nasopharynx was also patent without evidence of adenoid tissue or other obstructive lesions. Right nasal endoscopy reveals a large polyp protruding from the middle meatus. There is a smaller one confined within the middle meatus. No purulence noted. Posterior nasal airway is patent including the nasopharynx. ASSESSMENT: 1. Nasal obstruction secondary to right nasal polyposis. Differential diagnosis would include inverted papilloma, allergic fungal rhinosinusitis, or other neoplasm. Nasal obstruction is impairing tolerance of nasal CPAP. 2. Severe obstructive sleep apnea syndrome. Major risk factor of morbid obesity. Nasal obstruction as an aggravating factor. PLAN: This gentleman has failed medical therapy directed for nasal polyposis including three separate bursts of prednisone in combination with fluticasone nasal spray. Surgery is indicated. We are proceeding as follows: 1. CT of paranasal sinuses for purpose of surgical planning. Once obtained this gentleman will be scheduled for surgery. 2. The surgical procedure was reviewed from a technical standpoint. Additionally, he is advised that ongoing medical therapy will be necessary including baseline nasal steroid preparation in an effort to prevent recurrence. He is also aware that this may represent a benign neoplasm such as inverted papilloma with potential for malignant degeneration. This would entail a more extensive surgery forremoval. Electronically Signed by Kong Hoyt MD 04/21/2010 08:00 Kong Hoyt MD - Kong Hoyt MD - Job ID: SM Doc ID: [id number] Ext Doc ID: [id number] cc: MD Gudelia Valdez MD Michael Johnson, MD DIVISION OF OTOLARYNGOLOGY ADDENDUM TO CONSULTATION - 04/16/2010 Appendum: Nasal cavity: Right deviated septum. This should replace Nasal cavity: Midline septum. Electronically Signed by Kong Hoyt MD 04/29/2010 15:07 Karey Kauffman MD D: - Kong Hoyt MD - B Job ID: SM Doc ID: [id number] Ext Doc ID: cc: MD Gudelia Valdez MD Michael Johnson, MD documented in this encounter Plan of Treatment Not on file documented as of this encounter Procedures Procedure Name Priority Date/Time Associated Diagnosis Comments CT SINUS COMPLETE WO CONTRAST 04/18/2010 8:47 EST documented in this encounter Results * CT SINUS COMPLETE WO CONTRAST (04/18/2010 8:47 EST) Anatomical Region Laterality Modality Other 04/18/2010 8:47 EST 04/18/2010 17:47 EST Narrative 04/18/2010 17:[address] without contrast Clinical indication: Sinonasal polyposis and unilateral nasal polyps for surgical planning. Technique: Axial images were obtained through the paranasal sinuses without the use of contrast, followed by coronal reformations. Findings: There is mucosal thickening within the maxillary antra which has a nodular configuration suggestive of sinonasal polyposis. There is mucosal thickening within the ethmoid air cells bilaterally and along the anterior wall of the sphenoid sinus which narrows sphenoethmoidal recess. The frontal sinuses are well aerated. Limited views of the mastoid air cells and middle ear cavity demonstrate no significant opacification. There is no air-fluid level identified. Within the nasal cavity on the right there is a rounded soft tissue density abnormality, likely a nasal polyp. This measures approximately 1.2 cm in maximum transverse dimension. On the coronal reformations there is septal deviation which is S-shaped and more anteriorly it deviates rightward and more posteriorly leftward with some osseous spurring pointing to the left. There is narrowing of ostiomeatal unit bilaterally by soft tissue thickening. Impression: 1. 1.2 cm rounded soft tissue density abnormality right nasal cavity, likely a nasal polyp, and chronic maxillary, ethmoid, and sphenoid sinus disease which has a rounded nodular configuration suggestive of sinonasal polyposis. 2. ??No air-fluid levels to suggest acute component. 3. ??S-shaped nasoseptal deviation. 4 . Narrowing of ostiomeatal unit bilaterally and sphenoethmoidal recess by soft tissue thickening. Procedure Note 04/18/[address] without contrast Clinical indication: Sinonasal polyposis and unilateral nasal polyps for surgical planning. Technique: Axial images were obtained through the paranasal sinuses without the use of contrast, followed by coronal reformations. Findings: There is mucosal thickening within the maxillary antra which has a nodular configuration suggestive of sinonasal polyposis. There is mucosal thickening within the ethmoid air cells bilaterally and along the anterior wall of the sphenoid sinus which narrows sphenoethmoidal recess. The frontal sinuses are well aerated. Limited views of the mastoid air cells and middle ear cavity demonstrate no significant opacification. There is no air-fluid level identified. Within the nasal cavity on the right there is a rounded soft tissue density abnormality, likely a nasal polyp. This measures approximately 1.2 cm in maximum transverse dimension. On the coronal reformations there is septal deviation which is S-shaped and more anteriorly it deviates rightward and more posteriorly leftward with some osseous spurring pointing to the left. There is narrowing of ostiomeatal unit bilaterally by soft tissue thickening. Impression: 1. 1.2 cm rounded soft tissue density abnormality right nasal cavity, likely a nasal polyp, and chronic maxillary, ethmoid, and sphenoid sinus disease which has a rounded nodular configuration suggestive of sinonasal polyposis. 2. No air-fluid levels to suggest acute component. 3. S-shaped nasoseptal deviation. 4 . Narrowing of ostiomeatal unit bilaterally and sphenoethmoidal recess by soft tissue thickening. Kong Hoyt MD IMG CT ORDERAB LES documented in this encounter Visit Diagnoses Diagnosis Nasal polyposis Unspecified nasal polyp KLEVER (obstructive sleep apnea) Obstructive sleep apnea (adult) (pediatric) documented in this encounter Historical Medications * This list may reflect changes made after this encounter. Medication Sig Dispensed Refills Start Date End Date FLUTICASONE PROPIONATE (FLONASE NASL) 1 [place] by Nasal route as needed. 05/09/2010 06/23/2010 added in this encounter Care Teams Rn Clinical Coordinator Relationship Specialty Start Date End Date Angel Caballero MD [address] [place] [phone] PCP - General 04/26/09 documented as of this encounter
--- OUTSIDE RECORDS SUMMARY | 2023-12-29 16:40 | XMS_ITS | Encounter Summary ---
Author Organization [facility] Address [address] [place] [address] Care Team Providers Care Pelota Maker Name Role Phone Angel Caballero MD Primary Care Provider Encounter Details Date Type Department Care Team (Latest Contact Info) Description 08/31/2011 14:08 EDT - 08/31/2011 23:59 EDT Hospital Encounter [facility] - [address] [place] [address] Vincent Shau MD [address] [place] [phone] Discharge Disposition: Home or Self Care [...] or Self Half-Way documented in this encounter Plan of Treatment Not on file documented as of this encounter Visit Diagnoses Not on filedocumented in this encounter Care Teams Pelota Maker Relationship Specialty Start Date End Date Angel Caballero MD [address] [place] [phone] PCP - General 04/26/09 documented as of this encounter
--- OUTSIDE RECORDS SUMMARY | 2023-12-29 16:40 | XMS_ITS | Encounter Summary ---
Author Organization [facility] Address [address] [place] [address] Care Team Providers Care Contract Modeler Name Role Phone Unavailable Primary Care Provider Unavailabl e Encounter Details Date Type Department Care Team (Late st Contact Info) Description 08/30/2007 13:30 EDT Hospital Encounter [facility] [address] [place] [address] Kong Hoyt MD [address] [place] [address] Social History Tobacco Use Types Packs/Day Years [...]
--- OUTSIDE RECORDS SUMMARY | 2023-12-29 16:40 | XMS_ITS | Encounter Summary ---
Author Organization [facility] Address [address] [place] [address] Care Team Providers Care [employer]ance [employer] Officer Name Role Phone Angel Caballero MD Primary Care Provider Reason for Visit * Reason Comments Apnea Encounter Details Date Type Department Care Team (Late st Contact Info) Description 11/14/2009 21:30 EDT Office Visit [facility] [address] [address] Unknown, Provider, Angel Wolfe MD [address] [place] [phone] Obstructive sleep apnea (adult) (pediatric) (Primary Dx) Discharge Disposition: Auto Discharge Social [...] - Inhaled Oxygen Concentration - - Weight 105.2 kg (232 lb) 11/14/20092118 EDT Height 172.7 cm (5' 8) 11/14/20092118 EDT Body Mass Index 35.28 11/14/20092118 EDT documented in this encounter Discharge Disposition Disposition Code Departure Means Destination Auto Discharge documented in this encounter Progress Notes * John English MD - 11/28/2009 1552 EDT This office note has been dictated. * Marline Birmingham - 11/27/2009 1136 EDT Sam Eng Paolo ([id number]) Polysomnographic Report Recording identification Patient name: Sam Eng Referring Physician Amador Test Date: 11/14/2009 Study # [id number] Sex: M Technologist ML date: 1965 Height Patient age: 44 years Weight Indication for Test: R/O PAOLA Medications: Sleep Medications: none Test Description: The Multi-channel overnight study consists of a combination of EOG, Chin EMG, EEG, Limb EMG, Thoracic and Abdominal wall movements, Nasal/oral airflow, nasal pressure, ECG, body position and tracheal sound. Sleep Data Light off (LO) : 10:31:49 PM Sleep onset (SO) : 10:37:49 PM Light on (PEDRO) : 5:45:49 AM Durations Time in Bed : 434.0 min Light off -> Light on Total Sleep Time : 339.0 min REM + NREM (during SPT) Sleep Efficiency : 78.1% 100 x TST/TIB REM time : 27.0 min REM (during TIB) NREM time : 312.0 min N1 + N2 + N3 (during TIB) : Latencies From Light off (min) From Sleep onset (min) Sleep onset 6.0 - N1 6.0 0.0 N2 12.5 6.5 N3 REM 300.0 294.0 Sleep stages distribution duration TIB TST (min) (%) (%) WK (TIB) 95.0 21.9 - REM 27.0 6.2 8.0 N1 34.0 7.8 10.0 N2 278.0 64.1 82.0 N3 0.0 0.0 0.0 Arousal Summary Total number With resp. event With resp. event & desat Leg Mvt arousal Spontaneous arousal m arousal REM 0 0 0 0 0 m arousal NREM 43 2 17 5 19 m arousal TOT 68 3 31 8 26 arousal >15sec 1 0 1 0 0 Total number of WK or MVT episodes : 36 Arousal index : 12.2/h(sleep) Respiratory Data REM Events CA OA MA Sum Ap Hyp RERA Resp. Events Number 0 25 0 25 13 0 38 Max (sec.) 0.0 37.5 0.0 37.5 37.0 0.0 37.5 Mean (sec.) 0.0 17.4 0.0 17.4 19.9 0.0 18.3 Index (#/h REM) 0.0 55.6 0.0 55.6 28.9 0.0 84.4 Non-REM events CA OA MA Sum Ap Hyp RERA Resp. Events Number 2 57 0 59 81 3 143 Max (sec.) 13.0 25.0 0.0 25.0 29.0 16.5 29.0 Mean (sec.) 12.0 17.1 0.0 16.9 14.2 14.0 15.3 Index (#/h NREM) 0.4 11.0 0.0 11.3 15.6 0.6 27.5 Respiratory events summary (Total sleep time) CA OA MA Sum Ap Hyp RERA Resp. Events Number 2 82 0 84 94 3 181 Max (sec.) 13.0 37.5 0.0 37.5 37.0 16.5 37.5 Mean (sec.) 12.0 17.2 0.0 17.1 15.0 14.0 15.9 Index (#/h TST) 0.4 14.5 0.0 14.9 16.6 0.5 32.0 Respiratory Event Index Summary (Total sleep time) REM #/h (REM) NREM #/h(NREM) TST #/h (sleep) AHI 84.4 26.9 31.5 RDI 84.4 27.5 32.0 Body Position Summary pos Total Dur.(min) Total Sleep Dur (min) Total Sleep (%) Total REM Dur (min) Arousal Index CA (#) OA (#) MA (#) HYP (#) REM AHI Non REM AHI KYLEIGH index (#/h) AHI L 258.3 214.6 83.1 27.0 7.3 2 43 0 63 84.4 22.4 29.9 30.2 P S 51.3 39.9 77.8 0.0 22.6 0 39 0 23 0.0 93.2 81.2 93.2 R 95.6 84.5 88.4 0.0 2.1 0 0 0 8 0.0 5.7 5.7 5.7 pos Total Dur.(min) Total Sleep Dur (min) Total Sleep (%) Total REM Dur (min) Arousal Index CA (#) OA (#) MA (#) HYP (#) RERA (#) Non REM RDI REM RDI index (#/h) RDI L 258.3 214.6 83.1 27.0 7.3 2 43 0 63 84.4 1.0 0.0 31.0 P S 51.3 39.9 77.8 0.0 22.6 0 39 0 23 0.0 0.0 0.0 93.2 R 95.6 84.5 88.4 0.0 2.1 0 0 0 8 0.0 0.0 0.0 5.7 Oximetry Summary Oximetry distribution WK REM NREM TOTAL <70 (min) 0.0 0.0 0.0 0.0 <80 (min) 0.0 0.0 0.0 0.0 <89(min) 1.5 1.0 4.3 6.8 <90 (min) 2.4 1.9 7.7 12.0 Average (%) 95 94 94 94 Minimum 02 (%) 79 Desat Index (#/hour) 77.8 25.8 29.9 Desat max (%) 14 14 19 19 Heart Rate Summary Statistics WK REM NREM Mean HR (BPM) 90.5 74.4 79.5 Median (BPM) 81.000 74.000 78.000 Leg Movements Summary Count Index (#/h) Leg movements 10 1.8 Leg movements meeting PLM criteria Leg movements with respiratory events with arousal 2 0.4 Leg movements with arousal (without respiratory event) 7 1.2 Leg mvts without arousal and without respiratory event 1 0.2 Time (min) Total time with PLM : min ( % of sleep) [facility] Technologist Preliminary Report Consulting Provider: Amador Technologist: Marline Birmingham PSG STUDY #: [id number] STUDY TYPE: PSG Respiratory Events:OA, OH and RERA PLMS: No. Respiratory related events: snore, RERA Pressure Recommendations: IPAP EPAP O?? LPM TECHNOLOGIST PRELIMINARY REPORT SUMMARY: Overall PAOLA appeared to severe. Mainly OA's and Oh's observed. * Ozzie Parikh - 11/14/20092201 EDT BEDTIME QUESTIONNAIRE 1. Has today been an unusual day in any respect? No. 2. Approximately how many hours sleep did you get last night? 7 hours. 3. Was this a typical night? Yes. 4. Do you feel this amount of sleep is adequate? Yes. 5. Did you nap today? No. 6. At what time did you last eat? 7pm 1. Was it a snack or a meal? meal 7. Any changes to medications or supplements for the day of the sleep study? No 8. Are you currently taking any medication to help you sleep or stay awake? No 9. Please indicate today's consumption of: 1. Alcohol: None. 2. Caffeine: None. [facility] - [phone] SLEEP PATIENT MEDICAL HISTORY FORM Sam Boone Albertina 11/14/2009 [facility] Sleep study number: [id number] male Height: 172.7 cm (68) Weight : 105.235 kg (232 lb) No outpatient prescriptions have been marked as taking for the 11/14/09 encounter (Office Visit) with POLYSOMNOGRAPHY. Reason for Visit: Rule Out Sleep Apnea Caffeine:Yes, 3 cups per day Excessive Sleepiness:Yes Alcohol:Yes, 6 drinks per week Restless Sleeper:No Cigarettes: No Leg Kicking:No Witnessed Snoring:Yes Witnessed Apnea:Yes Frequent Awakenings:Yes No past medical history on file. No past surgical history on file. Sleep medications before bed? No Usual bedtime: 12:30 Usual rise time: 7:30 - 8pm Usual # of awakenings: 2-3 Usual Naps per week: 0 and for how long 0 PSG TECHNOLOGIST LOG SHEET (NOT INTERPRETED BY A PHYSICIAN) Patient's Name: Sam Eng PSG Tech: Ozzie Parikh DOS: 11/15/2009 PSG Study #: [id number] Before Study Sleep Aides (time, type, dose): Baseline HR: 92 Respiratory Rate: 14 Resting SPO2: 97 Height:172.7 cm (68) Weight: 105.235 kg (232 lb) Time IPAP/ EPAP Mask Leak Oxygen LPM Tech Notes/ Troubleshooting Sleep Stage Position Low SAO2 CO2 10:31 Lights out 11:00 Arousals, snore, oh W,1,2 l 91 11:30 Snore, oh 2,w,1 l,r 90 12:00 Snore,oh 2 r 90 12:30 Snore, oh 2 r 90 1:00 Snore, oh, arousals 2,w,1 r,l 89 1:11 tir - pt bathroom 2,w,1 l 92 1:15 tor w 1:45 Snore, oh W,1,2 l 92 2:15 Snore, oh, ca 2 l 91 2:45 Oh, snore, ca, arousals 2,w,1 l 88 3:15 Oh, ca, oa 2,w,1 l 85 3:45 Oa, oh, snore 2,w,1,r s,l 83 4:15 Oh, oa, snore R,2,1 l,s 82 4:45 Oa, snore, oh 2,w,1 S,l 79 5:15 Snore, ca, oh 2,1 l 89 5:45 Snore, oh 2,w,1 l,r 91 5:45 Lights on [facility] PSG TECH OBSERVATION REPORT PSG Study #: [id number] Consulting Provider: Technologist: Ozzie Parikh Sleep Architecture All stages seen: No. Was SWS Absent? Yes. Was REM absent? No Sleep Onset REM: No Respiratory Events Index: Moderate Type: OA, OH and CA Position of respiratory events: No correlation Snoring: No correlation Breathing: both oral and nasal Sp0?? REM: Mean Serjio 82 NREM: Mean Serjio 79 If no supine time, why? If no lateral time, why? Arrhythmias: None noted DIAGNOSTIC STUDY SUMMARY: Patient began snoring almost immediately after falling asleep. Frequent OH/OA seen, increasing in duration, and number as study progressed. Moderate to severe PAOLA. Non positional. [facility] Rise Time Questionnaire Type of Study: PSG 1. How many hours do you feel you slept last night? 4 2. How would you describe your sleep last night in our lab compared to a typical night at home? Worse usually propped up with a wedge pillow 3. How do you feel this morning? Exhausted 4. If we provided treatment for your sleep last night, how do you feel about it this morning? N/A documented in this encounter Miscellaneous Notes * Study - John English MD - 12/08/2009 1246 EDT [facility] SERVICE DATE: 11/14/2009 POLYSOMNOGRAM REPORT STUDY NUMBER: [id number]. REFERRING PHYSICIAN: Angel Caballero MD CLINICAL HISTORY: A 44-year-old gentleman with a history of witnessed pauses in breathing at night,coming here to rule out obstructive sleep apnea. OBJECTIVE: Height 68 inches, weight 232 pounds. TECHNICAL DESCRIPTION: An overnight polysomnogram was performed on the night of 11/14/2009 and attended by a trained x ray technologist. Monitoring channels included EEG channels F3M2, F4M1, C3M2, C4M1, O1M2, O2M1; left and right EOG; submental EMG; bilateral anterior tibialis EMG; thoracic and abdominal respiratory effort by RIP belts; and snoring by piezo-electric transducers; airflow by CPAP/BiPAP pressure changes; pulse oximetry; single lead EKG; body position. Selective review of events of interest are available from video recording. PATIENT'S SUBJECTIVE DESCRIPTION: PRETEST: Total sleep the night before: 7 hours. Naps the day of the study: None. Caffeine: None. Alcohol: None. POSTTEST: Total sleep time: Four hours. Compared to usual: Patient feels exhausted in the morning. FINDINGS: 1. Sleep: Bedtime is 10:31 p.m., rise time is 5:45 a.m. Time in bed is 434 minutes, total sleep time is 339 minutes. Sleep efficiency is reduced at 78%. Initial latency to sleep onset is 6 minutes with a prolonged relative REM onset latency of 294 minutes. Sleep stage distribution is as follows: REM 8%, N1 10%, N2 82%, N3 0%. Sleep is mildly fragmented due to spontaneous arousals with an arousal index of 12 per hour. 2. Breathing: The patient exhibits overall severe obstructive sleep apnea with a respiratory disturbance index of 32 per hour. Events are markedly more pronounced in the supine position with a supineRDI of 93 per hour and a left lateral RDI of 31 per hour and a right lateral RDI of 6 per hour. Theaverage oxygen saturation over the evening is 95% with a serjio to 79%. The oxygen desaturation index is elevated at 30 per hour. 3. Cardiac: Normal sinus rhythm. The average heart rate is 78 beats per minute. 4. Movement/position: The patient spends 40 minutes asleep in the supine position, 85 minutes in the right lateral position, and 215 minutes in the left lateral position. There is no evidence of a PLM disorder, with a PLM index of less than 5 per hour. 5. EEG: Full EEG montage is not utilized. The EEG appears normal. IMPRESSION: The patient exhibits overall severe obstructive sleep apnea, which does contribute at times to significant oxygen desaturation. PLAN: We will attempt to contact the patient to initiate CPAP therapy as this would likely be the patient's best treatment option. Electronically Signed by John English MD 12/08/2009 12:46 John English MD [facility] Sleep Diplomate - John English MD P - CJR Job ID: SM Doc ID: [id number] Ext Doc ID: [id number] cc: Angel Caballero MD * Scanned Note-Null - Inpatient, Physician - 12/04/2009 1341 EDTAssociated Order(s): ORDERS - SCANNED documented in this encounter Plan of Treatment Not on file documented as of this encounter Procedures Procedure Name Priority Date/Time Associated Diagnosis Comments ORDERS - SCANNED 12/04/2009 13:4 1 EDT documented in this encounter Results * ORDERS - SCANNED (12/04/2009 13:41 EDT) 12/04/2009 13:4 1 EDT Narrative Procedure Note Inpatient, Physician - 12/04/2009 13:41 EDT Physician Inpatient MD ADMISSION ORDERAB LES documented in this encounter Visit Diagnoses Diagnosis Obstructive sleep apnea (adult) (pediatric)- Primary documented in this encounter Care Teams [employer] Officer Relationship Specialty Start Date End Date Angel Caballero MD [address] [phone] PCP - General 04/26/09 documented as of this encounter
--- OUTSIDE RECORDS SUMMARY | 2023-12-29 16:40 | XMS_ITS | Encounter Summary ---
Author Organization [facility] Address [address] [place] [address] Care Team Providers Care Logistics Planning Engineer Name Role Phone Angel Caballero MD Primary Care Provider Reason for Visit * Reason Comments Other PAOLA on CPAP Encounter Details Date Type Department Care Team (Late st Contact Info) Description 06/23/2010 10:10 EDT Office Visit [facility] - [address] [phone] Gudelia Huggins MD [address] [place] [address] [address] [place] [phone] Obstructive sleep apnea (Primary Dx) Discharge Disposition: Auto Discharge Social [...] Sign Reading Time Taken Comments Blood Pressure 140/90 06/23/2010 1011 EDT Pulse 85 06/23/2010 1011 EDT Temperature - - Respiratory Rate - - Oxygen Saturation 98% 06/23/2010 1011 EDT Inhaled Oxygen Concentration - - Weight 111.6 kg (246 lb) 06/23/2010 1011 EDT Height - - Body Mass Index 37.4 04/30/2010 1312 EST documented in this encounter Discharge Disposition Disposition Code Departure Means Destination Auto Discharge documented in this encounter Progress Notes * Khadar Fung - 06/23/2010 1202 EDT TECHNOLOGIST ANALYSIS SHEET Sam Eng 1965 [id number] 06/23/2010 Patient's Normal Sleep Provider: Bhavna Visit Type: Following provider appt Current Mask: ResMed Mirage Quattro medium FFM Recommended or current pressure: AutoCPAP Patient's DME: [facility] Problem that brings patient to the clinic: recently had nasal surgery, would like to explore nasal interface options Masks tried: Respironics EasyLife medium, Resp. ComfortGel blue medium, resMed Mirage activa LT medium, ResMed Quattro FX medium FFM, and ResMed Mirage SoftGel medium nasal mask, and Large chin strap Pressures tried: CPAP 6,8,10 Recommended mask and pressure/ Visit Summary: tried a variety of nasal masks and a newer FFM, pt chose the Mirage SoftGel medium nasal mask Follow-up Plans (pt follow-up with Tech appt, F/U, or DME)? MD [place]/U 6 mos. [place] Billing Sheet filled? Yes A DME prescription was written and sent by the physician on-site for ResMed Mirage SoftGel medium nasal mask and large chinstrap. I was supervised by Dr. Huggins and she was in the Sleep Center and immediately available for the entire time the service was provided. Khadar Fung * Gudelia Huggins - 06/23/2010 1031 EDT [facility] Date of Service: 06/23/10 Name: Sam Eng : 1965 MR#: [id number] Sam Eng is a 45 y.o. year old male here for follow up of: Severe PAOLA by PSG 11/14/10 Resolution of PAOLA on CPAP Titration 03/07/10 Has: AutoCPAP with FFM now [employer], using since February 2010 Nasal surgery 8 weeks ago , able to breath well thru nose now, well healed Using CPAP since February 2010, Stopped surrounding surgery, now using it again Not snoring, FFM fits well, although sometimes irritating to wear He is aware of sleeping better and feeling more energy after the nights using CPAP Problem list, medications, allergies all reviewed as in computerized chart BP 140/90 Pulse 85 Wt 111.585 kg (246 lb) SpO2 98% CPAP Download since 03/22/10 85/97 nights used, median 4hr,53min/night AHI<3, leak low Assessment: Severe PAOLA, compliant and symptomatically improved on CPAP, Mask a minor irritation although fits well, May be able to use a nasal mask now that he has had nasal surgery Plan Continue CPAP, Get supplies at 6 months intervals, Call if problems arise Trial of nasal mask - script sent to [facility] Increase regularity of usage, Be sure to put on prior to lights out Weight loss - he plans on checking with his work [facility] Program F/u 6 months 25 minutes, with majority spent in education, included mask fitting, data download and analysis cc: Angel Caballero MD documented in this encounter Miscellaneous Notes * Scanned Note-Null - Inpatient, Physician - 06/24/2010 1247 EDTAssociated Order(s): ORDERS - SCANNED * Scanned Note-Null - Inpatient, Physician - 06/24/2010 1118 EDTAssociated Order(s): ORDERS - SCANNED documented in this encounter Plan of Treatment Not on file documented as of this encounter Procedures Procedure Name Priority Date/Time Associated Diagnosis Comments ORDERS - SCANNED 06/24/2010 12:4 7 EDT ORDERS - SCANNED 06/24/2010 11:1 8 EDT documented in this encounter Results * ORDERS - SCANNED (06/24/2010 12:47 EDT) 06/24/2010 12:4 7 EDT Narrative Procedure Note Inpatient, Physician - 06/24/2010 12:47 EDT Physician Inpatient MD ADMISSION ORDERAB LES * ORDERS - SCANNED (06/24/2010 11:18 EDT) 06/24/2010 11:1 8 EDT Narrative Procedure Note Inpatient, Physician - 06/24/2010 11:18 EDT Physician Inpatient MD ADMISSION ORDERAB LES documented in this encounter Visit Diagnoses Diagnosis Obstructive sleep apnea- Primary Obstructive sleep apnea (adult) (pediatric) documented in this encounter Discontinued Medications Medication Sig Discontinue Reason Start Date End Da te azithromycin (ZITHROMAX) 250 mg tablet Take 1 Tab by mouth daily. As directed Patient Stopped Taking 05/09/2010 06/23/2010 FLUTICASONE PROPIONATE (FLONASE NASL) 1 [place] by Nasal route as needed. Duplicate Therapy 05/09/2010 06/23/2010 metoprolol (LOPRESSOR) 25 mg tablet Take 25 mg by mouth daily. Pt states he started this on 05/05/10 for surgery on 05/09/10, pt states he doesn't think he continues it postop. Patient Stopped Taking 05/09/2010 06/23/2010 oxycodone-acetaminoph en (PERCOCET) 5-325 mg per tablet Take 1-2 Tabs by mouth every 4 hours as needed for Pain. Patient Stopped Taking 05/09/2010 06/23/2010 predniSONE (DELTASONE) 20 mg tablet Take by mouth daily with breakfast. 60 mg po qd x 7 days Patient Stopped Taking 05/09/2010 06/23/2010 documented as of this encounter Historical Medications * This list may reflect changes made after this encounter. Medication Sig Dispensed Refills Start Date End Date Aspirin 81 mg Tab Take 81 mg by mouth daily. added in this encounter Orders Equipment Count Last Ordered Date First Orde red Date CPAP/BIPAP GENERAL ORDER 1 06/23/2010 documented in this encounter Care Teams Logistics Planning Engineer Relationship Specialty Start Date End Date Angel Caballero MD [address] [place] [phone] PCP - General 04/26/09 documented as of this encounter
--- OUTSIDE RECORDS SUMMARY | 2023-12-29 16:40 | XMS_ITS | Encounter Summary ---
Author Organization [facility] Address [address] [place] [address] Care Team Providers Care Line Installer Repairer Name Role Phone Angel Caballero MD Primary Care Provider Reason for Visit * Reason Comments Follow-up s/p septoturbinoplas ty, polypectomy 05/09/2010 Encounter Details Date Type Department Care Team (Late st Contact Info) Description 06/19/2010 9:00 EDT Office Visit [facility] [address] [place] [address] Kong Hoyt MD [address] [place] [address] Nasal polyps; DNS (deviated nasal septum); Hypertrophy of nasal turbinates Social History Tobacco Use Types Packs/Day Years [...] Progress Notes * Kong Hoyt MD - 06/25/2010 4044 EDT DIVISION OF OTOLARYNGOLOGY PROGRESS/FOLLOWUP NOTE - 06/19/2010 PROBLEM: Deviated nasal septum, turbinate hypertrophy, nasal polyps, PAOLA. Status post septoturbinoplasty with bilateral polypectomy (05/09/2010). SUBJECTIVE: Mr Eng is breathing quite comfortably through both nostrils. He is using NeilMed saline spray followed by fluticasone nasal spray at 1 spray both nostrils twice daily. Past medical, surgical history, medication list, allergy status reviewed and updated to the chart. OBJECTIVE: Mr Eng is not in any acute distress. Anterior rhinoscopy: Midline septum, turbinates are nicely reduced anteriorly and he has a widely patent airway. PROCEDURE: Bilateral nasal endoscopy with left-sided cleaning and debridement. Both nostrils sprayed with topical cophenylcaine spray followed by cotton-soaked pledgets for 10 minutes. Right nasal endoscopy widely patent airway. The inferior border of the inferior turbinate is completely healed, including the bulbous tip. It is widely patent. The surgical site relative to polypectomy is also completely healed. Left nasal endoscopy widely patent airway. Scant moist secretions Little's area removed with suction. There is retained crusting and exposed bony spicules posterior inferior tip of the inferior turbinate. This is cleaned and debrided with #8 suction followed by alligator forceps. Minimal bleeding. No other abnormalities. IMPRESSION: Satisfactory postoperative status. Bilateral nasal endoscopy with left-sided cleaning and debridement. No evidence of residual polyps. PLAN: I reviewed my findings and impressions. We are proceeding as follows: 1. Continue NeilMed saline rinse daily and b.i.d. p.r.n. 2. Continue fluticasone nasal spray 1 spray both nostrils twice daily until followup. 3. Follow up in 3 months. Electronically Signed by Kong Hoyt MD 06/25/2010 17:24 Kong Hoyt MD - Kong Hoyt MD - Job ID: SM Doc ID: [id number] [facility] Doc ID: [id number] cc: MD Angel Singer MD * Kong Hoyt MD - 06/19/2010 0944 EDT This office note has been dictated. documented in this encounter Plan of Treatment Not on file documented as of this encounter Visit Diagnoses Diagnosis Nasal polyps Unspecified nasal polyp DNS (deviated nasal septum) Deviated nasal septum Hypertrophy of nasal turbinates documented in this encounter Care Teams Line Installer Repairer Relationship Specialty Start Date End Date Angel Caballero MD [address] [place] [phone] PCP - General 04/26/09 documented as of this encounter
--- OUTSIDE RECORDS SUMMARY | 2023-12-29 16:40 | XMS_ITS | Encounter Summary ---
Author Organization [facility] Address [facility] [place] [address] Care Team Providers Care Recycling Director Name Role Phone Angel Caballero MD Primary Care Provider [phone] Reason for Visit * Reason Comments Establish Care LT HUMERUS ENCHONDRO MA * Consultation (Routine) - Closed Specialty Diagnoses / Procedures Referred By Lanette russo Referred To Contact Orthopaedics Diagnoses Enchondroma of left humerus Malvin Machuca, DNP [address] [place] [address] Chris Sanon MD [facility] [place] [address] Referral ID Status Reason Start Date Expiration Date V isits Requested Visits Authorized [id number] Closed Consult, Test & Treat PCP Updated and/or Approved 2022 2023 6 6 Encounter Details Date Type Department Care Team (Late st Contact Info) Description 07/14/2022 1:30 PM EDT Office [place] [phone] Chris Sanon MD [facility] [place] [address] Bone lesion Social History Tobacco Use Types Packs/Day Years Used Date Smoking Tobacco: Never Smokeless Tobacco: Never Tobacco Cessation:Counseling Given: Not Answered Alcohol Use Standard Drinks/Week Comments Not Currently [...] - Inhaled Oxygen Concentration - - Weight 81.6 kg (180 lb) 07/14/2022 1:07 PM EDT Height 167.6 cm (5' 6) 07/14/2022 1:07 PM EDT Body Mass Index 29.05 07/14/2022 1:07 PM EDT documented in this encounter Progress Notes * Merly Mora MD - 07/14/2022 1:30 PM EDT This patient was seen in consultation today at the request of Malvin Machuca. Reason for Consultation: left shoulder bone lesion. History of Present Condition: Sam Eng is a pleasant RHD 57 y.o. year-old male who visits the Orthopaedic clinic accompanied by patient and today with a history of left shoulder pain. The pain has been present since Dec 2021. He was unloading oil tanks from a truck when he sustained an injury. He saw an orthopaedic surgeon at [facility] and MRI demonstrated rotator cuff tearfor which he is doing PT. A lesion in the left proximal humerus was noted on that imaging and he was provided a referral. Prior to the injury in December 2021, he never had any pain in his left arm or shoulder. States the pain is primarily in the anterior and lateral shoulder. Does not radiate distally down the arm. Worse with overhead activities or reaching behind his back. Since December his pain overall about the same, has not increased or improved. Also reports subjective weakness and a tightness in his shoulder. Pain occurs at night when lying on the affected side. Has tried PT but unable to continue due to work constraints. 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 Pt denies numbness, tingling, fevers, chills, unintentional weight loss, night sweats or systemic symptoms or recent illnesses. Does not report any fractures or injuries to left arm. Recently lost about 90 lbs but was intentional. 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 PSH - sinus surgery 1998, eye surgery 1975, hernia repair as an . FH - Non contributory Past Medical History: Asthma HTN Past Surgical History As above Previous Hospitalizations - he has been hospitalized for surgeries as above, nothing pertaining to his left arm. Social History - Relationship status - he is . 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 Social History Tobacco Use Smoking Status Never Smokeless Tobacco Never Social History Substance and Sexual Activity Alcohol Use Not Currently Family History - his family history is pertinent for none. Review of Systems: A thirteen-system review was negative for any positive findings except for left shoulder pain. Physical Examination: Vitals: BP Readings from Last 1 Encounters: No data found for BP Pulse Readings from Last 1 Encounters: No data found for Pulse Height: 167.6 cm (5' 6) Weight: 81.6 kg (180 lb) Body mass index is 29.05 kg/m??. Constitutional- he is alert and oriented to person, place, time, and situation. he is in no apparent distress. Ears, nose, mouth, throat - his head is Normocephalic, without obvious abnormality, atraumatic, dentition is normal dentition for age, the tongue is midline. ears are symmetric Eyes - his pupils are equal, round, and reactive to light; extraocular muscles are intact; sclear are anicteric Cardiovascular Peripheral pulses are 2+ (normal) and symmetric for the posterior tibial and dorsalis pedis arteries. Respiratory - breathing comfortably on room air Neurological - sensation in the bilateral upper extremities intact to light touch. Deep tendon reflexes from the biceps and BR 2+ and symmetric. Integumentary - in general his skin shows normal coloration and turgor, no rashes, no suspicious skin lesions noted; the skin overlying the lesion demonstrates no abnormalities. Psychiatric - his affect was Appropriate. Musculoskeletal examination: Motor exam shows 5/5 strength in all major muscles of the upper extremity with exception as noted below. ?? Left Shoulder motion Active Passive Strength ?? Abduction 145 180 4+/5 ?? Flexion 150 180 4+/5 ?? Internal rotation L1 L1 5/5 ?? External rotation 45 50 5/5 ?? Special Tests ?? Rotator cuff tests: ?? Hawkin's test - Positive ?? Neer's test - Positive ?? Empty can test - Positive ?? Whitmore's test - N/A ?? Labrum tests ?? O'gardenia's test - Negative ?? Biceps tests ?? Speed's test - Negative ?? Yerguson's test - Negative ?? AC joint tests ?? AC joint tenderness - Negative ?? Cross-arm test - Negative Imaging Studies: Plain radiographs L shoulder -- on personal review of the radiographs, there is no acute fracture, dislocation, endosteal scalloping or periosteal reaction, no obvious bony lesion and no change compared to 01/2022 radiographs. MRI L Shoulder -- on personal review of the MRI, there is partial tearing of the supraspinatus. There is a well circumscribed, T2 hyperintense, T1 hypointense focal lesion in the proximal humeral metaphysis without surrounding edema, no endosteal scalloping, cortical disruption, periosteal reaction, soft tissue edema or fracture. Impression & Plan: Sam Eng is a delightful 57 y.o. year-old male with based upon history, physical exam, and imaging studies appears to have a benign chondroid appearing lesion in the left proximal humeral metaphysis consistent with enchondroma. We discussed the differential diagnosis, natural history, and treatment options. At this time it appears that his shoulder pain and weakness is likely secondary to the rotator cuff tearing and he will follow-up with shoulder surgeon. For the enchondroma lesion, he will follow-up in 6 months with repeat XR L Shoulder and then again at 12 months to ensure no changes. he demonstrated excellent understanding of the information conveyed. - XR L shoulder - Follow-up 6 months and 12 months Merly Mora MD Orthopaedic Surgery PGY4 Over 30 minutes was spent with patient, more than 50% of which was counseling. Orthopaedic Oncology Attending Note: This patient was seen in consultation today at the request of Dr. Mcahuca. I have seen the patient and reviewed the resident's above history and I agree with the details as written. The assessment and plan were formulated in discussion with me and I agree with them as documented. We talked about the fact that enchondromas are benign proliferations of cartilage which are likely remnants of cartilage from the patient's growth plate. It is not entirely clear why these lesions form, however, they're quite common. There is a very small but described potential for malignanttransformation. In general, enchondromas are observed. Generally painless, however, more aggressivepainful enchondromas have been described and these are often treated with curettage and bone grafting. In general, we observe enchondromas with a repeat x-ray in 3 months, usually another in 6-9 months, and then often another one year after that. Some physicians believe in following enchondromas with radiographs every year or 2 in order to potentially detect malignant transformation occurs. In his case, do not see any clear indications for biopsy or surgery. I do think it is reasonable for him to continue to follow-up with an orthopedic surgeon trained in shoulder surgery to ensure a good result from his rotator cuff injury. I will see him back on the day of surgery. Please copy this note to: Malvin Machuca, PATENT PROSECUTION ATTORNEY [address] [place] [address] documented in this encounter Plan of Treatment Not on file documented as of this encounter Visit Diagnoses Diagnosis Bone lesion Disorder of bone and cartilage, unspecified documented in this encounter Care Teams Recycling Director Relationship Specialty Start Date End Date Angel Caballero MD [address] [facility] [address] [place] [address] PCP - General Family Medicine 07/14/22 documented as of this encounter
--- OUTSIDE RECORDS SUMMARY | 2023-12-29 16:40 | XMS_ITS | Encounter Summary ---
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 Name Role Phone Angel Caballero MD Primary Care Provider Reason for Referral * Cardiology (Routine/Next Available) - Closed Specialty Diagnoses / Procedures Referred By Lanette russo Referred To Contact Diagnoses SOB (shortness of breath) Procedures ECHOCARDIOGRAM Juan Carlos James MD [address] [place] [phone] Referral ID Status Reason Start Date Expiration Date Visits Re quested Visits Authorized [id number] Closed 09/10/2011 1 1 * Cardiology (Routine/Next Available) - Closed Specialty Diagnoses / Procedures Referred By Lanette russo Referred To Contact Diagnoses SOB (shortness of breath) Procedures EXERCISE TOLERANCE TEST Juan Carlos James MD [address] [place] [phone] Referral ID Status Reason Start Date Expiration Date Visits Re quested Visits Authorized [id number] Closed 09/10/2011 1 1 Reason for Visit * Reason Comments Hypertension New patient Encounter Details Date Type Department Care Team (Late st Contact Info) Description 09/10/2011 15:[address] [facility] Cardiology - [address] [place] [address] Juan Carlos James MD [address] [place] [address] [place] [phone] HTN (hypertension) (Primary Dx); SOB (shortness of breath) Social History Tobacco Use Types Packs/Day Years [...] Sign Reading Time Taken Comments Blood Pressure 130/90 09/10/2011 1510 EDT Pulse 70 09/10/2011 1510 EDT Temperature - - Respiratory Rate - - Oxygen Saturation - - Inhaled Oxygen Concentration - - Weight 106.6 kg (235 lb) 09/10/2011 1510 EDT Height 172.7 cm (5' 8) 09/10/2011 1510 EDT Body Mass Index 35.73 09/10/2011 1510 EDT documented in this encounter Progress Notes * Juan Carlos James MD - 09/10/2011 1607 EDT Subjective: Patient ID: Sam Eng is an 46 y.o. male. Chief Complaint Patient presents with ??? Hypertension New patient ASSESSMENT AND RECOMMENDATIONS: 1. Hypertension. Currently, well controlled with the recent initiation of lisinopril therapy. Reviewing the patient's home blood pressure measurements and that obtained here in the office today, he seems to be under good control with this single agent. Given his history of possible previous inferior infarction and this hypertension, I think a conventional stress test is in order. This will also allow us to assess his blood pressure response to exercise. If despite good resting blood pressures he has a seriously elevated blood pressure response to exercise, he might yet require an accelerationof his medical regimen. Options might include increasing his NICK inhibitor or the addition of a low-dose diuretic or beta lizette. 2. Uncertain history of previous infarction: The patient does relate a history of presenting in 2005 to a [place] hospital where he had chest pain. He says that a cardiac catheterization was performed, but that he did not require stent implantation and he was told that any possibly blockage had resolved by the time of the cath. It seems unlikely, therefore, that he has serious obstructive coronary artery disease, but given the interval since that event, stress testing seems appropriate as outlined above. 3. Other cardiac risk factors: A review of the patient's records from Dr Caballero's office shows that his LDL is good. He is on appropriate aspirin therapy 81 mg a day. HPI Mr Eng is seen today at the request of Angel Caballero for evaluation of the patient's hypertension and cardiac issues. 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 He recently presented to the emergency room with vague complaints of a headache and not feeling well. He says he was told his blood pressure was elevated. In followup, he started lisinopril therapy. He thinks that his blood pressure has been borderline in the past. He is tolerating the drug therapy and has been checking his blood pressure at home and I have reviewed those numbers with him; they are consistently excellent, all being in the 120 range or less with only occasional numbers approaching 130. He has felt better with the lisinopril therapy and had no significant recurrent headaches. He has also been making efforts to increase his exercise, walking more frequently in the evenings. He has been trying to lose some weight and has lost a few pounds. He has sleep apnea and has been compliant with recommended CPAP therapy for a couple of years now. Otherwise, his review of systems is all negativeacross 12 systems. Past medical history includes records available for review from [place]. An echocardiogram in 2005 showed normal left ventricular function. The right ventricle was mildly dilated but pulmonary hypertension was not noted. The patient relates the history of cardiac catheterization. CT of the chest atthat time showed no evidence of pulmonary embolus. No mention was made of any significant cardiac pathology on that report. Patient Active Problem List Diagnoses ??? Obstructive [...] to Visit Medication Sig Dispense Refill ??? Aspirin 81 mg Tab Take 81 mg by mouth daily. Lisinopril 20 mg daily No Known Allergies ROS - See HPI Objective: BP 130/90 Pulse 70 Ht 172.7 cm (68) Wt 106.595 kg (235 lb) BMI 35.73 kg/m2 Physical Exam Constitutional: He appears well-developed. HENT: Head: Atraumatic. Eyes: No scleral icterus. Neck: Normal range of motion. No JVD present. No tracheal deviation present. Cardiovascular: Normal rate, regular rhythm, normal heart sounds and intact distal pulses. No extrasystoles are present. Exam reveals no gallop, no S3, no S4 and no distant heart sounds. No murmur heard. Pulmonary/Chest: No respiratory distress. He has no wheezes. He has no rales. Abdominal: Soft. He exhibits no mass. There is no tenderness. There is no guarding. Musculoskeletal: He exhibits no edema. Neurological: He is alert. Skin: Skin is warm and dry. No rash noted. Psychiatric: His behavior is normal. ECG personally reviewed: EKG: Normal. Assessment: above Plan: Sam was seen today for hypertension. Diagnoses and associated orders for this visit: Htn (hypertension) - EKG 12 LEAD Sob (shortness of breath) - EXERCISE TOLERANCE TEST - ECHOCARDIOGRAM Other Orders - lisinopril (PRINIVIL, ZESTRIL) 20 mg tablet; Take 20 mg by mouth daily. - [place]-3 Fatty Acids-Vitamin E (FISH OIL) 1,000 mg cap; Take by mouth 2 times daily. Juan Carlos James MD documented in this encounter Procedure Notes * FARMWORKER FRUIT, SCAN 2 - 09/15/2011 1316 EDTAssociated Order(s): ECG REPORT - SCANNED documented in this encounter Plan of Treatment Scheduled Orders Name Type Priority Associated Diagnoses Orde r Schedule EKG 12-LEAD ECG Routine HTN (hypertension) Ordered: 09/10/2011 documented as of this encounter Procedures Procedure Name Priority Date/Time Associated Diagnosis Comments EXERCISE TOLERANCE TEST Routine 09/23/19 12 9:58 EDT SOB (shortness of breath) ECHOCARDIOGRAM Routine 09/23/2011 7:22 EDT SOB (shortness of breath) ECG REPORT - SCANNED 09/15/2011 13:16 EDT documented in this encounter Results * EXERCISE TOLERANCE TEST (09/23/2011 9:58 EDT) Anatomical Region Laterality Modality Other 09/23/2011 9:58 EDT Narrative 09/23/2011 11:48 EDT *[facility]* [address] [place] [id number] *Interpreting Group:* *[facility]* [address] [place] [address] Stress Electrocardiography Rehan protocol *PATIENT PRESENTATION* Height: ? 172.7cm (68in ) Blood Pressure: Weight: ? 108.2kg (238lb ) BSA: ?2.32m^2 Ordering physician: Juan Carlos James MD Impressions: ??Borderline ECG without angina to a high workload. Summary: 1. Stress ECG conclusions: The stress ECG is borderline. 2. Stress: The target heart rate was achieved. The heart ?? rate response to stress is normal. There is a normal ?? resting blood pressure with an appropriate response to ?? stress. The patient experienced no chest pain during ?? stress. Exercise capacity is average for age. CAD likelihood: ??Pre test likelihood of CAD: 5.5%. Post test likelihood of CAD: 11%. Indication: ?? 786.50 Chest Pain, Unspecified. History: ??Patient was asymptomatic. ??Risk factors: ??46yo male that self reports a MO in [facility] in 2005. States he had a cath but no interventions done. No reported CP or dyspnea. Pain free at this time. Hypertension. Obesity. ??Medications: NICK inhibitors. Aspirin. Protocol: ??Rehan protocol. Baseline ECG: ??Normal ECG. Early repolarization Stress protocol: + +---+---------+ + + Stage ? HR BP (mmHg) ST/T ? Symptoms ? + +---+---------+ + + Baseline ? 53 100/72 ?? supine ? (81) ? + +---+---------+ + + Baseline ? 65 100/80 ?? standing ? (87) ? + +---+---------+ + + Stage I; ? 95 104/80 ?? 1.7mph, ? (88) ? 10degrees; 3 ? min ? + +---+---------+ + + Stage II; ? 115 128/78 ?? 2.5mph, ? (95) ? 12degrees; 3 ? min ? + +---+---------+ + + Stage III; ? 151 178/74 ?? 3.4mph, ? (109) ? 14degrees; 3 ? min ? + +---+---------+ + + Stage IV; ? 171 190/74 ?? Slow upsloping ?? Moderate ? 4.2mph, ? (113) ? depression,.5 - dyspnea, ? 16degrees; 3 ? 1mm in II, III ?? moderate ? min ? and aVF ? fatigue ? + +---+---------+ + + Immediate post 157 150/70 ?? <0.5 mm in III ?? stress ? (97) ? + +---+---------+ + + Recovery; 1 ?? 134 152/70 ?? Normal ? None ? min ? (97) ? + +---+---------+ + + Recovery; 3 ?? 104 140/70 ?? min ? (93) ? + +---+---------+ + + Recovery; 6 ?? 92 110/70 ?? min ? (83) ? + +---+---------+ + + Stress results: ?? Maximal heart rate during stress was 171bpm (99% of maximal predicted heart rate). The maximal predicted heart rate was 173bpm. The target heart rate was achieved. The heart rate response to stress is normal. There is a normal resting blood pressure with an appropriate response to stress. The rate-pressure product for the peak heart rate and blood pressure was 27315zu Hg/min. ??The patient experienced no chest pain during stress. ?? The patient experienced moderate dyspnea in response to stress. Exercise capacity is average for age. Stress ECG: ?? The stress ECG is borderline. Study data: ??Dr. Spence supervised and was readily available during the procedure. ??Study status: Routine. ??Consent: ??The risks, benefits, and alternatives to the procedure were explained to the patient and informed consent was obtained. ??Procedure: ??Initial setup. A baseline ECG was recorded. Surface ECG leads and manual cuff blood pressure measurements were monitored. Heart sounds: Normal. Lung sounds: Normal. Treadmill exercise testing was performed using the Rehan protocol. The patient exercised for 10 min 16 sec, to protocol stage 4, to a maximal work rate of 11mets. Exercise was terminated due to moderate dyspnea and moderate fatigue. ??Study completion: ??The patient tolerated the procedure well and was discharged from the lab. ??Discharge: ??The patient left the laboratory in stable condition. Signature Documentation: ?? The Stress ECG portion of this study was interpreted by Dr. Tommie Paula. Electronically signed by Tommie Paula [id number] Procedure Note 09/23/2011 *[facility]* [address] [place] [address] *Interpreting Group:* *[facility]* [address] [place] [address] Stress Electrocardiography Rehan protocol *PATIENT PRESENTATION* Height: 172.7cm (68in ) Blood Pressure: Weight: 108.2kg (238lb ) BSA: 2.32m^2 Ordering physician: Juan Carlos James MD Impressions: Borderline ECG without angina to a high workload. Summary: 1. Stress ECG conclusions: The stress ECG is borderline. 2. Stress: The target heart rate was achieved. The heart rate response to stress is normal. There is a normal resting blood pressure with an appropriate response to stress. The patient experienced no chest pain during stress. Exercise capacity is average for age. CAD likelihood: Pre test likelihood of CAD: 5.5%. Post test likelihood of CAD: 11%. Indication: 786.50 Chest Pain, Unspecified. History: Patient was asymptomatic. Risk factors: 46yo male that self reports a MO in [facility] in 2005. States he had a cath but no interventions done. No reported CP or dyspnea. Pain free at this time. Hypertension. Obesity. Medications: NICK inhibitors. Aspirin. Protocol: Rehan protocol. Baseline ECG: Normal ECG. Early repolarization Stress protocol: + +---+---------+ + + Stage HR BP (mmHg) ST/T Symptoms + +---+---------+ + + Baseline 53 100/72 supine (81) + +---+---------+ + + Baseline 65 100/80 standing (87) + +---+---------+ + + Stage I; 95 104/80 1.7mph, (88) 10degrees; 3 min + +---+---------+ + + Stage II; 115 128/78 2.5mph, (95) 12degrees; 3 min + +---+---------+ + + Stage III; 151 178/74 3.4mph, (109) 14degrees; 3 min + +---+---------+ + + Stage IV; 171 190/74 Slow upsloping Moderate 4.2mph, (113) depression,.5 - dyspnea, 16degrees; 3 1mm in II, III moderate min and aVF fatigue + +---+---------+ + + Immediate post 157 150/70 <0.5 mm in III stress (97) + +---+---------+ + + Recovery; 1 134 152/70 Normal None min (97) + +---+---------+ + + Recovery; 3 104 140/70 min (93) + +---+---------+ + + Recovery; 6 92 110/70 min (83) + +---+---------+ + + Stress results: Maximal heart rate during stress was 171bpm (99% of maximal predicted heart rate). The maximal predicted heart rate was 173bpm. The target heart rate was achieved. The heart rate response to stress is normal. There is a normal resting blood pressure with an appropriate response to stress. The rate-pressure product for the peak heart rate and blood pressure was 99895tw Hg/min. The patient experienced no chest pain during stress. The patient experienced moderate dyspnea in response to stress. Exercise capacity is average for age. Stress ECG: The stress ECG is borderline. Study data: Dr. Spence supervised and was readily available during the procedure. Study status: Routine. Consent: The risks, benefits, and alternatives to the procedure were explained to the patient and informed consent was obtained. Procedure: Initial setup. A baseline ECG was recorded. Surface ECG leads and manual cuff blood pressure measurements were monitored. Heart sounds: Normal. Lung sounds: Normal. Treadmill exercise testing was performed using the Rehan protocol. The patient exercised for 10 min 16 sec, to protocol stage 4, to a maximal work rate of 11mets. Exercise was terminated due to moderate dyspnea and moderate fatigue. Study completion: The patient tolerated the procedure well and was discharged from the lab. Discharge: The patient left the laboratory in stable condition. Signature Documentation: The Stress ECG portion of this study was interpreted by Dr. Tommie Paula. Electronically signed by Tommie Paula [id number] Juan Carlos James MD CARDIAC SERVICES ORD ERABLES * ECHOCARDIOGRAM (09/23/2011 7:22 EDT) Anatomical Region Laterality Modality Other 09/23/2011 7:22 EDT Narrative 09/23/2011 8:46 EDT *Interpreting Group:* *[facility]* [address] [place] [address] *STUDY CONCLUSIONS* Summary: 1. Left ventricle: The cavity size was normal. Wall ?? thickness was normal. Systolic function was normal. The ?? estimated ejection fraction was 55-60%. Wall motion was ?? normal; there were no regional wall motion abnormalities. 2. Right ventricle: The cavity size was mildly dilated. Wall ?? thickness was normal. Systolic function was normal. 3. Inferior vena cava: The vessel was normal in size; the ?? respirophasic diameter changes were in the normal range ?? (greater than or equal to 50%); findings are consistent ?? with normal central venous pressure. *PATIENT PRESENTATION* Height: ? 172.7cm (68in ) S/D Pressure: 118 / 74 Weight: ? 103.4kg (227.5lb ) BSA: ?2.27m^2 Test start time: ??07:26 AM. Test stop time: ??08:01 AM. ATTENDING ?Juan Carlos James MD ORDERING ? Juan Carlos James MD REFERRING ?Juan Carlos James t BALLAST INSPECTOR ??Florecita Donnelly PERFORMING ?? [facility], Op BALLAST INSPECTOR ??Leni Blackman *PROCEDURE DATA* Procedure information: ??This study was interpreted by [facility]. ??Study status: ??Routine. Transthoracic echocardiography. ??M-mode, complete 2D, complete spectral Doppler, and color Doppler. A Transthoracic Echocardiogram was performed. Scanning was performed from the parasternal, apical, subcostal, and suprasternal notch acoustic windows. Images were obtained using a Jack [id number] cardiac ultrasound machine. Image quality was adequate. The study was technically limited due to poor acoustic window availability and body habitus. ??Study completion: ??The patient tolerated the procedure well. There were no complications. *INDICATIONS AND HISTORY* Indications: ?? Shortness of breath 786.05. *CARDIAC ANATOMY* Left ventricle: ??The cavity size was normal. Wall thickness was normal. Systolic function was normal. The estimated ejection fraction was 55-60%. Wall motion was normal; there were no regional wall motion abnormalities. Aortic valve: ?? Trileaflet; normal thickness leaflets. Mobility was not restricted. ??Doppler: ??Transvalvular velocity was within the normal range. There was no stenosis. No regurgitation. Aorta: ??Aortic root: The aortic root was normal in size. Mitral valve: ?? Structurally normal valve. ?? Mobility was not restricted. ??Doppler: ??Transvalvular velocity was within the normal range. There was no evidence for stenosis. ??No regurgitation. Left atrium: ??The atrium was normal in size. Right ventricle: ??The cavity size was mildly dilated. Wall thickness was normal. Systolic function was normal. Pulmonic valve: ?Structurally normal valve. ?Doppler: Transvalvular velocity was within the normal range. There was no evidence for stenosis. ??No significant regurgitation. Tricuspid valve: ?? Structurally normal valve. ?Doppler: Transvalvular velocity was within the normal range. There was no evidence for stenosis. ??No regurgitation. Pulmonary artery: ?? The main pulmonary artery was normal-sized. ??Systolic pressure could not be accurately estimated. Right atrium: ??The atrium was normal in size. Pericardium: ??There was no pericardial effusion. Systemic veins: Inferior vena cava: The vessel was normal in size; the respirophasic diameter changes were in the normal range (greater than or equal to 50%); findings are consistent with normal central venous pressure. *MEASUREMENT TABLES* 2D measurements ?Normal Left ventricle Volume, ED, MOD, 1-plane ? 71 ml ? ------- Volume, ES, MOD, 1-plane ? 37 ml ? ------- Ejection fraction, MOD, 1-plane ?48 % ?------- Volume index, ED, MOD, 1-plane ? 31 ml/m^2 ------- Volume index, ES, MOD, 1-plane ? 16 ml/m^2 ------- Aorta Root diameter, ED ?33 mm ? ------- Ascending aorta anterior-posterior ? 32 mm ? ------- diameter, S Left atrium Anterior-posterior dimension ? 38 mm ? ------- Anterior-posterior dimension index ? 1.68 cm/m^2 <2.2 Volume index, S ?16.2 ml/m^2 ------- M-mode measurements ?Normal Left ventricle LV internal dimension, ED ? *63 mm ? 37-56 LV internal dimension, ES ?43 mm ? ------- Fractional shortening ?32 % ?29-45 LV posterior wall, ED ? 8 mm ? 6-11 Septal/posterior wall ratio, ED ? 1.1 ?------- Relative wall thickness, ED ? 0.3 ?<0.45 Volume, ED, Teichholz ? 201 ml ? ------- Volume, ES, Teichholz ?83.1 ml ? ------- Ejection fraction, Teichholz ?*58.7 % ?64-83 Volume index, ED, Teichholz ?89 ml/m^2 ------- Volume index, ES, Teichholz ?37 ml/m^2 ------- Wall mass ? 218.5 g ?------- Wall mass index ?96.4 g/m^2 ??------- Mass/height ?1.27 g/cm ?? ------- Ventricular septum Septal thickness, ED ?9 mm ? ------- Doppler measurements ? Normal Left ventricle IVRT ? *116 ms ? 60-100 Mitral valve Peak E-wave velocity ? 92.2 cm/s ?? ------- Peak A-wave velocity ? 72.7 cm/s ?? ------- Deceleration time ?*148 ms ? 150-230 Peak E/A ratio ? 1.27 ?------- Legend: Mean values are shown as u=mean value. Asterisk (*) middleton values outside specified normal range. Electronically signed by Haroon Martinez MD [id number] Procedure Note 09/23/2011 *Interpreting Group:* *[facility]* [address] [place] [address] *STUDY CONCLUSIONS* Summary: 1. Left ventricle: The cavity size was normal. Wall thickness was normal. Systolic function was normal. The estimated ejection fraction was 55-60%. Wall motion was normal; there were no regional wall motion abnormalities. 2. Right ventricle: The cavity size was mildly dilated. Wall thickness was normal. Systolic function was normal. 3. Inferior vena cava: The vessel was normal in size; the respirophasic diameter changes were in the normal range (greater than or equal to 50%); findings are consistent with normal central venous pressure. *PATIENT PRESENTATION* Height: 172.7cm (68in ) S/D Pressure: 118 / 74 Weight: 103.4kg (227.5lb ) BSA: 2.27m^2 Test start time: 07:26 AM. Test stop time: 08:01 AM. ATTENDING Juan Carlos James MD ORDERING Juan Carlos James MD REFERRING Juan Carlos James t BALLAST INSPECTOR Florecita Donnelly PERFORMING Fa, Op BALLAST INSPECTOR Leni Blackman *PROCEDURE DATA* Procedure information: This study was interpreted by [facility]. Study status: Routine. Transthoracic echocardiography. M-mode, complete 2D, complete spectral Doppler, and color Doppler. A Transthoracic Echocardiogram was performed. Scanning was performed from the parasternal, apical, subcostal, and suprasternal notch acoustic windows. Images were obtained using a Jack [id number] cardiac ultrasound machine. Image quality was adequate. The study was technically limited due to poor acoustic window availability and body habitus. Study completion: The patient tolerated the procedure well. There were no complications. *INDICATIONS AND HISTORY* Indications: Shortness of breath 786.05. *CARDIAC ANATOMY* Left ventricle: The cavity size was normal. Wall thickness was normal. Systolic function was normal. The estimated ejection fraction was 55-60%. Wall motion was normal; there were no regional wall motion abnormalities. Aortic valve: Trileaflet; normal thickness leaflets. Mobility was not restricted. Doppler: Transvalvular velocity was within the normal range. There was no stenosis. No regurgitation. Aorta: Aortic root: The aortic root was normal in size. Mitral valve: Structurally normal valve. Mobility was not restricted. Doppler: Transvalvular velocity was within the normal range. There was no evidence for stenosis. No regurgitation. Left atrium: The atrium was normal in size. Right ventricle: The cavity size was mildly dilated. Wall thickness was normal. Systolic function was normal. Pulmonic valve: Structurally normal valve. Doppler: Transvalvular velocity was within the normal range. There was no evidence for stenosis. No significant regurgitation. Tricuspid valve: Structurally normal valve. Doppler: Transvalvular velocity was within the normal range. There was no evidence for stenosis. No regurgitation. Pulmonary artery: The main pulmonary artery was normal-sized. Systolic pressure could not be accurately estimated. Right atrium: The atrium was normal in size. Pericardium: There was no pericardial effusion. Systemic veins: Inferior vena cava: The vessel was normal in size; the respirophasic diameter changes were in the normal range (greater than or equal to 50%); findings are consistent with normal central venous pressure. *MEASUREMENT TABLES* 2D measurements Normal Left ventricle Volume, ED, MOD, 1-plane 71 ml ------- Volume, ES, MOD, 1-plane 37 ml ------- Ejection fraction, MOD, 1-plane 48 % ------- Volume index, ED, MOD, 1-plane 31 ml/m^2 ------- Volume index, ES, MOD, 1-plane 16 ml/m^2 ------- Aorta Root diameter, ED 33 mm ------- Ascending aorta anterior-posterior 32 mm ------- diameter, S Left atrium Anterior-posterior dimension 38 mm ------- Anterior-posterior dimension index 1.68 cm/m^2 <2.2 Volume index, S 16.2 ml/m^2 ------- M-mode measurements Normal Left ventricle LV internal dimension, ED *63 mm 37-56 LV internal dimension, ES 43 mm ------- Fractional shortening 32 % 29-45 LV posterior wall, ED 8 mm 6-11 Septal/posterior wall ratio, ED 1.1 ------- Relative wall thickness, ED 0.3 <0.45 Volume, ED, Teichholz 201 ml ------- Volume, ES, Teichholz 83.1 ml ------- Ejection fraction, Teichholz *58.7 % 64-83 Volume index, ED, Teichholz 89 ml/m^2 ------- Volume index, ES, Teichholz 37 ml/m^2 ------- Wall mass 218.5 g ------- Wall mass index 96.4 g/m^2 ------- Mass/height 1.27 g/cm ------- Ventricular septum Septal thickness, ED 9 mm ------- Doppler measurements Normal Left ventricle IVRT *116 ms 60-100 Mitral valve Peak E-wave velocity 92.2 cm/s ------- Peak A-wave velocity 72.7 cm/s ------- Deceleration time *148 ms 150-230 Peak E/A ratio 1.27 ------- Legend: Mean values are shown as u=mean value. Asterisk (*) middleton values outside specified normal range. Electronically signed by Haroon Martinez MD [id number] Juan Carlos James MD CARDIAC ECHO ORDERAB LES * ECG REPORT - SCANNED (09/15/2011 13:16 EDT) 09/15/2011 13:1 6 EDT Narrative Transcriptions FARMWORKER FRUIT, SCAN 2 - 09/15/2011 13:16 EDT Scan 2 Bulb Packer PROCEDURE/MINOR TRACIE GICAL ORDERABLES documented in this encounter Visit Diagnoses Diagnosis HTN (hypertension)- Primary Unspecified essential hypertension SOB (shortness of breath) Shortness of breath documented in this encounter Discontinued Medications Medication Sig Discontinue Reason Start Date End Da te fluticasone (FLONASE) 50 mcg/Actuation nasal spray by Nasal route daily. 1 spray both nostrils bid for 1 month, then 2 sprays qd. 05/16/2010 09/10/2011 FLUTICASONE PROPIONATE (FLOVENT HFA INHL) Inhale 2 Puffs as directed 2 times daily. Pt states he usually uses this once a day. 05/09/2010 09/10/2011 metoprolol (LOPRESSOR) 50 mg tablet Take 0.5 Tabs by mouth 2 times daily. 07/17/2011 09/10/2011 METOPROLOL TARTRATE (LOPRESSOR ORAL) Take by mouth. 09/10/2011 naproxen (NAPROSYN) 500 mg tablet Take 500 mg by mouth 2 times daily. 09/10/2011 documented as of this encounter Historical Medications * This list may reflect changes made after this encounter. Medication Sig Dispensed Refills Start Date End Date lisinopril (PRINIVIL, ZESTRIL) 20 mg tablet Take 10 mg by mouth daily. [place]-3 Fatty Acids-Vitamin E (FISH OIL) 1,000 mg cap Take by mouth 2 times daily. 04/28/2012 added in this encounter Care Teams Gas Substation Operator Relationship Specialty Start Date End Date Angel Caballero MD [address] [place] [phone] PCP - General 04/26/09 documented as of this encounter
--- OUTSIDE RECORDS SUMMARY | 2023-12-29 16:40 | XMS_ITS | Encounter Summary ---
Author Organization [facility] Address [address] [place] [address] Care Team Providers Care Positive Printer Operator Name Role Phone Angel Caballero MD Primary Care Provider Reason for Visit * Reason Onset Date Comments Prior Auth, Other (i.e. radiology, etc.) 011 Encounter Details Date Type Department Care Team (Late st Contact Info) Description 05/13/2010 Telephone [facility] [address] [place] [address] Kong Hoyt MD [address] [place] [address] Prior Auth, Other (i.e. radiology, etc.) Social History Tobacco Use Types Packs/Day Years [...] encounter Miscellaneous Notes * Telephone Encounter - Theresa Miller - 05/13/2010 1329 EDT [employer] - [id number] SEPTOPLASTY/ CPT 77987 , [id number] NO SUKHI CARMONA, DOS 05.09.10 documented in this encounter Plan of Treatment Not on file documented as of this encounter Visit Diagnoses Not on filedocumented in this encounter Care Teams Positive Printer Operator Relationship Specialty Start Date End Date Angel Caballero MD [address] [place] [phone] PCP - General 04/26/09 documented as of this encounter
--- OUTSIDE RECORDS SUMMARY | 2023-12-29 16:40 | XMS_ITS | Clinical Summary ---
Author Organization [facility] Address [facility] [place] [address] Care Team Providers Care Export Coordinator Name Role Phone Angel Caballero MD Primary Care Provider +1- [phone] Allergies No known active allergies Medications Medication Sig Dispensed Refills Start Date End Date Status lisinopriL (Zestril) 10 mg tablet Take 10 mg by mouth daily. Active montelukast (Singulair) 10 mg tablet Take 10 mg by mouth nightly. Active fluticasone propionate (74) Inhale into the lungs. Active albuterol sulfate (PROAIR HFA INHL) Inhale into the lungs. Active multivitamin (THERAGRAN) Tablet Take 1 tablet by mouth daily. Active Social History Tobacco Use Types Packs/Day Years [...] Mass Index 29.05 07/14/2022 1:07 PM EDT Plan of Treatment Health Maintenance Due Date Last Done Comments CT Colonography 1964 Colonoscopy 1964 Colorectal Cancer Screening 1964 FIT DNA 1964 FIT 1964 Sigmoidoscopy (10 year) with FIT yearly 1964 Sigmoidoscopy 1964 HIV screen 02/12/1982 Hepatitis C Screening 02/12/1982 Lipid Screening 02/12/1982 Hepatitis B vaccine (0-59 yrs) (1) 02/12/1983 Tetanus/Diphtheria/Pertussis Vaccines (1 - Tdap) 02/12 Diabetes Screening (HgbA1C or Glucose) 2004 Zoster vaccine (1 of 2) 02/12/2014 Advance Directive 02/12/2019 Covid-19 Vaccine (1 - season) 2023 Influenza (Flu) vaccine (1 o f 1 - Influenza standard series) 10/24/2023 Care Teams Export Coordinator Relationship Specialty Start Date End Date Angel Caballero MD [address] [place], [place] [phone] PCP - General Family Medicine 07/14/22
--- OUTSIDE RECORDS SUMMARY | 2023-12-29 16:40 | XMS_ITS | Encounter Summary ---
Author Organization [facility] Address [address] [place] [address] Care Team Providers Care Operations Liaison Name Role Phone Angel Caballero MD Primary Care Provider Encounter Details Date Type Department Care Team (Late st Contact Info) Description 08/18/2011 Results Only [facility] Laboratory Services - [facility] ([facility]) [address] [place] [id number] Angel Caballero MD [address] [place] [address] [address] [place] [phone] Social History Tobacco Use Types Packs/Day Years [...] Procedure Name Priority Date/Time Associated Diagnosis Comments GROUP A STREP CULTURE Routine 08/18/2011 13:09 EDT documented in this encounter Results * PHARYNGITIS CULTURE (08/18/2011 13:09 EDT) Specimen Description Throat [facility] Result No group A beta streptococci isolated. Usual rom-pharyngeal keaton. [facility] Report Status 08/20/2011 Final [facility] Specimen from throat (specimen) 08/18/2011 13:09 EDT 08/18/2011 19:54 EDT Angel Caballero MD MICROBIOLOGY - GENERAL ORDERABLES Performing Organization Address City/State/[facility] Co de Phone Number [facility] [address] [place] [address] documented in this encounter Visit Diagnoses Not on filedocumented in this encounter Care Teams Operations Liaison Relationship Specialty Start Date End Date Angel Caballero MD [address] [place] [address] [address] [place] [phone] PCP - General 04/26/09 documented as of this encounter
--- OUTSIDE RECORDS SUMMARY | 2023-12-29 16:40 | XMS_ITS | Encounter Summary ---
Author Organization [facility] [place] [address] Care Team Providers Care Browning Processor Name Role Phone Angel Caballero MD Primary Care Provider [phone] [phone] Encounter Details Date Type Department Care Team (Late st Contact Info) Description 02/05/2023 [place] [address] Chris Sanon MD [facility] [address] [place] [address] Social History Tobacco Use Types Packs/Day Years [...] encounter Miscellaneous Notes * Telephone Encounter - Alisha Hinojosa RN - 02/05/2023 3:57 PM EST I spoke to Sam today, he called in to confirm we got his updated XR for Dr. Sanon to review,at the time Sam had his phone call with Dr. Sanon the imaging wasn't uploaded yet. Dr. Sanon had reviewed the imaging once uploaded and recommended just for Sam to follow up as needed. He is aware to call us if he has any concerns or worsening symptoms. Sam verbalized understanding as I read him Dr. Sanon's note regarding his XR. Plan: PRN documented in this encounter Plan of Treatment Not on file documented as of this encounter Visit Diagnoses Not on filedocumented in this encounter Care Teams Browning Processor Relationship Specialty Start Date End Date Angel Caballero MD [address] [address] PCP - General Family Medicine 07/14/22 documented as of this encounter
--- OUTSIDE RECORDS SUMMARY | 2023-12-29 16:40 | XMS_ITS | Encounter Summary ---
Author Organization [facility] Address [address] [place] [address] Care Team Providers Care Mail Sorting Supervisor Name Role Phone Angel Caballero MD Primary Care Provider Encounter Details Date Type Department Care Team (Latest Contact Info) Description 08/10/2011 12:20 EDT - 08/10/2011 23:59 EDT Hospital Encounter [facility] - [address] [place] [address] Vincent Sahu MD [address] [place] [phone] Discharge Disposition: Home or Self Care [...] Code Departure Means Destination Home or Self Skilled Nursing documented in this encounter Plan of Treatment Not on file documented as of this encounter Visit Diagnoses Not on filedocumented in this encounter Care Teams Mail Sorting Supervisor Relationship Specialty Start Date End Date Angel Caballero MD [address] [place] [phone] PCP - General 04/26/09 documented as of this encounter
--- OUTSIDE RECORDS SUMMARY | 2023-12-29 16:40 | XMS_ITS | Encounter Summary ---
Author Organization [facility] Address [address] [place] [address] Care Team Providers Care Customer Expert Name Role Phone Angel Caballero MD Primary Care Provider Encounter Details Date Type Department Care Team (Late st Contact Info) Description 06/17/2011 Abstract [facility] - [address] [place] [address] Jessica Velazquez NP [address] [place] [phone] Social History Tobacco Use Types Packs/Day Years [...] on filedocumented in this encounter Care Teams Customer Expert Relationship Specialty Start Date End Date Angel Caballero MD [address] [place] [phone] PCP - General 04/26/09 documented as of this encounter
--- OUTSIDE RECORDS SUMMARY | 2023-12-29 16:40 | XMS_ITS | Encounter Summary ---
Author Organization [facility] Address [facility] [place] [address] Care Team Providers Care Fitness Manager Name Role Phone Angel Caballero MD Primary Care Provider +1 [phone] Encounter Details Date Type Department Care Team (Latest Contact Info) Description 07/14/2022 Travel Social History Tobacco Use Types Packs/Day Years [...] on filedocumented in this encounter Care Teams Fitness Manager Relationship Specialty Start Date End Date Angel Caballero MD [address] [facility] [address] [place] [address] PCP - General Family Medicine 07/14/22 documented as of this encounter
--- OUTSIDE RECORDS SUMMARY | 2023-12-29 16:40 | XMS_ITS | Encounter Summary ---
Author Organization [facility] Address [facility] [place] [address] Care Team Providers Care Camera Assembler Name Role Phone Malvin Machuca DNP Primary Care Provider +1- [phone] Reason for Referral * Consultation (Routine) - Closed Specialty Diagnoses / Procedures Referred By Lanette russo Referred To Contact Orthopaedics Diagnoses Enchondroma of left humerus Malvin Machuca DNP [address] [place] [address] Chris Sanon MD [facility] [place] [address] Referral ID Status Reason Start Date Expiration Date V isits Requested Visits Authorized [id number] Closed Consult, Test & Treat PCP Updated and/or Approved 2022 2023 6 6 Encounter Details Date Type Department Care Team (Late st Contact Info) Description 2022 Transcribe Orders eD Incoming Referrals [phone] Malvin Machuca DNP [address] [place], [place] [address] Enchondroma of left humerus Social History Tobacco Use Types Packs/Day Years Used Date Smoking Tobacco: Never Assessed Sex and Gender Information Value Date Recorded Sex Assigned at Not on file Gender Identity Not on file Sexual Orientation Not on file documented as of this encounter Plan of Treatment Scheduled Referrals Name Type Priority Associated Diagnoses Order Schedule Referral to Orthopaedics Outpatient Referral Routine Enchondroma of left humerus Ordered: 2022 documented as of this encounter Visit Diagnoses Diagnosis Enchondroma of left humerus documented in this encounter Care Teams Camera Assembler Relationship Specialty Start Date End Date Malvin Machuca DNP PCP - General Family Medicine 02/13/22 07/13/22 documented as of this encounter
--- OUTSIDE RECORDS SUMMARY | 2023-12-29 16:40 | XMS_ITS | Encounter Summary ---
Author Organization [facility] Address [address] [place] [address] Care Team Providers Care Repairer Sash And Door Name Role Phone Angel Caballero MD Primary Care Provider Reason for Visit * Reason Comments Ankle Injury Pt states onset of p ain to lateral aspect of R ankle about 3 weeks ago, saw his PCP and diagnosed as likely tendonitis. Pt states pain has gotten worse, PCP has advised that if not improved they would order xray, pt called office today and referred to ED. Pt denies numbness or tingling in foot It just feels really tight and pain extends to foot. Encounter Details Date Type Department Care Team (Late st Contact Info) Description 06/01/2011 12:46 EDT - 06/01/2011 14:15 EDT Emergency [facility] Emergency Department - [address] [address] Errol Freed, PA-C [address] [place] [address], [address] [place] [address] Emergency, MD Denise Right ankle sprain Discharge Disposition: Home or Self Care Social [...] Sign Reading Time Taken Comments Blood Pressure 156/109 06/01/2011 1259 EDT Pulse 80 06/01/2011 1259 EDT Temperature 36 ??C (96.8 ??F) 06/01/2011 1259 EDT Respiratory Rate 16 06/01/2011 1259 EDT Oxygen Saturation 98% 06/01/2011 1259 EDT Inhaled Oxygen Concentration - - Weight - - Height - - Body Mass Index - - documented in this encounter Discharge Instructions * Discharge Instructions* Errol Freed PA - 06/01/2011 13:58 EDT Use brace during heavy activity Apply ice every 2-3 hours for 20 minutes; do not apply ice directly to skin Take ibuprofen 600 mg every 6-8 hours for pain and inflammation May take Tylenol 1000 mg every 4 hours up to 4 times/day for pain Gentle range of motion exercises Return if you have calf swelling, fever or chills * Attachments The following attachments cannot be sent through Care Everywhere. * ANKLE SPRAIN: EXERCISES (BULGARIAN) * ANKLE SPRAIN: AFTER YOUR VISIT (BULGARIAN) documented in this [...] Departure Means Destination Home or Self Care Walk-out Home documented in this encounter ED Notes * Suad Vaughan, SHYANNE - 06/01/2011 1414 EDT D/C instructions reviewed with patient. Follow up care address and phone numbers provided. Patient states understanding of d/c instructions. Pt d/c to home with . Pt stable at time of discharge. * Errol Freed PA - 06/01/2011 8228 EDT DOS: 06/01/2011 Chief Complaint Patient presents with ??? Ankle Injury Pt states onset of pain to lateral aspect of R ankle about 3 weeks ago, saw his PCP and diagnosed as likely tendonitis. Pt states pain has gotten worse, PCP has advised that if not improved they would order xray, pt called office today and referred to ED. Pt denies numbness or tingling in foot It just feels really tight and pain extends to foot. The patient is a 46 y.o. male who presents today with Ankle Injury HPI Comments: 46-year-old male presents with complaints of continued right ankle pain since he had sudden onset of pain 3 weeks ago, associated with lateral swelling. Patient has been using an ankle brace, and states his pain has improved, though not significantly and he has started to notice some tightness around his Leeds's tendon. Patient states he is weightbearing without difficulty and denies any numbness or tingling. He denies any fever, chills, swelling, ecchymosis, calf pain or calf swelling. There is no recent travel. He denies any recent trauma, falling or injury. The history is provided by the patient. Ankle Injury The incident occurred more than 1 week ago. Pertinent negatives include no numbness. Review of Systems Constitutional: Negative for fever and chills. Cardiovascular: Negative for leg swelling. Musculoskeletal: Negative for joint swelling and gait problem. Skin: Negative for color change and wound. Neurological: Negative for weakness and numbness. All other systems reviewed [...] ??C (96.8 ??F) Temp src: Tympanic Pulse: 80 Resp: 16 SpO2: 98 % BP: 156/109 mmHg BP Device: BP Machine O2 Device: None (Room air) Physical Exam Nursing note and vitals reviewed. Constitutional: He is oriented to person, place, and time. He appears well- developed and well-nourished. No distress. HENT: Head: Atraumatic. Eyes: EOM are normal. Neck: Normal range of motion. Cardiovascular: Normal rate, regular rhythm and intact distal pulses. Pulmonary/Chest: Effort normal. No respiratory distress. Musculoskeletal: Normal range of motion. Right knee: Normal. Right ankle: He exhibits normal range of motion, no swelling, no ecchymosis, no laceration and normal pulse. tenderness. AITFL tenderness found. No lateral malleolus, no medial malleolus, no CF ligament, no posterior TFL, no head of 5th metatarsal and no proximal fibula tenderness found. Achilles tendon exhibits no pain, no defect and normal Shannon's test results. Left ankle: Normal. Right lower leg: Normal. He exhibits no tenderness, no swelling and no deformity. Left lower leg: Normal. Right foot: Normal. He exhibits normal range of motion, no tenderness, no bony tenderness, no swelling, normal capillary refill and no deformity. Left foot: Normal. No laxity with anterior drawer or talar tilt No calf swelling or tenderness Neurological: He is alert and oriented to person, place, and time. He has normal strength. No sensory deficit. Skin: Skin is warm and dry. No erythema. Psychiatric: He has a normal mood and affect. His behavior is normal. Radiology orders: None Procedures ED Course: A medical screening exam was performed. Patient presents with continued right ankle pain after injury 3 weeks ago, during which time he had sudden onset pain and lateral swelling. Patient is advised to continue using the brace during activity, though was encouraged to do range of motion exercises. She has not been doing significant range of motion exercises. He is neurovascularly intact. Advised [id number] analgesics. Ambulatory upon discharge. Disposition: Discharged The patient's pain was managed to an adequate level weighing risk vs. benefit of further medications. Upon departure from the Emergency Department, the patient's pain was 5 on a zero to ten scale. Condition at departure from the Emergency Department: Good Discharge Prescriptions New Prescriptions No Discharge Prescriptions for this patient MDM Number of Diagnoses or Management Options Diagnosis management comments: 3 Amount and/or Complexity of Data Reviewed Review and summarize past medical records: yes 1. Right ankle sprain PCP: Angel Caballero MD Ben Smith was available for supervision. 06/01/2011 15:06 documented in this encounter Miscellaneous Notes * Scanned Note-Null - BODY WIRER, SCAN 2 - 06/02/2011 1282 EDT documented in this encounter Plan of Treatment Not on file documented as of this encounter Visit Diagnoses Diagnosis Right ankle sprain Sprain of ankle, unspecified site documented in this encounter Historical Medications * This list may reflect changes made after this encounter. Medication Sig Dispensed Refills Start Date End Date naproxen (NAPROSYN) 500 mg tablet Take 500 mg by mouth 2 times daily. 09/10/2011 added in this encounter Care Teams Repairer Sash And Door Relationship Specialty Start Date End Date Anegl Caballero MD [address] [place] [phone] PCP - General 04/26/09 documented as of this encounter
--- OUTSIDE RECORDS SUMMARY | 2023-12-29 16:40 | XMS_ITS | Encounter Summary ---
Author Organization [facility] Address [address] [place] [address] Care Team Providers Care Repairer Sash And Door Name Role Phone Angel Caballero MD Primary Care Provider Reason for Visit * Reason Comments Post-OP Follow Up Encounter Details Date Type Department Care Team (Late st Contact Info) Description 05/16/2010 11:00 EDT Office Visit [facility] ENT- [facility] [place] [address] [place], [place] [phone] Kong Hoyt MD [address] [place] [address] DNS (deviated nasal septum); Nasal polyposis; PAOLA (obstructive sleep apnea) Social History Tobacco Use Types Packs/Day Years Used Date Smoking Tobacco: Never Smokeless Tobacco: Never Alcohol Use Standard Drinks/Week Comments No 0 (1 standard drink = 0.6 oz pur e alcohol) Sex and Gender Information Value Date Recorded Sex Assigned at Not on file Gender Identity Not on file Sexual Orientation Not on file documented as of this encounter Ordered Prescriptions Prescription Sig Dispensed Refills Start Date End Da te fluticasone (FLONASE) 50 mcg/Actuation nasal spray by Nasal route daily. 1 spray both nostrils bid for 1 month, then 2 sprays qd. 1 Bottle 11 05/16/2010 09/10/2011 documented in this encounter Progress Notes * Kong Hoyt MD - 05/19/2010 1512 EDT DIVISION OF OTOLARYNGOLOGY PROGRESS/FOLLOWUP NOTE - 05/16/2010 PROBLEM: Deviated septum, turbinate hypertrophy. Nasal polyposis. PAOLA. S/P septoturbinoplasty, bilateral endoscopic polypectomy (05/09/10). SUBJECTIVE: Other than congestion, Mr Eng is doing well postoperatively. Compliant with postop instructions including prednisone taper, antibiotics. Minimal pain medications, as is required. Saline spray. Unable to tolerate irrigation. OBJECTIVE: Mr Eng is not in any acute distress. Anterior rhinoscopy: Nasal splints in place. He has some retained nonpurulent mucoid secretions. Sprayed with topical cophenylcaine spray. Suture release followed by removal of splints. Septum is midline. Turbinates are reduced. Secretions removed anteriorly with suction. PROCEDURE: Bilateral nasal endoscopy with cleaning and debridement performed after instilling topical cophenylcaine spray followed by cotton-soaked pledgets for 10 minutes. Left nasal endoscopy performed with a rigid 30-degree endoscope. Widely patent airway. Nasaopharynx widely patent. Residual MeroGel packing removed from the middle meatus with straight #8 suction. The underlying tissue is healing well. The middle turbinate is bolgerized to the septum. Right nasal endoscopy with 30-degree endoscope. Widely patent airway. Posterior secretions removed with #8 suction. Partially absorbed Nasopore packing removed with #8 suction. The middle meatus is widely patent. The underlying tissue is healing well. The middle turbinate is medialized. IMPRESSION: Satisfactory postoperative status. With a history of nasal polyposis there is a chance for recurrence and topical steroid nasal sprays are indicated prophylactically. DISCHARGE INSTRUCTIONS: 1. NeilMed saline rinse twice daily. Follow with 2. Fluticasone nasal spray 1 spray both nostrils for 1 month, then q. daily. PLAN: Follow up in 1 month, sooner if any difficulties. Electronically Signed by Kong Hoyt MD 05/19/2010 15:11 Kong Hoyt MD - Kong Hoyt MD - CHRISTIE Job ID: SM Doc ID: [id number] Ext Doc ID: [id number] cc: Angel Caballero MD * Kong Hoyt MD - 05/16/2010 1254 EDT This office note has been dictated. documented in this encounter Plan of Treatment Not on file documented as of this encounter Visit Diagnoses Diagnosis DNS (deviated nasal septum) Deviated nasal septum Nasal polyposis Unspecified nasal polyp PAOLA (obstructive sleep apnea) Obstructive sleep apnea (adult) (pediatric) documented in this encounter Care Teams Repairer Sash And Door Relationship Specialty Start Date End Date Angel Caballero MD [address] [place] [phone] PCP - General 04/26/09 documented as of this encounter
--- OUTSIDE RECORDS SUMMARY | 2023-12-29 16:40 | XMS_ITS | Encounter Summary ---
Author Organization [facility] Address [address] [place] [address] Care Team Providers Care Treating Engineer Name Role Phone Angel Caballero MD Primary Care Provider Encounter Details Date Type Department Care Team (Latest Contact Info) Description 01/08/2010 12:27 EST - 01/08/2010 23:59 EST Hospital Encounter [address] [address] Angel Caballero MD [address] [place] [phone] Discharge Disposition: Home or Self Care Social History Tobacco Use Types Packs/Day Years Used Date Smoking Tobacco: Never Assessed Sex and Gender Information Value Date Recorded Sex Assigned at Not on file Gender Identity Not on file Sexual Orientation Not on file documented as of this encounter Discharge Disposition Disposition Code Departure Means Destination Home or Self Shelter documented in this encounter Plan of Treatment Not on file documented as of this encounter Procedures Procedure Name Priority Date/Time Associated Diagnosis Comments CHEST PA AND LATERAL 01/08/2010 12:51 EST documented in this encounter Results * CHEST PA AND LATERAL (01/08/2010 12:51 EST) Anatomical Region Laterality Modality Other 01/08/2010 12:5 1 EST 01/08/2010 13:02 EST Narrative 01/08/2010 13:02 EST PA and lateral chest January 08, 2010 History: Cough, wheeze, shortness of breath, rule out pneumonia The lungs are hypoinflated making evaluation difficult. No definite focal infiltrate is seen. The cardiac silhouette is grossly normal in size and the pulmonary vascularity is normal. There is no evidence of pleural effusion or pneumothorax. There are mild degenerative changes in the spine. Impression: No definite evidence of pneumonia or other acute process. If symptoms persist, followup films would be helpful. Procedure Note 01/08/2010 PA and lateral chest January 08, 2010 History: Cough, wheeze, shortness of breath, rule out pneumonia The lungs are hypoinflated making evaluation difficult. No definite focal infiltrate is seen. The cardiac silhouette is grossly normal in size and the pulmonary vascularity is normal. There is no evidence of pleural effusion or pneumothorax. There are mild degenerative changes in the spine. Impression: No definite evidence of pneumonia or other acute process. If symptoms persist, followup films would be helpful. Angel Caballero MD IMG DIAGNOSTIC IMAGING ORDERABLES documented in this encounter Visit Diagnoses Not on filedocumented in this encounter Care Teams Treating Engineer Relationship Specialty Start Date End Date Angel Caballero MD [address] [place] [phone] PCP - General 04/26/09 documented as of this encounter
--- OUTSIDE RECORDS SUMMARY | 2023-12-29 16:40 | XMS_ITS | Encounter Summary ---
Author Organization [facility] Address [facility] [place] [address] Care Team Providers Care Retail Helper Name Role Phone Angel Caballero MD Primary Care Provider [phone] Encounter Details Date Type Department Care Team (Latest Contact Info) Description 07/14/2022 12:04 PM EDT - 07/14/2022 11:59 PM EDT Hospital Encounter XRay at [address] [place] [address] Chris Sanon MD [facility] ORTHOPA[facility] [place] [address] Bone lesion Discharge Disposition: Home Social History Tobacco Use Types Packs/Day Years [...] Sig Dispensed Refills Start Date End Date lisinopriL (Zestril) 10 mg tablet Take 10 mg by mouth daily. montelukast (Singulair) 10 mg tablet Take 10 mg by mouth nightly. fluticasone propionate (74) Inhale into the lungs. albuterol sulfate (PROAIR HFA INHL) Inhale into the lungs. multivitamin (THERAGRAN) Tablet Take 1 tablet by mouth daily. documented as of this encounter Plan of Treatment Not on file documented as of this encounter Procedures Procedure Name Priority Date/Time Associated Diagnosis Comments XR SHOULDER LEFT Routine 07/14/2022 12:1 5 PM EDT Bone lesion documented in this encounter Results * XR Shoulder Left (Generic) (07/14/2022 12:15 PM EDT) Anatomical Region Laterality Modality Shoulder Left Digital Radiogra phy Impressions 07/14/2022 2:12 PM EDT No radiographic correlate for the nonaggressive medial left humeral neck focus identified on comparison MRI. Considerations might include hemangioma/vascular ectasia or vascular red marrow. On the comparison MRI, there is internal macroscopic fat. Thank you for letting us participate in the care of this patient. ??If you are a health care provider and have any questions regarding this report, please contact the number below. ??For patients who have questions please contact the health youth care worker that requested your imaging first. ? Narrative 07/14/2022 2:12 PM EDT EXAMINATION: XR SHOULDER LEFT (GENERIC) CLINICAL HISTORY: left proximal humerus lesion TECHNIQUE: AP internal rotation, Grashey, scapular Y and axillary views LEFT shoulder COMPARISON: Radiographic January 14, 2022 and MRI February 03, 2022 FINDINGS: Bones are intact with normal mineralization. Specifically, no sclerosis, endosteal scalloping, cortical disruption or periostitis at the medial humeral neck. Mild narrowing of acromioclavicular and glenohumeral joints is accompanied by small osteophytes and subchondral cysts. Multilevel intervertebral disc height loss with endplate osteophytes at the thoracic spine as partially included in the ckxja-qn-[id number]. Soft tissues to include upper left lung are normal. Procedure Note Trisha Sosa MD - 07/14/2022 EXAMINATION: XR SHOULDER LEFT (GENERIC) CLINICAL HISTORY: left proximal humerus lesion TECHNIQUE: AP internal rotation, Grashey, scapular Y and axillary views LEFTshoulder COMPARISON: Radiographic January 14, 2022 and MRI February 03, 2022 FINDINGS: Bones are intact with normal mineralization. Specifically, no sclerosis, endosteal scalloping, cortical disruption or periostitis at the medialhumeral neck. Mild narrowing of acromioclavicular and glenohumeral joints is accompaniedby small osteophytes and subchondral cysts. Multilevel intervertebral discheight loss with endplate osteophytes at the thoracic spine as partially includedin the bvkqc-zx-zayf. Soft tissues to include upper left lung are normal. IMPRESSION No radiographic correlate for the nonaggressive medial left humeral neckfocus identified on comparison MRI. Considerations might includehemangioma/vascular ectasia or vascular red marrow. On the comparison MRI, there is internal macroscopic fat. Thank you for letting us participate in the care of this patient. If youare a health care provider and have any questions regarding this report,please contact the number below. For patients who have questions please contactthe health youth care worker that requested your imaging first. Chris Sanon MD IMG DX ORDERABLES documented in this encounter Visit Diagnoses Diagnosis Bone lesion Disorder of bone and cartilage, unspecified documented in this encounter Care Teams Retail Helper Relationship Specialty Start Date End Date Angel Caballero MD [address] [facility] [address] [place] [address] PCP - General Family Medicine 07/14/22 documented as of this encounter
--- OUTSIDE RECORDS SUMMARY | 2023-12-29 16:40 | XMS_ITS | Encounter Summary ---
Author Organization [facility] Address [facility] [address] Care Team Providers Care Boat Crew Deck Hand Name Role Phone Malvin Machuac DNP Primary Care Provider [phone] Encounter Details Date Type Department Care Team (Late st Contact Info) Description 02/20/2022 Orders [place] [address] Chris Sanon MD [facility] [address] ORTHOPAEDIC [place] [address] Bone lesion Social History Tobacco Use Types Packs/Day Years Used Date Smoking Tobacco: Never Assessed Sex and Gender Information Value Date Recorded Sex Assigned at Not on file Gender Identity Not on file Sexual Orientation Not on file documented as of this encounter Plan of Treatment Not on file documented as of this encounter Results * XR Shoulder Left [...] who have questions please contact the health home visit field care manager that requested your imaging first. ? Electronically signed by: Trisha Sosa MD, [facility] ([phone]), at 07/14/2022 2:12 PM Narrative 07/14/2022 2:12 PM EDT EXAMINATION: XR [...] thoracic spine as partially included in the ucaxo-py-ziam. Soft tissues to include upper left lung [...] the thoracic spine as partially includedin the qijsn-eh-nlag. Soft tissues to include upper left lung [...] patients who have questions please contactthe health home visit field care manager that requested your imaging first. Electronically signed by: Trisha Sosa MD, [facility]([phone]), at 07/14/2022 2:12 PM Chris Sanon MD IMG DX ORDERABLES documented in this encounter Visit Diagnoses Diagnosis Bone lesion Disorder of bone and cartilage, unspecified Bone lesion Disorder of bone and cartilage, unspecified documented in this encounter Care Teams Boat Crew Deck Hand Relationship Specialty Start Date End Date Malvin Machuca DNP PCP - General Family Medicine 02/13/22 07/13/22 documented as of this encounter
--- OUTSIDE RECORDS SUMMARY | 2023-12-29 16:40 | XMS_ITS | Encounter Summary ---
Author Organization [facility] Address [address] [place] [address] Care Team Providers Care Manager Intensive Care Unit Name Role Phone Unavailable Primary Care Provider Unavailabl e Encounter Details Date Type Department Care Team (Late st Contact Info) Description 08/30/2007 Before PRISM Converted Visit (Maple) [facility] - Maple conversion [address] [place] [address] Kong Hoyt MD [address] [place] [id number] Social History Tobacco Use Types Packs/Day Years Used Date Smoking Tobacco: Never Assessed Sex and Gender Information Value Date Recorded Sex Assigned at Not on file Gender Identity Not on file Sexual Orientation Not on file documented as of this encounter Progress Notes * Kong Hoyt MD - 11/23/2008 0844 EDT DIVISION OF OTOLARYNGOLOGY August 31, 2007 Blanche Mathew NP [address] [address] DOS: 08/30/07 Dear Blanche: Thank you for asking me to assess this 42-year-old gentleman in consultation for a two year historyof bothersome high-pitched tinnitus. It is greater on the left side. He has implemented masking at the bedside, which is somewhat helpful. He has mild bothersome subjective hearing loss. He is also bothered by frequent headaches. He denies any vertigo. He has no history of recurrent chronic otitis media, head or ear trauma. He does have significant history of noise exposure. Other than obesity, he is a healthy nonsmoker and nondrinker. He takes Tylenol or Motrin for headaches. He is not on any regular prescription medications. He has no known drug allergies. System review is negative. Examination: This is a 42-year-old gentleman who appears slightly anxious with a flat appearing affect. Both ears revealed normal tympanic membrane and middle ear space without middle ear fluid. Nasal cavity, oral cavity, pharynx and neck were clear. There was no tenderness to palpation of the temporomandibular joint region. Audiogram revealed bilateral high frequency mild to moderate sensorineural hearing loss consistent with noise exposure. Speech discrimination was excellent bilaterally. 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 Unfortunately, as you know, this is a very difficult problem to deal with unless one can identify a reversible etiology such as excessive aspirin , NSAID, excessive cafiene or nicotine. I suspect that tinnitus is aggravated by an underlying stress disorder and/ or depression, which was discussed with Mr. Eng today as well. Discussion/Recommendation: I reviewed my impressions and findings. I suggested the followin. Continue masking at the bedside. 2. Consider MRI of the head which was actually suggested by another ENT but declined. I have a verylow index of suspicion that there is any underlying intracranial abnormality including an acoustic neuroma. He declined the MRI again today. He may wish to reconsider at a future date. 3. Trial of tinnitus formula which is a compounded gingko biloba and zinc. Antidotal reports of improvement with this medication after three to four months have been encouraging. 4. Consideration for psychiatric evaluation and/or a trial of pharmacotherapy for stress/anxiety disorder may be a reasonable contingency plan. Blanche, I always appreciate the opportunity to participate in the care of your patients. Please let me know if you have any questions or concerns. Kindest regards, Signed by Kong Hoyt MD 09/26/2007 08:43 Kong Hoyt MD - Kong Hoyt MD - TREE Job ID: [id number] Doc ID: [id number] cc: Blanche Mathew NP and audiogram * documented in this encounter Plan of Treatment Not on file documented as of this encounter Visit Diagnoses Not on filedocumented in this encounter
--- OUTSIDE RECORDS SUMMARY | 2023-12-29 16:40 | XMS_ITS | Encounter Summary ---
Author Organization [facility] Address [address] [place] [address] Care Team Providers Care Certified Alcohol Drug Counselor Name Role Phone Angel Bass MD Primary Care Provider Encounter Details Date Type Department Care Team (Late st Contact Info) Description 05/09/2010 Results Only Used for SCHED Conversion Only Kong Hoyt MD [address] [place] [address] Social History Tobacco Use Types [...] Procedure Name Priority Date/Time Associated Diagnosis Comments SURGICAL PATHOLOGY Routine 05/09/2010 0:00 EDT documented in this encounter Results * SURGICAL PATHOLOGY (05/09/2010 0:00 EDT) Pathology Report: SURGICAL PATHOLOGY REPORT ? Reports generated via electronic interface contain original data; ? however they are lacking the format of the original report. ? Caution should be taken when reading/interpreti ng unformatted reports. ? Name: ? MARSHAL, EDWARD R ? Accession #: ? [id number] ? : ? 1965 (Age: 45) ??M ? Collect Date: ? 05/09/2010 ? Location: ? [facility] ? Receive Date: ? 05/09/2010 ? Provider: KONG HOYT MD ? Copy to: ANGEL BASS MD ? Final Pathologic Diagnosis: ? A. ?Nasal polyp, right, excision: ? 1. ?Polypoid chronic rhinitis with stromal eosinophils. ? B. ?Nasal polyp, left, excision: ? 1. ?Polypoid chronic rhinitis with stromal eosinophils. ? Document reviewed and electronically signed by: ? CHRIS SWIFT MD ? Report ??Date: 05/12/2010 15:06 ? By the signature above, the attending physician certifies that he/she has ? personally conducted a gross and/or microscopic examination of the described ? specimens and rendered or confirmed the above diagnosis. ? Specimen(s) Received: ? A. ?Right nasal polyp ? B. ? Left nasal polyp ? Clinical History: ? Right nasal polyp ? Gross Description: ? Received in normal saline labelled Sam Eng and right nasal polyp is a 2.2 x 1.2 x 0.4 cm jolly-yellow, semi-translucent, pedunculated, polypoid ?? tissue. ??The resection margin is inked black. ??The specimen is bisected to ? reveal a britton-yellow, edematous, glistening cut surface. ??The specimen is ? entirely submitted as (A). ? Received in normal saline labelled Sam Eng and left nasal polyp is a 1.4 x 0.4 x 0.4 cm yellow-pink, polypoid tissue, without a grossly discernible ?? resection margin. ??The specimen is bisected to reveal a britton-yellow, glistening ?? cut surface. ??The specimen is entirely submitted as (B). ??(Anirudh Jones/cathi ? End of Report ? MANDA PINON 05/09/2010 05/09/2010 11: 29 EDT Kong Hoyt MD PATHOLOGY [facility] [address] [place] [address] documented in this encounter Visit Diagnoses Not on filedocumented in this encounter Care Teams Certified Alcohol Drug Counselor Relationship Specialty Start Date End Date Angel Bass MD [address] [place] [phone] PCP - General 04/26/09 documented as of this encounter
--- OUTSIDE RECORDS SUMMARY | 2023-12-29 16:40 | XMS_ITS | Encounter Summary ---
Author Organization [facility] Address [address] [place] [address] Care Team Providers Care Bods Developer Name Role Phone Angel Caballero MD Primary Care Provider Reason for Visit * Reason Onset Date Comments Results 03/20/2010 Encounter Details Date Type Department Care Team (Late st Contact Info) Description 03/20/2010 Telephone [facility] Sleep Program - [address] [phone] Gudelia Huggins MD [address] [place] [address], [address] [place] [address] Results Social History Tobacco Use Types Packs/Day [...] encounter Miscellaneous Notes * Telephone Encounter - Gudelia Huggins - 03/20/2010 1000 EST Left message regard Spirometry results Continue Flovent & use CPAP, F/u as planned, bring equipment documented in this encounter Plan of Treatment Not on file documented as of this encounter Visit Diagnoses Not on filedocumented in this encounter Care Teams Bods Developer Relationship Specialty Start Date End Date Angel Caballero MD [address] [place] [phone] PCP - General 04/26/09 documented as of this encounter
--- OUTSIDE RECORDS SUMMARY | 2023-12-29 16:40 | XMS_ITS | Encounter Summary ---
Author Organization [facility] Address [address] [place] [address] Care Team Providers Care Funeral Planner Name Role Phone Angel Caballero MD Primary Care Provider Reason for Visit * Reason Comments Headache Arrives w/ EMS w/ c/ o sudden onset of severe headache, some dizziness, felt hot/face flushed. BP 190-200/ on scene, decr to 150/ then began to increase w/ transport. Pts headache increased w/ increase of BP enroute. Arrives w/ 8/10 headache, face flushed. Encounter Details Date Type Department Care Team (Late st Contact Info) Description 07/16/2011 20:10 EDT - 07/17/2011 3:[address] [facility] Emergency Department - [address] [id number] Torey Cameron MD MPH [address] [place] [phone] Zully Posey MD [address] [place] [phone] Denise Paz MD Hypertension; Headache Discharge Disposition: Home or Self Care [...] Sign Reading Time Taken Comments Blood Pressure 125/88 07/17/2011 0330 EDT Pulse - - Temperature 36.6 ??C (97.9 ??F) 07/16/2011 2 312 EDT orig temp never got recorded Respiratory Rate 23 07/17/2011 0330 EDT Oxygen Saturation 98% 07/17/2011 033 0 EDT Inhaled Oxygen Concentration - - Weight 111.1 kg (245 lb) 07/16/2011 202 8 EDT Height 172.7 cm (5' 8) 07/16/20112027 EDT Body Mass Index 37.25 07/16/20112027 EDT documented in this encounter Discharge Instructions * Discharge Instructions* Zully Posey MD - 07/17/2011 3:39 EDT Metoprolol as prescribed Motrin 600 mg every 6 hours with food and plenty of clear fluids. Tylenol in addition as needed. For severe pain, dilaudid in addition as needed. Dilaudid is a sedating medication, so you should not drive while taking it. Take a stool softener while on the dilaudid as it is constipating. * Attachments The following attachments cannot be sent through Care Everywhere. * HEADACHE: AFTER YOUR VISIT TO THE EMERGENCY ROOM (BULGARIAN) * LUMBAR PUNCTURE: WHAT TO EXPECT AT HOME (BULGARIAN) * HIGH BLOOD PRESSURE: AFTER YOUR VISIT (BULGARIAN) documented in this [...] daily. 09/10/2011 documented as of this encounter Ordered Prescriptions Prescription Sig Dispensed Refills Start Date End Da te metoprolol (LOPRESSOR) 50 mg tablet Take 0.5 Tabs by mouth 2 times daily. 30 Tab 0 07/17/2011 09/10/2011 documented in this encounter Discharge Disposition Disposition Code Departure Means Destination Home or Self Care Walk-out Home documented in this encounter Progress Notes * Mauricio Ortega, SHYANNE - 07/22/2011 0845 EDTQuick Note: I have reviewed the labs/results. No action needed. documented in this encounter Procedure Notes * REIMBURSEMENT AUDITOR, SCAN 2 - 07/22/2011 0521 EDTAssociated Order(s): ECG REPORT - SCANNED documented in this encounter ED Notes * Zully Posey MD - 07/17/2011 0844 EDT Patient received in signout pending LP results. LP results reviewed and unremarkable. Headache is much improved at this time. Reviewed the patient's old medications. Told Dr. Cameron that he was on 50 mg previously. I see 25 mg. Written for 25 mg twice a day. We will follow closely with his primary care physician. Symptoms to return for given to the patient. Patient out of the plan. Discharged home. * Suad Vaughan RN - 07/17/2011 0355 EDT D/C instructions reviewed with patient. Follow up care address and phone numbers provided. Patient states understanding of d/c instructions. Prescriptions and starter pack medication reviewed with and given to patient. VSS. PIV removed. Pt d/c to home. Pt stable at time of discharge. Pt being driven home by pts . * Suad Vaughan RN - 07/17/2011 0333 EDT Taty CASSIDY at bedside. * Torey Cameron MD - 07/17/2011 0203 EDTAssociated Order(s): LUMBAR PUNCTURE DOS: 07/16/2011 Chief Complaint Patient presents with ??? Headache Arrives w/ EMS w/ c/o sudden onset of severe headache, some dizziness, felt hot/face flushed. BP 190-200/ on scene, decr to 150/ then began to increase w/ transport. Pts headache increased w/ increase of BP enroute. Arrives w/ 8/10 headache, face flushed. The patient is a 46 y.o. male who presents today with Headache HPI Comments: This is a 46-year-old man with a history of hypertension who presents to the ED with sudden onset of severe headache while at work tonight. 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 He denies any trauma or fevers with this. He had one episode of headachesimilar to this that he was recommended to get a lumbar puncture but refused at that time. He had previously been on metoprolol for blood pressure control around the time of his surgery but has stopped that medication and has been trying to manage his blood pressure with diet. The history is provided by the patient and the spouse. Headache This is a new problem. The problem has not changed since onset.The onset was sudden. The headache is associated with bright light. The pain is located in the parietal, frontal and temporal region. The quality of the pain is described as throbbing. The pain is at a severity of 8/10. The pain does not radiate. Associated symptoms include malaise/fatigue and nausea. Pertinent negatives include no fever, no chest pressure, no near-syncope, no syncope, no shortness of breath and no vomiting. He has tried nothing for the symptoms. Review of Systems Constitutional: Positive for malaise/fatigue. Negative for fever and chills. HENT: Negative for sore throat, neck pain, neck stiffness and sinus pressure. Eyes: Negative for visual disturbance. Respiratory: Negative for shortness of breath. Cardiovascular: Negative for chest pain, leg swelling, syncope and near-syncope. Gastrointestinal: Positive for nausea. Negative for vomiting, abdominal pain and diarrhea. Genitourinary: Negative for dysuria. Musculoskeletal: Negative for back pain. Skin: Negative for rash. Neurological: Positive for dizziness and headaches. Negative for syncope. Psychiatric/Behavioral: Negative for confusion. All other systems [...] Thyroid Disease Neg Hx Vital Signs Temp: 36.6 ??C (97.9 ??F) (orig temp never got recorded) Temp src: Tympanic Heart Rate: 72 BPM Resp: 19 SpO2: 97 % BP: 128/70 mmHg BP Device: BP Machine Patient Position: Sitting BP Cuff Location: Left arm O2 Device: None (Room air) Physical Exam Nursing note and vitals reviewed. Constitutional: He is oriented to person, place, and time. He appears well- developed and well-nourished. He appears distressed. HENT: Head: Normocephalic and atraumatic. Right Ear: External ear normal. Left Ear: External ear normal. Nose: Nose normal. Mouth/Throat: Oropharynx is clear and moist. Eyes: Conjunctivae and EOM are normal. Pupils are equal, round, and reactive to light. Right eye exhibits no discharge. Left eye exhibits no discharge. Neck: Normal range of motion. Neck supple. No JVD present. No tracheal deviation present. No thyromegaly present. Cardiovascular: Normal rate, regular rhythm, normal heart sounds and intact distal pulses. No murmur heard. Pulmonary/Chest: Effort normal and breath sounds normal. No respiratory distress. He has no wheezes. Abdominal: Soft. Bowel sounds are normal. There is no tenderness. Musculoskeletal: Normal range of motion. He exhibits no edema and no tenderness. Neurological: He is alert and oriented to person, place, and time. He has normal strength and normal reflexes. He is not disoriented. No cranial nerve deficit or sensory deficit. Coordination normal. Skin: Skin is warm and dry. No rash noted. He is not diaphoretic. Psychiatric: He has a normal mood and affect. His behavior is normal. Radiology orders: CT HEAD WO CONTRAST: No acute hemorrhage EKG 12-LEAD Final Result: Normal sinus rhythm rate of [address] changes Lumbar Puncture Date/Time: 07/16/2011 23:45 Performed by: TOREY CAMERON Authorized by: TOREY CAMERON Consent: Verbal consent obtained. Risks and benefits: risks, benefits and alternatives were discussed Consent given by: patient Indications: evaluation for subarachnoid hemorrhage Anesthesia: local infiltration Local anesthetic: lidocaine 1% without epinephrine Anesthetic total: 5 ml Patient sedated: no Preparation: Patient was prepped and draped in the usual sterile fashion. Lumbar space: L3-L4 interspace Patient's position: left lateral decubitus Needle gauge: 22 Needle length: 3.5 in Number of attempts: 1 Opening pressure: 27 cm H2O Fluid appearance: clear Tubes of fluid: 4 Total volume: 5 ml Post-procedure: adhesive bandage applied Patient tolerance: Patient tolerated the procedure well with no immediate complications. Labs Reviewed POCT URINE DIPSTICK - Abnormal; Notable for the following: Protein Trace (*) All other components within normal limits ED Course: A medical screening exam was performed. The patient arrives with sudden onset of headache that was most severe at its onset and a history of one similar previous headache without much workup. In concerned about subarachnoid hemorrhage and have recommended a CT and LP. The patient's blood pressure was addressed with labetalol followed by oral metoprolol with improvement in his blood pressure as well as improvement in his symptoms. I performed a lumbar puncture which had an elevated opening pressure of 27 mm but did not show signs of cloudiness or xanthochromia on gross evaluation. The patient was signed out to my colleague awaiting results of the lumbar puncture with anticipated disposition home should the results be normal. The patient will need to followup with his primary care doctor toaddress his blood pressure management. For the short-term I recommended to the patient restarting Toprol. Medications sodium chloride (NS) 0.9 % 1,000 mL BOLUS (0 mL Intravenous Completed 07/16/112309) labetalol (TRANDATE) injection 10 mg (10 mg Intravenous Given 07/16/112120) ondansetron (PF) (ZOFRAN) injection 4 mg (4 mg Intravenous Given 07/16/112155) HYDROmorphone (PF) (DILAUDID) 1 mg/mL injection 1 mg (1 mg Intravenous Given 07/16/112155) metoCLOPramide (REGLAN) injection 10 mg (10 mg Intravenous Given 07/16/112154) HYDROmorphone (PF) (DILAUDID) 1 mg/mL injection 1 mg (1 mg Intravenous Given 07/16/112355) metoprolol (LOPRESSOR) tablet 50 mg (50 mg Oral Given 07/16/112357) Disposition: No disposition on file The patient's pain was managed to an adequate level weighing risk vs. benefit of further medications. Upon departure from the Emergency Department, the patient's pain was 2 on a zero to ten scale. Condition at departure from the Emergency Department: Improved Discharge Prescriptions New Prescriptions No Discharge Prescriptions for this patient MDM Number of Diagnoses or Management Options Diagnosis management comments: 5 Amount and/or Complexity of Data Reviewed Clinical lab tests: ordered and reviewed Tests in the radiology section of CPT??: ordered and reviewed Tests in the medicine section of CPT??: ordered and reviewed Discussion of test results with the performing providers: yes (radiology) 1. Hypertension 2. Headache PCP: Angel Caballero MD 07/17/2011 2:23 * Nereyda Sorenson RN - 07/16/2011 0219 EDT Pt ambulated to br independently, gait steady. Denies dizziness. * Nereyda Sorenson, RN - 07/16/2011 9180 EDT Pt given fan as requested. Denies further needs at this time. * Shreyas Mccarthy - 07/16/20110 EDT Blood drawn via saline lock per protocol, rainbow tube(s) sent to lab per order. IV and blood draw completed by JENNIFER Velázquez under my direct supervision. * Jeana Tidwell RN - 07/16/20112101 EDT 12 Lead EKG Performed by JEANA TIDWELL RN and shown to Torey Cameron MD documented in this encounter Miscellaneous Notes * Scanned Note-Null - REIMBURSEMENT AUDITOR, SCAN 2 - 07/23/2011 2331 EDT * Scanned Note-Null - REIMBURSEMENT AUDITOR, SCAN 2 - 07/21/2011 0731 EDT * Scanned Note-Null - REIMBURSEMENT AUDITOR, SCAN 2 - 07/17/2011 0055 EDT documented in this encounter Plan of Treatment Not on file documented as of this encounter Procedures Procedure Name Priority Date/Time Associated Diagnosis Comments ECG REPORT - SCANNED 07/22/2011 5:21 EDT LUMBAR PUNCTURE BEDSIDE OR CLINIC PERFORMED Routine 07/17/2011 2:23 EDT EKG 12-LEAD STAT 07/17/2011 2:15 EDT BACTERIAL CULTURE/SMEAR, FLUID Routine 07/17/2011 1:45 EDT CELL COUNT TUBE 1, CSF - RBC ONLY, INDICATED FOR A BLOODY TAP Routine 07/17/2011 1:40 EDT CELL COUNT,CSF Routine 07/17/2011 1:40 EDT TOTAL PROTEIN, CSF Routine 07/17/2011 1:40 EDT GLUCOSE CSF Routine 07/17/2011 1:40 EDT POCT URINE DIPSTICK, CLINITEK STAT 07/16/2011 22:[address] HEAD WO CONTRAST 07/16/2011 2 1:13 EDT PROFILE ED CARDIAC PACK STAT 07/16/2011 21:03 EDT documented in this encounter Results * ECG REPORT - SCANNED (07/22/2011 5:21 EDT) 07/22/2011 5:21 EDT Narrative Transcriptions REIMBURSEMENT AUDITOR, SCAN 2 - 07/22/2011 5:21 EDT Scan 2 Tag Writer PROCEDURE/MINOR TRACIE GICAL ORDERABLES * LUMBAR PUNCTURE (07/17/2011 2:23 EDT) Narrative FA EKG - 07/17/2011 2:23 EDT Torey Cameron MD ? 07/17/2011 ??2:23 DOS: 07/16/2011 Chief Complaint Patient presents with ? ? Headache ??Arrives w/ EMS w/ c/o sudden onset of severe headache, some dizziness, felt hot/face flushed. BP 190-200/ on scene, decr to 150/ then began to increase w/ transport. Pts headache increased w/ increase of BP enroute. Arrives w/ 10/01 headache, face flushed. The patient is a 46 y.o. male who presents today with Headache HPI Comments: This is a 46-year-old man with a history of hypertension who presents to the ED with sudden onset of severe headache while at work tonight. 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 He denies any trauma or fevers with this. He had one episode of headache similar to this that he was recommended to get a lumbar puncture but refused at that time. He had previously been on metoprolol for blood pressure control around the time of his surgery but has stopped that medication and has been trying to manage his blood pressure with diet. The history is provided by the patient and the spouse. Headache This is a new problem. The problem has not changed since onset.The onset was sudden. The headache is associated with bright light. The pain is located in the parietal, frontal and temporal region. The quality of the pain is described as throbbing. The pain is at a severity of 8/10. The pain does not radiate. Associated symptoms include malaise/fatigue and nausea. Pertinent negatives include no fever, no chest pressure, no near-syncope, no syncope, no shortness of breath and no vomiting. He has tried nothing for the symptoms. Review of Systems Constitutional: Positive for malaise/fatigue. Negative for fever and chills. HENT: Negative for sore throat, neck pain, neck stiffness and sinus pressure. ?? Eyes: Negative for visual disturbance. Respiratory: Negative for shortness of breath. ?? Cardiovascular: Negative for chest pain, leg swelling, syncope and near-syncope. Gastrointestinal: Positive for nausea. Negative for vomiting, abdominal pain and diarrhea. Genitourinary: Negative for dysuria. Musculoskeletal: Negative for back pain. Skin: Negative for rash. Neurological: Positive for dizziness and headaches. Negative for syncope. Psychiatric/Behavioral: Negative for confusion. All other systems reviewed and are negative. Past Medical History Diagnosis Date ? ? Heart attack 07/2006 ? ? CAD (coronary artery disease) ? Unspecified sleep apnea ? High blood pressure ? Hearing loss ?? Past Surgical History Procedure Date ? ? [...] Disease Neg Hx ?? Vital Signs Temp: 36.6 ??C (97.9 ??F) (orig temp never got recorded) Temp src: Tympanic Heart Rate: 72 BPM Resp: 19 SpO2: 97 % BP: 128/70 mmHg BP Device: BP Machine Patient Position: Sitting BP Cuff Location: Left arm O2 Device: None (Room air) Physical Exam Nursing note and vitals reviewed. Constitutional: He is oriented to person, place, and time. He appears well-developed and well-nourished. He appears distressed. HENT: Head: Normocephalic and atraumatic. Right Ear: External ear normal. Left Ear: External ear normal. Nose: Nose normal. Mouth/Throat: Oropharynx is clear and moist. Eyes: Conjunctivae and EOM are normal. Pupils are equal, round, and reactive to light. Right eye exhibits no discharge. Left eye exhibits no discharge. Neck: Normal range of motion. Neck supple. No JVD present. No tracheal deviation present. No thyromegaly present. Cardiovascular: Normal rate, regular rhythm, normal heart sounds and intact distal pulses. ?? No murmur heard. Pulmonary/Chest: Effort normal and breath sounds normal. No respiratory distress. He has no wheezes. Abdominal: Soft. Bowel sounds are normal. There is no tenderness. Musculoskeletal: Normal range of motion. He exhibits no edema and no tenderness. Neurological: He is alert and oriented to person, place, and time. He has normal strength and normal reflexes. He is not disoriented. No cranial nerve deficit or sensory deficit. Coordination normal. Skin: Skin is warm and dry. No rash noted. He is not diaphoretic. Psychiatric: He has a normal mood and affect. His behavior is normal. Radiology orders: CT HEAD WO CONTRAST: No acute hemorrhage EKG 12-LEAD Final Result: Normal sinus rhythm rate of [address] changes ?? Lumbar Puncture Date/Time: 07/16/2011 23:45 Performed by: TOREY CAMERON Authorized by: TOREY CAMERON Consent: Verbal consent obtained. Risks and benefits: risks, benefits and alternatives were discussed Consent given by: patient Indications: evaluation for subarachnoid hemorrhage Anesthesia: local infiltration Local anesthetic: lidocaine 1% without epinephrine Anesthetic total: 5 ml Patient sedated: no Preparation: Patient was prepped and draped in the usual sterile fashion. Lumbar space: L3-L4 interspace Patient's position: left lateral decubitus Needle gauge: 22 Needle length: 3.5 in Number of attempts: 1 Opening pressure: 27 cm H2O Fluid appearance: clear Tubes of fluid: 4 Total volume: 5 ml Post-procedure: adhesive bandage applied Patient tolerance: Patient tolerated the procedure well with no immediate complications. Labs Reviewed POCT URINE DIPSTICK - Abnormal; Notable for the following: ?? Protein Trace (*) ?? All other components within normal limits ED Course: ?? A medical screening exam was performed. The patient arrives with sudden onset of headache that was most severe at its onset and a history of one similar previous headache without much workup. In concerned about subarachnoid hemorrhage and have recommended a CT and LP. The patient's blood pressure was addressed with labetalol followed by oral metoprolol with improvement in his blood pressure as well as improvement in his symptoms. I performed a lumbar puncture which had an elevated opening pressure of 27 mm but did not show signs of cloudiness or xanthochromia on gross evaluation. ??The patient was signed out to my colleague awaiting results of the lumbar puncture with anticipated disposition home should the results be normal. The patient will need to followup with his primary care doctor to address his blood pressure management. For the short-term I recommended to the patient restarting Toprol. Medications sodium chloride (NS) 0.9 % 1,000 mL BOLUS (0 mL Intravenous Completed 07/16/112309) labetalol (TRANDATE) injection 10 mg (10 mg Intravenous Given 07/16/112120) ondansetron (PF) (ZOFRAN) injection 4 mg (4 mg Intravenous Given 07/16/112155) HYDROmorphone (PF) (DILAUDID) 1 mg/mL injection 1 mg (1 mg Intravenous Given 07/16/112155) metoCLOPramide (REGLAN) injection 10 mg (10 mg Intravenous Given 07/16/112154) HYDROmorphone (PF) (DILAUDID) 1 mg/mL injection 1 mg (1 mg Intravenous Given 07/16/112355) metoprolol (LOPRESSOR) tablet 50 mg (50 mg Oral Given 07/16/112357) Disposition: No disposition on file The patient's pain was managed to an adequate level weighing risk vs. benefit of further medications. Upon departure from the Emergency Department, the patient's pain was 2 on a zero to ten scale. Condition at departure from the Emergency Department: Improved Discharge Prescriptions New Prescriptions No Discharge Prescriptions for this patient MDM Number of Diagnoses or Management Options Diagnosis management comments: 5 Amount and/or Complexity of Data Reviewed Clinical lab tests: ordered and reviewed Tests in the radiology section of CPT??: ordered and reviewed Tests in the medicine section of CPT??: ordered and reviewed Discussion of test results with the performing providers: yes (radiology) 1. Hypertension ?? 2. Headache ?? PCP: ??Angel Caballero MD ?? 07/17/2011 2:23 Procedure Note Torey Cameron MD - 07/17/2011 2:03 EDT DOS: 07/16/2011 Chief Complaint Patient presents with ? ? Headache Arrives w/ EMS w/ c/o sudden onset of severe headache, some dizziness,felt hot/face flushed. BP 190-200/ on scene, decr to 150/ then began toincrease w/ transport. Pts headache increased w/ increase of BP enroute.Arrives w/ 8/10 headache, face flushed. The patient is a 46 y.o. male who presents today with Headache HPI Comments: This is a 46-year-old man with a history of hypertension whopresents to the ED with sudden onset of severe headache while at worktonight. 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 He denies any trauma or fevers with this. He had one episode ofheadache similar to this that he was recommended to get a lumbar puncturebut refused at that time. He had previously been on metoprolol for bloodpressure control around the time of his surgery but has stopped thatmedication and has been trying to manage his blood pressure with diet. The history is provided by the patient and the spouse. Headache This is a new problem. The problem has not changed since onset.The onsetwas sudden. The headache is associated with bright light. The pain islocated in the parietal, frontal and temporal region. The quality of thepain is described as throbbing. The pain is at a severity of 8/10. Thepain does not radiate. Associated symptoms include malaise/fatigue andnausea. Pertinent negatives include no fever, no chest pressure, nonear-syncope, no syncope, no shortness of breath and no vomiting. He hastried nothing for the symptoms. Review of Systems Constitutional: Positive for malaise/fatigue. Negative for fever andchills. HENT: Negative for sore throat, neck pain, neck stiffness and sinuspressure. Eyes: Negative for visual disturbance. Respiratory: Negative for shortness of breath. Cardiovascular: Negative for chest pain, leg swelling, syncope andnear-syncope. Gastrointestinal: Positive for nausea. Negative for vomiting, abdominalpain and diarrhea. Genitourinary: Negative for dysuria. Musculoskeletal: Negative for back pain. Skin: Negative for rash. Neurological: Positive for dizziness and headaches. Negative for syncope. Psychiatric/Behavioral: Negative for confusion. All other systems reviewed and are negative. Past Medical History Diagnosis Date ? ? Heart attack 07/2006 ? ? CAD (coronary artery disease) ? ? Unspecified sleep apnea ? ? High blood pressure ? ? Hearing loss Past Surgical History Procedure Date ? ? [...] Thyroid Disease Neg Hx Vital Signs Temp: 36.6 ??C (97.9 ??F) (orig temp never got recorded) Temp src: Tympanic Heart Rate: 72 BPM Resp: 19 SpO2: 97 % BP: 128/70 mmHg BP Device: BP Machine Patient Position: Sitting BP Cuff Location: Left arm O2 Device: None (Room air) Physical Exam Nursing note and vitals reviewed. Constitutional: He is oriented to person, place, and time. He appearswell- developed and well-nourished. He appears distressed. HENT: Head: Normocephalic and atraumatic. Right Ear: External ear normal. Left Ear: External ear normal. Nose: Nose normal. Mouth/Throat: Oropharynx is clear and moist. Eyes: Conjunctivae and EOM are normal. Pupils are equal, round, andreactive to light. Right eye exhibits no discharge. Left eye exhibits nodischarge. Neck: Normal range of motion. Neck supple. No JVD present. No trachealdeviation present. No thyromegaly present. Cardiovascular: Normal rate, regular rhythm, normal heart sounds andintact distal pulses. No murmur heard. Pulmonary/Chest: Effort normal and breath sounds normal. No respiratorydistress. He has no wheezes. Abdominal: Soft. Bowel sounds are normal. There is no tenderness. Musculoskeletal: Normal range of motion. He exhibits no edema and notenderness. Neurological: He is alert and oriented to person, place, and time. He hasnormal strength and normal reflexes. He is not disoriented. No cranialnerve deficit or sensory deficit. Coordination normal. Skin: Skin is warm and dry. No rash noted. He is not diaphoretic. Psychiatric: He has a normal mood and affect. His behavior is normal. Radiology orders: CT HEAD WO CONTRAST: No acute hemorrhage EKG 12-LEAD Final Result: Normal sinus rhythm rate of [address] changes Lumbar Puncture Date/Time: 07/16/2011 23:45 Performed by: TOREY CAMERON Authorized by: TOREY CAMERON Consent: Verbal consent obtained. Risks and benefits: risks, benefits and alternatives were discussed Consent given by: patient Indications: evaluation for subarachnoid hemorrhage Anesthesia: local infiltration Local anesthetic: lidocaine 1% without epinephrine Anesthetic total: 5 ml Patient sedated: no Preparation: Patient was prepped and draped in the usual sterilefashion. Lumbar space: L3-L4 interspace Patient's position: left lateral decubitus Needle gauge: 22 Needle length: 3.5 in Number of attempts: 1 Opening pressure: 27 cm H2O Fluid appearance: clear Tubes of fluid: 4 Total volume: 5 ml Post-procedure: adhesive bandage applied Patient tolerance: Patient tolerated the procedure well with no immediatecomplications. Labs Reviewed POCT URINE DIPSTICK - Abnormal; Notable for the following: Protein Trace (*) All other components within normal limits ED Course: A medical screening exam was performed. The patient arrives with suddenonset of headache that was most severe at its onset and a history of onesimilar previous headache without much workup. In concerned aboutsubarachnoid hemorrhage and have recommended a CT and LP. The patient'sblood pressure was addressed with labetalol followed by oral metoprololwith improvement in his blood pressure as well as improvement in hissymptoms. I performed a lumbar puncture which had an elevated openingpressure of 27 mm but did not show signs of cloudiness or xanthochromia ongross evaluation. The patient was signed out to my colleague awaitingresults of the lumbar puncture with anticipated disposition home shouldthe results be normal. The patient will need to followup with his primarycare doctor to address his blood pressure management. For the short-term Irecommended to the patient restarting Toprol. Medications sodium chloride (NS) 0.9 % 1,000 mL BOLUS (0 mL Intravenous Completed07/16/11 2310) labetalol (TRANDATE) injection 10 mg (10 mg Intravenous Given 121) ondansetron (PF) (ZOFRAN) injection 4 mg (4 mg Intravenous Given 156) HYDROmorphone (PF) (DILAUDID) 1 mg/mL injection 1 mg (1 mg IntravenousGiven 07/16/11 2156) metoCLOPramide (REGLAN) injection 10 mg (10 mg Intravenous Given 155) HYDROmorphone (PF) (DILAUDID) 1 mg/mL injection 1 mg (1 mg IntravenousGiven 07/16/11 2356) metoprolol (LOPRESSOR) tablet 50 mg (50 mg Oral Given 07/16/118) Disposition: No disposition on file The patient's pain was managed to an adequate level weighing risk vs.benefit of further medications. Upon departure from the EmergencyDepartment, the patient's pain was 2 on a zero to ten scale. Condition at departure from the Emergency Department: Improved Discharge Prescriptions New Prescriptions No Discharge Prescriptions for this patient MDM Number of Diagnoses or Management Options Diagnosis management comments: 5 Amount and/or Complexity of Data Reviewed Clinical lab tests: ordered and reviewed Tests in the radiology section of CPT??: ordered and reviewed Tests in the medicine section of CPT??: ordered and reviewed Discussion of test results with the performing providers: yes(radiology) 1. Hypertension 2. Headache PCP: Angel Caballero MD 07/17/2011 2:23 Torey Cameron MD MPH PROCEDURE/MINOR S URGICAL ORDERABLES [facility] EKG * EKG 12-LEAD (07/17/2011 2:15 EDT) Impressions [facility] EKG - 07/17/2011 2:15 EDT Normal sinus rhythm rate of [address] changes Torey Cameron MD MPH CARDIAC ECG ORDER SHARON Performing Organization Address City/[facility]/ZIP Co de Phone Number [facility] EKG * BACTERIAL CULTURE/SMEAR, FLUID (07/17/2011 1:45 EDT) Specimen Description Spinal Fluid [facility] Gram Smear Result No polys seen [facility] Gram Smear Result No mononuclear cells seen. [facility] Gram Smear Result No bacteria seen [facility] Result No growth [facility] Report Status 07/22/2011 Final [facility] Cerebrospinal fluid (substance) 07/17/2011 1:45 EDT 07/17/2011 2:00 EDT Torey Cameron MD MPH MICROBIOLOGY - GE NERAL ORDERABLES Performing Organization Address [facility] Co de Phone Number [facility] [address] [place] [address] * (ABNORMAL) TOTAL PROTEIN, CSF (07/17/2011 1:40 EDT) Total Protein, CSF 68(H) 15 - 60 mg/dl [facility] Cerebrospinal fluid (substance) 07/17/2011 1:40 EDT 07/17/2011 1:48 EDT Narrative Authorizing Provider Result Annette Cameron MD MPH GEN LAB UN[facility] ECT ORDERABLES Performing Organization Address [facility] de Phone Number [facility] [address] [place] [address] * GLUCOSE CSF (07/17/2011 1:40 EDT) Glucose, CSF 54 mg/dl [facility] Comment: Ref Range=60-80% of plasma glucose result Cerebrospinal fluid (substance) 07/17/2011 1:40 EDT 07/17/2011 1:48 EDT Torey Cameron MD MPH GEN LAB UN[facility] ECT ORDERABLES Performing Organization Address [facility] Co de Phone Number [facility] [address] [place] [address] * CELL COUNT TUBE 1, CSF (07/17/2011 1:40 EDT) RBC, CSF Tube #1 52 /cmm [facility] Specimen Volume 1.0 ml [facility] Cerebrospinal fluid (substance) 07/17/2011 1:40 EDT 07/17/2011 1:48 EDT Torey Cameron MD MPH GEN LAB UN[facility] ECT ORDERABLES Performing Organization Address [facility] de Phone Number [facility] [address] [place] [address] * CELL COUNT,CSF (07/17/2011 1:40 EDT) RBC, CSF 1 /cmm [facility] Nucleated Cells None seen 0 - 5 /cmm [facility] Total Vol. 5.0 ml [facility] Tube Cntd. 4 [facility] Tube Vol. 1.5 ml [facility] CSF Comment Clear and Colorless [facility] Cerebrospinal fluid (substance) 07/17/2011 1:40 EDT 07/17/2011 1:49 EDT Torey Cameron MD MPH GEN LAB UN[facility] ECT ORDERABLES Performing Organization Address [facility] de Phone Number [facility] [address] [place] [address] * (ABNORMAL) POCT URINE DIPSTICK (07/16/2011 22:47 EDT) Color YELLOW [facility] Clarity, UA Clear [facility] Glucose Neg Neg [facility] Bilirubin Neg Neg [facility] Ketones Neg Neg [facility] Specific Logan 1.020 1.001 - 1.035 [facility] Blood Neg Neg [facility] pH 7.0 4.6 - 8.0 [facility] Protein Trace(A) Neg [facility] Urobilinogen 0.2 0.2 - 1.0 E.U./dl [facility] Nitrite Neg Neg [facility] Leuk Esterase Neg Neg [facility] habilitation specialist ID [id number] [facility] Comment:Test Performed by [facility] Urine specimen (specimen) 07/16/2011 22:47 EDT 07/16/2011 22:57 EDT Torey Cameron MD MPH POINT OF CARE BRITNEY T ORDERABLES [facility] [address] [place] [address] * CT HEAD WO CONTRAST (07/16/2011 21:13 EDT) Anatomical Region Laterality Modality Other 07/16/2011 21:1 3 EDT 07/17/2011 8:22 EDT Narrative 07/17/2011 8:[address] HEAD W/O CONTRAST ??July 16, 2011 09:14:42 PM Signs and Symptoms: ??HEADACHE Comparison: July 17, 2010. Technique: CT images were obtained from the vertex through the foramen magnum. Findings: There is no intracranial mass, hemorrhage or extra-axial fluid collections. ??There is no mass effect or midline shift. Sequeira-white differentiation is preserved. ??The ventricles are normal in size and shape. ??The basal cisterns are patent. ??The orbits appear unremarkable. The paranasal sinuses and mastoid air cells are clear. ?? No fractures are identified. ?? Impression: No acute intracranial abnormality. Procedure Note 07/17/2011 CT HEAD W/O CONTRAST July 16, 2011 09:14:42 PM Signs and Symptoms: HEADACHE Comparison: July 17, 2010. Technique: CT images were obtained from the vertex through the foramen magnum. Findings: There is no intracranial mass, hemorrhage or extra-axial fluid collections. There is no mass effect or midline shift. Sequeira-white differentiation is preserved. The ventricles are normal in size and shape. The basal cisterns are patent. The orbits appear unremarkable. The paranasal sinuses and mastoid air cells are clear. No fractures are identified. Impression: No acute intracranial abnormality. Torey Cameron MD MPH IMG CT ORDERABLES * PROFILE ED CARDIAC PACK (07/16/2011 21:03 EDT) WBC 7.97 4.0 - 10.4 K/cmm [facility] RBC 4.91 4.36 - 5.78 M/cmm [facility] Hemoglobin 14.7 13.8 - 17.3 gm/dl [facility] HCT 43.0 39.5 - 50.2 % [facility] MCV 88 81 - 95 fl [facility] MCH 29.8 27.6 - 33.0 pg [facility] MCHC 34.1 32.8 - 36.4 gm/dl [facility] PLT 276 141 - 320 K/cmm [facility] RDW-CV 13.5 11.8 - 14.1 % [facility] % Neutrophils 68.0 45.5 - 79.7 % [facility] % Lymphocytes 20.4 15.0 - 46.8 % [facility] % Monocytes 6.7 1.8 - 12.0 % [facility] % Eosinophils 4.4 0.6 - 6.9 % [facility] % Basophils 0.5 0.2 - 1.4 % [facility] ABS Neutrophils 5.42 2.20 - 8.85 K/cmm [facility] ABS Lymphs 1.63 1.09 - 3.30 K/cmm [facility] ABS Monocytes 0.54 0.1 - 0.8 K/cmm [facility] ABS Eosinophils 0.35 0.03 - 0.61 K/cmm [facility] ABS Basophils 0.04 0.01 - 0.11 K/cmm [facility] Type of Diff: Automated [facility] Hold Blue Top Sample for coagulation will be discarded after 4 hours [facility] Sodium 140 136 - 145 mEq/L [facility] Comment:Slight hemolysis Potassium 4.8 3.5 - 5.0 mEq/L [facility] Comment: Hemolysis may elevate potassium result. Slight hemolysis Chloride 102 96 - 110 mEq/L [facility] Comment:Slight hemolysis CO2 28 24 - 32 mEq/L [facility] Comment:Slight hemolysis BUN 20 10 - 26 mg/dl [facility] Comment: Results may be affected due to hemolysis. Slight hemolysis Creatinine 0.92 0.66 - 1.25 mg/dl [facility] Comment:Slight hemolysis GFR, Calculated >60 >60 ml/min/1. 73m2 [facility] Comment:Slight hemolysis Glucose, Screening 89 70 - 100 mg/dl [facility] Comment: Results may be affected due to hemolysis. Slight hemolysis Magnesium 2.0 1.7 - 2.8 mg/dl [facility] Comment: Results may be affected due to hemolysis. Slight hemolysis CK 74 0 - 250 U/L [facility] MB 0.60 <4.21 ng/ml [facility] Troponin I (ng/mL) <0.034 <0.034 ng/ml [facility] Blood specimen (specimen) 07/16/2011 21:03 EDT 07/16/2011 21:09 EDT Torey Cameron MD MPH PACKAGES & DNA [place] OBE ORDERABLES Performing Organization Address City/State/[facility] Co de Phone Number [facility] [address] [place] [address] documented in this encounter Visit Diagnoses Diagnosis Hypertension Unspecified essential hypertension Headache(784.0) Headache documented in this encounter Administered Medications Inactive Administered Medications - up to 3 most recent administrations Medication Order MAR Action Action Date Dose Rate Site HYDROmorphone (PF) (DILAUDID) 1 mg/mL injection 1 mg 1 mg, intravenous, NOW X1, 1 dose, On Wed07/16/11 at 2200, STAT Given 07/16/2011 21:56 EDT 1 mg HYDROmorphone (PF) (DILAUDID) 1 mg/mL injection 1 mg 1 mg, intravenous, NOW X1, 1 dose, On Wed07/17/11 at 0015, STAT Given 07/16/2011 23:56 EDT 1 mg Hydromorphone 2 mg Tab STARTER PACK 1 Package, oral, NOW X1, 1 dose, On Wed07/17/11 at 0400, STAT Given 07/17/2011 3:43 EDT 1 Package labetalol (TRANDATE) injection 10 mg 10 mg, intravenous, NOW X1, 1 dose, On Saritha 07/16/11 at 2115, STAT Given 07/16/2011 21:21 EDT 10 mg metoCLOPramide (REGLAN) injection 10 mg 10 mg, intravenous, NOW X1, 1 dose, On Wed07/16/11 at 2215, STAT Given 07/16/2011 21:55 EDT 10 mg metoprolol (LOPRESSOR) tablet 50 mg 50 mg, oral, NOW X1, 1 dose, On Wed07/17/11 at 0015, STAT Given 07/16/2011 23:58 EDT 50 mg ondansetron (PF) (ZOFRAN) injection 4 mg 4 mg, intravenous, NOW X1, 1 dose, On Wed07/16/11 at 2200, STAT Given 07/16/2011 21:56 EDT 4 mg sodium chloride (NS) 0.9 % 1,000 mL BOLUS 1,000 mL, intravenous, Once (Without Time Specified), 1 dose, Starting on Wed07/16/11 at 2115, Until Wed07/16/11 at 212, STAT Given 07/16/2011 21:21 EDT 1,000 mL documented in this encounter Active and Recently Administered Medications Times are shown in EDT. Scheduled Medication Order 07/15/2011 07/16/2011 07/17/2011 HYDROmorphone (PF) (DILAUDID) 1 mg/mL injection 1 mg (COMPLETED) 1 mg, intravenous, NOW X1, 1 dose, On Wed07/16/11 at 2200, STAT 2156 (Given - Provider: Nereyda Sorenson RN) HYDROmorphone (PF) (DILAUDID) 1 mg/mL injection 1 mg (COMPLETED) 1 mg, intravenous, NOW X1, 1 dose, On Wed07/17/11 at 0015, STAT 2356 (Given - Provider: Suad Vaughan RN) Hydromorphone 2 mg Tab STARTER PACK (COMPLETED) 1 Package, oral, NOW X1, 1 dose, On Wed07/17/11 at 0400, STAT 0343 (Given - Provid er: Suad Vaughan RN) labetalol (TRANDATE) injection 10 mg (COMPLETED) 10 mg, intravenous, NOW X1, 1 dose, On Saritha 07/16/11 at 2115, STAT 2121 (Given - Provider: Nereyda Sorenson RN) metoCLOPramide (REGLAN) injection 10 mg (COMPLETED) 10 mg, intravenous, NOW X1, 1 dose, On Saritha 07/16/11 at 2215, STAT 2155 (Given - Provider: Nereyda Sorenson, RN) metoprolol (LOPRESSOR) tablet 50 mg (COMPLETED) 50 mg, oral, NOW X1, 1 dose, On Wed07/17/11 at 0015, STAT 2358 (Given - Provider: Suad Vaughan, SHYANNE) ondansetron (PF) (ZOFRAN) injection 4 mg (COMPLETED) 4 mg, intravenous, NOW X1, 1 dose, On Saritha 07/16/11 at 2200, STAT 2156 (Given - Provider: Nereyda Sorenson, RN) sodium chloride (NS) 0.9 % 1,000 mL BOLUS (COMPLETED) 1,000 mL, intravenous, Once (Without Time Specified), 1 dose, Starting on Saritha 07/16/11 at 2115, Until Saritha 07/16/11 at 2121, STAT 2121 (Given - Provider: Nereyda Sorenson, RN)2310 (Completed - Provider: Nereyda Sorenson, SHYANNE) documented in this encounter Orders Medications Ordered That Miguel ht Not Have Been Administered Count Last Ordered Date First Ordered Date HYDROmorphone (PF) (DILAUDID ) 1 mg/mL injection 0.2 mg 1 07/16/2011 Nursing Count Last Ordered Date First Orde red Date CARDIAC MONITORING 1 07/16/2011 INSERT PERIPHERAL IV 1 07/16/2011 documented in this encounter Care Teams Funeral Planner Relationship Specialty Start Date End Date Angel Caballero MD [address] [place] [phone] PCP - General 04/26/09 documented as of this encounter
--- OUTSIDE RECORDS SUMMARY | 2023-12-29 16:40 | XMS_ITS | Encounter Summary ---
Author Organization [facility] Address [address] [place] [address] Care Team Providers Care Hand Polisher Name Role Phone Angel Caballero MD Primary Care Provider Reason for Visit * Reason Comments Apnea Encounter Details Date Type Department Care Team (Late st Contact Info) Description 03/07/2010 21:30 EST [facility] Visit [facility] [address] [phone] Unknown, Provider, Gudelia Pineda MD [address] [place] [address], [address] [place] [address] Obstructive sleep apnea Social History Tobacco Use Types Packs/Day Years Used Date Smoking Tobacco: Never Alcohol Use Standard Drinks/Week Comments Not Asked 0 (1 standard drink = 0.6 oz pur e alcohol) Sex and Gender Information Value Date Recorded Sex Assigned at Not on file Gender Identity Not on file Sexual Orientation Not on file documented as of this encounter Progress Notes * Gudelia Huggins - 03/13/2010 1102 EST This study has been dictated. * Emily Liriano - 03/11/2010 1610 EST Images from the original note were not included. Sam Eng ([id number]) Polysomnographic Report Recording identification Patient name: Sam Eng Referring Physician Test Date: 03/07/2010 Interpreting physician Sex: M Technologist JS/RG date: 04/29/1934 Height Patient age: 75 years Weight Study # [id number] Indication for Test: R/O PAOLA Medications: Sleep Medications: Test Description: The Multi-channel overnight study consists of a combination of EOG, Chin EMG, EEG, Limb EMG, Thoracic and Abdominal wall movements, Nasal/oral airflow, nasal pressure, ECG, body position and tracheal sound. Sleep Data Light off (LO) : 10:37:23 PM Sleep onset (SO) : 10:47:23 PM Light on (PEDRO) : 6:03:23 AM Durations Time in Bed : 446.0 min Light off -> Light on Total Sleep Time : 390.5 min REM + NREM (during SPT) Sleep Efficiency : 87.6% 100 x TST/TIB REM time : 79.0 min REM (during TIB) NREM time : 312.0 min N1 + N2 + N3 (during TIB) : Latencies From Light off (min) From Sleep onset (min) Sleep onset 10.0 - N1 10.0 0.0 N2 0.0 2.5 N3 65.0 55.0 REM 119.5 109.5 Sleep stages distribution duration TIB TST (min) (%) (%) WK (TIB) 55.0 12.3 - REM 79.0 17.7 20.2 N1 15.0 3.4 3.8 N2 293.0 65.7 74.9 N3 4.0 0.9 1.0 Arousal Summary Total number With resp. event With resp. event & desat Leg Mvt arousal Spontaneous arousal m arousal REM 6 0 0 1 5 m arousal NREM 44 2 4 7 31 m arousal TOT 64 3 4 13 44 arousal >15sec 6 6 0 0 0 Total number of WK or MVT episodes : 22 Arousal index : 10.8/h(sleep) Respiratory Data REM Events CA OA MA Sum Ap Hyp RERA Resp. Events Number 0 0 0 0 10 0 10 Max (sec.) 0.0 0.0 0.0 0.0 24.0 0.0 24.0 Mean (sec.) 0.0 0.0 0.0 0.0 15.7 0.0 15.7 Index (#/h REM) 0.0 0.0 0.0 0.0 7.6 0.0 7.6 Non-REM events CA OA MA Sum Ap Hyp RERA Resp. Events Number 0 0 0 0 15 8 23 Max (sec.) 0.0 0.0 0.0 0.0 38.0 28.0 38.0 Mean (sec.) 0.0 0.0 0.0 0.0 16.6 18.0 17.1 Index (#/h NREM) 0.0 0.0 0.0 0.0 2.9 1.5 4.4 Respiratory events summary (Total sleep time) CA OA MA Sum Ap Hyp RERA Resp. Events Number 0 0 0 0 25 8 33 Max (sec.) 0.0 0.0 0.0 0.0 38.0 28.0 38.0 Mean (sec.) 0.0 0.0 0.0 0.0 16.2 18.0 16.7 Index (#/h NREM) 0.0 0.0 0.0 0.0 3.8 1.2 5.1 Respiratory Event Index Summary (Total sleep time) REM #/h (REM) NREM #/h(NREM) TST #/h (sleep) AHI 7.6 2.9 3.8 RDI 7.6 4.4 5.1 Body Position Summary Total Dur .(min) Total Sleep Dur (min) sleep (%) Total REM Dur (min) Arousal Index CA (#) OA (#) MA (#) HYP (#) REM AHI Non REM AHI KYLEIGH index (#/h) AHI 135.7 129.5 95.4 19.5 2.3 0 0 0 0 0.0 0.0 0.0 0.0 214.4 199.0 92.8 22.0 14.5 0 0 0 25 27.3 5.1 9.3 7.5 64.9 62.0 95.5 37.5 2.9 0 0 0 0 0.0 0.0 0.0 0.0 pos Total Dur.(min) Total Sleep Dur (min) Total Sleep (%) Total REM Dur (min) Arousal Index CA (#) OA (#) MA (#) HYP (#) RERA (#) Non REM RDI REM RDI index (#/h) RDI L 135.7 129.5 95.4 19.5 2.3 0 0 0 0 0.0 0.0 0.0 0.0 P S 214.4 199.0 92.8 22.0 14.5 0 0 0 25 27.3 2.7 0.0 9.9 R 64.9 62.0 95.5 37.5 2.9 0 0 0 0 0.0 0.0 0.0 0.0 Oximetry Summary Oximetry distribution WK REM NREM TOTAL <70 (min) 0.0 0.0 0.0 0.0 <80 (min) 0.0 0.0 0.0 0.0 <89 (min) 0.0 0.0 0.2 0.2 <90 (min) 0.0 0.0 0.2 0.2 Average (%) 97 96 95 95 Minimum 02 90 Desat Index (#/hour) 8.4 3.8 4.8 Desat max (%) 5 7 12 12 Heart Rate Summary Statistics WK REM NREM Mean HR (BPM) 79.1 75.1 76.8 Median (BPM) 77.000 75.000 77.000 Leg Movements Summary Count Index (#/h) Leg movements 56 8.6 Leg movements meeting PLM criteria 27 4.1 Leg movements with respiratory events with arousal 2 0.3 Leg movements with arousal (without respiratory event) 11 1.7 Leg mvts without arousal and without respiratory event 43 6.6 Minutes Total time with PLM : 18.0 min ( 4.6 % of sleep) POSITIVE PRESSURE DISTRIBUTION IPAP Level (cmH2O) EPAP Level (cmH2O) Total Dur (min) Total Sleep (min) Sleep (%) REM Dur % Arousal index Pos 1 Pos1 (% Dur) Pos 2 Pos2 (% Dur) CA (#) OA (#) MA (#) Hypo (#) Min SpO2 <88% KYLEIGH Apnea index AHI 5 5 35.7 34.2 95.8 0.0 5.3 L 100.0 0 0 0 0 94 0.0 0.0 0.0 0.0 6 6 53.8 51.8 96.3 0.0 13.9 S 61.5 L 38.5 0 0 0 3 92 0.0 3.5 0.0 3.5 7 7 253.9 234.9 92.5 25.6 7.9 S 43.3 L 31.1 0 0 0 10 85 0.1 3.6 0.0 2.6 8 8 55.7 53.7 96.4 1.3 7.8 S 100.0 0 0 0 2 91 0.0 3.4 0.0 2.2 9 9 5.5 5.5 100.0 70.9 21.8 S 100.0 0 0 0 5 90 0.0 54.5 0.0 54.5 10 10 8.8 8.8 100.0 100.0 6.8 S 100.0 0 0 0 5 91 0.0 34.1 0.0 34.1 * Gudelia Huggins - 03/10/2010 1348 EST Script AutoCPAP min6, max16 - Need DME * Nubia Velazquez - 03/07/2010 2139 EST [facility] PSG TECH DOCUMENTATION FORM Acquiring Tech: Nubia Velazquez Patient Name: Sam Eng Date of : 1965 Gender: male Date of Service: 03/07/2010 Place of Study: [facility] (Satellite lab) Bed/PC #: 4 Study #: [id number] Provider ordering study: Bhavna Reason for Visit: Titration study MEDICAL HISTORY: Sleep Symptoms: Snoring: Yes. Witnessed Apnea/Abnormal Breathing: Yes. Using oxygen at night at home: No. Restless Sleep: No. Frequent Awakenings: No. Insomnia: No. Leg Kicking/RLS symptoms: No. Unusual behaviors in sleep: No. Daytime Sleepiness or Napping: Yes. Usual Bedtime: 1 - 1:30 am Usual Risetime: 8 am Medications (list name; dosage required only for nighttime meds & stimulants) Already take today (day of sleep study)? FLUTICASONE PROPIONATE (FLOVENT HFA INHL), Flonase nasal spray Will still take tonight? n/a Weight: 242 lbs BEDTIME PATIENT QUESTIONNAIRE Did you use a sleeping medicine last night? No. How many hours of sleep do you feel you got last night ? 6 hours. Was this a typical night? Yes. Did you feel rested this morning? No. Did you nap today? Yes. Please indicate approximately when and for how lon hr, this morning. Caffeine (amount/time) today: None. Alcohol (amount/time) today: None. Other Info: N/A RISETIME PATIENT QUESTIONNAIRE Did you use a sleeping medicine last night? No. How many hours of sleep do you feel you got last night ? 7 hours. How would you describe your sleep last night in our lab compared to a typical night at home? Average, maybe slightly better How do you feel this morning? Pretty good, other then headache. Was CPAP/BiPAP therapy used last night? Yes. Did you find a mask that worked? (please indicate yourpreference to the technologist) Yes, resmed mirage quattro size medium. Did it improve the quality of your sleep? Yes. Do you have a machine at home? No. Do you want us to send in a script for a machine? Yes. Durable Medical Equipment Company choice? Patient took DME form home with him, because he wanted tocheck which companies worked with his insurance, he will bring the form with him to his next appointment or let us know over the phone which company he chose. PSG TECHNOLOGIST LOG SHEET (NOT INTERPRETED BY A PHYSICIAN) Patient's Name: Sam Eng DOS: 03/07/2010 Before Study Sleep Aides: No. Baseline HR: 74 Respiratory Rate: 14 Resting SPO2: 97 room air. Head of Bed elevated? No. Number of pillows? 2 pillows Time 00:00- 24:00 IPAP/ EPAP cm Supp O2 LPM Mask- *Brand *Model *Size Leak Tech observations and Troubleshooting Sleep Stage Body Position/ Video CO2 22:37 5 resmed mirage quattro size med. 30 Lights out w s 23:00 5 40 Reg. Resps, mild snore W, 1, 2 S, r,l 23:23 6 43 Inc. To 6 - snore 2, w l 23:43 6 50 tir - fix leak 2, 3 l 00:17 7 32 Inc. To 7 - cont. Snore, oh 2, w, 1 L, s 00:45 7 33 Mild snore and uar: supine Reg. Resps: lateral 2, w, r S, l 1:15 7 33 Mild snore R, w, 1, 2 l 1:45 7 34 Plm's, mild snore 2, 3 l 2:15 7 34 Sleep onset oh, mild snore 2, 3, w, 1 L, s, r 2:45 7 34 Reg. resps. W, 1, 2, r r 3:17 7 34 tir - ask pt to sleep supine, fix belts R, 2 r 3:45 7 33 Mild snore 2, w, 1 R, s 4:15 7 34 Reg. Resps, sleep onset oh 2, w, 1 s 4:31 8 38 Inc. To 8 - oh, snore, uar: rem W, 2, r s 5:00 8 39 Mild snore, reg. resps. R, 1, 2, w s 5:27 9 38 Inc. To 9 - comparison 2, w, 1 s 5:33 10 40 Inc. To 10 - oh rem, speed titrating 2, r s 6:04 10 39 Lights out R, w s Mask recommended by Technologist: resmed mirage quattro size medium [facility] TITRATION STUDY OBSERVATION REPORT PSG Study #: [id number] Consulting Provider: Bhavna Technologist: Nubia Velazquez Sleep Architecture All stages seen: Yes Sleep Onset REM: No Respiratory Events Type: OH Position of respiratory events: No correlation Snoring: loud Breathing: both oral and nasal Sp0?? REM: Mean Serjio NREM: Mean Serjio If no supine time, why? If no lateral time, why? Arrhythmias:None noted Titration Details: Mask(s) used for study (Strategic Partnership Specialist, Model, and Size): resmed mirage quattro size medium Type of masks used during study:full face mask Technologists recommended interface: resmed mirage quattro size medium Chin Strap needed?No Supine: Pressure apneas eliminated 5 cm H??O Pressure hypopneas eliminated 7 cm H??O Snoring was not eliminated Non - Supine: Pressure apneas eliminated 5 cm H??O. Pressure hypopneas eliminated 5 cm H??O Snoring was not eliminated All stages were seen. SW rebound: No. REM rebound: No. Supplemental O??: O?? was not added Ending pressure: 10 IPAP, 10 EPAP Titration Summary: Patient was titrated based on OH, snoring and UAR. In lateral sleep the patient did well on 7 cm, however mild snoring was still present, and sleep onset OH were also seen. In supine sleep, the patient did well at 8 cm in NREM, once the patient went into REM and increase was madeto 10 cm for OH. Unfortunately the patient woke up and was unable to get back to sleep. The patientreports that he rarely sleeps on his back at home. documented in this encounter Miscellaneous Notes * Study - Gudelia Huggins P - 03/13/2010 1325 EST [facility] SERVICE DATE: 03/07/2010 OVERNIGHT POLYSOMNOGRAM WITH CPAP/BIPAP TITRATION STUDY: [id number]. REFERRING PHYSICIAN: Gudelia Huggins MD CLINICAL HISTORY: A 45-year-old man with severe obstructive sleep apnea here for CPAP titration. MEDICATIONS: Flovent. WEIGHT: 242 pounds. TECHICAL DESCRIPTION: An overnight polysomnogram with CPAP/BiPAP titration was performed on the night ofand attended by a trained senior cytogenetic technologist. Monitoring channels included: EEG channels F3M2, F4M1, C3M2, C4M1, O1M2, O2M1; left and right EOG; submental EMG; bilateral anterior tibialis EMG; thoracic and abdominal respiratory effort by RIP belts; snoring by piezo-electric transducers; airflowby CPAP/BiPAP pressure changes; pulse oximetry; single lead EKG; body position. Selective review ofevents of interest are available from video recording. Scoring criteria is per AASM Manual 2007. PATIENT'S SUBJECTIVE DESCRIPTION: On the night prior to the titration, the patient estimated sleep time at 6 hours. He had no caffeine, no alcohol, and napped for one hour in the morning. On the night of the titration, the patient estimated sleep time at 7 hours and slept average. He would like to obtain equipment but wants to think about the DME selection. FINDINGS: 1. Titration description: The patient used a Mirage Quattro medium full face mask. CPAP was titrated from 5 to 10. 2. Sleep: Lights out occurred at 10:37 p.m. Sleep onset latency and REM onset latency are both normal at 10 minutes and 109 minutes respectively. The patient slept 398 minutes out of 446 minutes in bed resulting in a sleep efficiency of 88%. Sleep stage distribution is normal with REM 20%, N1 4%, N2 75%, N3 1%. Sleep is minimally fragmented with an arousal index for the titration of 11. 3. Respiratory: Resolution of obstructive sleep apnea on CPAP with an AHI of 4, RDI 5 for the titration. Breathing is entirely normal in lateral NREM and REM sleep at a CPAP of 7 and respirations areregular when supine at this setting with some snoring and a few recurrent respiratory events seen at the very end of the night. Of note, the patient was propped up on a large pillow when sleeping supine. Oxygen saturation averages 95% with a serjio of 90% and an oxygen desaturation index of 5 for the titration. 4. Cardiac: Sinus rhythm with an average heart rate of 77. 5. Position/movement. The patient slept 199 minutes supine with the remainder of sleep seen in the left and right lateral position. PLM index of 4. CONCLUSION: Overall, resolution of obstructive sleep apnea on CPAP. CPAP of 7 is adequate in lateral sleep and the patient likely needs a CPAP of approximately 11 in supine sleep. Recommend AutoCPAP min 6, max 16 or alternatively a fixed CPAP of 11 based on this titration. 2. When this study is compared with the prior diagnostic polysomnogram from 2009, breathing and oxygen saturation are now within normal limits and sleep is improved. PLAN: We have contacted the patient regarding the results of the study and he has identified [facility] as his DME choice. A prescription for AutoCPAP was faxed in to [facility] on 03/11/2010 and the patient has an appointment to follow up in April to ensure benefit and compliance on CPAP. Electronically Signed by Gudelia Huggins MD 03/13/2010 13:25 Gudelia Huggins MD Board Certified in Pulmonary and Sleep Medicine - Gudelia Huggins MD P - CMG Job ID: SM Doc ID: [id number] Ext Doc ID: [id number] cc: Angel Caballero MD documented in this encounter Plan of Treatment Not on file documented as of this encounter Visit Diagnoses Diagnosis Obstructive sleep apnea Obstructive sleep apnea (adult) (pediatric) documented in this encounter Care Teams Hand Polisher Relationship Specialty Start Date End Date Angel Caballero MD [address] [place] [phone] PCP - General 04/26/09 documented as of this encounter
--- OUTSIDE RECORDS SUMMARY | 2023-12-29 16:40 | XMS_ITS | Encounter Summary ---
Author Organization [facility] Dc carmen [place] [address] Care Team Providers Care Pre Sales Systems Engineer Name Role Phone Unavailable Primary Care Provider Unavailabl e Encounter Details Date Type Department Care Team (Late st Contact Info) Description 02/03/2022 Ancillary Procedure Radiology Library at [facility] [place] [phone] Johan Cote MD [address] [place] [address] Social History Tobacco Use Types Packs/Day Years [...] Associated Diagnosis Comments FILM LIBRARY STORAGE ONLY MR SHOULDER Routine 02/03/2022 12:00 AM EST documented in this encounter Results * Film Library- Storage Only MR Shoulder (02/03/2022 12:00 AM EST) Narrative DAISY - 02/11/2022 3:11 PM EST This exam is auto-finalizing. It's purpose is for storage only. Johan Cote MD IMG FILM LIBRARY ORD ERABLES [place] documented in this encounter Visit Diagnoses Not on filedocumented in this encounter
--- OUTSIDE RECORDS SUMMARY | 2023-12-29 16:40 | XMS_ITS | Encounter Summary ---
Author Organization [facility] Address [address] [place] [address] Care Team Providers Care Special Duty Nurse Name Role Phone Angel Caballero MD Primary Care Provider Reason for Referral * Consult, Test and Treat (Routine/Next Available) - Closed Specialty Diagnoses / Procedures [facility] Referred To Contact Rehab Therapies Diagnoses Peroneal tendinitis Jessica Velazquez NP [address] [place] [phone] [facility] [address] [place] [id number] Referral ID Status Reason Start Date Expiration Date V isits Requested Visits Authorized [id number] Closed Specialty Services Required 07/06/2011 1 1 Question Answer Reason for Request: Peroneal tendonitis Comments Stretching and proprioception exercises Please evaluate also for limb length discrepancy and inserts Reason for Visit * Reason Comments Follow-up peroneal tendonitis Encounter Details Date Type Department Care Team (Late st Contact Info) Description 07/06/2011 9:30 EDT Office Visit [facility] - [facility] [place] [address] Jessica Velazquez NP [address] [place] [phone] Peroneal tendinitis (Primary Dx) Social History Tobacco Use Types [...] as of this encounter Progress Notes * Irving Velazquez, JEFF - 07/06/2011 1051 EDT Diagnosis: 1. Peroneal tendinitis (726.79) AMB CONSULT PHYSICAL THERAPY SUBJECTIVE: Sam Eng is being seen today for Follow-up . He was originally sent as a consultation from Dr. Caballero. He states that his right ankle is feeling better. He wore the ankle support brace for a little over 3 weeks. He has been without it for a few days now and has no pain. He states that he has intermittent pain in his right heel but not much. Patient is requesting to be fitted with orthotics he can put in his work boots. He state in his work boots. 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 He was given a heel lift that he wore for about a year. He is unsure if the left made a difference. He recently bought [employer] shoes that feel very comfortable, so he is wondering about having inserts in his work boots. Pain Vitals: Pain Location: Foot (right ankle hurt previously, today the heel is most painful) Numeric Pain Level (Scale 1-10): 3 Pain in another site? : No Pain Quality: Sore Outpatient Prescriptions Prior to Visit Medication Sig Dispense Refill ??? naproxen (NAPROSYN) [...] this once a day. No Known Allergies OBJECTIVE: Constitutional: NAD, A&O x3 Gait: Normal. Neurology:right foot sensation intact Vascular: right pedal pulses palpable Musculoskeletal: ROM right ankle normal Tenderness: right:no tenderness on peroneal - no tenderness on heel Swelling: right: none Imaging: none ASSESSMENT: 1. Peroneal tendinitis (726.79) AMB CONSULT PHYSICAL THERAPY Improving tendonitis Other Orders Placed This Visit Procedures ??? Ambulatory Consult Physical Therapy PLAN: I spent a total of 30 minutes in face to face time with this patient and 20 minutes of that time was spent in counseling and coordination of care as described in the progress note. Immobilization: none Activities: Activity as tolerated Physical therapy: stretching and proprioception exercises - evaluate for limb discrepancy Orthotics: consult with PT Imaging at next visit::none Follow up: Return if symptoms worsen or fail to improve. Cc: Referring Provider - Dr. Caballero PCP - Angel Caballero MD documented in this encounter Plan of Treatment Scheduled Referrals Name Type Priority Associated Diagnoses Orde r Schedule AMB CONSULT PHYSICAL THERAPY Outpatient Referral Routine Peroneal tendinitis Ordered: 07/06/2011 documented as of this encounter Visit Diagnoses Diagnosis Peroneal tendinitis- Primary Other enthesopathy of ankle and tarsus documented in this encounter Care Teams Special Duty Nurse Relationship Specialty Start Date End Date Angel Caballero MD [address] [place] [phone] PCP - General 04/26/09 documented as of this encounter
--- OUTSIDE RECORDS SUMMARY | 2023-12-29 16:40 | XMS_ITS | Encounter Summary ---
Author Organization [facility] Dc [address]men [place] [address] Care Team Providers Care Atomic Spectroscopist Name Role Phone Unavailable Primary Care Provider Unavailabl e Encounter Details Date Type Department Care Team (Late st Contact Info) Description 01/14/2022 Ancillary Procedure Radiology Library at [facility] [place] [phone] Johan Cote MD [address] [place] [address] Social History Tobacco Use Types Packs/Day Years [...] FILM LIBRARY STORAGE ONLY DX SHOULDER Routine 01/14/2022 12:00 AM EST documented in this encounter Results * Film Library- Storage Only DX Shoulder (01/14/2022 12:00 AM EST) Narrative DAISY - 02/11/2022 3:06 PM EST This exam is auto-finalizing. It's purpose is for storage only. Johan Cote MD IMG FILM LIBRARY ORD ERABLES [place] One[place] documented in this encounter Visit Diagnoses Not on filedocumented in this encounter
--- OUTSIDE RECORDS SUMMARY | 2023-12-29 16:40 | XMS_ITS | Encounter Summary ---
Author Organization [facility] Address [facility] [place] [address] Care Team Providers Care Inspector Balance Truing Name Role Phone Angel Caballero MD Primary Care Provider [phone] Encounter Details Date Type Department Care Team (Late st Contact Info) Description 01/13/2023 1:00 PM EST TH Visit (TeleHealth) [place] [phone] Chris Sanon MD [facility] [place] [address] Bone lesion Social History Tobacco Use Types [...] as of this encounter Progress Notes * Chris Sanon MD - 01/13/2023 1:00 PM EST Images from the original note were not included. Orthopaedic Oncology Attending Outpatient Note [facility] [place], [place] [address] FAX: [facility] Newsletter Chief Complaint: Follow-up for enchondroma History of Present Illness: Mr. Eng reports doing well overall. His shoulder has improved with physical therapy. Imaging: Mr. Eng's imaging was completed at [facility]. I see no sinister changes associated with the bone lesion. Decision-Making and Plan: Has done PT for his rotator cuff, motion is improved. We now have about 1 year of imaging for his shoulder. I do not see any changes that would indicate malignant transformation. Mr. Eng does not feel the need to repeat imaging further, therefore we can do as needed follow-up. I answered all his questions to the best my ability, he demonstrated good comprehension of the answers, he will call with questions, concerns, or if he experiences any new symptoms or findings. Patient verbally consents to this telephone visit and understands that this visit may be billed, similar to a clinic office visit. I provided care to the patient today via telephone call. The total time associated with this visit was 11 minutes. Please copy this note to: Angel Caballero MD [address] [place] [address] No referring provider defined for this encounter. documented in this encounter Plan of Treatment Not on file documented as of this encounter Visit Diagnoses Diagnosis Bone lesion Disorder of bone and cartilage, unspecified documented in this encounter Care Teams Inspector Balance Truing Relationship Specialty Start Date End Date Angel Caballero MD [address] [place] [id number] PCP - General Family Medicine 07/14/22 documented as of this encounter
--- OUTSIDE RECORDS SUMMARY | 2023-12-29 16:40 | XMS_ITS | Encounter Summary ---
Author Organization [facility] Address [address] [place] [address] Care Team Providers Care Gear Tester Name Role Phone Angel Caballero MD Primary Care Provider Reason for Referral * Consult (Routine) - Closed Specialty Diagnoses / Procedures [facility] To Contact Otolaryngology Diagnoses Obstructive sleep apnea Nasal obstruction Gudelia Huggins MD [address] [place] [phone] Referral ID Status Reason Start Date Expiration Date V isits Requested Visits Authorized [id number] Closed Specialty Services Required 03/05/2010 1 1 Question Answer Reason for Request: Nasal obstruction. with severe PAOLA, and difficulty of CPAP tiration. History of rhinitis/URIs. Comments Please evaluate for nasal obstruction. Also, explore ideas of surgical intervention in the setting of severe PAOLA with possible difficult of CPAP usage. Reason for Visit * Reason Comments Other Dx with PAOLA in , concerned with breathing probs (lung, congestion) before titration Encounter Details Date Type Department Care Team (Late st Contact Info) Description 03/05/2010 11:10 EST Office Visit [facility] - [address] [address] Gudelia Huggins MD [address] [place] [phone] Obstructive sleep apnea (Primary Dx); Nasal obstruction Social History Tobacco Use Types Packs/Day Years [...] Sign Reading Time Taken Comments Blood Pressure 140/94 03/05/2010 1127 EST Pulse 77 03/05/2010 1127 EST Temperature - - Respiratory Rate 14 03/05/2010 1127 EST Oxygen Saturation 98% 03/05/2010 1127 EST Inhaled Oxygen Concentration - - Weight 111.6 kg (246 lb) 03/05/2010 1127 EST Height 172.7 cm (5' 8) 03/05/2010 1127 EST Body Mass Index 37.4 03/05/2010 1127 EST documented in this encounter Progress Notes * Pablo Capps MD - 03/06/2010 0009 EST This office note has been dictated. * Gudelia Huggins - 03/05/2010 1303 EST Full Note Dictated by Fellow. Trial of CPAP/BiPAP today Quatro FFM M Tolerated CPAP 5-10 without difficulties, preferred it to BiPAP Assessment: Severe PAOLA Nasal obstruction complicating CPAP treatment H/o bronchitis/reactive airways (CXR negative) in Fall 2009 Plan Overnight CPAP titration ENT consult for nasal airway evaluation/surgery to improve on CPAP tolerance; Also discuss PAOLA surgical Rx although low likelihood of resolution due to micrognathia & obesity Spirometry 60 minutes, with over half spent in discussion, education, mask fitting and trial of CPAP/BiPAP documented in this encounter Consult Notes * Pablo Capps MD - 03/18/2010 1320 EST [facility] CONSULTATION - 03/05/2010 REASON FOR CONSULTATION: Evaluation for sleep apnea. HISTORY OF PRESENT ILLNESS: Mr Eng is a very pleasant 45-year-old gentleman with a history of presumed heart attack in July of 2006, which required a cardiac catheterization, but no cardiac stent or cardiac bypass. He was told that his heart attack resolved spontaneously; however, I do not have any clear documentation officially of what happened. Currently he is not any cardiovascular medication. He has a history of obesity and was told that he has been snoring; witnessed apnea with suddenly waking up gasping or shortness of breath. Normally he goes to sleep around 1 a.m. until 7:30 a.m. He also reports to have a history of intermittently waking up during the night and could not go back to sleep. Confirmed to have trouble at work because of sleepiness and of trouble concentrating or remembering things. Significant weight gain more than 20 pounds in the past two years. As I mentioned above, he did have overnight polysomnogram done on 11/14/2009 which revealed severe obstructive sleep apnea with significant oxygen desaturation. He was then subsequently scheduled to have a CPAP titration study in December. However, he was unable to proceed because of onset of bronchi tis/URI's, associated with coughing, nasal congestion. Mr Eng mentioned that back in December hedeveloped upper respiratory infections associated with nasal congestion, coughing and presumed diagnosis of bronchitis. He was treated with a full course of azithromycin as well as short course of prednisone. Symptoms resolved. He is no longer having any upper respiratory infections, but continued nasal congestion. Currently he is using Flovent. He did mention that, because of his snoring and witnessed at night, he has been using a pillow and so far has been able to sleep laterally and this reduced the snoring as well. Subsequently, he is indeed feeling a little better. However, he is still experiencing increasing daytime sleepiness, fatigue and difficulty falling asleep. PAST MEDICAL HISTORY: Presumed heart attack in 07/2006 in [place] when he was admitted to [facility], undergoing cardiac catheterization; however, he did not require any cardiac stent or any operation and currently he is not on any heart medication. He has no diabetes, no hypertension, no history of stroke. PAST SURGICAL HISTORY: Noncontributory for this admission. He did not have any neck/throat surgery. FAMILY AND SOCIAL HISTORY. He never smoked. 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 He liveswith his . Four children, all healthy. He also denied any history of childhood asthma, reactive airway disease. REVIEW OF SYSTEMS: As mentioned above, a 10-point review of systems was reviewed. Otherwise, other systems were negative. No headache, no nausea, no vomiting, no chest pain, no palpitations, no fevers, no chills. ALLERGIES: He is not known to be allergic to any medications. MEDICATIONS: Flovent p.r.n. OBJECTIVE: His vital: Blood pressure 140/94, heart rate 76, respiratory rate 15, O2 sat 90% on roomair. Weight 246 pounds. He is quite pleasant, alert, no respiratory distress. HEENT: Pupils reactive. Diminished air movement nasally on the left nostril. No sinus tenderness upon palpation. Oropharyngeal. Very crowded more than +3. Thick neck. Size of 20 inches. Lungs are clear upon auscultation, no wheezing, no crackles, no rales. Cardiac: Positive S1, S2, regular rate and rhythm, no murmur. Abdomen: Obese. Lower extremities: No rash, no lymph, no joint tenderness upon palpation. Neuro: Pleasant, alert, appropriate x3. No focal deficit. Lee score of 6, neck size 20. ASSESSMENT AND PLAN: This is a very pleasant 45-year-old gentleman with overnight polysomnogram in October suggestive of severe obstructive sleep apnea in the setting of history of witnessed apnea,morbid obesity. Nasal obstruction. He was unable to tolerate CPAP titration in December due to bronchitis, reactive airway disease at that time. Presently he is asymptomatic. We also reviewed a chest x-ray in December of 2009, which was very much unremarkable and no acute pulmonary findings. We recommend the followin. Overnight CPAP titration. 2. ENT consult for nasal airway evaluation, possibility of surgery to improve a CPAP tolerance. 3. Spirometry with bronchodilator. 4. He also had a trial of CPAP and BiPAP today at the office. Quattro FFMM fits him the best. He was able to tolerate CPAP 5 to 10, preferred to the BiPAP. 5. We discussed the risks and benefits of PAOLA. We also strongly encouraged him to lose weight. Thank you for the opportunity to participate in the care of Mr. Eng. Mr Eng was seen, examined and discussed with Dr Huggins. Attending Trial of CPAP/BiPAP today Susan Fletcher Tolerated CPAP 5-10 without difficulties, preferred it to BiPAP Assessment: Severe PAOLA Nasal obstruction complicating CPAP treatment H/o bronchitis/reactive airways (CXR negative) in Fall 2009 , symptoms mostly resolved Plan Overnight CPAP titration ENT consult for nasal airway evaluation/surgery to improve on CPAP tolerance; Also discuss PAOLA surgical Rx although low likelihood of resolution due to micrognathia & obesity Spirometry 60 minutes, with over half spent in discussion, education, mask fitting and trial of CPAP/BiPAP I saw and examined the patient with the resident/fellow. I agree with the findings and plan of caredocumented in the resident's/fellow's note. Edited and Electronically Signed by Gudelia Huggins MD 03/18/2010 13:19 Electronically Reviewed by Pablo Capps MD 03/07/2010 09:47 Pablo Capps MD Gudelia Huggins MD Board Certified in Pulmonary and Sleep Medicine - Pablo Capps MD - [facility] Job ID: SM Doc ID: [id number] Ext Doc ID: [id number] cc: Angel Caballero MD documented in this encounter Plan of Treatment Scheduled Referrals Name Type Priority Associated Diagnoses Orde r Schedule AMB CONSULT ENT Outpatient Referral Routine Obstructive sleep apnea Nasal obstruction Ordered: 03/05/2010 documented as of this encounter Visit Diagnoses Diagnosis Obstructive sleep apnea- Primary Obstructive sleep apnea (adult) (pediatric) Nasal obstruction Other diseases of nasal cavity and sinuses documented in this encounter Historical Medications * This list may reflect changes made after this encounter. Medication Sig Dispensed Refills Start Date End Date FLUTICASONE PROPIONATE (FLOVENT HFA INHL) Inhale 2 Puffs as directed 2 times daily. Pt states he usually uses this once a day. 05/09/2010 09/10/2011 added in this encounter Orders PFT Count Last Ordered Date First Orde red Date SPIROMETRY WITH BRONCHODILATOR 1 03/05/2010 documented in this encounter Care Teams Gear Tester Relationship Specialty Start Date End Date Angel Caballero MD [address] [place] [phone] PCP - General 04/26/09 documented as of this encounter
[2023-12-29 19:38] LABS: HCT 43.1 % (40.0-50.0); HGB 14.1 g/dL (13.5-17.5); MCH 29.1 pg (27.0-33.0); MCHC 32.7 % (32.0-36.0); MCV 89 fL (80-95); MPV 10.9 fL (8.0-11.0); Platelet Count 252 10^3/uL (130-400); RBC 4.84 10^6/uL (4.36-5.78); RDW 12.8 % (11.8-14.1); RDW-SD 42.1 fL
[2023-12-29 20:02] LABS: Hemoglobin A1C 5.8 % (<5.7)
[2023-12-29 20:08] LABS: ALT 31 U/L (16-63); AST 24 U/L (15-37); Albumin 3.6 g/dL (3.4-5.0); Alkaline Phosphatase 73 U/L (46-116); Anion Gap 8.2 mmol/L (3-11); BUN 26 mg/dL (7-18); Bilirubin, Total 0.27 mg/dL (0.2-1.0); CO2 26.8 mmol/L (21.0-32.0); CREATININE 1.1 mg/dL (0.70-1.30); Calcium 9.3 mg/dL (8.5-10.1); Calculated LDL 67 mg/dL (<100); Chloride 106 mmol/L (98-107); Cholesterol 200 mg/dL (<200); Estimated GFR 77.33 (mL/min/1.73m2); Glucose 94 mg/dL (74-106); HDL Cholesterol 74 mg/dL (40-60); Potassium 4.1 mmol/L (3.5-5.1); Sodium 141 mmol/L (136-145); Total Protein 7.3 g/dL (6.4-8.2); Triglyceride 297 mg/dL (<150)
== END 2023-12-29 16:35 | disposition home or self-care (01) ==
LOC: NCHCN 16:34
PROVIDERS: PCP Nurse Practitioner Family; Visit Provider Nurse Practitioner Family
DX: Z00.00 Encounter for general adult medical examination without abnormal findings (principal)
CPT/HCPCS: 80053; 80061; 85027; 83036

== ENCOUNTER 2024-10-09 00:07 | Emergency (ER) | payer OTHER, SELFPAY ==
[2024-10-09 00:11] VITALS: BP 184/104; PULSE 71; RESP 18; TEMP 35.5; O2SAT 97
--- NOTE | 2024-10-09 00:15 | DI.RAD_ITS ---
Exam(s) XR SHOULDER RT COMPLETE 2+V EXAM: XR SHOULDER RT COMPLETE 2+V CLINICAL HISTORY: right shoulder pain. TECHNIQUE: 2D digital imaging was performed. COMPARISON: CR XR SHOULDER LT COMPLETE 2+V from 01/04/2023 FINDINGS: Five views. No evidence of fracture or dislocation or abnormal soft tissue calcifications. Subacromial space is not diminished. There are moderate degenerative changes in the glenohumeral and AC joints. Bone density normal. No osseous lesions. IMPRESSION: Degenerative changes in the glenohumeral and AC joints. No acute osseous findings. DATA REPOSITORY: RADIATION DOSE DELIVERED:
--- NOTE | 2024-10-09 00:25 | W.ED.GENAD ---
Discharge Plan Disposition Patient Disposition: Home Condition: Good Discharge Details Clinical Impression: Acute shoulder pain Primary Care Provider: Malvin Chavez ED Provider: Mariaa Salinas Home Meds and New Rx's Prescriptions: New cyclobenzaprine 5 mg tablet 5 mg PO TID PRNQty: 14 0RF Continued acetylcysteine [NAC] 600 mg capsule 1,200 mg PO BID cyanocobalamin (vitamin B-12) 1,000 mcg capsule 1,000 mcg PO DAILY albuterol sulfate [ProAir HFA] 90 mcg/actuation HFA aerosol inhaler 2 puff inhalation Q4H PRN albuterol sulfate 2.5 mg /3 mL (0.083 %) solution for nebulization 2.5 mg inhalation .[id number] magnesium oxide 400 mg magnesium tablet 400 mg PO DAILY Arnuity Ellipta 200 mcg/actuation blister with device 1 inh inhalation Q24H Qty: 30 12RF aspirin 81 mg Tablet,Delayed Release (Dr/Ec) 81 mg PO DAILY lisinopril 10 mg Tablet 10 mg PO DAILY montelukast [Singulair] 10 mg Tablet 10 mg PO QHS Discontinued riboflavin (vitamin B2) 100 mg tablet 200 mg PO BID methocarbamol 500 mg tablet 750 mg PO Q6H PRN (Reason: pain or spasm) Qty: 20 0RF Discharge Instructions Instructions: Shoulder Pain ED Additional Instructions: Tyelnol and ibuprofen over the counter for pain; follow the directions on the bottle. Rest your arm as much as possible. You can also use ice. You can take cyclobenzaprine, a muscle relaxer up to every 8 hours as needed for pain and spasm. Do not drive while taking this as it can make you sleepy. Call your primary care doctor in the morning to schedule an appointment for within 72 hours to followup on your visit here. At that visit please also discuss your blood pressure which is high here today. Return to the emergency department for new or worsening symptoms including numbness or weakness in your arm, severe pain not improved with medication at home, chest pain, shortness of breath, or if you have any other concerns. HPI General Mode of arrival: ambulatory. Date/Time Provider Initiated Documentation: 10/09/24 00:08. Limitations to Documentation: no limitations. Information obtained by: patient. HPI Narrative: 59yo M with hx HTN, CAD, asthma, presenting with right shoulder pain. Started 4 days ago and has been constant and worsening since onset. Pain is burning, aching, and worse with movement and some positions. No numbness, tinlging, weakness. No recent trauma or injury to the area. No chest pain, back pain, pleurtic pain, or shortness of breath. Otherwise in his usual state of heatlh Related Data Home Medications ?Medication ?Instructions ?Recorded ?Confirmed aspirin 81 mg tablet,delayed 81 mg PO DAILY 10/27/18 10/09/24 release lisinopril 10 mg tablet 10 mg PO DAILY 10/27/18 10/09/24 montelukast 10 mg tablet 10 mg PO QHS 10/27/18 10/09/24 (Singulair) acetylcysteine 600 mg capsule (NAC) 1,200 mg PO BID 05/12/21 10/09/24 albuterol sulfate 2.5 mg/3 mL 2.5 mg inhalation .[id number] 05/12/21 10/09/24 (0.083 %) solution for nebulization albuterol sulfate 90 mcg/actuation 2 puff inhalation Q4H PRN 05/12/21 10/09/24 aerosol inhaler (ProAir HFA) cyanocobalamin (vitamin B-12) 1,000 mcg PO DAILY 05/12/21 10/09/24 1,000 mcg capsule magnesium oxide 400 mg PO DAILY 05/12/21 10/09/24 fluticasone furoate 200 1 inh inhalation Q24H #30 ea 07/21/24 10/09/24 mcg/actuation blister powder for inhalation (Arnuity Ellipta) cyclobenzaprine 5 mg tablet 5 mg PO TID PRN #14 tabs 10/09/24 Previous Rx's ?Medication ?Instructions ?Recorded fluticasone furoate 200 1 inh inhalation Q24H #30 ea 07/21/24 mcg/actuation blister powder for inhalation (Arnuity Ellipta) cyclobenzaprine 5 mg tablet 5 mg PO TID PRN #14 tabs 10/09/24 Allergies Allergy/AdvReac Type Severity Reaction Status Date / Time No Known Allergies Allergy Verified 10/09/24 00:14 General Stated Complaint: Orthopedic AMA: 4 Review of Systems Narrative: see HPI Exam Narrative Exam Narrative: General: Alert, well appearing, well nourished, in no acute distress. Head: Normocephalic, atraumatic Neck: Trachea midline, ?Neck supple. Cardiac: ?RRR, no murmurs appreciated Resp: No respiratory distress. CTAB. Abd: ?Non-distended Extremities: ?No deformities.? No peripheral edema. Right shoulder with severe reproducible tenderness at insertion of subscapularis. Moderate pain with passive ROM at shoulder. Sensation intact to light touch throughout RUE. 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 Limited strength testing at shoulder 2/t pain Neurologic: GCS 15. ? Moves all extremities freely against gravity Course Vital Signs Vital signs: Vital Signs Temperature 35.5 C L 10/09/24 00:11 Pulse 71 10/09/24 00:11 Respiratory Rate 18 10/09/24 00:11 Blood Pressure 184/104 H 10/09/24 00:11 Pulse Oximetry 97 10/09/24 00:11 Temperature 35.5 C L 10/09/24 00:11 Temperature Source Tympanic 10/09/24 00:11 Pulse 71 10/09/24 00:11 Respiratory Rate 18 10/09/24 00:11 Blood Pressure 184/104 H 10/09/24 00:11 Blood Pressure Position Sitting 10/09/24 00:11 Pulse Oximetry 97 10/09/24 00:11 Oxygen Delivery Method Room Air 10/09/24 00:11 Oxygen Flow Rate 0 10/09/24 00:11 Medical Decision Making 59yo M with hx HTN, CAD, asthma, presenting with right shoulder pain. Started 4 days ago and has been constant and worsening since onset, burning, aching, and worse with movement and some positions. Hypertensive on arrival, vital signs otherwise reassuring. Clear exquisite reproducible tenderness to right shoulder at insertion of subscapularis. Not suggestive of ACS, pulmonary embolism pneumothorax, aortic dissction. Will get xr to evaluate to further evaluate; treat sympmtoms with tylenol and toradol. Drove himself here so will hold on muscle relaxers at this time. No indication for labs/EKG/CT/CXR. Plain films independently reviewed; no dislocation or displaced fracture on my view, radiology read with degenerative changes. On reassessment he reports pain has improved. Remains tender on exam but also improved. Advised symptomatic treatment at home, rest, close PCP followup. Will prescribe short course of cyclobenzaprine. Discharged home; discharge instructions and return precautions were reviewed with patient who verbalized understanding. All questions were answered and he is in full agreement with the plan. IMPRESSION: No acute radiographic findings. Degenerative change PFSH All Active Problems (Updated 10/09/24 @ 01:39 by Mariaa Salinas MD) Acute shoulder pain (Acute) Immunization due (Acute) Traumatic tear of left rotator cuff (Acute 01/14/22) Enchondroma of left humerus (Acute) Left-sided chest pain (Acute) Medical History Asthma Bursitis CAD (coronary artery disease) Family hx of alcoholism Hearing loss History of heart attack Hypertension Mild memory disturbance Sleep apnea Surgical History History of hernia repair History of sinus surgery Social History Smoking/Tobacco Use Status: Never Smoking risk assessment performed?: Yes Alcohol Intake: current Alcohol Intake frequency: a few times a week Alcohol type: wine Drug use: Never Substance use type: does not use Do you feel safe at home: Yes Do you feel safe in your relationship?: Yes
[2024-10-09] MEDS: Ketorolac 15 MG/ML VIAL IM (00:41)
[2024-10-09] MEDS: Acetaminophen 500 MG TAB 1000 MG PO (00:41)
--- NOTE | 2024-10-09 01:31 | DI.VRAD_ITS ---
PROCEDURE INFORMATION: Exam: XR Right Shoulder Exam date and time: 10/09/2024 1:03 AM Age: 59 years old Clinical indication: Shoulder; Right; Pain, no trauma TECHNIQUE: Imaging protocol: Radiologic exam of the right shoulder. Views: 2 or more views. COMPARISON: CR XR CHEST 2V PA LATERAL 04/29/2020 6:49 PM FINDINGS: Bones/joints: No acute fracture or dislocation. Moderate degenerative changes are present at the acromioclavicular joint and the glenohumeral joint. The visualized ribs are intact. Lungs: The visualized right lung is clear. Soft tissues: Normal. IMPRESSION: No acute radiographic findings. Degenerative change. Dictated and Authenticated by: Nlisa Sofia MD. Orderin Rita Leroy MD
== END 2024-10-09 01:48 | disposition home or self-care (01) ==
PROVIDERS: Emergency Provider Student in an Organized Health Care Education/Training Program; PCP Nurse Practitioner Family
DX: M25.511 Pain in right shoulder (principal); I10 Essential (primary) hypertension
CPT/HCPCS: 99283; 99284; 96372; 73030; J1885

== ENCOUNTER 2025-01-09 15:25 | Outpatient (REF) | payer OTHER, SELFPAY ==
[2025-01-09 20:06] LABS: Hemoglobin A1C 5.5 % (<5.7)
[2025-01-09 20:09] LABS: ALT 37 U/L (10-49); AST 26 U/L (<34); Albumin 4.1 g/dL (3.4-5.0); Alkaline Phosphatase 78 U/L (46-116); Anion Gap 9.8 mmol/L (3-11); BUN 23 mg/dL (9-23); Bilirubin, Total 0.30 mg/dL (0.2-1.2); CO2 28.2 mmol/L (20.0-31.0); Calcium 9.0 mg/dL (8.3-10.6); Chloride 107 mmol/L (98-107); Glucose 82 mg/dL (74-106); Potassium 4.3 mmol/L (3.5-5.1); Sodium 145 mmol/L (136-145); Total Protein 6.5 g/dL (5.7-8.2)
[2025-01-10 18:43] LABS: Hepatitis C Ab w Rflx HCV PCR Negative (Negative)
== END 2025-01-09 15:26 | disposition home or self-care (01) ==
LOC: NCHCN 15:25
PROVIDERS: PCP Nurse Practitioner Family; Visit Provider Nurse Practitioner Family
DX: Z00.00 Encounter for general adult medical examination without abnormal findings (principal); Z11.59 Encounter for screening for other viral diseases
CPT/HCPCS: 80053; 86803; 83036